=== PATIENT | male | born 1975 | race Caucasian/White ===

== ENCOUNTER 2017-06-23 22:02 | Emergency (ER) | payer BC ==
[2017-06-23] MEDS ORDERED: Ketorolac INJ* 30 MG/ML 1 ML VIAL IV PUSH ONE (22:43)
[2017-06-23] MEDS ORDERED: Ondansetron INJ* 2 MG/ML VIAL IV ONE (22:43)
[2017-06-23] MEDS ORDERED: NS 0.9% 1000 ML* 2,000 ML IV ONE (22:43)
[2017-06-23 22:59] LABS: ABS Basophils 0.1 10^3/ul (0-0.2); ABS Eosinophils 0.3 10^3/ul (0-0.6); ABS Lymphocytes 4.6 10^3/ul (1.0-4.8); ABS Neutrophils 2.9 10^3/ul (1.5-7.7); ABS Nucleated RBC 0 10^3/ul; Eosinophil % 2.9 % (0-6); Hematocrit 46 % (42-52); Hemoglobin 16.2 g/dl (14.0-18.0); Mean Corpuscular HGB Conc 35 g/dl (31-36); Mean Corpuscular Hemoglobin 33 pg (27-31); Mean Corpuscular Volume 94 fL (80-94); Nucleated Red Blood Cells % 0.1; Platelet Count 242 10^3/ul (150-450); Red Blood Count 4.92 10^6/ul (4.0-5.4); Red Cell Distribution Width 14 % (10.5-15); White Blood Count 8.8 10^3/ul (3.5-10.8)
[2017-06-23 23:15] LABS: EGFR Non-African American 81.4 (>60)
[2017-06-23] MEDS ORDERED: Iohexol 300* (CONTRAST) 10 ML SDV IV ONE (23:17)
[2017-06-24 02:45] VITALS: BP 0/0
--- NOTE | 2017-06-24 08:34 | RAD ---
Indication: Diffuse abdominal pain. Contrast: Administered 100.1 ml of OMNIPAQUE 300 mg/ml CT of the abdomen and pelvis was performed after IV contrast administration. No oral contrast was given. Coronal and sagittal reconstructed images were obtained. The lung bases demonstrate no pleural fluid, nodules or masses. Heart is of normal size without evidence of pericardial effusion. The liver is normal in size. No focal lesions or intrahepatic ductal dilatation is noted. The spleen is normal in size. No adrenal lesions are noted. No retroperitoneal lymphadenopathy is noted. The kidneys demonstrate small cortical cyst in the left kidney measuring up to 8 mm. Calcification is noted in the upper pole right kidney with no hydronephrosis. No retroperitoneal lymphadenopathy is noted. CT of the pelvis demonstrates no retroperitoneal or pelvic lymphadenopathy. Urinary bladder is unremarkable. No hernias are noted. No hernias are noted. The colon is filled with stool. The prostate is otherwise unremarkable. Small lymph nodes are noted in the region IMPRESSION: No abnormal masses or fluid collections are noted.
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
== END 2017-06-24 02:44 | disposition left against medical advice (07) ==
LOC: ED 22:02
DX: R10.84 Generalized abdominal pain (principal); R11.2 Nausea with vomiting, unspecified; R19.7 Diarrhea, unspecified; M79.1 Myalgia; R05 Cough; I10 Essential (primary) hypertension; K21.9 Gastro-esophageal reflux disease without esophagitis; Z87.442 Personal history of urinary calculi; F32.9 Major depressive disorder, single episode, unspecified; Z91.5 Personal history of self-harm; Z88.1 Allergy status to other antibiotic agents; Z88.8 Allergy status to other drugs, medicaments and biological substances; F17.210 Nicotine dependence, cigarettes, uncomplicated
CPT/HCPCS: 36415; 74177; 80053; 83605; 83690; 84484; 85025; 86140; 87040; 93005; 96374; 96375; 99283; J1885; J2405; Q9967

== ENCOUNTER 2018-03-22 21:39 | Emergency (ER) | payer BC ==
[2018-03-22 21:51] VITALS: BP 153/101
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
[2018-03-22 23:09] LABS: ABS Basophils 0.1 10^3/ul (0-0.2); ABS Eosinophils 0.2 10^3/ul (0-0.6); ABS Lymphocytes 2.6 10^3/ul (1.0-4.8); ABS Monocytes 0.6 10^3/ul (0-0.8); ABS Neutrophils 5.9 10^3/ul (1.5-7.7); ABS Nucleated RBC 0 10^3/ul; Eosinophil % 2.4 %; Hematocrit 48 % (42-52); Hemoglobin 16.6 g/dl (14.0-18.0); Lymphocyte % 27.3 %; Mean Corpuscular HGB Conc 34 g/dl (31-36); Mean Corpuscular Hemoglobin 33 pg (27-31); Mean Corpuscular Volume 97 fL (80-94); Mean Platelet Volume 9.1 fL (7.4-10.4); Nucleated Red Blood Cells % 0.1; Platelet Count 300 10^3/ul (150-450); Red Blood Count 4.99 10^6/ul (4.00-5.40); Red Cell Distribution Width 14 % (10.5-15); White Blood Count 9.4 10^3/ul (3.5-10.8)
[2018-03-22 23:25] LABS: ALT 70 U/L (7-52); AST 55 U/L (13-39); Albumin 5.2 g/dL (3.2-5.2); Albumin/Globulin Ratio 1.4 (1-3); Alkaline Phosphatase 83 U/L (34-104); Anion Gap 13 mmol/L (2-11); BUN/Creatinine Ratio 12.1 (8-20); Blood Urea Nitrogen 11 mg/dL (6-24); CO2 Carbon Dioxide 22 mmol/L (22-32); Calcium 10.2 mg/dL (8.6-10.3); Chloride 105 mmol/L (101-111); EGFR Non-African American 91.8 (>60); Globulin 3.6 g/dL (2-4); Glucose 94 mg/dL (70-100); Potassium 3.8 mmol/L (3.5-5.0); Sodium 140 mmol/L (135-145); Total Protein 8.8 g/dL (6.4-8.9)
[2018-03-22 23:47] LABS: Acetaminophen < 15 mcg/mL; Alcohol 158 mg/dL (<10); Lithium 0.24 mmol/L (0.6-1.2); Salicylate < 2.50 mg/dL (<30)
[2018-03-23 00:03] LABS: TSH (Thyroid Stimulating Horm) 1.55 mcIU/mL (0.34-5.60)
== END 2018-03-22 23:47 | disposition left against medical advice (07) ==
LOC: ED 21:39
DX: F31.9 Bipolar disorder, unspecified (principal); F17.210 Nicotine dependence, cigarettes, uncomplicated; R41.82 Altered mental status, unspecified
CPT/HCPCS: 36415; 80053; 80178; 80320; 80329; 84443; 85025; 99282; G0480

== ENCOUNTER 2018-05-31 10:46 | Inpatient (IN) | payer BC ==
[2018-05-31] MEDS ORDERED: Morphine 10 MG/ML VIAL (1 ml) IV ONE (11:28)
[2018-05-31] MEDS ORDERED: Ondansetron INJ* 2 MG/ML VIAL IV ONE (11:28)
[2018-05-31] MEDS ORDERED: NS 0.9% 1000 ML** 1,000 ML IV ONE (11:28)
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
[2018-05-31 11:50] LABS: ABS Basophils 0 10^3/ul (0-0.2); ABS Eosinophils 0.1 10^3/ul (0-0.6); ABS Lymphocytes 1.6 10^3/ul (1.0-4.8); ABS Monocytes 0.5 10^3/ul (0-0.8); ABS Neutrophils 3.9 10^3/ul (1.5-7.7); ABS Nucleated RBC 0 10^3/ul; Eosinophil % 1.8 %; Hematocrit 51 % (36-46); Hemoglobin 17.2 g/dL (14.0-18.0); Lymphocyte % 26.4 %; Mean Corpuscular HGB Conc 34 g/dL (31-36); Mean Corpuscular Hemoglobin 33 pg (27-31); Mean Corpuscular Volume 98 fL (80-94); Mean Platelet Volume 9.8 fL (7.4-10.4); Nucleated Red Blood Cells % 0.1; Platelet Count 244 10^3/uL (150-450); Red Blood Count 5.23 10^6 /uL (4.18-5.48); Red Cell Distribution Width 15 % (10.5-15); White Blood Count 6.1 10^3/uL (3.5-10.8)
[2018-05-31 11:59] LABS: Activated Partial Thrombo Time 40.3 seconds (26.0-36.3); INR 1.25 (0.77-1.02)
[2018-05-31 12:19] LABS: Albumin 3.9 g/dL (3.2-5.2); Albumin/Globulin Ratio 1.3 (1-3); Alkaline Phosphatase 185 U/L (34-104); BUN/Creatinine Ratio 14.9 (8-20); Blood Urea Nitrogen 13 mg/dL (6-24); C Reactive Protein < 1.00 mg/L (<8.01); CO2 Carbon Dioxide 21 mmol/L (22-32); Calcium 8.6 mg/dL (8.6-10.3); Chloride 100 mmol/L (101-111); EGFR African American 116.4 (>60); EGFR Non-African American 96.2 (>60); Globulin 3.1 g/dL (2-4); Glucose 231 mg/dL (70-100); Sodium 134 mmol/L (135-145)
[2018-05-31 12:20] LABS: Troponin I 0.01 ng/mL (<0.04)
[2018-05-31 12:29] LABS: Anion Gap 13 mmol/L (2-11); Potassium 3.7 mmol/L (3.5-5.0)
[2018-05-31 12:44] LABS: ALT 1287 U/L (7-52)
[2018-05-31 13:01] LABS: AST 2630 U/L (13-39)
[2018-05-31] MEDS ORDERED: Iohexol 300* (CONTRAST) 10 ML SDV IV ONE (14:16)
[2018-05-31] MEDS ORDERED: Morphine 4 MG/ML VIAL (1 ml) 4 MG/ML VIAL IV STA (14:48)
[2018-05-31] MEDS ORDERED: Morphine 4 MG/ML VIAL (1 ml) 4 MG/ML VIAL ONE (14:49)
[2018-05-31 14:52] LABS: Urine Appearance Cloudy; Urine Bacteria Absent (Absent); Urine Bilirubin 1+ (Negative); Urine Blood Negative (Negative); Urine Color Amber; Urine Glucose 1+(50 mg/dL) (Negative); Urine Ketones Trace (Negative); Urine Nitrite Negative (Negative); Urine Protein 1+(30 mg/dL) (Negative); Urine Red Blood Cell 1+(3-5/hpf) (Absent); Urine Specific Gravity 1.029 (1.010-1.030); Urine Squamous Epithelial Cell Present (Absent); Urine Urobilinogen Positive (Negative); Urine White Blood Cell Trace(0-5/hpf) (Absent)
[2018-05-31] MEDS ORDERED: D5W IVPB ONE ×3 (15:50→22:00)
[2018-05-31] MEDS ORDERED: ACETYLCYSTEINE IVPB ONE ×3 (15:50→22:00)
[2018-05-31 16:12] LABS: Acetaminophen < 15 mcg/mL; Salicylate < 2.50 mg/dL (<30)
[2018-05-31 16:21] LABS: Alcohol 241 mg/dL (<10)
[2018-05-31] MEDS ORDERED: Magnesium Hydroxide LIQ* 30 ML UDC PO PRN (17:06)
[2018-05-31] MEDS ORDERED: Al Hydrox/Mg Hydrox/Simet LIQ* 30 ML UDC PO PRN (17:06)
[2018-05-31 17:16] LABS: Total Bilirubin 1.2 mg/dL (0.2-1.0)
[2018-05-31] MEDS ORDERED: Thiamine IV* 100 MG/ML 2 ML VIAL IM ONE (18:10)
[2018-05-31] MEDS ORDERED: Acetaminophen TAB* 325 MG PO PRN (18:10)
[2018-05-31 18:14] LABS: % Iron Saturation 85 % (15-55); Iron 233 ug/dL (50-212); Total Iron Binding Capacity 273 mcg/dL (250-450); Transferrin 195 mg/dL (203-362)
[2018-05-31] MEDS ORDERED: Albuterol HFA INHALER* 8 gm MDI INH PRN (18:20)
[2018-05-31] MEDS ORDERED: LORazepam INJ* 2 MG/ML 1 ML VIAL ONE (18:21)
[2018-05-31] MEDS: LORazepam INJ* 2 MG/ML 1 ML VIAL IV PUSH SCH ×2 (18:24→23:55)
[2018-05-31 18:34] LABS: Ferritin > 1500.0 ng/mL (24-336)
[2018-05-31] MEDS: Metoprolol Succinate XL TAB* 100 MG PO SCH (19:50)
[2018-05-31] MEDS: Folic Acid TAB* 1 MG PO SCH (19:50)
[2018-05-31] MEDS: Thiamine TAB* 100 MG TAB PO SCH (19:50)
[2018-05-31] MEDS: Morphine 4 MG/ML VIAL (1 ml) 4 MG/ML VIAL IV PRN ×2 (19:50→23:47)
[2018-05-31] MEDS: Multivitamins/Minerals TAB PO SCH (19:50)
--- NOTE | 2018-05-31 20:44 | HP ---
HISTORY AND PHYSICAL: DATE OF ADMISSION: 05/31/18 PRIMARY CARE PHYSICIAN: None. ATTENDING PHYSICIAN: Dr. Solares * (dictated by SUKHI Ramos). CHIEF COMPLAINT: Abdominal pain/nausea/vomiting x5 days. HISTORY OF PRESENT ILLNESS: Sudheer Gale is a 43-year-old white male with a past medical history of asthma, hypertension, GERD, and bipolar disorder who presents to the emergency department complaining of abdominal pain, nausea, vomiting x5 days. The patient began having abdominal pain 5 days ago and has felt nauseous. It started when he was at home. He has been vomiting at least 3 times a day for the last 5 days. There have been times where he has not been able to keep down his food. He has had bowel movements during this period of time including a dark, loose stool yesterday. When the patient has been vomiting, he has not noticed bright red blood, though he does endorse some coffee-ground emesis yesterday. When he moves, the abdominal pain is worse. He denies taking Tylenol, but does believe that he took 1 single cold and flu medicine pill that contained acetaminophen 3 to 4 days ago. He otherwise denies taking any pills off the street. The patient also feels he has felt "warm" for the last 3 days. He denies chills, headache, chest pain, shortness of breath, and hematochezia. The patient has not been taking any of his medicines for the past 5 days due to feeling unwell. Additionally, he is prescribed gabapentin for lower extremity pain and lithium for bipolar disorder and he has not taken either of those medicines in the last 3 weeks. This was not per suggestion of a medical professional. ED COURSE: Vital signs when the patient arrived to the emergency room were 97.4 degrees Fahrenheit; pulse 120, which later was 97; respiratory rate 20, which was later 16; oxygen 98% on room air; blood pressure 137/107, which was later recorded as 134/98. The patient was in the emergency department. He was given IV morphine, Zofran, and a liter of normal saline. CT abdomen and pelvis demonstrated normal appendix and hepatomegaly with fatty infiltration of the liver. Significant labs include INR 1.25, APTT 40.3. AST 2630, ALT 1287, bilirubin 1.2, alk phos 195. Therefore, the hospitalists were asked to evaluate the patient for admission. PAST MEDICAL HISTORY: 1. Asthma. 2. Bipolar disorder. 3. Hypertension. 4. GERD. PAST SURGICAL HISTORY: Carpal tunnel release. HOME MEDICATIONS: 1. Metoprolol 100 mg p.o. daily. 2. Nexium 20 mg p.o. b.i.d. 3. Ventolin inhaler 1 to 2 puffs p.r.n. wheezing and shortness of breath. 4. Artesia 600 mg p.o. daily, (the patient has recently discontinued this medicine against medical advice). ALLERGIES: CEPHALEXIN and LISINOPRIL. FAMILY HISTORY: The patient does not know the medical history of his father. His mother is alive and living with alcoholic liver cirrhosis. SOCIAL HISTORY: The patient is and has 2 children. 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 He lives with his , Keila, who would be his surrogate medical decision maker. Her phone number is [phone]. The patient was drinking 1 L of vodka per day for several years. He recently stopped drinking this much alcohol about 3 to 4 weeks ago and has since been drinking about 1 beer per day. The patient reports that he has never had withdrawal seizures, though he has had withdrawal in the past. He has been smoking about 1 pack of cigarettes per day for 25 years. He recently quit and has been vaping. The patient smokes marijuana 1 time per week. The patient denies current use of any drugs. He does have a past history of opiate abuse x10 years for which he has been clean x 3 years. He does admit to history of IV drug use. REVIEW OF SYSTEMS: An 11-point review of systems has been completed and all pertinent positives and negatives are in the HPI. All other systems are negative. PHYSICAL EXAMINATION GENERAL: The patient is a white male, lying in hospital stretcher comfortably, appearing in no acute distress. HEENT: Head: Normocephalic and atraumatic. Eyes: PERRLA. Sclerae anicteric. ENT: Mucous membranes are moist. NECK: No JVD. Neck is supple. LUNGS: Minimal end expiratory wheezing on lateral lung bases. CARDIO: Regular rate and rhythm without murmurs, rubs, or gallops. ABDOMEN: Obese. Abdomen is soft and nondistended. There is tenderness to palpation in the left lower quadrant. Percussion is tympanitic throughout. Normoactive bowel sounds x4 quadrants. EXTREMITIES: There is no clubbing or edema. NEURO: The patient is alert and oriented x3. Cranial nerves II through XII are grossly intact. No focal deficits. Strength is 5/5. DIAGNOSTIC STUDIES AND LAB DATA: Abdomen/pelvis CT, impression: "1. Normal appendix. 2. Hepatomegaly with fatty infiltration of the liver. 3. Atherosclerosis." Abdomen ultrasound today, impression: "hepatomegaly with fatty infiltration of the liver." White blood cell 6.1, hemoglobin 17.2, hematocrit 51, platelets 244,000. Sodium 134, potassium 3.7, chloride 100, CO2 of 21, BUN 13, creatinine 0.87, glucose 231. Total bili 1.2, AST 2630, ALT 1287, alk phos 185. APTT 40.3. INR 1.25. Lipase 58. Salicylates less than 2.5, acetaminophen less than 15, serum alcohol 241. ASSESSMENT AND PLAN: Sudheer Gale is a 43-year-old while male with a past medical history of asthma, bipolar disorder, hypertension, and gastroesophageal reflux disease who presents to the emergency department with nausea, vomiting, abdominal pain x5 days. The patient will be admitted inpatient for: 1. Hepatitis. The patient has significant transaminitis with AST 2630, ALT 1287, and total bili 1.2. Given the AST to ALT ratio, alcoholic hepatitis is high on the differential. Given the patient's history of IV drug use, viral etiology is also on the differential. Idiopathic hepatitis is also a possibility. Dr. Morgan suggests [facility] protocol for Mucomyst, which was initiated in the ED. The patient is admitted to the ICU for the administration of Mucomyst. The patient has a Maddrey's Discriminant Function score of 16.38 and therefore, would not benefit from steroids at this time. Dr. Morgan will continue to follow, and appreciate his recommendations. Hepatitis B screen, hep C antibody, and hep A IgM have been ordered. Doppler of IVC/portal/hepatic veins has been ordered to rule out Budd Chiari and portal vein thrombosis. The patient has been placed n.p.o. after midnight for this test. [facility] has been initiated. The patient reports that he has not had alcohol in the last 5 days, though in the emergency department, his serum alcohol is over 200. The patient denies history of alcohol withdrawal seizures. We will continue to monitor APTT and INR and liver function to assure that the patient does not develop fulminant liver failure. 2. Abd pain/nausea/vomiting. Likely related to alcohol withdrawal and concurrent hepatitis. Will continue symptomatic control with morphine and zofran. Patient describes coffee ground-like emesis once yesterday. His hemoglobin is stable at time of admission. This may possibly be due to nelda- felicity tear from frequent vomiting. Will continue to monitor H&H. CT abdomen/ pelvis has ruled out bowel obstruction and appendicitis. Chronic Conditions: 3. Hypertension. The patient takes metoprolol for hypertension, will continue. The patient has been hypertensive in the emergency department, though this is possibly due to abdominal pain. Continue to monitor. 4. Gastroesophageal reflux disease. Continue Nexium. 5. Asthma. The patient does have some minimal wheezing on exam. His home p.r.n. Ventolin will be continued. 6. Bipolar disorder. Patient has recently discontinued his mood stabilizer, lithium, against medical advice. Consider psychiatric follow up on discharge. 7. FEN. The patient is to have a normal unrestricted diet. Electrolytes are within normal limits despite frequent vomiting. 8. Code status. The patient is full code. 9. DVT prophylaxis. The patient has a DVT risk score of 1. He is to ambulate 3 times a day and therefore chemical prophylaxis is not indicated. TIME SPENT: Approximately 50 minutes were spent on this admission, approximately half of the time was spent at bedside. This case has been reviewed by my attending, Dr. Truong Solares, who agrees with this plan of care. SUKHI RAMOS [id number]/[facility] #: [id number] [facility] HOSPITALAlexey
[2018-05-31] MEDS: Ondansetron INJ* 2 MG/ML VIAL IV PRN (21:08)
[2018-05-31] MEDS: Pantoprazole TAB * 40 MG TAB PO SCH (21:08)
[2018-05-31] MEDS: NS 0.9% 1000 ML** 1,000 ML IV SCH (21:13)
[2018-06-01] MEDS: hydrALAZINE IV* 20 MG/ML VIAL IV SLOW PU PRN ×2 (03:08→11:30)
[2018-06-01] MEDS: Morphine 4 MG/ML VIAL (1 ml) 4 MG/ML VIAL IV PRN ×5 (04:54→20:07)
[2018-06-01 05:21] LABS: ABS Basophils 0 10^3/ul (0-0.2); ABS Eosinophils 0.2 10^3/ul (0-0.6); ABS Lymphocytes 1.9 10^3/ul (1.0-4.8); ABS Monocytes 0.4 10^3/ul (0-0.8); ABS Neutrophils 2.4 10^3/ul (1.5-7.7); ABS Nucleated RBC 0 10^3/ul; Eosinophil % 4.2 %; Hematocrit 43 % (36-46); Hemoglobin 14.7 g/dL (14.0-18.0); Lymphocyte % 38.4 %; Mean Corpuscular HGB Conc 34 g/dL (31-36); Mean Corpuscular Hemoglobin 34 pg (27-31); Mean Corpuscular Volume 99 fL (80-94); Mean Platelet Volume 9.5 fL (7.4-10.4); Nucleated Red Blood Cells % 0.2; Platelet Count 186 10^3/uL (150-450); Red Blood Count 4.33 10^6 /uL (4.18-5.48); Red Cell Distribution Width 15 % (10.5-15)
[2018-06-01 05:33] LABS: Activated Partial Thrombo Time 46.7 seconds (26.0-36.3); INR 1.19 (0.77-1.02)
[2018-06-01 05:38] LABS: Albumin 3.2 g/dL (3.2-5.2); Albumin/Globulin Ratio 1.3 (1-3); BUN/Creatinine Ratio 13.8 (8-20); Calcium 8.2 mg/dL (8.6-10.3); EGFR African American 116.4 (>60); EGFR Non-African American 96.2 (>60); Globulin 2.5 g/dL (2-4); Potassium 3.5 mmol/L (3.5-5.0); Total Bilirubin 1.8 mg/dL (0.2-1.0); Total Protein 5.7 g/dL (6.4-8.9)
[2018-06-01] MEDS: NS 0.9% 1000 ML** 1,000 ML IV SCH ×2 (07:01→16:57)
[2018-06-01] MEDS: Ondansetron INJ* 2 MG/ML VIAL IV PRN ×2 (07:43→12:09)
[2018-06-01] MEDS: Pantoprazole TAB * 40 MG TAB PO SCH ×2 (10:06→22:18)
[2018-06-01] MEDS: Multivitamins/Minerals TAB PO SCH (10:30)
[2018-06-01] MEDS: Metoprolol Succinate XL TAB* 100 MG PO SCH (10:48)
[2018-06-01] MEDS: Folic Acid TAB* 1 MG PO SCH (10:49)
[2018-06-01] MEDS: Thiamine TAB* 100 MG TAB PO SCH (10:49)
[2018-06-01] MEDS ORDERED: Labetalol IV* 5 MG/ML 20 ML VIAL IV PUSH PRN (12:20)
[2018-06-01] MEDS: LORazepam INJ* 2 MG/ML 1 ML VIAL IV PUSH SCH ×3 (13:27→22:40)
--- NOTE | 2018-06-01 14:26 | PN ---
Subjective Date of Service: 06/01/18 Interval History: Sudheer has been refusing ativan per the [facility] protocol. He has been scoring 10 points but still refusing ativan. His is in agreement with his refusal. He has been nauseous and vomiting. He complains of some lower abdominal discomfort. Wants to try some clear liquids. Objective Active Medications: Acetaminophen (Tylenol Tab*) 650 mg PO Q4H PRN PRN Reason: PAIN Al Hydrox/Mg Hydrox/Simethicone (Maalox Plus*) 30 ml PO Q6H PRN PRN Reason: INDIGESTION Albuterol (Ventolin Hfa Inhaler*) 1 puff INH Q4H PRN PRN Reason: WHEEZING Folic Acid (Folvite Tab*) 1 mg PO DAILY [facility] Last Admin: 06/01/18 10:49 Dose: 1 mg Hydralazine HCl (Apresoline Iv*) 5 mg IV SLOW PU Q6H PRN PRN Reason: SBP>180 Last Admin: 06/01/18 11:30 Dose: 5 mg Sodium Chloride (Ns 0.9% 1000 Ml) 1,000 mls @ 100 mls/hr IV PER RATE [facility] Last Admin: 06/01/18 07:01 Dose: 100 mls/hr Labetalol HCl (Trandate Iv*) 10 mg IV PUSH Q6H PRN PRN Reason: BLOOD PRESSURE Lorazepam (Ativan Inj*) 0 - 3 mg IV PUSH .PER [facility] PROTOCOL [facility]; Protocol Last Admin: 06/01/18 13:27 Dose: 2 mg Magnesium Hydroxide (Milk Of Magnesia Liq*) 30 ml PO Q4H PRN PRN Reason: CONSTIPATION Metoprolol Succinate (Toprol Xl Tab*) 100 mg PO DAILY [facility] Last Admin: 06/01/18 10:48 Dose: 100 mg Morphine Sulfate (Morphine 4 Mg/Ml Vial (1 Ml)) 2 mg IV Q4H PRN PRN Reason: PAIN - MILD Last Admin: 06/01/18 12:09 Dose: 2 mg Multivitamins/Minerals (Theragran/Minerals Tab*) 1 tab PO DAILY [facility] Last Admin: 06/01/18 10:30 Dose: Not Given Ondansetron HCl (Zofran Inj*) 4 mg IV Q4H PRN PRN Reason: NAUSEA/VOMITING Last Admin: 06/01/18 12:09 Dose: 4 mg Pantoprazole Sodium (Protonix Tab*) 40 mg PO BID [facility]; Protocol Last Admin: 06/01/18 10:06 Dose: 40 mg Thiamine HCl (Vitamin B-1 Tab*) 100 mg PO DAILY [facility] Last Admin: 06/01/18 10:49 Dose: 100 mg Vital Signs - 8 hr 06/01/18 06/01/18 06/01/18 07:01 07:31 07:43 Temperature Pulse Rate 81 Respiratory 18 17 19 Rate Blood Pressure 175/123 (mmHg) O2 Sat by Pulse 99 Oximetry 06/01/18 06/01/18 06/01/18 08:01 08:05 08:16 Temperature Pulse Rate 69 72 Respiratory 21 20 17 Rate Blood Pressure (mmHg) O2 Sat by Pulse 95 96 Oximetry 06/01/18 06/01/18 06/01/18 08:31 09:00 09:01 Temperature Pulse Rate 76 75 77 Respiratory 16 17 Rate Blood Pressure 193/100 184/112 (mmHg) O2 Sat by Pulse 98 96 92 Oximetry 06/01/18 06/01/18 06/01/18 10:05 10:37 10:55 Temperature Pulse Rate 77 76 Respiratory 16 27 16 Rate Blood Pressure 186/112 187/108 (mmHg) O2 Sat by Pulse 99 97 Oximetry 06/01/18 06/01/18 06/01/18 11:01 11:05 11:17 Temperature Pulse Rate 76 78 Respiratory 17 16 Rate Blood Pressure 170/125 170/120 (mmHg) O2 Sat by Pulse 97 Oximetry 06/01/18 06/01/18 06/01/18 11:22 11:31 11:44 Temperature 97 F Pulse Rate 75 75 78 Respiratory 20 17 16 Rate Blood Pressure 197/122 204/117 204/117 (mmHg) O2 Sat by Pulse 97 96 96 Oximetry 06/01/18 06/01/18 06/01/18 11:46 12:00 12:01 Temperature 98.3 F Pulse Rate 73 75 Respiratory 16 21 21 Rate Blood Pressure 198/109 (mmHg) O2 Sat by Pulse 95 97 Oximetry 06/01/18 06/01/18 06/01/18 12:02 12:09 12:51 Temperature Pulse Rate 75 74 Respiratory 19 16 17 Rate Blood Pressure 200/111 180/105 (mmHg) O2 Sat by Pulse 96 95 Oximetry 06/01/18 06/01/18 06/01/18 13:00 13:01 13:27 Temperature Pulse Rate 78 77 Respiratory 13 20 21 Rate Blood Pressure 187/104 (mmHg) O2 Sat by Pulse 91 96 Oximetry Oxygen Devices in Use Now: None Appearance: alert, uncomfortable Eyes: No Scleral Icterus Ears/Nose/Mouth/Throat: NL Teeth, Lips, Gums, - - + tongue tremors Neck: NL Appearance and Movements; NL JVP Respiratory: Symmetrical Chest Expansion and Respiratory Effort, Clear to Auscultation Cardiovascular: - - tachycardic, no murmurs Abdominal: NL Sounds; No Tenderness; No Distention, - - liver palpable 2cm below costal margin. diffusely tender to palpation, no guarding or rebound Skin: No Rash or Ulcers Neurological: Alert and Oriented x 3, - - tremulous Result Diagrams: 06/01/18 05:00 06/01/18 05:00 Microbiology and Other Data: Microbiology 05/31/18 14:26 Urine Culture - Final Urine 05/31/18 20:19 Nasal Screen MRSA (PCR) - Final Nasal Mrsa Not Detected Assess/Plan/Problems-Billing Assessment: 43 year old man with history of alcohol abuse, who claims he has not drank in 5 days, who presented to the ED on 05/31 with nausea, vomiting, abd pain x 5 days and was found to have transaminases >2000 - Patient Problems (1) Acute liver failure Current Visit: Yes Status: Acute Comment: AST/ALT are trending down with mucomyst acute hep panel pending, as are anti-sm antibodies, ceruloplasmin INR improving ?etoh hepatitis but differential remains broad CT ruled out thrombosis (2) Bipolar 1 disorder Current Visit: Yes Status: Acute Code(s): F31.9 - BIPOLAR DISORDER, UNSPECIFIED SNOMED Code(s): 504970340 Comment: he stopped taking his lithium 3 weeks ago (3) HTN (hypertension) Current Visit: No Status: Acute Code(s): I10 - ESSENTIAL (PRIMARY) HYPERTENSION SNOMED Code(s): 25152591 Comment: poorly controlled and I am concerned that there is a component of etoh withdrawal but he is refusing ativan add labetalol (vomited his metoprolol this am) (4) Alcohol use Current Visit: Yes Status: Acute Code(s): Z78.9 - OTHER SPECIFIED HEALTH STATUS SNOMED Code(s): 319584 Comment: denies, but ethanol level was >200 in the ED yesterday continue WAM
[2018-06-01 16:56] LABS: Hepatitis B Surface Antigen Nonreactive (Nonreactive)
[2018-06-01 17:22] LABS: Hepatitis C Antibody Nonreactive (Nonreactive)
--- NOTE | 2018-06-01 17:53 | CONS ---
CONSULTATION REPORT: DATE OF CONSULT: 06/01/18 REQUESTING PHYSICIAN: Dr. Mcnally. INDICATION: Increased LFTs. NARRATIVE: Mr. Gale is a 43-year-old gentleman who has a history of bipolar disease, GERD, hypertension and asthma, who came to the emergency room last night with complaints of abdominal pain. He states that he has had this type of pain before, but has never been this bad. The pain has been present for the past 5 to 7 days. He did have some nausea, some vomiting. He denies any blood in his stool. He denies any hematemesis. He denies any heartburn history. No dysphagia. He denies any black and tarry stools. The patient presented to the emergency room and was found to have increased liver function test. He has consumed an excessive amount of alcohol for a prolonged period of time. He tells me that he had been drinking 1 L of vodka every day for the past 2 to 3 years; however, he stopped this 7 days ago when he started feeling ill. He states that he does have a family history of liver disease, his mom also had liver disease due to alcoholism. He denies any other liver disease in the family. He denies being told that he has ever had liver disease. He denies any acetaminophen other than 1 Tylenol cold and flu tablet a few days ago. He denies any illegal substances or IV drug use; however, he does admit to smoking marijuana. He denies any confusion. He has not been taking any of his medicines for the past few days. No rashes. He denies any dark urine. PAST MEDICAL HISTORY: Please see the HPI. PAST SURGICAL HISTORY: Includes carpal tunnel release. MEDICATIONS: Medications upon admission include: 1. [place]. 2. AsthmaHaler. 3. Nexium. 4. Metoprolol. ALLERGIES: LISINOPRIL and CEPHALEXIN. FAMILY HISTORY: Other than alcoholic liver disease none. SOCIAL HISTORY: Please see the HPI for his alcohol use. He continues to smoke tobacco. Even though the patient originally told me that he does not use IV drugs, he did admit to his admitting doctor that he has used IV drugs in the past. REVIEW OF SYSTEMS: Twelve systems were reviewed, other than that, mentioned in the HPI. PHYSICAL EXAMINATION: Temperature is 98.3, blood pressure is 193/121, O2 sat is 97%, respiratory rate of 18, heart rate of 82. General: Chronically ill- appearing male, disheveled, lying flat in bed. Alert, oriented, pleasant, and fluent. Neuro: No asterixis. HEENT: Mucous membranes are dry. Dentition is poor. Neck is supple. Trachea is midline. No scleral icterus. Heart: Regular rate and rhythm, No MMR. Lungs: Clear to auscultation. Abdomen is obese. Positive bowel sounds. Softly distended, but diffusely tender. No rebound, no guarding. Skin is warm and dry with no jaundice, no spider angiomata. Lymph:no supraclav or cervical LAD. Psych: normal affect, good insight. DIAGNOSTIC STUDIES/LAB DATA: Radiology data: He has a CT abdomen and pelvis, which shows a normal appendix, hepatomegaly with fatty infiltration of the liver and atherosclerosis. He also has an abdominal ultrasound, which showed hepatomegaly and fatty infiltration of the liver with normal hepatopetal flow of the portal vein on Doppler imaging. Labs of note: White count is 5.0, hemoglobin is 14.7, MCV is 99, platelet count of 186. INR went from 1.25 to 1.19. Chemistries show a sodium of 132, BUN is 12, creatinine is 0.87. Iron level is 233, percent saturation is 85, transferrin is 195, ferritin is greater than 1500. His bilirubin went from 1.2 to 1.8. AST went from 2630 down to 1705. ALT went from 1287 down to 1029. Alk phos went from 185 down to 146. His troponins have been negative. C- reactive protein is less than 1, albumin is 3.2, lipase is 58. Salicylate level is normal. Acetaminophen level is normal. Serum alcohol of 241. He has a mono screen that is negative and a Maddrey's discriminant function of 16.38. ASSESSMENT AND PLAN: This is a 43-year-old gentleman admitted with abdominal pain, who was found to have elevated liver function tests. Both of his transaminases are fairly elevated greater than 10 times normal, AST is greater than ALT. Possibilities of all this would be acute alcoholic hepatitis; however , his Maddrey's discriminant function is less than 32, thus he would not benefit from steroids. This still could be acute on chronic liver disease. Definitely, viral hepatitis could do this; he does have A, B and C pending. Given his underlying psychiatric disease, we need to consider Tonio's. He is not anemic; however, I will check a ceruloplasmin. Additionally, we need to rule out autoimmune, hepatitis and primary biliary cirrhosis. I will check an GERRI and AMA. His ultrasound is negative for any evidence of Budd-Chiari. He clinically does not appear to have any encephalopathy. His INR is improving. His liver function tests are improving. At this point, I would recommend controlling his abdominal pain, hydration. I will continue to follow along, waiting for the rest of the labs to return and we will follow along closely. Time greater than 75 minutes. [id number]/[facility] #: [id number] TYSON
[2018-06-01] MEDS ORDERED: LORazepam INJ* 2 MG/ML 1 ML VIAL IV PUSH ONE ×2 (17:58→22:09)
[2018-06-01] MEDS ORDERED: Nicotine GUM* 2 MG PO PRN (18:27)
[2018-06-01] MEDS ORDERED: Nicotine Inhaler* 10 MG AMP INH PRN (18:27)
[2018-06-01] MEDS ORDERED: Nicotine Lozenge* 4 MG LOZENGE MT PRN (18:27)
[2018-06-01] MEDS ORDERED: Mouth Piece, Nicotine* 1 EACH CARTRIDGE INH ONE (19:00)
[2018-06-01] MEDS ORDERED: Dexmedetomidine* 400 MCG in NS 0.9% 100 ML* 96 ML IVPB SCH (23:30)
--- NOTE | 2018-06-02 00:34 | PN ---
Hospitalist Progress Note Date of Service: 06/02/18 HOSPITALIST ADDENDUM Patient actively withdrawing from alcohol, wants to leave AMA, but does not have capacity at this time. Received Ativan IV but agitation continued. Security called to bedside. Will start Precedex drip.
[2018-06-02] MEDS: Dexmedetomidine* 400 MCG in NS 0.9% 100 ML* 96 ML IVPB SCH ×2 (03:42→07:46)
[2018-06-02] MEDS: LORazepam INJ* 2 MG/ML 1 ML VIAL IV PUSH SCH ×2 (04:01→08:28)
[2018-06-02 05:53] LABS: ABS Basophils 0 10^3/ul (0-0.2); ABS Eosinophils 0 10^3/ul (0-0.6); ABS Lymphocytes 0.9 10^3/ul (1.0-4.8); ABS Monocytes 0.8 10^3/ul (0-0.8); ABS Neutrophils 12.5 10^3/ul (1.5-7.7); ABS Nucleated RBC 0 10^3/ul; Eosinophil % 0 %; Hematocrit 47 % (36-46); Hemoglobin 16.1 g/dL (14.0-18.0); Lymphocyte % 6.1 %; Mean Corpuscular HGB Conc 34 g/dL (31-36); Mean Corpuscular Hemoglobin 34 pg (27-31); Mean Corpuscular Volume 99 fL (80-94); Mean Platelet Volume 10.2 fL (7.4-10.4); Nucleated Red Blood Cells % 0.1; Platelet Count 139 10^3/uL (150-450); Red Blood Count 4.75 10^6 /uL (4.18-5.48); Red Cell Distribution Width 15 % (10.5-15); White Blood Count 14.2 10^3/uL (3.5-10.8)
[2018-06-02 05:59] LABS: INR 0.96 (0.77-1.02)
[2018-06-02 06:12] LABS: Albumin 3.2 g/dL (3.2-5.2); Albumin/Globulin Ratio 1.1 (1-3); BUN/Creatinine Ratio 9.3 (8-20); EGFR African American 67.2 (>60); EGFR Non-African American 55.6 (>60); Globulin 2.8 g/dL (2-4); Magnesium 1.3 mg/dL (1.9-2.7); Total Bilirubin 4.7 mg/dL (0.2-1.0)
[2018-06-02] MEDS ORDERED: Dexmedetomidine* 400 MCG in NS 0.9% 100 ML* 96 ML IVPB SCH (08:49)
[2018-06-02] MEDS ORDERED: NS 0.9% 1000 ML** 1,000 ML IV ONE (08:49)
[2018-06-02] MEDS ORDERED: LORazepam INJ* 2 MG/ML 1 ML VIAL ONE (09:36)
--- NOTE | 2018-06-02 10:57 | PN ---
Hospitalist Progress Note Date of Service: 06/02/18 Late Entry: Called by ICU nurse d/t altered mentation, hypotension. Noted that pt had received multiple doses of precedex, which could account for hypotension and AMS , and was in acute liver failure, which could lead to elevated ammonia and AMS. Ordered: -1L IVF bolus -Ammonia level -Consult to Dr. Pollock Arrived at pt bedside, and Dr. Pollock was assessing patient. Pt transferred to ICU services under care of Dr. Pollock.
[2018-06-02] MEDS: Metoprolol Succinate XL TAB* 100 MG PO SCH (11:41)
[2018-06-02] MEDS: Multivitamins/Minerals TAB PO SCH (11:42)
[2018-06-02] MEDS: Folic Acid TAB* 1 MG PO SCH (11:42)
[2018-06-02] MEDS: Thiamine TAB* 100 MG TAB PO SCH (11:42)
[2018-06-02] MEDS: Pantoprazole TAB * 40 MG TAB PO SCH ×2 (11:42→20:28)
[2018-06-02] MEDS: NS 0.9% 1000 ML** 1,000 ML IV SCH ×2 (11:45→22:36)
[2018-06-02] MEDS: LORazepam INJ* 2 MG/ML 1 ML VIAL IV PUSH PRN (13:18)
[2018-06-02] MEDS ORDERED: Ketorolac INJ* 60 MG/2 ML VIAL IV PUSH ONE (13:55)
--- NOTE | 2018-06-02 14:20 | PN ---
Date of Service: 06/02/18 Critical Care Services: Patient admitted with possible ETOH hepatitis, and has become confused over he past 24 hrs - Plasma ETOH level was 240 on admission (05/31) Vital Signs: Temp Pulse Resp BP SpO2 FiO2 97.7 F 91 35 91/54 95 Physical Exam: Gen:Intermittently confused but not agitated. HEENT:No jaundice Lungs:Clear Abdomen:Distended. No bowel sounds Extremities:No asterixis. No diaphoresis. Fluid Balance (Past 24 Hours): 06/01/18 06/02/18 06:59 06:59 Intake Total 1789 2020 Output Total 1450 645 Balance 339 1375 Weight 209 lb 14.081 oz 207 lb 3.752 oz Intake: IV Fluids 1339 1131 NS (0.9%) 817 1131 Medicated IV 623 acetylcystine 623 Oral 450 266 Output: Urine 1450 600 [place] 45 Other: Date of Last Bowel t Movement # Bowel Movements 2 Estimated Stool Amount Large # Voids 2 Labs: Laboratory Results - last 24 hr 05/31/18 06/02/18 06/02/18 17:25 05:45 05:45 WBC 14.2 H RBC 4.75 Hgb 16.1 Hct 47 H MCV 99 H MCH 34 H MCHC 34 RDW 15 Plt Count 139 L MPV 10.2 Neut % (Auto) 88.1 Lymph % (Auto) 6.1 [place] % (Auto) 5.6 Eos % (Auto) 0 Baso % (Auto) 0.2 Absolute Neuts (auto) 12.5 H Absolute Lymphs (auto) 0.9 L Absolute Monos (auto) 0.8 Absolute Eos (auto) 0 Absolute Basos (auto) 0 Absolute Nucleated RBC 0 Nucleated RBC % 0.1 INR (Anticoag Therapy) Sodium 131 L Potassium 4.0 Chloride 102 Carbon Dioxide 18 L Anion Gap 11 BUN 13 Creatinine 1.40 H Est GFR ( Amer) 67.2 Est GFR (Non-Af Amer) 55.6 BUN/Creatinine Ratio 9.3 Glucose 141 H Calcium 8.0 L Magnesium 1.3 L Total Bilirubin 4.70 H D AST 796 H ALT 657 H Alkaline Phosphatase 142 H Ammonia Total Protein 6.0 L Albumin 3.2 Globulin 2.8 Albumin/Globulin Ratio 1.1 Hepatitis A IgM Ab Nonreactive Hep Bs Antigen Nonreactive Hep B Core IgM Ab Nonreactive Hepatitis C Antibody Nonreactive Hepatitis C Ab Index < 0.0 NOTE: Ammonia in a hemolysed specimen was 75 Studies: None today Nutrition: Reg diet Impression: Source of confusion is ETOH withdrawal vs hepatic encephalopathy. Lack of signs of sympathetic hyperactivity (e.g., tachycardia) is against the Dx of ETOH withdrawal, but normal INR is against the Dx of liver failure. Plan: Will treat for ETOH withdrawal with lorazepam, and will also use lactulose to lower the serum ammonia level. Critical Care Time: 45 minutes
[2018-06-02 15:57] LABS: Cytomegalovirus IgG Antibody Negative (Negative)
[2018-06-02] MEDS ORDERED: Ketorolac INJ* 30 MG/ML 1 ML VIAL IV PUSH PRN (16:34)
[2018-06-02] MEDS: Ondansetron INJ* 2 MG/ML VIAL IV PRN (18:23)
[2018-06-02] MEDS: Morphine 4 MG/ML VIAL (1 ml) 4 MG/ML VIAL IV PRN ×2 (20:53→23:09)
[2018-06-03] MEDS: Morphine 4 MG/ML VIAL (1 ml) 4 MG/ML VIAL IV PRN ×7 (01:44→23:32)
[2018-06-03] MEDS: LORazepam INJ* 2 MG/ML 1 ML VIAL IV PUSH SCH ×4 (03:35→23:13)
[2018-06-03] MEDS: Ondansetron INJ* 2 MG/ML VIAL IV PRN ×3 (04:52→20:57)
[2018-06-03 05:18] LABS: Hematocrit 45 % (36-46); Hemoglobin 15.2 g/dL (14.0-18.0); Mean Corpuscular HGB Conc 34 g/dL (31-36); Mean Corpuscular Hemoglobin 34 pg (27-31); Mean Corpuscular Volume 101 fL (80-94); Mean Platelet Volume 10.6 fL (7.4-10.4); Platelet Count 100 10^3/uL (150-450); Red Blood Count 4.48 10^6 /uL (4.18-5.48); Red Cell Distribution Width 15 % (10.5-15); White Blood Count 12.2 10^3/uL (3.5-10.8)
[2018-06-03 05:24] LABS: INR 0.9 (0.77-1.02)
[2018-06-03 05:35] LABS: ALT 380 U/L (7-52); Albumin 3.1 g/dL (3.2-5.2); Alkaline Phosphatase 135 U/L (34-104); BUN/Creatinine Ratio 8.5 (8-20); Blood Urea Nitrogen 32 mg/dL (6-24); Calcium 7.5 mg/dL (8.6-10.3); Chloride 102 mmol/L (101-111); EGFR African American 21.5 (>60); EGFR Non-African American 17.8 (>60); Glucose 143 mg/dL (70-100); Sodium 129 mmol/L (135-145); Total Protein 6.1 g/dL (6.4-8.9)
[2018-06-03 05:39] LABS: CO2 Carbon Dioxide 14 mmol/L (22-32)
[2018-06-03 07:13] LABS: Anion Gap 13 mmol/L (2-11)
[2018-06-03 08:06] LABS: ABS Basophils 0.1 10^3/ul (0-0.2); ABS Eosinophils 0.1 10^3/ul (0-0.6); ABS Lymphocytes 1.6 10^3/ul (1.0-4.8); ABS Monocytes 0.8 10^3/ul (0-0.8); ABS Neutrophils 9.7 10^3/ul (1.5-7.7); ABS Nucleated RBC 0 10^3/ul; Eosinophil % 0.5 %; Lymphocyte % 12.8 %; Nucleated Red Blood Cells % 0.1
[2018-06-03 08:22] LABS: Creatine Kinase 221 U/L (10-223); Phosphorus 4.1 mg/dL (2.5-5.0)
[2018-06-03] MEDS: Metoprolol Succinate XL TAB* 100 MG PO SCH (08:27)
[2018-06-03] MEDS: Pantoprazole TAB * 40 MG TAB PO SCH ×2 (08:28→21:05)
[2018-06-03] MEDS: Thiamine TAB* 100 MG TAB PO SCH (08:28)
[2018-06-03] MEDS: Folic Acid TAB* 1 MG PO SCH (08:28)
[2018-06-03] MEDS: NS 0.9% 1000 ML** 1,000 ML IV SCH ×2 (08:43→19:49)
[2018-06-03] MEDS ORDERED: Magnesium Sulfate 2 GM IV* 2 GM/50 ML BAG IVPB ONE (09:57)
[2018-06-03 10:35] LABS: INR 0.88 (0.77-1.02)
[2018-06-03 10:48] LABS: Calcium 7.4 mg/dL (8.6-10.3); Chloride 102 mmol/L (101-111); Magnesium 1.3 mg/dL (1.9-2.7); Sodium 130 mmol/L (135-145)
[2018-06-03 10:54] LABS: BUN/Creatinine Ratio 9.4 (8-20); Blood Urea Nitrogen 33 mg/dL (6-24); EGFR African American 23.3 (>60); EGFR Non-African American 19.2 (>60); Glucose 175 mg/dL (70-100)
[2018-06-03 11:08] LABS: Anion Gap 15 mmol/L (2-11); CO2 Carbon Dioxide 13 mmol/L (22-32)
[2018-06-03] MEDS: LORazepam INJ* 2 MG/ML 1 ML VIAL IV PUSH PRN (12:27)
[2018-06-03 14:15] LABS: Urine Appearance Cloudy; Urine Bacteria Absent (Absent); Urine Bilirubin Negative (Negative); Urine Blood 3+ (Negative); Urine Color Amber; Urine Glucose Negative (Negative); Urine Granular Casts Present (Absent); Urine Ketones Negative (Negative); Urine Nitrite Negative (Negative); Urine Protein 2+(100 mg/dL) (Negative); Urine Red Blood Cell 3+(>10/hpf) (Absent); Urine Red Blood Cell Casts Present (Absent); Urine Specific Gravity 1.019 (1.010-1.030); Urine Urobilinogen Positive (Negative); Urine White Blood Cell 2+(11-20/hpf) (Absent)
[2018-06-03 14:25] LABS: UR Microalbumin (mg/L) 88.2 mg/L; Urine Chloride Concentration < 22 mmol/L; Urine Creatinine 234.63 mg/dL; Urine Creatinine Concentration 234.63 mg/dL; Urine Microalbumin/Creatinine 37.5 (<31); Urine Potassium Concentration 103.6 mmol/L; Urine Sodium Concentration 18 mmol/L
[2018-06-03 14:34] LABS: Barbiturates Urine Screen None Detected (None Detect); Benzodiazepine Urine Screen None Detected (None Detect); Urine Cannabinoids Screen Presumptive Positive (None Detect)
[2018-06-03 14:41] LABS: Urine TP Concentration 263 mg/dL
[2018-06-03 16:34] LABS: Hematocrit 41 % (36-46); Hemoglobin 14.1 g/dL (14.0-18.0); Mean Corpuscular HGB Conc 35 g/dL (31-36); Mean Corpuscular Hemoglobin 34 pg (27-31); Mean Corpuscular Volume 99 fL (80-94); Mean Platelet Volume 10.7 fL (7.4-10.4); Platelet Count 104 10^3/uL (150-450); Red Blood Count 4.11 10^6 /uL (4.18-5.48); Red Cell Distribution Width 16 % (10.5-15)
[2018-06-03 17:46] LABS: ABS Basophils 0 10^3/ul (0-0.2); ABS Eosinophils 0 10^3/ul (0-0.6); ABS Lymphocytes 1.1 10^3/ul (1.0-4.8); ABS Monocytes 0.6 10^3/ul (0-0.8); ABS Neutrophils 6.3 10^3/ul (1.5-7.7); ABS Nucleated RBC 0 10^3/ul; Eosinophil % 0.5 %; Lymphocyte % 13.8 %; Nucleated Red Blood Cells % 0.1
[2018-06-03 18:36] LABS: Corrected Retic Count 0.8 % (0.5-1.5); Hematocrit for Retic CNT 42 % (36-46); Immature Retic Fraction 0.44; RBC Retic Count 4.16 10^6/uL (4.18-5.48)
--- NOTE | 2018-06-03 20:15 | PN ---
Date of Service: 06/03/18 Critical Care Services: Continues to be confused and has developed renal insufficiency (creat up from 1.4 to 3.6). Multiple blood sample have hemolysed in the lab, suggesting in vivo hemolysis. Consistent with this, LDH is elevated, and there are schistocytes on the peripheral smear. Also has RBC casts in urine. 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 Vital Signs: Temp Pulse Resp BP SpO2 FiO2 101.8 F 136 22 129/87 95 Physical Exam: Gen:Awake but oriented only intermittently HEENT: Mild scleral icterus Lungs: Clear Abdomen: Markedly distended Extremities:no cyanosis or edema. Neuro:No asterixis Fluid Balance (Past 24 Hours): 06/01/18 06/02/18 06/03/18 06:59 06:59 06:59 Intake Total 1789 2020 3269 Output Total 1450 645 257 Balance 339 1375 3012 Weight 209 lb 207 lb 214 lb Intake: IV Fluids 1339 1131 1962 NS (0.9%) 817 1131 1962 IVPB 627 NS (0.9%) 627 Medicated IV 623 GEN - Magnesium acetylcystine 623 Oral 450 266 680 Output: Urine 1450 600 250 Villed[place] 45 7 Other: Estimated Void Medium Date of Last Bowel t Movement # Bowel Movements 2 1 Estimated Stool Amount Large Small # Voids 2 1 Labs: Laboratory Results - last 24 hr 06/03/18 06/03/18 06/03/18 05:08 05:08 05:08 WBC 12.2 H RBC 4.48 RBC (Retic) Hgb 15.2 Hct 45 HCT (Retic) MCV 101 H MCH 34 H MCHC 34 RDW 15 Plt Count 100 L MPV 10.6 H Neut % (Auto) 79.5 Lymph % (Auto) 12.8 Ross % (Auto) 6.8 Eos % (Auto) 0.5 Baso % (Auto) 0.4 Absolute Neuts (auto) 9.7 H Absolute Lymphs (auto) 1.6 Absolute Monos (auto) 0.8 Absolute Eos (auto) 0.1 Absolute Basos (auto) 0.1 Absolute Nucleated RBC 0 Nucleated RBC % 0.1 Retic Count, Calc Corrected Retic Count Retic Shift Factor Retic Production Index Immature Retic Fraction Mean Retic Volume INR (Anticoag Therapy) Fibrinogen Sodium 129 L Potassium TNP Chloride 102 Carbon Dioxide 14 L* Anion Gap 13 H BUN 32 H Creatinine 3.76 H Est GFR ( Amer) 21.5 Est GFR (Non-Af Amer) 17.8 BUN/Creatinine Ratio 8.5 Glucose 143 H Lactic Acid Calcium 7.5 L Phosphorus 4.1 Magnesium Total Bilirubin 5.00 H AST TNP ALT 380 H Alkaline Phosphatase 135 H Ammonia TNP Lactate Dehydrogenase Total Creatine Kinase 221 Total Protein 6.1 L Albumin 3.1 L Globulin 3.0 Albumin/Globulin Ratio 1.0 Urine Color Urine Appearance Urine pH Ur Specific [place] Urine Protein Urine Ketones Urine Blood Urine Nitrate Urine Bilirubin Urine Urobilinogen Ur Leukocyte Esterase Urine WBC (Auto) Urine RBC (Auto) Amorphous Crystals Urine Bacteria Granular Casts RBC Casts Ur Random Microalbumin Ur Creatinine mg/dL Ur Creatinine Concen Microalb/Creat Ratio Ur Total Protein Conc U Sodium Concentration Urine Potassium Ur Chloride Concentrat Urine Glucose Urine Opiates Screen Ur Barbiturates Screen Ur Phencyclidine Scrn Ur Amphetamines Screen U Benzodiazepines Scrn Urine Cocaine Screen U Cannabinoids Screen Rheumatoid Factor Direct Antiglob Test 06/03/18 06/03/18 06/03/18 05:08 06:08 06:08 WBC RBC RBC (Retic) Hgb Hct HCT (Retic) MCV MCH MCHC RDW Plt Count MPV Neut % (Auto) Lymph % (Auto) Ross % (Auto) Eos % (Auto) Baso % (Auto) Absolute Neuts (auto) Absolute Lymphs (auto) Absolute Monos (auto) Absolute Eos (auto) Absolute Basos (auto) Absolute Nucleated RBC Nucleated RBC % Retic Count, Calc Corrected Retic Count Retic Shift Factor Retic Production Index Immature Retic Fraction Mean Retic Volume INR (Anticoag Therapy) 0.90 Fibrinogen Sodium Potassium TNP Chloride Carbon Dioxide Anion Gap BUN Creatinine Est GFR ( Amer) Est GFR (Non-Af Amer) BUN/Creatinine Ratio Glucose Lactic Acid Calcium Phosphorus Magnesium Total Bilirubin AST TNP ALT Alkaline Phosphatase Ammonia TNP Lactate Dehydrogenase Total Creatine Kinase Total Protein Albumin Globulin Albumin/Globulin Ratio Urine Color Urine Appearance Urine pH Ur Specific [place] Urine Protein Urine Ketones Urine Blood Urine Nitrate Urine Bilirubin Urine Urobilinogen Ur Leukocyte Esterase Urine WBC (Auto) Urine RBC (Auto) Amorphous Crystals Urine Bacteria Granular Casts RBC Casts Ur Random Microalbumin Ur Creatinine mg/dL Ur Creatinine Concen Microalb/Creat Ratio Ur Total Protein Conc U Sodium Concentration Urine Potassium Ur Chloride Concentrat Urine Glucose Urine Opiates Screen Ur Barbiturates Screen Ur Phencyclidine Scrn Ur Amphetamines Screen U Benzodiazepines Scrn Urine Cocaine Screen U Cannabinoids Screen Rheumatoid Factor Direct Antiglob Test 06/03/18 06/03/18 06/03/18 10:10 10:10 10:10 WBC RBC RBC (Retic) Hgb Hct HCT (Retic) MCV MCH MCHC RDW Plt Count MPV Neut % (Auto) Lymph % (Auto) Ross % (Auto) Eos % (Auto) Baso % (Auto) Absolute Neuts (auto) Absolute Lymphs (auto) Absolute Monos (auto) Absolute Eos (auto) Absolute Basos (auto) Absolute Nucleated RBC Nucleated RBC % Retic Count, Calc Corrected Retic Count Retic Shift Factor Retic Production Index Immature Retic Fraction Mean Retic Volume INR (Anticoag Therapy) 0.88 Fibrinogen Sodium 130 L Potassium TNP Chloride 102 Carbon Dioxide 13 L* Anion Gap 15 H BUN 33 H Creatinine 3.51 H Est GFR ( Amer) 23.3 Est GFR (Non-Af Amer) 19.2 BUN/Creatinine Ratio 9.4 Glucose 175 H Lactic Acid Calcium 7.4 L Phosphorus Magnesium 1.3 L Total Bilirubin AST TNP ALT Alkaline Phosphatase Ammonia TNP Lactate Dehydrogenase Total Creatine Kinase Total Protein Albumin Globulin Albumin/Globulin Ratio Urine Color Urine Appearance Urine pH Ur Specific [place] Urine Protein Urine Ketones Urine Blood Urine Nitrate Urine Bilirubin Urine Urobilinogen Ur Leukocyte Esterase Urine WBC (Auto) Urine RBC (Auto) Amorphous Crystals Urine Bacteria Granular Casts RBC Casts Ur Random Microalbumin Ur Creatinine mg/dL Ur Creatinine Concen Microalb/Creat Ratio Ur Total Protein Conc U Sodium Concentration Urine Potassium Ur Chloride Concentrat Urine Glucose Urine Opiates Screen Ur Barbiturates Screen Ur Phencyclidine Scrn Ur Amphetamines Screen U Benzodiazepines Scrn Urine Cocaine Screen U Cannabinoids Screen Rheumatoid Factor Direct Antiglob Test 06/03/18 06/03/18 06/03/18 10:10 10:40 10:54 WBC RBC RBC (Retic) Hgb Hct HCT (Retic) MCV MCH MCHC RDW Plt Count MPV Neut % (Auto) Lymph % (Auto) Ross % (Auto) Eos % (Auto) Baso % (Auto) Absolute Neuts (auto) Absolute Lymphs (auto) Absolute Monos (auto) Absolute Eos (auto) Absolute Basos (auto) Absolute Nucleated RBC Nucleated RBC % Retic Count, Calc Corrected Retic Count Retic Shift Factor Retic Production Index Immature Retic Fraction Mean Retic Volume INR (Anticoag Therapy) Fibrinogen 622.6 H Sodium Potassium Chloride Carbon Dioxide Anion Gap BUN Creatinine Est GFR ( Amer) Est GFR (Non-Af Amer) BUN/Creatinine Ratio Glucose Lactic Acid 2.5 H* Calcium Phosphorus Magnesium Total Bilirubin AST ALT Alkaline Phosphatase Ammonia Lactate Dehydrogenase Total Creatine Kinase Total Protein Albumin Globulin Albumin/Globulin Ratio Urine Color Urine Appearance Urine pH Ur Specific [place] Urine Protein Urine Ketones Urine Blood Urine Nitrate Urine Bilirubin Urine Urobilinogen Ur Leukocyte Esterase Urine WBC (Auto) Urine RBC (Auto) Amorphous Crystals Urine Bacteria Granular Casts RBC Casts Ur Random Microalbumin Ur Creatinine mg/dL Ur Creatinine Concen Microalb/Creat Ratio Ur Total Protein Conc U Sodium Concentration Urine Potassium Ur Chloride Concentrat Urine Glucose Urine Opiates Screen Ur Barbiturates Screen Ur Phencyclidine Scrn Ur Amphetamines Screen U Benzodiazepines Scrn Urine Cocaine Screen U Cannabinoids Screen Rheumatoid Factor Direct Antiglob Test Negative 06/03/18 06/03/18 06/03/18 10:58 13:30 13:30 WBC RBC RBC (Retic) Hgb Hct HCT (Retic) MCV MCH MCHC RDW Plt Count MPV Neut % (Auto) Lymph % (Auto) Ross % (Auto) Eos % (Auto) Baso % (Auto) Absolute Neuts (auto) Absolute Lymphs (auto) Absolute Monos (auto) Absolute Eos (auto) Absolute Basos (auto) Absolute Nucleated RBC Nucleated RBC % Retic Count, Calc Corrected Retic Count Retic Shift Factor Retic Production Index Immature Retic Fraction Mean Retic Volume INR (Anticoag Therapy) Fibrinogen Sodium Potassium Chloride Carbon Dioxide Anion Gap BUN Creatinine Est GFR ( Amer) Est GFR (Non-Af Amer) BUN/Creatinine Ratio Glucose Lactic Acid Calcium Phosphorus Magnesium Total Bilirubin AST ALT Alkaline Phosphatase Ammonia Lactate Dehydrogenase TNP Total Creatine Kinase Total Protein Albumin Globulin Albumin/Globulin Ratio Urine Color Esme Urine Appearance Cloudy Urine pH 5.0 Ur Specific [place] 1.019 Urine Protein 2+(100 mg/dl) A Urine Ketones Negative Urine Blood 3+ A Urine Nitrate Negative Urine Bilirubin Negative Urine Urobilinogen Positive A Ur Leukocyte Esterase Negative Urine WBC (Auto) 2+(11-20/hpf) A Urine RBC (Auto) 3+(>10/hpf) A Amorphous Crystals Present A Urine Bacteria Absent Granular Casts Present A RBC Casts Present A Ur Random Microalbumin 88.2 Ur Creatinine mg/dL 234.63 Ur Creatinine Concen 234.63 Microalb/Creat Ratio 37.5 H Ur Total Protein Conc 263 U Sodium Concentration 18 Urine Potassium 103.6 Ur Chloride Concentrat < 22 Urine Glucose Negative Urine Opiates Screen Ur Barbiturates Screen Ur Phencyclidine Scrn Ur Amphetamines Screen U Benzodiazepines Scrn Urine Cocaine Screen U Cannabinoids Screen Rheumatoid Factor Direct Antiglob Test 06/03/18 06/03/18 06/03/18 13:30 13:30 15:30 WBC RBC RBC (Retic) Hgb Hct HCT (Retic) MCV MCH MCHC RDW Plt Count MPV Neut % (Auto) Lymph % (Auto) Ross % (Auto) Eos % (Auto) Baso % (Auto) Absolute Neuts (auto) Absolute Lymphs (auto) Absolute Monos (auto) Absolute Eos (auto) Absolute Basos (auto) Absolute Nucleated RBC Nucleated RBC % Retic Count, Calc Corrected Retic Count Retic Shift Factor Retic Production Index Immature Retic Fraction Mean Retic Volume INR (Anticoag Therapy) Fibrinogen Sodium Potassium 4.0 Chloride Carbon Dioxide Anion Gap BUN Creatinine Est GFR ( Amer) Est GFR (Non-Af Amer) BUN/Creatinine Ratio Glucose Lactic Acid Calcium Phosphorus Magnesium Total Bilirubin AST 300 H ALT Alkaline Phosphatase Ammonia Lactate Dehydrogenase Cancelled Total Creatine Kinase Total Protein Albumin Globulin Albumin/Globulin Ratio Urine Color Urine Appearance Urine pH 5.0 Ur Specific [place] Urine Protein Urine Ketones Urine Blood Urine Nitrate Urine Bilirubin Urine Urobilinogen Ur Leukocyte Esterase Urine WBC (Auto) Urine RBC (Auto) Amorphous Crystals Urine Bacteria Granular Casts RBC Casts Ur Random Microalbumin Ur Creatinine mg/dL Ur Creatinine Concen Microalb/Creat Ratio Ur Total Protein Conc U Sodium Concentration Urine Potassium Ur Chloride Concentrat Urine Glucose Urine Opiates Screen Presumptive positive A Ur Barbiturates Screen None detected Ur Phencyclidine Scrn None detected Ur Amphetamines Screen None detected U Benzodiazepines Scrn None detected Urine Cocaine Screen None detected U Cannabinoids Screen Presumptive positive A Rheumatoid Factor Direct Antiglob Test 06/03/18 06/03/18 06/03/18 15:30 15:30 16:10 WBC 8.0 RBC 4.11 L RBC (Retic) Hgb 14.1 Hct 41 HCT (Retic) MCV 99 H MCH 34 H MCHC 35 RDW 16 H Plt Count 104 L MPV 10.7 H Neut % (Auto) 78.3 Lymph % (Auto) 13.8 Ross % (Auto) 7.1 Eos % (Auto) 0.5 Baso % (Auto) 0.3 Absolute Neuts (auto) 6.3 Absolute Lymphs (auto) 1.1 Absolute Monos (auto) 0.6 Absolute Eos (auto) 0 Absolute Basos (auto) 0 Absolute Nucleated RBC 0 Nucleated RBC % 0.1 Retic Count, Calc Corrected Retic Count Retic Shift Factor Retic Production Index Immature Retic Fraction Mean Retic Volume INR (Anticoag Therapy) Fibrinogen Sodium Potassium Chloride Carbon Dioxide Anion Gap BUN Creatinine Est GFR ( Amer) Est GFR (Non-Af Amer) BUN/Creatinine Ratio Glucose Lactic Acid Calcium Phosphorus Magnesium Total Bilirubin AST ALT Alkaline Phosphatase Ammonia 96 H Lactate Dehydrogenase 773 H Total Creatine Kinase Total Protein Albumin Globulin Albumin/Globulin Ratio Urine Color Urine Appearance Urine pH Ur Specific [place] Urine Protein Urine Ketones Urine Blood Urine Nitrate Urine Bilirubin Urine Urobilinogen Ur Leukocyte Esterase Urine WBC (Auto) Urine RBC (Auto) Amorphous Crystals Urine Bacteria Granular Casts RBC Casts Ur Random Microalbumin Ur Creatinine mg/dL Ur Creatinine Concen Microalb/Creat Ratio Ur Total Protein Conc U Sodium Concentration Urine Potassium Ur Chloride Concentrat Urine Glucose Urine Opiates Screen Ur Barbiturates Screen Ur Phencyclidine Scrn Ur Amphetamines Screen U Benzodiazepines Scrn Urine Cocaine Screen U Cannabinoids Screen Rheumatoid Factor Direct Antiglob Test 06/03/18 06/03/18 18:25 18:25 WBC RBC RBC (Retic) 4.16 L Hgb Hct HCT (Retic) 42 MCV MCH MCHC RDW Plt Count MPV Neut % (Auto) Lymph % (Auto) Ross % (Auto) Eos % (Auto) Baso % (Auto) Absolute Neuts (auto) Absolute Lymphs (auto) Absolute Monos (auto) Absolute Eos (auto) Absolute Basos (auto) Absolute Nucleated RBC Nucleated RBC % Retic Count, Calc 0.9 Corrected Retic Count 0.8 Retic Shift Factor 1.0 Retic Production Index 0.80 Immature Retic Fraction 0.44 Mean Retic Volume 137.4 INR (Anticoag Therapy) Fibrinogen Sodium Potassium Chloride Carbon Dioxide Anion Gap BUN Creatinine Est GFR ( Amer) Est GFR (Non-Af Amer) BUN/Creatinine Ratio Glucose Lactic Acid Calcium Phosphorus Magnesium Total Bilirubin AST ALT Alkaline Phosphatase Ammonia Lactate Dehydrogenase Total Creatine Kinase Total Protein Albumin Globulin Albumin/Globulin Ratio Urine Color Urine Appearance Urine pH Ur Specific [place] Urine Protein Urine Ketones Urine Blood Urine Nitrate Urine Bilirubin Urine Urobilinogen Ur Leukocyte Esterase Urine WBC (Auto) Urine RBC (Auto) Amorphous Crystals Urine Bacteria Granular Casts RBC Casts Ur Random Microalbumin Ur Creatinine mg/dL Ur Creatinine Concen Microalb/Creat Ratio Ur Total Protein Conc U Sodium Concentration Urine Potassium Ur Chloride Concentrat Urine Glucose Urine Opiates Screen Ur Barbiturates Screen Ur Phencyclidine Scrn Ur Amphetamines Screen U Benzodiazepines Scrn Urine Cocaine Screen U Cannabinoids Screen Rheumatoid Factor < 10 Direct Antiglob Test Studies: None Nutrition: Oral diet Impression: Liver enzymes improving, but now has fever, renal; failure, and 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 Plan: We are trying to transfer patient to a facility that has plasmapharesis, but so far no one has accepted the patient. In the meantime, we will monitor renal function, platelet count, liver function tests, and Hb/Hct. Hematology service will advise about steroids. Prognosis is very guarded at this time. Critical Care Time: 120 minutes
--- NOTE | 2018-06-03 21:22 | CONS ---
RENAL CONSULTATION NOTE: DATE OF CONSULT: 06/03/18 REASON FOR CONSULTATION: Acute kidney injury. SERVICE: [facility] Nephrology. REQUESTING PHYSICIAN: Dr. Pollock. HISTORY OF PRESENT ILLNESS: This is a 43-year-old male with past medical history of asthma, hypertension, GERD, bipolar disorder, came into the emergency room with complaints of abdominal pain, nausea, vomiting for 5 days. Abdominal pain started 5 days ago and he was nauseous. 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 Family also reports that he had a sick contact about 2 weeks ago. Other than that, denies any recent travel. The patient also has been drinking heavily. The patient reports that he has been drinking since age 13 and drinks 750 mL of vodka on some days. The patient's is a nurse and reports that she had not been aware and when she comes home, the patient had been lucid and not drunk. The patient reports that he has not been drinking more than usual. Denies any family history of kidney problems. Reports that his mother had liver problems, but she was also alcoholic. When the patient came into the hospital, the patient was noted to have an INR of 1.25, PTT of 40.3, AST of 2630, ALT of 1287, bilirubin of 1.2, alk phos of 195. The patient' s abdomen and pelvis CT showed hepatomegaly with fatty infiltration of the liver. Also had abdominal ultrasound, which showed hepatomegaly with fatty infiltration of the liver. PAST MEDICAL HISTORY: 1. Asthma. 2. Bipolar disorder. 3. Hypertension. 4. GERD. PAST SURGICAL HISTORY: Carpal tunnel release. HOME MEDICATIONS: 1. Metoprolol 100 mg p.o. daily. 2. Nexium 20 mg p.o. b.i.d. 3. Ventolin inhaler 1 to 2 puffs p.r.n. wheezing and shortness of breath. 4. [place] 600 mg p.o. daily. FAMILY HISTORY: Mother with liver problems and alcohol use. No kidney disease in the family. SOCIAL HISTORY: The patient is . Has 2 small children. 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 The patient reports that he occasionally uses marijuana, but other than that, has not used any recreational drugs. Alcohol use history has been variable. The patient is also noted to be confused at the time of examination; however, reports that he has been drinking since he was age 13. REVIEW OF SYSTEMS: As mentioned in the HPI. Other 14-point review of systems noted to be negative. PHYSICAL EXAM: HEENT: The patient noted to have scleral icterus. Neck: No JVD. Lungs: Clear to auscultation bilaterally. Abdomen: Noted to be obese, distended. Tenderness to palpation of the left lower quadrant. Normoactive bowel sounds. No rebound. No guarding. Extremities: Noted to have no edema. Heart: S1, S2 present. Regular rate and rhythm. Neuro: The patient is able to answer questions; however, falls asleep between sentences. No focal deficits. LABORATORY DATA: WBC 6.1, hemoglobin 17.2, hematocrit 51, platelets 244,000 when he initially came in. Sodium 134, potassium 3.7, chloride 100, CO2 of 21, BUN 13, creatinine 0.87, glucose 231. Total bili 1.2, AST 2630, ALT 1287, alk phos 185. INR 1.25, aPTT is 40.3. When Renal was consulted today, sodium noted to be 130, potassium noted to be 4, chloride 102, CO2 of 13, BUN 33, creatinine noted to be 3.76, glucose noted to be 143. The patient's bilirubin noted to be 5, AST coming down but could not be calculated, ALT noted to be 135, ammonia level noted to be 98. UA has been reviewed, significant for rbc casts and 2+ wbc, 3+ blood, 3+ rbc's, 2+ protein. IMAGING: CT and imaging as discussed before. ASSESSMENT AND PLAN: A 43-year-old male with history of significant alcohol use who initially was thought to have alcoholic hepatitis and alcohol withdrawal with a high initial alcohol level, being evaluated for progressive renal failure, increased bilirubin, and encephalopathy. 1. The differentials are broad at this time including hemolytic-uremic syndrome /thrombotic thrombocytopenic purpura given that the patient did have nausea, vomiting. Initially, has liver function test abnormalities. The patient is also noted to have multiple rbc casts in the urine and noted to have thrombocytopenia that has developed in the interim and noted to have elevated LDH level. Discussed this with Dr. Pollock and we will also seek Hematology evaluation. 2. Other differentials also include acute tubular necrosis; however, the patient has not been particularly hypotensive in the interim. The patient did receive 1 dose of Toradol, but this was a one-time dose and the patient has a systemic condition affecting his kidney with some evidence of hemolysis. 3. The patient's fibrinogen level noted to be within normal limits, noted to be elevated. 4. Also recommend checking for completion, [id number], ANCA, glomerular basement membrane antibody to evaluate for ANCA vasculitis and Goodpasture's syndrome. Also checking LDH, haptoglobin, GERRI. The more reason for suspicion of hemolysis is that the patient's multiple samples have hemolyzed and unable to even get an LDH with multiple trials. Most of the patient's blood samples have hemolyzed and it has been extremely difficult to get lab work. We will also get Shiga toxin and E. coli evaluation. The patient was also seen by GI who do not think the patient has the discriminant factor limit to need steroids. Interestingly, the patient's ceruloplasmin level noted to be low and the patient is getting workup for Tonio's disease as well. We will also get GERRI. We will get a cryoglobulin level on the patient to evaluate for cryoglobulinemia. Recommend getting a hepatitis panel. Also checking complements and rheumatoid factor on the patient. Direct Wolfgang test would be helpful as well. 5. The patient's ammonia level noted to be elevated. His hyperammonemia could partly be from liver dysfunction and leading to hepatic encephalopathy, but the patient could also possibly have urea cycle disorder and enzyme deficiency, which has been exaggerated and presented during his stressful ICU hospital stay. The patient also is likely having tubular obstruction with rbc casts and other material with his kidney. Unable to help with ammonia excretion. 6. Metabolic acidosis. Recommend checking tox screen on the patient. The patient is noted to have gap and non-gap acidosis. This is likely secondary to renal failure. The patient is able to acidify his urine; however, as the patient's condition progresses, can evaluate this as well. 7. We will repeat a CBC on the patient and if the patient noted to be anemic and thrombocytopenic with suggestion of hemolytic-uremic syndrome which is very high on the differential currently with his clinical presentation. Atypical hemolytic-uremic syndrome is also possible. As TTP is also a consideration the patient may need plasmapheresis and would need transfer to another center for this. We will discuss further with the ICU team and Hematology and plan further management Thank you for referring this interesting patient to the renal service. [id number]/CPS #: [id number] [facility]
--- NOTE | 2018-06-03 22:35 | CONS ---
Amended report to enter date of consult. CONSULTATION REPORT: DATE OF CONSULT: 06/03/18. REASON FOR CONSULT: Thrombocytopenia, renal failure and liver failure. HISTORY OF PRESENT ILLNESS: Mr. Gale is a 43-year-old male with history of asthma, hypertension, GERD and bipolar disease. About a week ago, he felt like he drank too much and became acutely ill. He had diffuse vomiting, persistent diarrhea and severe abdominal pain. He initially thought it was secondary to alcohol consumption and when the pain persisted, he came to the emergency room. His abdominal pain was worse with movement. He does not remember having any fevers, though he had felt warm. No other significant preceding events. He had not had any changes in medication. On presentation, he had a pulse rate of 120, respiratory rate of 20 and was normotensive, but was writhing in severe abdominal pain. Blood work includes an AST of 2630, ALT of 1287, bilirubin of 1.2 and a PTT of 40. He had a CT scan of the abdomen and pelvis that showed normal size spleen, fatty infiltration of the liver and normal bowels. His hemoglobin on presentation was 17.2, white count 6.1, platelets of 244, MPV of 98 and MCV elevated at 98. He deteriorated since admission, platelets have gone from 244 to a 100 today, being 186 on the 06/01/18 and 129 on the . His AST and ALT have dropped to the 300s, but his bilirubin has persistently risen from 1.2 to 5 and his creatinine was 0.87 at presentation, 1.4 yesterday, 3.76 today. He is producing 20 to 40 cc an hour of urine and the UA shows red blood cell cast. Other blood work includes an LDH of 773, ammonia 96 and a B12 of 303 in April. Retic Count 0.8% Blood film shows hyposegmentation of his neutrophils and a bandemia, Pelger- Collins cells, he does have scattered schistocytes 2 to 3 per high power field as well as some teardrop cells and leukocytosis, multiple large platelets consistent with consumption. Hematology was consulted with question of hemolysis in the setting of acute renal and liver failure. He has also had some consistent mental status changes, which was attributed to alcohol withdrawal, but that is unsubstantiated. PAST MEDICAL HISTORY: 1. Asthma. 2. Bipolar disease. 3. Hypertension. 4. GERD. PAST SURGICAL HISTORY: Surgery is none that he recalls. HOME MEDICATIONS: 1. Metoprolol 100 a day. 2. Nexium 20 a day. 3. Ventolin inhaler. 4. [place] 600 daily, which has been a chronic medication for him. ALLERGIES: CEPHALEXIN and LISINOPRIL. FAMILY HISTORY: History of alcoholism in the family. No malignancies. SOCIAL HISTORY: . He has 2 children. 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 History of heavy alcohol intake with 1 L of vodka per day for several years. Recently decreased on how much he was drinking, has had withdrawn in the past. Smokes a pack a day. REVIEW OF SYSTEMS: He is only intermittently answering questions. He has a distended abdomen and continued abdominal pain. Denies shortness of breath, chest pain. He has a [place] in. He said he has diffuse muscle pains all over. PHYSICAL EXAMINATION: Temperature 100.8, BP 134/93, pulse 127, respiratory rate 24, O2 sat 93%. HEENT: Mucosa moist. No lesions. Sclera is icteric. Skin: He has multiple superficial bruises at prior sites of IVs, no petechiae. Lungs are clear to auscultation. Heart: Tachycardic, regular. Abdomen: Markedly distended. Extremities: +1 edema. Neurologic: Fluctuating, but has been on Ativan and morphine. LABORATORY DATA: As noted above. Last platelet count 104. Blood film as noted above. He also had a PTT of 46, INR of 0.88, fibrinogen of 622, B12 of 303 and markedly increased iron studies. His ammonia is elevated. [id number] is pending, as is ANCA, copper, Shigella toxin, GERRI, phospholipid antibodies, anticardiolipin antibodies and E. coli 0157: H7. GI sent a workup for immune hepatitis. Haptoglobin is pending, as is reticulocyte count. ASSESSMENT AND PLAN: A 43-year-old male who presents with 5 days of nausea, vomiting and diarrhea with acute abdominal pain, subsequently developed thrombocytopenia with concurrent acute renal and liver failure. Differential diagnosis is quite broad. I am concerned about hemolytic uremic syndrome and agree with sending Shigella and E. coli 0157:H7, acute fulminant liver failure with HRS can account for LDH and bilirubin and increase in Cr. While there are some schistocytes on his peripheral smear, the low reticulocyte count and stable Hgb argues against a brisk hemolysis making HUS and TTP lower on differential. I cannot rule out malignancy though time course is acute. 1. Case discussed with [facility], Dr. Sanchez, and while immediate plasmapheresis is not indicated, transfer for higher level of care is appropriate with hematology consultation, will leave open request for transfer. 2. Tear drops on smear and hyposegmentation of neutrophils. BmBx if stable on Monday. 3. Check UA, MMA. [id number]/CPS #: [id number] [facility]
[2018-06-04] MEDS: Morphine 4 MG/ML VIAL (1 ml) 4 MG/ML VIAL IV PRN ×4 (03:20→23:32)
[2018-06-04] MEDS: Ondansetron INJ* 2 MG/ML VIAL IV PRN ×4 (03:23→19:13)
[2018-06-04] MEDS: LORazepam INJ* 2 MG/ML 1 ML VIAL IV PUSH SCH ×3 (04:10→16:16)
[2018-06-04 06:17] LABS: Hematocrit 37 % (36-46); Hemoglobin 12.7 g/dL (14.0-18.0); Mean Corpuscular HGB Conc 34 g/dL (31-36); Mean Corpuscular Hemoglobin 34 pg (27-31); Mean Corpuscular Volume 101 fL (80-94); Mean Platelet Volume 10.5 fL (7.4-10.4); Platelet Count 107 10^3/uL (150-450); Red Cell Distribution Width 16 % (10.5-15)
[2018-06-04 06:35] LABS: ALT 260 U/L (7-52); Albumin 3.1 g/dL (3.2-5.2); Alkaline Phosphatase 99 U/L (34-104); BUN/Creatinine Ratio 11.1 (8-20); Blood Urea Nitrogen 42 mg/dL (6-24); CO2 Carbon Dioxide 15 mmol/L (22-32); Chloride 105 mmol/L (101-111); EGFR African American 21.2 (>60); EGFR Non-African American 17.6 (>60); Glucose 156 mg/dL (70-100); Sodium 132 mmol/L (135-145); Total Protein 6.1 g/dL (6.4-8.9)
[2018-06-04 06:43] LABS: Anion Gap 12 mmol/L (2-11)
[2018-06-04] MEDS: Metoprolol Succinate XL TAB* 100 MG PO SCH (09:07)
[2018-06-04] MEDS: Pantoprazole TAB * 40 MG TAB PO SCH (09:07)
[2018-06-04] MEDS: Folic Acid TAB* 1 MG PO SCH (09:07)
[2018-06-04] MEDS: Thiamine TAB* 100 MG TAB PO SCH (09:08)
[2018-06-04 09:34] LABS: Hepatitis B DNA Quantitative Undetected IU/mL (Undetected)
--- NOTE | 2018-06-04 11:17 | PN ---
Progress Note - Progress Note Date of Service: 06/04/18 SOAP: Subjective: []No complaints, continued MS changes. Folic Acid (Folvite Tab*) 1 mg PO DAILY [facility] Last Admin: 06/04/18 09:07 Dose: 1 mg Sodium Chloride (Ns 0.9% 1000 Ml) 1,000 mls @ 100 mls/hr IV PER RATE [facility] Last Admin: 06/03/18 19:49 Dose: 100 mls/hr Labetalol HCl (Trandate Iv*) 10 mg IV PUSH Q6H PRN PRN Reason: BLOOD PRESSURE Last Admin: 06/01/18 16:57 Dose: 10 mg Lactulose (Lactulose*) 30 ml PO QID [facility] Last Admin: 06/04/18 09:07 Dose: 30 ml Lorazepam (Ativan Inj*) 1 mg IV PUSH Q1H PRN PRN Reason: AGITATION Last Admin: 06/03/18 12:27 Dose: 1 mg Lorazepam (Ativan Inj*) 0 - 3 mg IV PUSH .PER [facility] PROTOCOL [facility]; Protocol Last Admin: 06/04/18 10:43 Dose: 1.5 mg Metoprolol Succinate (Toprol Xl Tab*) 100 mg PO DAILY [facility] Last Admin: 06/04/18 09:07 Dose: 100 mg Morphine Sulfate (Morphine 4 Mg/Ml Vial (1 Ml)) 4 mg IV Q2H PRN PRN Reason: PAIN - MILD Last Admin: 06/04/18 03:20 Dose: 4 mg Ondansetron HCl (Zofran Inj*) 4 mg IV Q4H PRN PRN Reason: NAUSEA/VOMITING Last Admin: 06/04/18 09:08 Dose: 4 mg Pantoprazole Sodium (Protonix Tab*) 40 mg PO BID [facility]; Protocol Last Admin: 06/04/18 09:07 Dose: 40 mg Thiamine HCl (Vitamin B-1 Tab*) 100 mg PO DAILY [facility] Last Admin: 06/04/18 09:08 Dose: 100 mg Objective: [] Vital Signs Temp Pulse Resp BP Pulse Ox 100.4 F 113 22 177/129 93 06/04/18 10:00 06/04/18 09:16 06/04/18 10:43 06/04/18 09:16 06/04/18 09:16 HEENT - jaundice CTA RRR S1S2 Abd less distended then yesterday, +BS Ext +1 edema Neuro - sedated, responsive. Plts stable Blood film today: +1 schystocytes, hyposegmentation of polys of unclear significance, no blasts Assessment: []Thromobcytpenia in setting of progressive renal failure and increased LDH and Tbili. Possible liver failure with HRS. I suspect LDH is secondary to liver disease. DDx thromobcytopenia includes primary marrow disease, marrow suppression from alcohol and consumption from acute liver disease, microvascular hemolytic anemia less likely but possible. Plan: []1. Will follow CBC, re-check LDH 2. Discussed possible transfer to [place], interested in GI input on degree of progressive liver failure.
[2018-06-04 12:10] LABS: Smooth Muscle Antibody Negative (Negative)
--- NOTE | 2018-06-04 12:23 | PN ---
Date of Service: 06/04/18 - HD 5 Critical Care Services: 43 yo M with PMH of Bipolar 1 disorder, Alcohol abuse, opiod abuse and HTN with admission for suicidial ideation in 2016. He presents to the ED on 05/31 with abdominal pain x 5 days, nausea, vomiting, diarrhea and chills. Unable to keep meals down. CT with hepatomegaly and fatty infiltration of liver, confirmed on US. Transaminases > 2000. Admitted to the medical service with acute liver failure. Started on mucomyst, hepatitis panel sent. 06/01: Triggering WAM protocol but refusing Ativan. Persistent nausea, vomiting and abdominal pain. LFTs improving. 06/02: Worsening alcohol withdrawal. Now confused. Started on Precedex gtt and transferred to ICU. Developed hypotension and Precedex gtt stopped. Bolused IVF. Started on Lactulose for elevated ammonia level (75) 06/03: Developing renal insufficiency. Multiple blood samples hemolyzed and LDH is elevated concerning for in vivo hemolysis. Hematology consulted, case discussed with [facility]; no need for plasmapheresis at this time. Nephrology consulted. [facility] expressed interest in accepting patient for evaluation by liver team. Vital Signs: Temp Pulse Resp BP SpO2 FiO2 100.4 F 113 22 177/129 93 06/04/18 10:00 06/04/18 09:16 06/04/18 10:43 06/04/18 09:16 06/04/18 09:16 Physical Exam: Gen: sitting at side of bed HEENT: scleral jaundice Lungs: CTAB. increased work of breathing Cardiac: RRR Abdomen: firm, distended, minimally TTP Extremities: warm, dry Neuro: confused Fluid Balance (Past 24 Hours): I= O= Net Intake & Output 06/02/18 06/03/18 06/04/18 06/05/18 06:59 06:59 06:59 06:59 Intake Total 20199 2863 Output Total 645 257 685 110 Balance 1375 3012 2178 -110 Weight 207 lb 3.752 oz 214 lb 1.102 oz 218 lb 11.177 oz Intake: IV Fluids 1130 1961 1533 NS (0.9%) 1130 1961 1533 IVPB 627 855 NS (0.9%) 627 855 Medicated IV 623 55 GEN - Magnesium 55 acetylcystine 623 Oral 266 680 420 Output: Urine 600 250 205 0 [place] 45 7 480 110 Other: Estimated Void Medium Date of Last Bowel t Movement # Bowel Movements 2 1 Estimated Stool Amount Large Small # Voids 2 1 Labs: Laboratory Results - last 24 hr 05/31/18 06/03/18 06/03/18 17:26 10:10 13:30 WBC RBC RBC (Retic) Hgb Hct HCT (Retic) MCV MCH MCHC RDW Plt Count MPV Neut % (Auto) Lymph % (Auto) [place] % (Auto) Eos % (Auto) Baso % (Auto) Absolute Neuts (auto) Absolute Lymphs (auto) Absolute Monos (auto) Absolute Eos (auto) Absolute Basos (auto) Absolute Nucleated RBC Nucleated RBC % Retic Count, Calc Corrected Retic Count Retic Shift Factor Retic Production Index Immature Retic Fraction Mean Retic Volume Fibrinogen 622.6 H Sodium Potassium Chloride Carbon Dioxide Anion Gap BUN Creatinine Est GFR ( Amer) Est GFR (Non-Af Amer) BUN/Creatinine Ratio Glucose Uric Acid Calcium Total Bilirubin Direct Bilirubin Indirect Bilirubin AST ALT Alkaline Phosphatase Ammonia Lactate Dehydrogenase Total Protein Albumin Globulin Albumin/Globulin Ratio Urine Color Esme Urine Appearance Cloudy Urine pH 5.0 Ur Specific [place] 1.019 Urine Protein 2+(100 mg/dl) A Urine Ketones Negative Urine Blood 3+ A Urine Nitrate Negative Urine Bilirubin Negative Urine Urobilinogen Positive A Ur Leukocyte Esterase Negative Urine WBC (Auto) 2+(11-20/hpf) A Urine RBC (Auto) 3+(>10/hpf) A Amorphous Crystals Present A Urine Bacteria Absent Granular Casts Present A RBC Casts Present A Ur Random Microalbumin Ur Creatinine mg/dL Ur Creatinine Concen Microalb/Creat Ratio Ur Total Protein Conc U Sodium Concentration Urine Potassium Ur Chloride Concentrat Urine Glucose Negative Urine Opiates Screen Ur Barbiturates Screen Ur Phencyclidine Scrn Ur Amphetamines Screen U Benzodiazepines Scrn Urine Cocaine Screen U Cannabinoids Screen Rheumatoid Factor Phospholipid IgM Ab Hep B DNA Quant (PCR) Undetected 06/03/18 06/03/18 06/03/18 13:30 13:30 13:30 WBC RBC RBC (Retic) Hgb Hct HCT (Retic) MCV MCH MCHC RDW Plt Count MPV Neut % (Auto) Lymph % (Auto) [place] % (Auto) Eos % (Auto) Baso % (Auto) Absolute Neuts (auto) Absolute Lymphs (auto) Absolute Monos (auto) Absolute Eos (auto) Absolute Basos (auto) Absolute Nucleated RBC Nucleated RBC % Retic Count, Calc Corrected Retic Count Retic Shift Factor Retic Production Index Immature Retic Fraction Mean Retic Volume Fibrinogen Sodium Potassium Chloride Carbon Dioxide Anion Gap BUN Creatinine Est GFR ( Amer) Est GFR (Non-Af Amer) BUN/Creatinine Ratio Glucose Uric Acid Calcium Total Bilirubin Direct Bilirubin Indirect Bilirubin AST ALT Alkaline Phosphatase Ammonia Lactate Dehydrogenase Total Protein Albumin Globulin Albumin/Globulin Ratio Urine Color Urine Appearance Urine pH 5.0 Ur Specific [place] Urine Protein Urine Ketones Urine Blood Urine Nitrate Urine Bilirubin Urine Urobilinogen Ur Leukocyte Esterase Urine WBC (Auto) Urine RBC (Auto) Amorphous Crystals Urine Bacteria Granular Casts RBC Casts Ur Random Microalbumin 88.2 Ur Creatinine mg/dL 234.63 Ur Creatinine Concen 234.63 Microalb/Creat Ratio 37.5 H Ur Total Protein Conc 263 U Sodium Concentration 18 Urine Potassium 103.6 Ur Chloride Concentrat < 22 Urine Glucose Urine Opiates Screen Presumptive positive A Ur Barbiturates Screen None detected Ur Phencyclidine Scrn None detected Ur Amphetamines Screen None detected U Benzodiazepines Scrn None detected Urine Cocaine Screen None detected U Cannabinoids Screen Presumptive positive A Rheumatoid Factor Phospholipid IgM Ab Hep B DNA Quant (PCR) 06/03/18 06/03/18 06/03/18 15:30 15:30 15:30 WBC RBC RBC (Retic) Hgb Hct HCT (Retic) MCV MCH MCHC RDW Plt Count MPV Neut % (Auto) Lymph % (Auto) [place] % (Auto) Eos % (Auto) Baso % (Auto) Absolute Neuts (auto) Absolute Lymphs (auto) Absolute Monos (auto) Absolute Eos (auto) Absolute Basos (auto) Absolute Nucleated RBC Nucleated RBC % Retic Count, Calc Corrected Retic Count Retic Shift Factor Retic Production Index Immature Retic Fraction Mean Retic Volume Fibrinogen Sodium Potassium 4.0 Chloride Carbon Dioxide Anion Gap BUN Creatinine Est GFR ( Amer) Est GFR (Non-Af Amer) BUN/Creatinine Ratio Glucose Uric Acid Calcium Total Bilirubin Direct Bilirubin Indirect Bilirubin AST 300 H ALT Alkaline Phosphatase Ammonia 96 H Lactate Dehydrogenase Cancelled Total Protein Albumin Globulin Albumin/Globulin Ratio Urine Color Urine Appearance Urine pH Ur Specific [place] Urine Protein Urine Ketones Urine Blood Urine Nitrate Urine Bilirubin Urine Urobilinogen Ur Leukocyte Esterase Urine WBC (Auto) Urine RBC (Auto) Amorphous Crystals Urine Bacteria Granular Casts RBC Casts Ur Random Microalbumin Ur Creatinine mg/dL Ur Creatinine Concen Microalb/Creat Ratio Ur Total Protein Conc U Sodium Concentration Urine Potassium Ur Chloride Concentrat Urine Glucose Urine Opiates Screen Ur Barbiturates Screen Ur Phencyclidine Scrn Ur Amphetamines Screen U Benzodiazepines Scrn Urine Cocaine Screen U Cannabinoids Screen Rheumatoid Factor Phospholipid IgM Ab TNP Hep B DNA Quant (PCR) 06/03/18 06/03/18 06/03/18 15:30 16:10 18:25 WBC 8.0 RBC 4.11 L RBC (Retic) 4.16 L Hgb 14.1 Hct 41 HCT (Retic) 42 MCV 99 H MCH 34 H MCHC 35 RDW 16 H Plt Count 104 L MPV 10.7 H Neut % (Auto) 78.3 Lymph % (Auto) 13.8 [place] % (Auto) 7.1 Eos % (Auto) 0.5 Baso % (Auto) 0.3 Absolute Neuts (auto) 6.3 Absolute Lymphs (auto) 1.1 Absolute Monos (auto) 0.6 Absolute Eos (auto) 0 Absolute Basos (auto) 0 Absolute Nucleated RBC 0 Nucleated RBC % 0.1 Retic Count, Calc 0.9 Corrected Retic Count 0.8 Retic Shift Factor 1.0 Retic Production Index 0.80 Immature Retic Fraction 0.44 Mean Retic Volume 137.4 Fibrinogen Sodium Potassium Chloride Carbon Dioxide Anion Gap BUN Creatinine Est GFR ( Amer) Est GFR (Non-Af Amer) BUN/Creatinine Ratio Glucose Uric Acid Calcium Total Bilirubin Direct Bilirubin Indirect Bilirubin AST ALT Alkaline Phosphatase Ammonia Lactate Dehydrogenase 773 H Total Protein Albumin Globulin Albumin/Globulin Ratio Urine Color Urine Appearance Urine pH Ur Specific [place] Urine Protein Urine Ketones Urine Blood Urine Nitrate Urine Bilirubin Urine Urobilinogen Ur Leukocyte Esterase Urine WBC (Auto) Urine RBC (Auto) Amorphous Crystals Urine Bacteria Granular Casts RBC Casts Ur Random Microalbumin Ur Creatinine mg/dL Ur Creatinine Concen Microalb/Creat Ratio Ur Total Protein Conc U Sodium Concentration Urine Potassium Ur Chloride Concentrat Urine Glucose Urine Opiates Screen Ur Barbiturates Screen Ur Phencyclidine Scrn Ur Amphetamines Screen U Benzodiazepines Scrn Urine Cocaine Screen U Cannabinoids Screen Rheumatoid Factor Phospholipid IgM Ab Hep B DNA Quant (PCR) 06/03/18 06/03/18 06/03/18 18:25 21:50 21:50 WBC RBC RBC (Retic) Hgb Hct HCT (Retic) MCV MCH MCHC RDW Plt Count MPV Neut % (Auto) Lymph % (Auto) [place] % (Auto) Eos % (Auto) Baso % (Auto) Absolute Neuts (auto) Absolute Lymphs (auto) Absolute Monos (auto) Absolute Eos (auto) Absolute Basos (auto) Absolute Nucleated RBC Nucleated RBC % Retic Count, Calc Corrected Retic Count Retic Shift Factor Retic Production Index Immature Retic Fraction Mean Retic Volume Fibrinogen Sodium Potassium Chloride Carbon Dioxide Anion Gap BUN Creatinine Est GFR ( Amer) Est GFR (Non-Af Amer) BUN/Creatinine Ratio Glucose Uric Acid 10.3 H Calcium Total Bilirubin Direct Bilirubin Indirect Bilirubin AST ALT Alkaline Phosphatase Ammonia TNP Lactate Dehydrogenase Total Protein Albumin Globulin Albumin/Globulin Ratio Urine Color Urine Appearance Urine pH Ur Specific [place] Urine Protein Urine Ketones Urine Blood Urine Nitrate Urine Bilirubin Urine Urobilinogen Ur Leukocyte Esterase Urine WBC (Auto) Urine RBC (Auto) Amorphous Crystals Urine Bacteria Granular Casts RBC Casts Ur Random Microalbumin Ur Creatinine mg/dL Ur Creatinine Concen Microalb/Creat Ratio Ur Total Protein Conc U Sodium Concentration Urine Potassium Ur Chloride Concentrat Urine Glucose Urine Opiates Screen Ur Barbiturates Screen Ur Phencyclidine Scrn Ur Amphetamines Screen U Benzodiazepines Scrn Urine Cocaine Screen U Cannabinoids Screen Rheumatoid Factor < 10 Phospholipid IgM Ab Hep B DNA Quant (PCR) 06/04/18 06/04/18 06/04/18 05:59 05:59 05:59 WBC 5.0 RBC 3.70 L RBC (Retic) Hgb 12.7 L Hct 37 HCT (Retic) MCV 101 H MCH 34 H MCHC 34 RDW 16 H Plt Count 107 L MPV 10.5 H Neut % (Auto) Lymph % (Auto) [place] % (Auto) Eos % (Auto) Baso % (Auto) Absolute Neuts (auto) Absolute Lymphs (auto) Absolute Monos (auto) Absolute Eos (auto) Absolute Basos (auto) Absolute Nucleated RBC Nucleated RBC % Retic Count, Calc Corrected Retic Count Retic Shift Factor Retic Production Index Immature Retic Fraction Mean Retic Volume Fibrinogen Sodium 132 L Potassium TNP Chloride 105 Carbon Dioxide 15 L Anion Gap 12 H BUN 42 H Creatinine 3.80 H Est GFR ( Amer) 21.2 Est GFR (Non-Af Amer) 17.6 BUN/Creatinine Ratio 11.1 Glucose 156 H Uric Acid Calcium 8.0 L Total Bilirubin 6.10 H Direct Bilirubin TNP Indirect Bilirubin TNP AST TNP ALT 260 H Alkaline Phosphatase 99 Ammonia TNP Lactate Dehydrogenase Total Protein 6.1 L Albumin 3.1 L Globulin 3.0 Albumin/Globulin Ratio 1.0 Urine Color Urine Appearance Urine pH Ur Specific [place] Urine Protein Urine Ketones Urine Blood Urine Nitrate Urine Bilirubin Urine Urobilinogen Ur Leukocyte Esterase Urine WBC (Auto) Urine RBC (Auto) Amorphous Crystals Urine Bacteria Granular Casts RBC Casts Ur Random Microalbumin Ur Creatinine mg/dL Ur Creatinine Concen Microalb/Creat Ratio Ur Total Protein Conc U Sodium Concentration Urine Potassium Ur Chloride Concentrat Urine Glucose Urine Opiates Screen Ur Barbiturates Screen Ur Phencyclidine Scrn Ur Amphetamines Screen U Benzodiazepines Scrn Urine Cocaine Screen U Cannabinoids Screen Rheumatoid Factor Phospholipid IgM Ab Hep B DNA Quant (PCR) 06/04/18 06/04/18 07:59 07:59 WBC RBC RBC (Retic) Hgb Hct HCT (Retic) MCV MCH MCHC RDW Plt Count MPV Neut % (Auto) Lymph % (Auto) [place] % (Auto) Eos % (Auto) Baso % (Auto) Absolute Neuts (auto) Absolute Lymphs (auto) Absolute Monos (auto) Absolute Eos (auto) Absolute Basos (auto) Absolute Nucleated RBC Nucleated RBC % Retic Count, Calc Corrected Retic Count Retic Shift Factor Retic Production Index Immature Retic Fraction Mean Retic Volume Fibrinogen Sodium Potassium TNP Chloride Carbon Dioxide Anion Gap BUN Creatinine Est GFR ( Amer) Est GFR (Non-Af Amer) BUN/Creatinine Ratio Glucose Uric Acid Calcium Total Bilirubin Direct Bilirubin TNP Indirect Bilirubin AST TNP ALT Alkaline Phosphatase Ammonia TNP Lactate Dehydrogenase Total Protein Albumin Globulin Albumin/Globulin Ratio Urine Color Urine Appearance Urine pH Ur Specific [place] Urine Protein Urine Ketones Urine Blood Urine Nitrate Urine Bilirubin Urine Urobilinogen Ur Leukocyte Esterase Urine WBC (Auto) Urine RBC (Auto) Amorphous Crystals Urine Bacteria Granular Casts RBC Casts Ur Random Microalbumin Ur Creatinine mg/dL Ur Creatinine Concen Microalb/Creat Ratio Ur Total Protein Conc U Sodium Concentration Urine Potassium Ur Chloride Concentrat Urine Glucose Urine Opiates Screen Ur Barbiturates Screen Ur Phencyclidine Scrn Ur Amphetamines Screen U Benzodiazepines Scrn Urine Cocaine Screen U Cannabinoids Screen Rheumatoid Factor Phospholipid IgM Ab Hep B DNA Quant (PCR) Studies: 06/04 CXR - ordered 06/04 US BLE - ordered 06/04 US renal - ordered 05/31 US liver with doppler - hepatomegaly with fatty infiltration of liver 05/31 CT abdomen, pelvis - Hepatomegaly with fatty infiltration of liver, atherosclerosis Nutrition: General diet Impression: 43 yo M admitted with nausea, vomiting, diarrhea and acute liver failure likely secondary to alcohol. Developed alcohol withdrawal delirium and transferred to ICU. Now with developing acute renal failure, thrombocytopenia, concern for intravascular hemolysis and ongoing liver failure. Plan: Cardiovascular: (1) Sinus tachycardia; (2) Chronic HTN -- HR 114-152 -- SBP 119-177 -- Telemetry -- Metoprolol -- PRN Labetalol and Hydralazine for goal SBP < 160 Home meds: Metoprolol Pulmonary: (1) Acute respiratory insufficiency -- RR 16-34 -- sats 86-98 on NC -- wean NC as able Home meds: Albuterol Gastrointestinal: (1) Acute liver failure, possible alcoholic hepatitis -- LFTs Tbili 6.10 from 5.00 (1.20 on admit) ALK 99 from 135 (185 on admit) AST hemolyzed. 300 on 06/03 (2630 on admit) ALT 260 from 380 (1287 on admit) Ammonia -- Hepatitis labs Rheumatoid within normal limits antiSM Ab negative -- Other liver workup in process Anticardiolipin Ab Phospholipid Ab copper [id number] ANCA Complement C3 Complement C5 Cpmplement CH50 CBM Haptoglobin Methylmalonic acid GERRI Ceruloplasmin CMV Ab Hepatitis B and C Mitochondria M2AB Tissue transglutamineAB -- diet: General -- bowel regimen: Lactulose -- ulcer prophylaxis: Protonix Home meds: Nexium Endocrine: No acute issues -- monitor BGs Home meds: None Renal: (1) acute renal failure; (2) Hyponatremia -- UOP: 29 ml/hr -- I/O:2863 ml in / 685 ml out -- Cr 3.80 from 3.51 (0.88 on 06/01) -- Lytes Na 132 from 130, follow trend K hemolyzed. 4.0 on 06/03 Ca 8.0, replace -- IVF: NS @ 100 ml/hr Home meds: None Infectious disease: (1) Febrile -- Tmax 101.8 -- WBC 5.0 from 8.0 -- Micro 4/ blood ordered 06/03 urine negative 05/31 MRSA screen negative urine negative -- ABX None Home meds: None Neurologic: (1) Acute alcohol withdrawal with delirium; (2) Bipolar 1 disorder ; (3) Opoid and alcohol abuse disorder; (4) hx of suicidal ideation -- Urine tox positive for opiates and cannabinoids on admit. -- WAM (alcohol withdrawal) protocol, PRN Ativan -- Folic acid, thiamine -- PRN Morphine for pain control Home meds: stopped [place] 3 mo ago Hematological: (1) Thrombocytopenia, concern for HUS; (2) Microangiopathic hemolytic anemia -- Hgb 12.7 from 14.1 -- Plt 107 from 104 (244 on 05/31) -- Coags INR 0.88 Fibrinog 622.6, high -- Uric acid 10.3 -- DVT prophylaxis: SCDs -- BLE US ordered -- Hematology following Home meds: None Metabolic: (1) Lactic acidosis -- Lactic acid 2.5 on 06/03. check repeat Home meds: None Deep vein thrombosis prophylaxis: SCDs Dietary: Protonix Condition: serious Prognosis: guarded Code status: full Disposition: Floor status. pending transfer [facility] for evaluation by liver transplant team Signficant other updated at bedside regarding interval events and plan of care Cumulative time spent in the care of this patient (excluding any procedure time) : at least 55 minutes. Patient care included clinical interview (with patient and/or family), bedside exam of the patient, review of labs, x-rays, and other ancillary data, coordination of (respiratory, nursing care, review of patient's records, discussion regarding patients management with involved consultants, primary physician, pharmacists, and other healthcare personnel (dietary, case management , physical/occupational therapy etc.)
[2018-06-04] MEDS ORDERED: hydrALAZINE IV* 20 MG/ML VIAL IV SLOW PU PRN (12:48)
[2018-06-04] MEDS ORDERED: Labetalol IV* 5 MG/ML 20 ML VIAL IV PUSH PRN (12:48)
[2018-06-04 14:48] LABS: INR 0.98 (0.77-1.02)
[2018-06-04] MEDS: NS 0.9% 1000 ML** 1,000 ML IV SCH (16:28)
[2018-06-04 16:39] LABS: Tissue Transglutaminase IgA Ab <1.2 U/mL
[2018-06-04] MEDS ORDERED: LORazepam INJ* 2 MG/ML 1 ML VIAL IV PUSH PRN ×2 (18:26→19:53)
[2018-06-04] MEDS ORDERED: LORazepam INJ* 2 MG/ML 1 ML VIAL IV PUSH SCH (18:26)
[2018-06-04 18:56] LABS: Immunoglobulin A 345 mg/dL (61 - 356)
[2018-06-04] MEDS ORDERED: NS 0.9% 1000 ML** 1,000 ML IV SCH (19:21)
--- NOTE | 2018-06-04 19:23 | PN ---
Progress Note - Progress Note Date of Service: 06/04/18 - update Note: Pt became acutely hypoxic into the 70s while up and ambulating. Noted to be gurgly in back of airway. Not coughing clear. Now more lethargic. NT suctioned. Unfortunately he vomiting during suctioning. CXR done - Left pleural effusion and pulmonary edema noted. No lobar infiltrates seen at this time Pt started on vapotherm and respiratory effort now more comfortable. will decrease IVF. If hypoxia becomes persistent issue will reconsider attempt at diuresis (currently on hold due to acute kidney issues)
[2018-06-04] MEDS ORDERED: Haloperidol INJ IV/IM* 5 MG/ML AMP IV SLOW PU PRN ×2 (19:52→20:46)
[2018-06-04] MEDS ORDERED: Haloperidol INJ IV/IM* 5 MG/ML AMP ONE (19:56)
[2018-06-04] MEDS ORDERED: Ziprasidone IM INJ* 20 MG/ML VIAL ONE (20:05)
[2018-06-04] MEDS ORDERED: Furosemide IV* 10 MG/ML VIAL (40 MG) ONE (20:11)
[2018-06-04] MEDS ORDERED: Furosemide IV* 10 MG/ML VIAL (40 MG) IV ONE (20:14)
[2018-06-04] MEDS ORDERED: Ziprasidone IM INJ* 20 MG/ML VIAL INJ ONE (20:14)
[2018-06-04] MEDS ORDERED: Haloperidol INJ IV/IM* 5 MG/ML AMP IV SLOW PU ONE (20:14)
[2018-06-04] MEDS ORDERED: Propofol* 100 ML ONE (20:37)
[2018-06-04] MEDS ORDERED: Succinylcholine* 20 MG/ML 10 ML VIAL ONE (20:39)
[2018-06-04] MEDS ORDERED: Midazolam* 1 MG/ML 2 ML VIAL (2 MG) ONE (20:44)
[2018-06-04] MEDS ORDERED: Etomidate* 2 MG/ML 20 ML VIAL (40 MG) ONE (20:45)
--- NOTE | 2018-06-04 20:58 | PN ---
Progress Note - Progress Note Date of Service: 06/04/18 - UPDATE Note: Called to bedside for agitation. Pt pulling at nasal cannula and trying to climb out of bed. Security and family present. Haldol 5 mg IV x 2, Geodon IM x 1 attempted with only temporary improvement Precedex started without improvement Discussed with patient's significant other. At this time he is impeding our ability to provide care. I recommended intubation and significant other agrees to proceed. intubated at bedside successfully. Cords easily visualized, noted to be bile stained. After ETT placed pt vomiting bilious fluid. ETT suctioned. Scant thin secrections present.
[2018-06-04] MEDS ORDERED: Dexmedetomidine* 400 MCG in NS 0.9% 100 ML* 96 ML IVPB SCH (21:00)
--- NOTE | 2018-06-04 21:01 | OP ---
Operative Report - Blank - Operative Report Date of Operation: 06/04/18 Note: Procedure: Intubation Consent obtained: Verbal, from significant other Time out performed: Yes Indications: Respiratory distress and agitation Intubation method: Video-assisted Patient status: Unconscious Preoxygenation: BVM Pretreatment meds: Versed SEdation: Etomidate Paralytic: None Laryngoscope size: 4Mac ETT size: 8.0 F Type: Cuffed # of attempts: 1 Cords visualized: Yes, bile stained Post procedure assessment: CO2 detector Breath sounds: clear bilaterally Cuff inflated: Yes ETT to lip: 24cm Tube secured with: ETT george CXR: pending PT tolerated the procedure well with no immediate complications
--- NOTE | 2018-06-04 21:13 | PN ---
Progress Note - Progress Note Date of Service: 06/04/18 - update Note: CXR reviewed ETT in good position NG in good position
[2018-06-04] MEDS: Propofol* 100 ML IV SCH ×2 (21:15→23:34)
[2018-06-04 21:23] LABS: Mitochondria M2 Antibody <0.1 U
--- NOTE | 2018-06-04 21:29 | PN ---
PROGRESS NOTE: DATE OF SERVICE: 06/04/18 HISTORY: Mr. Gale is a 43-year-old gentleman consulted on by my partner, Dr. Mcgraw, over the weekend. He at the present time is very lethargic and slow to respond to questioning. He denies shortness of breath, although he looks like he has a little difficulty with breathing. He does complain of nausea and vomiting. He has had some diarrhea. He was noted to have worsening renal function as well as worsening liver function and it is likely that he has hepatorenal physiology even if he does not meet the case definition of hepatorenal syndrome. In addition, because his transaminases were elevated, it is likely that there is an alcoholic hepatitis component to his illness. PHYSICAL EXAMINATION: At the time that I saw him, his blood pressure was 151/ 107 with a pulse of 108, respirations were 26. Interestingly enough, when I saw him, he did not like he had scleral icterus even though I already knew that his BUN was 6.1. Pupils are reactive. The extraocular muscles are intact. Mucous membranes are moist. Chest is clear. The heart revealed a regular rhythm without murmurs. The abdomen is distended. He had a positive fluid wave. There was 1+ edema. LABORATORY DATA: His sodium was 132, potassium could not be performed, chloride of 105, total CO2 15, BUN 42, creatinine 3.8. Uric acid 10.3, calcium of 4 with an albumin of 3.1. His ammonia level could not be obtained. I discussed with the orthodontic lab technician the fact that I have been informed that he was not having his lab tests performed because of hemolysis. She told me that in fact that was not the case, but because of his icteric serum, the analyses were not accurate and the tests were not being reported. IMPRESSION AND PLAN: Acute renal insufficiency probably on the basis of hepatorenal physiology; however, he did receive ketorolac while he was in the hospital and he did receive x-ray contrast agent, both of which in the face of hepatorenal physiology, therefore being prerenal, would magnify their toxicities. He also has a metabolic acidosis with an anion gap of 12. I think his acidosis should be buffered. At some point, it may be necessary to dialyze him, but I do not think that it is necessary now. I did discuss the case with Dr. Young. [id number]/[facility] #: [id number] [facility] HEALTH SYSTEMAlexey
[2018-06-04] MEDS ORDERED: Pantoprazole IV* 40 MG IV SCH (22:00)
[2018-06-05] MEDS: Chlorhexidine MOUTHWASH 0.12%* 15 ML UDC TOPICAL SCH ×5 (00:01→14:15)
[2018-06-05] MEDS: Pantoprazole TAB * 40 MG TAB PO SCH (00:05)
[2018-06-05] MEDS: Propofol* 100 ML IV SCH ×4 (04:00→16:35)
[2018-06-05] MEDS ORDERED: ZOSYN 3.375 GM x ONE DOSE over 30 miuntes IVPB ×2 (06:00)
[2018-06-05] MEDS ORDERED: Sodium Bicarbonate 8.4% IV* 75 MEQ in NS 0.45% 1000 ML BAG* 1,000 ML IV SCH (08:00)
--- NOTE | 2018-06-05 08:16 | PN ---
Date of Service: 06/05/18 - HD 6 Critical Care Services: 43 yo M with PMH of Bipolar 1 disorder, Alcohol abuse, opiod abuse and HTN with admission for suicidial ideation in 2016. He presents to the ED on 05/31 with abdominal pain x 5 days, nausea, vomiting, diarrhea and chills. Unable to keep meals down. CT with hepatomegaly and fatty infiltration of liver, confirmed on US. Transaminases > 2000. Admitted to the medical service with acute liver failure. Started on mucomyst, hepatitis panel sent. 06/01: Triggering WAM protocol but refusing Ativan. Persistent nausea, vomiting and abdominal pain. LFTs improving. 06/02: Worsening alcohol withdrawal. Now confused. Started on Precedex gtt and transferred to ICU. Developed hypotension and Precedex gtt stopped. Bolused IVF. Started on Lactulose for elevated ammonia level (75) 06/03: Developing renal insufficiency. Multiple blood samples hemolyzed and LDH is elevated concerning for in vivo hemolysis. Hematology consulted, case discussed with Hus[facility]; no need for plasmapheresis at this time. Nephrology consulted. [facility] expressed interest in accepting patient for evaluation by liver team. 06/04: Creatinine continuing to rise, still making urine. Developed acute onset hypoxia, CXR with increased pulmonary edema and left effusion, started on high flow. Became more agitated as evening went on requiring PRN doses of Haldol, Geodon and Ativan without lasting improvement. Intubated for behavior control and to address hypoxia. Vital Signs: Temp Pulse Resp BP SpO2 FiO2 102.0 F 123 20 132/78 97 70 06/05/18 07:30 06/05/18 07:30 06/05/18 07:00 06/05/18 07:30 06/05/18 07:30 06/05 04:00 Physical Exam: Gen: resting in bed HEENT: ETT in place Lungs: coarse bilaterally Cardiac: tachycardic Abdomen: firm, distended Extremities: warm, dry, mild edema Neuro: sedated Fluid Balance (Past 24 Hours): I= O= Net Intake & Output 06/03/18 06/04/18 06/05/18 06/06/18 06:59 06:59 06:59 06:59 Intake Total 3266 1993 2053 Output Total 032 108 0073 150 Balance 3012 2178 -1018 -150 Weight 214 lb 1.102 oz 218 lb 11.177 oz Intake: IV Fluids 1961 1533 1674 NS (0.9%) 1961 1533 1674 IVPB 627 855 NS (0.9%) 627 855 Medicated IV 55 329 GEN - Magnesium 55 Propofol 329 Oral 680 420 NG Tube Irrigate Amount 50 Output: NG Tube Drainage Amount 1300 Urine 250 205 0 [place]illed[place] 7 480 1771 150 Other: Estimated Void Medium # Bowel Movements 1 Estimated Stool Amount Small # Voids 1 Labs: Laboratory Results - last 24 hr 05/31/18 05/31/18 05/31/18 15:30 15:30 17:26 INR (Anticoag Therapy) Patient Temperature ABG pH ABG pH (Temp Correct) ABG pCO2 ABG pCO2 (Temp Corrct ABG pO2 ABG pO2 (Temp Correct ABG HCO3 ABG O2 Saturation ABG Base Excess Respiration Rate O2 Delivery Device Ventilator Type Vent Mode FiO2 Inspiratory Time PEEP Pressure Support Pressure Control EPAP IPAP BiPAP Potassium Lactic Acid Direct Bilirubin Indirect Bilirubin AST Ammonia Ur Creatinine Concen IgA 345 Anti-Nuclear Antibody 0.2 Mitochondria M2 Ab <0.1 Anti-Smooth Muscle Ab Negative Tiss Transglutamin IgA <1.2 Phospholipid IgM Ab Hep B DNA Quant (PCR) Undetected Hepatitis C RNA Quant Undetected 06/03/18 06/04/18 06/04/18 15:30 05:59 07:59 INR (Anticoag Therapy) Patient Temperature ABG pH ABG pH (Temp Correct) ABG pCO2 ABG pCO2 (Temp Corrct ABG pO2 ABG pO2 (Temp Correct ABG HCO3 ABG O2 Saturation ABG Base Excess Respiration Rate O2 Delivery Device Ventilator Type Vent Mode FiO2 Inspiratory Time PEEP Pressure Support Pressure Control EPAP IPAP BiPAP Potassium Lactic Acid Direct Bilirubin Indirect Bilirubin TNP AST Ammonia TNP Ur Creatinine Concen IgA Anti-Nuclear Antibody Mitochondria M2 Ab Anti-Smooth Muscle Ab Tiss Transglutamin IgA Phospholipid IgM Ab TNP Hep B DNA Quant (PCR) Hepatitis C RNA Quant 06/04/18 06/04/18 06/04/18 07:59 13:11 14:19 INR (Anticoag Therapy) Patient Temperature ABG pH ABG pH (Temp Correct) ABG pCO2 ABG pCO2 (Temp Corrct ABG pO2 ABG pO2 (Temp Correct ABG HCO3 ABG O2 Saturation ABG Base Excess Respiration Rate O2 Delivery Device Ventilator Type Vent Mode FiO2 Inspiratory Time PEEP Pressure Support Pressure Control EPAP IPAP BiPAP Potassium TNP TNP Lactic Acid Direct Bilirubin TNP TNP Indirect Bilirubin AST TNP TNP Ammonia Ur Creatinine Concen 220.36 IgA Anti-Nuclear Antibody Mitochondria M2 Ab Anti-Smooth Muscle Ab Tiss Transglutamin IgA Phospholipid IgM Ab Hep B DNA Quant (PCR) Hepatitis C RNA Quant 06/04/18 06/04/18 06/04/18 14:19 14:19 14:19 INR (Anticoag Therapy) 0.98 Patient Temperature ABG pH ABG pH (Temp Correct) ABG pCO2 ABG pCO2 (Temp Corrct ABG pO2 ABG pO2 (Temp Correct ABG HCO3 ABG O2 Saturation ABG Base Excess Respiration Rate O2 Delivery Device Ventilator Type Vent Mode FiO2 Inspiratory Time PEEP Pressure Support Pressure Control EPAP IPAP BiPAP Potassium Lactic Acid 1.5 Direct Bilirubin Indirect Bilirubin AST Ammonia TNP Ur Creatinine Concen IgA Anti-Nuclear Antibody Mitochondria M2 Ab Anti-Smooth Muscle Ab Tiss Transglutamin IgA Phospholipid IgM Ab Hep B DNA Quant (PCR) Hepatitis C RNA Quant 06/04/18 22:30 INR (Anticoag Therapy) Patient Temperature Not Reportable ABG pH 7.25 L ABG pH (Temp Correct) Not Reportable ABG pCO2 42 ABG pCO2 (Temp Corrct Not Reportable ABG pO2 199 H ABG pO2 (Temp Correct Not Reportable ABG HCO3 18.3 L ABG O2 Saturation 100.0 H ABG Base Excess -8.5 L Respiration Rate 12 O2 Delivery Device vent Ventilator Type 500 Vent Mode Cmv FiO2 80 Inspiratory Time Not Reportable PEEP 5 Pressure Support Not Reportable Pressure Control Not Reportable EPAP Not Reportable IPAP Not Reportable BiPAP Not Reportable Potassium Lactic Acid Direct Bilirubin Indirect Bilirubin AST Ammonia Ur Creatinine Concen IgA Anti-Nuclear Antibody Mitochondria M2 Ab Anti-Smooth Muscle Ab Tiss Transglutamin IgA Phospholipid IgM Ab Hep B DNA Quant (PCR) Hepatitis C RNA Quant Studies: 06/04 CXR - pulmonary edema. ETT in position. 06/04 US BLE - negative for DVT 06/04 US renal - no pathology noted 05/31 US liver with doppler - hepatomegaly with fatty infiltration of liver 05/31 CT abdomen, pelvis - Hepatomegaly with fatty infiltration of liver, atherosclerosis Nutrition: start TF once NGT output decreases Impression: 43 yo M admitted with nausea, vomiting, diarrhea and acute liver failure likely secondary to alcohol. Developed alcohol withdrawal delirium and transferred to ICU. Now with developing acute renal failure, thrombocytopenia, concern for intravascular hemolysis and ongoing liver failure. Plan: Cardiovascular: (1) Sinus tachycardia; (2) Chronic HTN -- HR 108-144 -- SBP 114-206 -- Telemetry -- Metoprolol -- PRN Labetalol and Hydralazine for goal SBP < 160 Home meds: Metoprolol Pulmonary: (1) Acute respiratory failure with hypoxia -- RR 9-37 -- sats 86-100 -- Vent TV 500 PEEP 5 FiO2 60 RR 12 -- CXR: pulmonary edema -- daily SBT Home meds: Albuterol Gastrointestinal: (1) Acute liver failure, possible alcoholic hepatitis -- LFTs pending -- Hepatitis labs Rheumatoid within normal limits antiSM Ab negative -- Other liver workup in process Anticardiolipin Ab Phospholipid Ab copper [id number] ANCA Complement C3 Complement C5 Cpmplement CH50 CBM Haptoglobin Methylmalonic acid GERRI Ceruloplasmin CMV Ab Hepatitis B and C Mitochondria M2AB Tissue transglutamineAB -- diet: NPO -- bowel regimen: Lactulose -- ulcer prophylaxis: Protonix -- PRN Zofran Home meds: Nexium Endocrine: No acute issues -- monitor BGs Home meds: None Renal: (1) acute renal failure; (2) Hyponatremia -- UOP: 74 ml/hr, received Lasix x 1 last night -- I/O:2053 ml in / 3071 ml out -- Cr pending -- Lytes pending -- IVF: NS @ 40 ml/hr; change to sodium bicarbonate for metabolic acidosis Home meds: None Infectious disease: (1) Sepsis -- Tmax 102.9 -- WBC pending -- Micro 06/04 blood ordered 06/03 urine negative 05/31 MRSA screen negative urine negative -- ABX Zosyn Home meds: None Neurologic: (1) Acute alcohol withdrawal with delirium; (2) Bipolar 1 disorder ; (3) Opoid and alcohol abuse disorder; (4) hx of suicidal ideation -- Urine tox positive for opiates and cannabinoids on admit. -- Folic acid, thiamine -- Propofol for sedation -- PRN Ativan and Haldol for agitation -- PRN Morphine for pain control Home meds: stopped [facility] 3 mo ago Hematological: (1) Thrombocytopenia, concern for HUS; (2) Microangiopathic hemolytic anemia -- Hgb pending -- Plt pending -- DVT prophylaxis: SCDs -- BLE US negative for DVT -- Hematology following Home meds: None Metabolic: (1) Lactic acidosis -- Lactic acid pending Home meds: None Deep vein thrombosis prophylaxis: SCDs Dietary: Protonix Condition: critical Prognosis: poor Code status: full Disposition: Pending transfer to [facility] facility for evaluation by liver transplant team Signficant other updated at bedside regarding interval events and plan of care Cumulative time spent in the care of this patient (excluding any procedure time) : at least 45 minutes. Patient care included clinical interview (with patient and/or family), bedside exam of the patient, review of labs, x-rays, and other ancillary data, coordination of (respiratory, nursing care, review of patient's records, discussion regarding patients management with involved consultants, primary physician, pharmacists, and other healthcare personnel (dietary, case management , physical/occupational therapy etc.) Critical Care Time: 45 min
[2018-06-05] MEDS: ZOSYN 3.375 GM Q8H per EXTENDED INFUSION IVPB SCH ×4 (09:17→16:58)
[2018-06-05 09:38] LABS: ALT 162 U/L (7-52); Alkaline Phosphatase 103 U/L (34-104); BUN/Creatinine Ratio 18.7 (8-20); Blood Urea Nitrogen 47 mg/dL (6-24); CO2 Carbon Dioxide 16 mmol/L (22-32); Chloride 106 mmol/L (101-111); EGFR African American 34.3 (>60); EGFR Non-African American 28.3 (>60); Globulin 3.1 g/dL (2-4); Glucose 115 mg/dL (70-100); INR 1.02 (0.77-1.02); Phosphorus 3.6 mg/dL (2.5-5.0); Sodium 136 mmol/L (135-145); Total Protein 6.1 g/dL (6.4-8.9)
[2018-06-05 09:46] LABS: Anion Gap 14 mmol/L (2-11)
[2018-06-05] MEDS: Folic Acid TAB* 1 MG PO SCH (09:55)
[2018-06-05] MEDS: Thiamine TAB* 100 MG TAB PO SCH (09:55)
[2018-06-05 10:43] LABS: Hepatitis B Surface Antigen Nonreactive (Nonreactive)
[2018-06-05 11:04] LABS: Hepatitis C Antibody Nonreactive (Nonreactive)
[2018-06-05] MEDS ORDERED: fentaNYL INFUSION 50 MCG/ML* 2,500 MCG/50 ML BAG IV SCH (13:00)
[2018-06-05] MEDS ORDERED: Calcium Gluconate INJ* 1 GM in NS 0.9% 50 ML* 50 ML IVPB ONE (13:37)
[2018-06-05 13:58] LABS: Complement C3 153 mg/dL (75 - 175)
[2018-06-05 15:23] LABS: Hematocrit 29 % (36-46); Hemoglobin 10.5 g/dL (14.0-18.0); Mean Corpuscular HGB Conc 36 g/dL (31-36); Mean Corpuscular Hemoglobin 36 pg (27-31); Mean Corpuscular Volume 100 fL (80-94); Mean Platelet Volume 10.6 fL (7.4-10.4); Platelet Count 114 10^3/uL (150-450); Red Blood Count 2.94 10^6 /uL (4.18-5.48); Red Cell Distribution Width 16 % (10.5-15); White Blood Count 11.7 10^3/uL (3.5-10.8)
[2018-06-05 17:39] LABS: Phospholipid Ab IgG < 9.4 GPL; Phospholipid Ab IgM, S < 9.4 MPL
[2018-06-05 18:06] VITALS: BP 127/80
--- NOTE | 2018-06-05 19:29 | DS ---
Date of Admission: 05/31/2018 Date of Discharge: 06/05/2018 Disposition: Acute care transfer to [facility] in [place], [place] for eval by liver transplant team Admitting physician: Sue Cheung MD Discharge Physician: Saadia Young MD Code status: FULL Final diagnoses: Acute respiratory failure with hypoxia Acute encephalopathy Acute alcoholic hepatitis Acute renal failure Hyponatremia Sepsis Thrombocytopenia Microangiopathic hemolytic anemia Lactic acidosis Sinus tachycardia Bipolar 1 Opiod and alcohol abuse disordes Brief history of presentation and hospital course: 43 yo M with PMH of Bipolar 1 disorder, Alcohol abuse, opiod abuse and HTN with admission for suicidial ideation in 2016. He presents to the ED on 05/31 with abdominal pain x 5 days, nausea, vomiting, diarrhea and chills. Unable to keep meals down. CT with hepatomegaly and fatty infiltration of liver, confirmed on US. Transaminases > 2000. Admitted to the medical service with acute liver failure. Started on mucomyst, hepatitis panel sent. 06/01: Triggering WAM protocol but refusing Ativan. Persistent nausea, vomiting and abdominal pain. LFTs improving. 06/02: Worsening alcohol withdrawal. Now confused. Started on Precedex gtt and transferred to ICU. Developed hypotension and Precedex gtt stopped. Bolused IVF. Started on Lactulose for elevated ammonia level (75) 06/03: Developing renal insufficiency. Multiple blood samples hemolyzed and LDH is elevated concerning for in vivo hemolysis. Hematology consulted, case discussed with Husam; no need for plasmapheresis at this time. Nephrology consulted. [facility] expressed interest in accepting patient for evaluation by liver team. 06/04: Creatinine continuing to rise, still making urine. Developed acute onset hypoxia, CXR with increased pulmonary edema and left effusion, started on high flow. Became more agitated as evening went on requiring PRN doses of Haldol, Geodon and Ativan without lasting improvement. Intubated for behavior control and to address hypoxia. 06/05: Bilirubin continuing to rise. Accepted in transfer to [facility] for eval by liver transplant team Data review: Labs and Xrays reviewed Consults: Hematology, nephrology Procedures: intubation. PICC Significant diagnostic studies: 06/05 US abdomen - no ascites 06/04 CXR - pulmonary edema. ETT in position. 06/04 US BLE - negative for DVT 06/04 US renal - no pathology noted 05/31 US liver with doppler - hepatomegaly with fatty infiltration of liver 05/31 CT abdomen, pelvis - Hepatomegaly with fatty infiltration of liver, atherosclerosis Treatments: Ventilator support Antibiotics (Zosyn) Lactulose IVF Lasix Summary took approximately 20 min
[2018-06-05] MEDS ORDERED: Metoprolol Tartrate TAB* 50 mg PO SCH (21:00)
[2018-06-07 11:25] LABS: Urine Collection Duration 24 h
== END 2018-06-05 18:10 | disposition short-term general hospital (02) | DRG 280 ==
LOC: ED 10:46 → OBSVTOIN 17:06 → ICU 17:06
PROVIDERS: ADMIT Student in an Organized Health Care Education/Training Program; ATTEND Internal Medicine Critical Care Medicine
PROC: 0BH17EZ Insertion of Endotracheal Airway into Trachea, Via Natural or Artificial Opening (ICD-10-PCS; 2018-06-04)
PROC: 5A1945Z Respiratory Ventilation, 24-96 Consecutive Hours (ICD-10-PCS; 2018-06-04)
PROC: 02HV33Z Insertion of Infusion Device into Superior Vena Cava, Percutaneous Approach (ICD-10-PCS; principal; 2018-06-05)
DX: K70.10 Alcoholic hepatitis without ascites (principal); J96.01 Acute respiratory failure with hypoxia; A41.9 Sepsis, unspecified organism; E87.2 Acidosis; D59.4 Other nonautoimmune hemolytic anemias; F10.231 Alcohol dependence with withdrawal delirium; E87.1 Hypo-osmolality and hyponatremia; N17.9 Acute kidney failure, unspecified; K70.40 Alcoholic hepatic failure without coma; K21.9 Gastro-esophageal reflux disease without esophagitis; F31.9 Bipolar disorder, unspecified; I10 Essential (primary) hypertension; F17.210 Nicotine dependence, cigarettes, uncomplicated; J45.909 Unspecified asthma, uncomplicated; K76.0 Fatty (change of) liver, not elsewhere classified; Z88.1 Allergy status to other antibiotic agents; Z88.8 Allergy status to other drugs, medicaments and biological substances; Z87.442 Personal history of urinary calculi; Z91.5 Personal history of self-harm; Z82.49 Family history of ischemic heart disease and other diseases of the circulatory system; Z83.3 Family history of diabetes mellitus; Z83.79 Family history of other diseases of the digestive system; Z81.1 Family history of alcohol abuse and dependence; D69.6 Thrombocytopenia, unspecified; Y90.9 Presence of alcohol in blood, level not specified; F11.10 Opioid abuse, uncomplicated
CPT/HCPCS: 36415; 36600; 71045; 74177; 76705; 76775; 80048; 80053; 80074; 80076; 80307; 80320; 80329; 81003; 81015; 82043; 82140; 82247; 82330; 82390; 82436; 82525; 82550; 82570; 82728; 82784; 82803; 83010; 83516; 83520; 83540; 83550; 83605; 83615; 83690; 83735; 83921; 83986; 84100; 84133; 84156; 84300; 84484; 84550; 85025; 85027; 85045; 85384; 85397; 85610; 85730; 86038; 86140; 86147; 86160; 86162; 86255; 86308; 86431; 86644; 86645; 86880; 87040; 87086; 87517; 87522; 87641; 93005; 93970; 94002; 94003; 99223; 99232; 99285; A9270-GY; C1751; G0480; J0132; J0330; J0360; J0610; J1630; J1885; J1940; J2060; J2250; J2270; J2405; J2543; J2704; J3010; J3411; J3475; J3486; J7060; Q9967

== ENCOUNTER 2018-11-18 08:34 | Inpatient (IN) | payer BC ==
[2018-11-18] MEDS ORDERED: Morphine 4 MG/ML VIAL (1 ml) 4 MG/ML VIAL IV ONE ×2 (08:44→11:04)
[2018-11-18] MEDS ORDERED: Ondansetron INJ* 2 MG/ML VIAL IV ONE ×2 (08:44→11:04)
[2018-11-18] MEDS ORDERED: NS 0.9% 1000 ML** 1,000 ML IV ONE ×2 (08:54→10:32)
[2018-11-18 09:10] LABS: ABS Lymphocytes 1.2 10^3/ul (1.0-4.8); ABS Monocytes 1.5 10^3/ul (0-0.8); ABS Neutrophils 15.3 10^3/ul (1.5-7.7); Hematocrit 48 % (42-52); Hemoglobin 16.6 g/dL (14.0-18.0); Lymphocyte % 6.7 %; Mean Corpuscular HGB Conc 34 g/dL (31-36); Mean Corpuscular Hemoglobin 32 pg (27-31); Mean Corpuscular Volume 92 fL (80-94); Mean Platelet Volume 8.8 fL (7.4-10.4); Nucleated Red Blood Cells % 0.1; Platelet Count 263 10^3/uL (150-450); Red Blood Count 5.26 10^6 /uL (4.18-5.48); Red Cell Distribution Width 19 % (10-15); White Blood Count 18.1 10^3/uL (3.5-10.8)
[2018-11-18 09:27] LABS: ALT 62 U/L (7-52); AST 32 U/L (13-39); Albumin 4.7 g/dL (3.2-5.2); Albumin/Globulin Ratio 1.3 (1-3); Alkaline Phosphatase 156 U/L (34-104); Amylase 357 U/L (29-103); Anion Gap 13 mmol/L (2-11); BUN/Creatinine Ratio 21.3 (8-20); Blood Urea Nitrogen 19 mg/dL (6-24); C Reactive Protein 97.47 mg/L (<8.01); CO2 Carbon Dioxide 24 mmol/L (22-32); Calcium 9.9 mg/dL (8.6-10.3); Chloride 95 mmol/L (101-111); EGFR African American 113.4 (>60); EGFR Non-African American 93.7 (>60); Globulin 3.6 g/dL (2-4); Glucose 231 mg/dL (70-100); Magnesium 1.6 mg/dL (1.9-2.7); Potassium 3.4 mmol/L (3.5-5.0); Sodium 132 mmol/L (135-145); Total Protein 8.3 g/dL (6.4-8.9)
[2018-11-18] MEDS ORDERED: Iohexol 300* (CONTRAST) 10 ML SDV IV ONE (10:07)
[2018-11-18] MEDS ORDERED: Piperacillin/Tazobac ADVAN(*) 3.375 GM in NS 0.9% 100 ML* 100 ML IVPB ONE ×2 (10:36→18:46)
[2018-11-18 10:49] LABS: Alcohol < 10 mg/dL (<10)
[2018-11-18] MEDS ORDERED: Magnesium Sulfate 2 GM IV* 2 GM/50 ML BAG IVPB ONE (13:02)
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
[2018-11-18] MEDS ORDERED: Metoprolol Succinate XL TAB* 100 MG PO SCH (14:00)
[2018-11-18] MEDS: NS 0.9% 1000 ML** 1,000 ML IV SCH ×2 (14:13→20:10)
[2018-11-18] MEDS: Pantoprazole IV* 40 MG IV SCH ×2 (14:13→21:11)
[2018-11-18] MEDS: Morphine 4 MG/ML VIAL (1 ml) 4 MG/ML VIAL IV PRN ×3 (14:14→21:21)
[2018-11-18] MEDS: Enoxaparin(*) 40 MG/0.4 ML SYR SUBCUT SCH (14:15)
[2018-11-18 16:36] LABS: CO2 Carbon Dioxide 24 mmol/L (22-32); Calcium 8.7 mg/dL (8.6-10.3)
[2018-11-18 16:42] LABS: Blood Urea Nitrogen 14 mg/dL (6-24); EGFR African American 149.6 (>60); EGFR Non-African American 123.7 (>60); Glucose 165 mg/dL (70-100)
[2018-11-18 17:19] LABS: Chloride 102 mmol/L (101-111); Sodium 135 mmol/L (135-145)
[2018-11-18 17:23] LABS: Anion Gap 9 mmol/L (2-11)
--- NOTE | 2018-11-18 18:48 | HP ---
CC: Dr. Amauri Haro HISTORY AND PHYSICAL: DATE OF ADMISSION: 11/18/18 PRIMARY CARE PHYSICIAN: Dr. Amauri Haro. CHIEF COMPLAINT: Abdominal pain, nausea, and vomiting. SUBJECTIVE: This is a 43-year-old male with past medical history of alcohol- induced pancreatitis, b ipolar with overdose, fulminant hepatitis with a history of transfer to [facility] in [place], [place] for liver transplant evaluation, history of acute respiratory failure with hypoxia an d encephalopathy, history of thrombocytopenia, comes into the emergency room with a history of nausea , vomiting for 3 days, unable to keep food down, increased fullness. The patient in the emergency ro om was noted to have significant elevation of his amylase and lipase with lipase of 2083, amylase [address] CT scan revealed evidence of pancreatitis without stigmata of abscesses. He received morphine, IV fluids, and medicine service was called for evaluation. The patient was seen and evaluated by me. He denies ingesting any drug. He denies alcohol to me when I interviewed him, but based on his chart , I went back and reexamined the patient and re-questioned him, he admits to having 1 glass of alcoho l for the past 3 days, denies binge drinking. His alcohol level in the emergency room was tested and it was less than 10. PAST MEDICAL HISTORY: 1. History of acute pancreatitis and abscess. 2. History of bipolar. 3. History of alcohol abuse. 4. History of hypertension. MEDICATIONS: He is on: 1. Nexium 20 b.i.d. 2. Toprol-XL 100 daily. 3. Albuterol p.r.n. ALLERGIES: Allergic to CEPHALEXIN and LISINOPRIL. LISINOPRIL caused hypertension and CEPHALEXIN, he is not aware. FAMILY HISTORY: Is not aware of his family genetically, but they are alive and well. SOCIAL HISTORY: Currently, the patient denies active alcohol drinking, although only socially. Prio r history of alcohol abuse and polysubstance abuse. 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 Actively smokes, occasional marijuana. PHYSICAL EXAMINATION GENERAL: He is awake, alert, in mild distress from his pain. VITAL SIGNS: Temperature 98.3, pulse 94, respiratory rate 22, satting 96%, blood pressure 156/82. HEENT: Head and Neck: Normocephalic, atraumatic. Anicteric sclerae. LUNGS: Clear to auscultation bilaterally. CARDIOVASCULAR: S1, S2. Tachycardic. Pulse of 137 and 121. ABDOMEN: Positive bowel sounds. Tender on palpation in the mid abdominal and periumbilical area. EXTREMITIES: No pedal edema. DIAGNOSTIC STUDIES/LAB DATA: CBC: White count 18,000, hemoglobin 16, hematocrit 48, platelets 263. Chemistry: Sodium 132, potassium 3.4, chloride 95, BUN 19, creatinine 0.9, glucose 231, lactic acid 2.1, magnesium 1.6. Total bili 1.3, AST 32, ALT 62. CRP 97. Amylase 357, lipase 2083. Alcohol less than 10. Diagnostic studies: He had a CT scan of the abdomen which reveals hepatosteatosis, element of gastri tis and duodenitis and suggestive of pancreatitis without evidence of loculated or perienteric absces s collection. IMPRESSION AND PLAN: A 43-year-old male comes in with: 1. Abdominal pain and acute pancreatitis. Admit to the medical floor, n.p.o. except ice chips. IV fluids after his bolus at 200 cc an hour for 3 bags, n.p.o., pain control with morphine. Protonix 40 mg IV b.i.d., Zofran p.r.n. 2. Hypertension. Continue his metoprolol with holding parameters. 3. DVT prophylaxis: Lovenox 40 subcu daily. 4. Code status: Full code. 5. History of alcohol abuse. Not forthcoming with alcohol drinking. [facility] [id number][facility] #: [id number]
[2018-11-18] MEDS ORDERED: Zosyn per Pharmacy* NOTE FOLLOW UP SCH (19:00)
[2018-11-18] MEDS: Metoprolol Succinate XL TAB* 100 MG PO SCH (21:13)
[2018-11-18] MEDS: Ondansetron INJ* 2 MG/ML VIAL IV PRN (21:21)
[2018-11-18] MEDS: Lactobacillus Acidophilus* 1 TAB PO SCH (21:28)
[2018-11-19] MEDS: Morphine 4 MG/ML VIAL (1 ml) 4 MG/ML VIAL IV PRN ×4 (01:09→21:26)
[2018-11-19] MEDS: ZOSYN 3.375 GM Q8H per EXTENDED INFUSION IVPB SCH ×4 (01:11→08:14)
[2018-11-19 04:53] LABS: ABS Eosinophils 0.1 10^3/ul (0-0.6); ABS Lymphocytes 1.1 10^3/ul (1.0-4.8); ABS Monocytes 0.7 10^3/ul (0-0.8); ABS Neutrophils 5.8 10^3/ul (1.5-7.7); Eosinophil % 1.2 %; Hematocrit 35 % (42-52); Hemoglobin 11.8 g/dL (14.0-18.0); Mean Corpuscular HGB Conc 34 g/dL (31-36); Mean Corpuscular Hemoglobin 32 pg (27-31); Mean Corpuscular Volume 93 fL (80-94); Mean Platelet Volume 8.7 fL (7.4-10.4); Platelet Count 147 10^3/uL (150-450); Red Blood Count 3.74 10^6 /uL (4.18-5.48); Red Cell Distribution Width 18 % (10-15); White Blood Count 7.7 10^3/uL (3.5-10.8)
[2018-11-19] MEDS: NS 0.9% 1000 ML** 1,000 ML IV SCH (05:02)
[2018-11-19 05:10] LABS: Albumin 3.6 g/dL (3.2-5.2); Albumin/Globulin Ratio 1.3 (1-3); BUN/Creatinine Ratio 17.4 (8-20); Calcium 8.6 mg/dL (8.6-10.3); EGFR African American 152.1 (>60); EGFR Non-African American 125.7 (>60); Globulin 2.8 g/dL (2-4); Indirect Bilirubin 0.6 mg/dL (0.3-1.0); Phosphorus 2.1 mg/dL (2.5-5.0); Potassium 3.5 mmol/L (3.5-5.0); Total Bilirubin 0.8 mg/dL (0.2-1.0); Total Protein 6.4 g/dL (6.4-8.9)
[2018-11-19 05:39] LABS: Urine Appearance Clear; Urine Bacteria Absent (Absent); Urine Bilirubin Negative (Negative); Urine Blood 1+ (Negative); Urine Color Yellow; Urine Glucose Negative (Negative); Urine Ketones Negative (Negative); Urine Nitrite Negative (Negative); Urine Protein 1+(30 mg/dL) (Negative); Urine Red Blood Cell 3+(>10/hpf) (Absent); Urine Specific Gravity 1.029 (1.010-1.030); Urine Urobilinogen Negative (Negative); Urine White Blood Cell Trace(0-5/hpf) (Absent)
[2018-11-19] MEDS: Pantoprazole IV* 40 MG IV SCH ×2 (08:14→21:13)
[2018-11-19] MEDS: Lactobacillus Acidophilus* 1 TAB PO SCH ×2 (08:14→21:15)
[2018-11-19] MEDS ORDERED: Influenza VAC *QUAD* 2019-20* 0.5 ML SYRINGE IM ONE (09:00)
[2018-11-19] MEDS ORDERED: Ketorolac INJ* 30 MG/ML 1 ML VIAL IV PUSH ONE (11:30)
[2018-11-19] MEDS ORDERED: NS 0.9% 1000 ML** 1,000 ML IV SCH (12:00)
--- NOTE | 2018-11-19 12:00 | PN ---
Subjective Date of Service: 11/19/18 Interval History: Pt feels much better, pain is slowly getting better. Had a BM this AM Objective Active Medications: Enoxaparin Sodium (Lovenox(*)) 40 mg SUBCUT Q24H [facility] Last Admin: 11/18/18 14:15 Dose: 40 mg Sodium Chloride (Ns 0.9% 1000 Ml) 1,000 mls @ 100 mls/hr IV PER RATE [facility] Lactobacillus Rhamnosus (Lactobacillus Acidophilus*) 1 tab PO BID [facility] Last Admin: 11/19/18 08:14 Dose: 1 tab Metoprolol Succinate (Toprol Xl Tab*) 100 mg PO 2100 [facility] Last Admin: 11/18/18 21:13 Dose: 100 mg Morphine Sulfate (Morphine 4 Mg/Ml Vial (1 Ml)) 4 mg IV Q3H PRN PRN Reason: PAIN - SEVERE Last Admin: 11/19/18 08:17 Dose: 4 mg Ondansetron HCl (Zofran Inj*) 4 mg IV Q6H PRN PRN Reason: NAUSEA Last Admin: 11/18/18 21:21 Dose: 4 mg Oxycodone HCl (Roxycodone Tab*) 10 mg PO Q4H PRN PRN Reason: PAIN - SEVERE Pantoprazole Sodium (Protonix Iv*) 40 mg IV BID [facility] Last Admin: 11/19/18 08:14 Dose: 40 mg Vital Signs - 8 hr 11/19/18 11/19/18 11/19/18 04:56 05:22 06:10 Temperature 97.9 F Pulse Rate 83 Respiratory 20 20 18 Rate Blood Pressure 138/82 (mmHg) O2 Sat by Pulse 94 Oximetry 11/19/18 11/19/18 11/19/18 07:15 08:00 08:17 Temperature 98.3 F Pulse Rate 77 Respiratory 14 18 18 Rate Blood Pressure 129/87 (mmHg) O2 Sat by Pulse 94 Oximetry 11/19/18 11/19/18 09:37 11:15 Temperature 98.3 F Pulse Rate 84 Respiratory 18 16 Rate Blood Pressure 143/86 (mmHg) O2 Sat by Pulse 96 Oximetry Oxygen Devices in Use Now: None Appearance: 43 yo m in nAD, aAOx3 Eyes: No Scleral Icterus, PERRLA Ears/Nose/Mouth/Throat: NL Teeth, Lips, Gums, Mucous Membranes Moist Neck: NL Appearance and Movements; NL JVP, Trachea Midline Respiratory: Symmetrical Chest Expansion and Respiratory Effort, Clear to Auscultation Cardiovascular: NL Sounds; No Murmurs; No JVD, RRR Abdominal: No Hepatosplenomegaly, - - epigastric tenderness-mild, no rebound, no guarding, BS+ Lymphatic: No Cervical Adenopathy Extremities: No Edema, No Clubbing, Cyanosis Skin: No Rash or Ulcers, No Nodules or Sclerosis Neurological: Alert and Oriented x 3, NL Muscle Strength and Tone Result Diagrams: 11/19/18 04:44 11/19/18 04:44 Additional Lab and Data: Lab Results 11/18/18 11/18/18 11/18/18 Range/Units 09:03 09:03 09:03 WBC 18.1 H (3.5-10.8) 10^3/uL RBC 5.26 (4.18-5.48) 10^6 /uL Hgb 16.6 (14.0-18.0) g/dL Hct 48 (42-52) % MCV 92 (80-94) fL MCH 32 H (27-31) pg MCHC 34 (31-36) g/dL RDW 19 H (10-15) % Plt Count 263 (150-450) 10^3/uL MPV 8.8 (7.4-10.4) fL Neut % (Auto) 84.8 % Lymph % (Auto) 6.7 % Reeves % (Auto) 8.2 % Eos % (Auto) 0.0 % Baso % (Auto) 0.3 % Absolute Neuts (auto) 15.3 H (1.5-7.7) 10^3/ul Absolute Lymphs (auto) 1.2 (1.0-4.8) 10^3/ul Absolute Monos (auto) 1.5 H (0-0.8) 10^3/ul Absolute Eos (auto) 0.0 (0-0.6) 10^3/ul Absolute Basos (auto) 0.0 (0-0.2) 10^3/ul Absolute Nucleated RBC 0.0 10^3/ul Nucleated RBC % 0.1 Sodium 132 L (135-145) mmol/L Potassium 3.4 L (3.5-5.0) mmol/L Chloride 95 L (101-111) mmol/L Carbon Dioxide 24 (22-32) mmol/L Anion Gap 13 H (2-11) mmol/L BUN 19 (6-24) mg/dL Creatinine 0.89 (0.67-1.17) mg/dL Est GFR ( Amer) 113.4 (>60) Est GFR (Non-Af Amer) 93.7 (>60) BUN/Creatinine Ratio 21.3 H (8-20) Glucose 231 H (70-100) mg/dL Lactic Acid 2.1 H* (0.5-2.0) mmol/L Calcium 9.9 (8.6-10.3) mg/dL Magnesium 1.6 L (1.9-2.7) mg/dL Total Bilirubin 1.30 H (0.2-1.0) mg/dL AST 32 (13-39) U/L ALT 62 H (7-52) U/L Alkaline Phosphatase 156 H (34-104) U/L Troponin I 0.00 (<0.04) ng/mL C-Reactive Protein 97.47 H (<8.01) mg/L Total Protein 8.3 (6.4-8.9) g/dL Albumin 4.7 (3.2-5.2) g/dL Globulin 3.6 (2-4) g/dL Albumin/Globulin Ratio 1.3 (1-3) Amylase 357 H (29-103) U/L Lipase 2083 H (11.0-82.0) U/L Serum Alcohol < 10 (<10) mg/dL Assess/Plan/Problems-Billing Assessment: 43 M with h/o ETOH pancreatitis with cyst and abscess, s/p partial pancreatectomy in 06/2018 presents with V/V/Abd pain after he had chicken in ETOH sauce - Patient Problems (1) Acute pancreatitis Comment: improving. will start clear diet and Oxycodone for pain management (2) Hyperglycemia Comment: check HbA1C (3) HTN (hypertension) Comment: controlled , cont home metoprolol (4) DVT prophylaxis Comment: lovenox Status and Disposition: inpatient
[2018-11-19] MEDS: Enoxaparin(*) 40 MG/0.4 ML SYR SUBCUT SCH (14:26)
[2018-11-19] MEDS: oxyCODONE TAB* 5 MG TAB PO PRN ×3 (14:26→23:57)
[2018-11-19] MEDS: Ondansetron INJ* 2 MG/ML VIAL IV PRN (18:28)
[2018-11-19] MEDS: Nicotine PATCH 21 MG/24 HR* PATCH TRANSDERM SCH (21:14)
[2018-11-19] MEDS: Metoprolol Succinate XL TAB* 100 MG PO SCH (21:14)
[2018-11-20] MEDS: Morphine 4 MG/ML VIAL (1 ml) 4 MG/ML VIAL IV PRN (02:45)
[2018-11-20 05:40] LABS: ABS Eosinophils 0.4 10^3/ul (0-0.6); ABS Lymphocytes 1.5 10^3/ul (1.0-4.8); ABS Monocytes 0.6 10^3/ul (0-0.8); ABS Neutrophils 2.9 10^3/ul (1.5-7.7); Eosinophil % 6.7 %; Hematocrit 34 % (42-52); Hemoglobin 11.6 g/dL (14.0-18.0); Lymphocyte % 27.4 %; Mean Corpuscular HGB Conc 34 g/dL (31-36); Mean Corpuscular Hemoglobin 32 pg (27-31); Mean Corpuscular Volume 94 fL (80-94); Mean Platelet Volume 8.7 fL (7.4-10.4); Platelet Count 167 10^3/uL (150-450); Red Blood Count 3.59 10^6 /uL (4.18-5.48); Red Cell Distribution Width 18 % (10-15); White Blood Count 5.4 10^3/uL (3.5-10.8)
[2018-11-20 05:57] LABS: Albumin 3.6 g/dL (3.2-5.2); Albumin/Globulin Ratio 1.3 (1-3); BUN/Creatinine Ratio 12.1 (8-20); Calcium 8.7 mg/dL (8.6-10.3); EGFR African American 160.2 (>60); EGFR Non-African American 132.4 (>60); Globulin 2.8 g/dL (2-4); HDL Cholesterol 36.2 mg/dL; Potassium 3.3 mmol/L (3.5-5.0); Total Bilirubin 0.5 mg/dL (0.2-1.0); Total Protein 6.4 g/dL (6.4-8.9)
[2018-11-20] MEDS: oxyCODONE TAB* 5 MG TAB PO PRN (06:04)
[2018-11-20] MEDS: Pantoprazole IV* 40 MG IV SCH (08:27)
[2018-11-20] MEDS: Nicotine PATCH 21 MG/24 HR* PATCH TRANSDERM SCH (08:27)
[2018-11-20] MEDS: Lactobacillus Acidophilus* 1 TAB PO SCH (08:27)
[2018-11-20] MEDS ORDERED: Potassium Chlor TAB* 20 MEQ TAB.ER PO ONE (09:49)
[2018-11-20] MEDS ORDERED: KCL 20 MEQ/100 ML IVPREMIX* 20 MEQ/100 ML BAG IV SCH (10:00)
[2018-11-20 11:31] VITALS: BP 139/94
--- NOTE | 2018-11-20 15:53 | DS ---
CC: Dr. Haro * DISCHARGE SUMMARY: DATE OF ADMISSION: 11/18/18 DATE OF DISCHARGE: 11/20/18 PRIMARY CARE PROVIDER: Dr. Haro. DISPOSITION AT DISCHARGE: Home. CONDITION ON DISCHARGE: Stable. DISCHARGE DIAGNOSIS: Acute pancreatitis. SECONDARY DIAGNOSES: 1. History of partial pancreatectomy in patient with history of recurrent alcoholic pancreatitis and abscess. 2. History of bipolar disease. 3. History of alcohol abuse remotely. 4. Hypertension. MEDICATIONS AT DISCHARGE: Include: 1. Zofran ODT 4 mg every 6 hours p.r.n. 2. Toprol XL 100 mg daily. 3. Nexium 20 mg b.i.d. 4. Albuterol inhaler on a p.r.n. basis. 5. TriCor 40 mg p.o. daily. LABORATORY DATA AND STUDIES PERFORMED DURING THE HOSPITAL STAY: Included on , white blood cell count of 5.4, hemoglobin of 11.6, hematocrit of 34, and platelets of 167. Sodium of 137, potassium of 3.2, chloride 105, carbon dioxide 26, BUN 8, creatinine 0.66. Liver function test unremarkable, slight elevation of alkaline phosphatase of 105. Triglycerides 446, cholesterol 222. Lipase was 209. Hemoglobin A1c was 6.0. Glucose level in the morning was 128. CT of the abdomen on admission, impression: "Hepatic steatosis. The findings are suspicious for gastritis and duodenitis with surrounding inflammatory change without visualized extraenteric gas or loculated perienteric abscess collection. The differential would include acute pancreatitis with peripancreatic inflammatory change, secondary inflammation of the gastric antrum and duodenum, correlate with clinical assessment." HOSPITALIZATION COURSE: Mr. Gale is a 49-year-old male with a history of recurrent alcoholic pancreatitis who had surgery on his pancreas in June of this year, presented to hospital with acute onset of abdominal pain, nausea, and vomiting and CT suggestive of pancreatitis after he had chicken with alcoholic sauce a couple of days earlier. He did very well with conservative medical management. On clear liquid diet, his lipase had been slowly decreasing from over 2000 on the day of admission to 209 at discharge. His abdominal pain, which he stated that he lives with, is back to his baseline. His acute abdominal pain resolved. It was noted that patient has hemoglobin A1c at 6.0 and he was diagnosed with impaired glucose tolerance and educated about that. It was also noted that he has triglyceride level of 446. TriCor is going to be started at discharge. The patient recommended to follow up with his primary care provider in 4 to 7 days. PHYSICAL EXAM AT THE TIME OF DISCHARGE: Blood pressure of 139/94, heart rate of 73 and regular, respiratory rate 18, oxygen saturation 95% on room air, temperature 98.2. General: The patient is a very pleasant 43-year-old male who is not in acute distress. Alert, awake, and oriented x3. HEENT: Head: Atraumatic, normocephalic. Eyes: Pupils are equal and reactive to light and accommodation. Pharynx clear. Mucosa moist. Neck: Supple. No JVD. No bruit bilaterally. Cardiovascular: Regular rate and rhythm. No murmur. Respiratory : Clear to auscultation bilaterally. Abdomen: Soft, minimally tender in the epigastric region with no rebound, no guarding. Bowel sounds present in all 4 quadrants. Extremities: There is no edema. Pulses are 2+ bilaterally. No clubbing or cyanosis. Please note that this is a short summary of the patient's hospital stay. Please refer to further medical records for details. TIME SPENT: Approximately 35 minutes were spent on the patient's discharge. [id number]/[facility] #: [id number] [place]
[2018-11-20] MEDS ORDERED: Nicotine Patch Removal NOTE PATCH OFF SCH (21:00)
== END 2018-11-20 13:15 | disposition home or self-care (01) | DRG 282 ==
LOC: ED 08:34 → MED 13:00
PROVIDERS: ADMIT Internal Medicine; ATTEND Internal Medicine
DX: K85.20 Alcohol induced acute pancreatitis without necrosis or infection (principal); F31.9 Bipolar disorder, unspecified; I10 Essential (primary) hypertension; F10.10 Alcohol abuse, uncomplicated; Y90.0 Blood alcohol level of less than 20 mg/100 ml; F17.210 Nicotine dependence, cigarettes, uncomplicated; F43.10 Post-traumatic stress disorder, unspecified; F41.9 Anxiety disorder, unspecified; F11.21 Opioid dependence, in remission; R73.9 Hyperglycemia, unspecified; Z79.899 Other long term (current) drug therapy; Z88.8 Allergy status to other drugs, medicaments and biological substances; Z82.49 Family history of ischemic heart disease and other diseases of the circulatory system; Z83.3 Family history of diabetes mellitus
CPT/HCPCS: 36415; 74177; 80048; 80053; 80061; 80076; 80320; 81003; 81015; 82150; 83036; 83605; 83690; 83721; 83735; 84100; 84484; 85025; 86140; 87040; 87086; 90686; 99284; A9270-GY; G0480; J1650; J1885; J2270; J2405; J2543; J3475; Q9967

== ENCOUNTER 2018-12-16 11:51 | Inpatient (IN) | payer BC ==
[2018-12-16 13:28] LABS: ABS Basophils 0.1 10^3/ul (0-0.2); ABS Lymphocytes 1.2 10^3/ul (1.0-4.8); ABS Neutrophils 16.6 10^3/ul (1.5-7.7); Eosinophil % 0.1 %; Hematocrit 52 % (42-52); Hemoglobin 17.6 g/dL (14.0-18.0); Lymphocyte % 6.3 %; Mean Corpuscular HGB Conc 34 g/dL (31-36); Mean Corpuscular Hemoglobin 33 pg (27-31); Mean Corpuscular Volume 97 fL (80-94); Nucleated Red Blood Cells % 0.2; Platelet Count 209 10^3/uL (150-450); Red Cell Distribution Width 16 % (10-15); White Blood Count 18.8 10^3/uL (3.5-10.8)
[2018-12-16 13:42] LABS: Albumin 4.6 g/dL (3.2-5.2); Calcium 9.2 mg/dL (8.6-10.3); Magnesium 1.6 mg/dL (1.9-2.7); Total Bilirubin 2.2 mg/dL (0.2-1.0)
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
[2018-12-16 13:48] LABS: Albumin/Globulin Ratio 1.4 (1-3); BUN/Creatinine Ratio 15.1 (8-20); C Reactive Protein 6.25 mg/L (<8.01); EGFR African American 142.6 (>60); EGFR Non-African American 117.8 (>60); Globulin 3.4 g/dL (2-4)
[2018-12-16] MEDS ORDERED: Ketorolac INJ* 30 MG/ML 1 ML VIAL IV ONE (14:11)
[2018-12-16] MEDS ORDERED: Ondansetron INJ* 2 MG/ML VIAL IV ONE ×2 (14:13→20:45)
[2018-12-16] MEDS: NS 0.9% 1000 ML** 2,000 ML IV SCH ×2 (14:16→16:17)
[2018-12-16] MEDS ORDERED: Magnesium Sulfate 2 GM IV* 2 GM/50 ML BAG IVPB ONE (14:21)
[2018-12-16 14:25] LABS: Potassium 3.5 mmol/L (3.5-5.0)
[2018-12-16] MEDS ORDERED: Iohexol 300* (CONTRAST) 10 ML SDV IV ONE (14:36)
[2018-12-16] MEDS ORDERED: Morphine 4 MG/ML VIAL (1 ml) 4 MG/ML VIAL IV ONE ×2 (14:44→15:48)
[2018-12-16] MEDS ORDERED: Metoclopramide IV* 5 MG/ML 2 ML VIAL IV ONE (14:45)
[2018-12-16] MEDS ORDERED: PROCHLORPERAZINE INJ 5 MG/ML 2 ML VIAL IV ONE (16:18)
[2018-12-16] MEDS: HYDROmorphone INJ* 0.5 MG/0.5 ML SYRINGE IV PRN ×2 (16:56→19:57)
[2018-12-16 17:09] LABS: Urine Appearance Clear; Urine Blood 2+ (Negative); Urine Color Amber; Urine Ketones 1+ (Negative); Urine Protein 1+(30 mg/dL) (Negative); Urine Specific Gravity 1.035 (1.010-1.030); Urine Urobilinogen Negative (Negative)
[2018-12-16 17:10] LABS: Urine Bilirubin 1+ (Negative); Urine Glucose Negative (Negative); Urine Nitrite Negative (Negative)
[2018-12-16 17:16] LABS: Urine Bacteria Absent (Absent); Urine Red Blood Cell Trace(0-2/hpf) (Absent); Urine Squamous Epithelial Cell Present (Absent); Urine White Blood Cell Trace(0-5/hpf) (Absent)
[2018-12-16] MEDS ORDERED: D5W 1/2 NS 1000 ML BAG* 1,000 ML IV SCH (18:00)
[2018-12-16] MEDS ORDERED: Insulin Infusion 100unit/100mL 100 UNITS/100 ML UNIT IV SCH ×2 (18:00→19:00)
[2018-12-16] MEDS ORDERED: Lactated Ringers 1000 ML Bag* 1,000 ML IV SCH (18:00)
[2018-12-16 18:09] LABS: HDL Cholesterol 38.4 mg/dL
[2018-12-16] MEDS: Ondansetron INJ* 2 MG/ML VIAL IV PRN (18:33)
[2018-12-16] MEDS ORDERED: hydrALAZINE IV* 20 MG/ML VIAL IV SLOW PU PRN (18:39)
[2018-12-16] MEDS: D5W 1/2 NS KCl 20 Meq 1000 ML* 1,000 ML IV SCH (18:45)
[2018-12-16] MEDS: oxyCODONE TAB* 5 MG TAB PO PRN ×2 (18:46→22:56)
[2018-12-16] MEDS ORDERED: Magnesium Sulfate IV* 3 GM in NS 0.9% 100 ML* 100 ML IVPB ONE (19:15)
[2018-12-16] MEDS: Pantoprazole IV* 40 MG IV SCH (19:59)
[2018-12-16] MEDS ORDERED: Ondansetron INJ* 2 MG/ML VIAL ONE (20:49)
--- NOTE | 2018-12-16 20:50 | HP ---
CC: Dr. Haro * [facility] MEDICINE HISTORY AND PHYSICAL: DATE OF ADMISSION: 12/16/18 PRIMARY CARE PHYSICIAN: Dr. Haro. ATTENDING PHYSICIAN: Ryan Balderas MD * (dictation provided by Lindy Elena NP) CHIEF COMPLAINT: Abdominal pain, nausea, vomiting. HISTORY OF PRESENT ILLNESS: Mr. 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 Mr. Gale states that he has not been admitted to any hospital since his last admission here early in November. At that time, he had again another episode of acute pancreatitis and was in the hospital for 2 days. He recovered well. He states that he has been drinking alcohol occasionally. He is not aware that he was to be on any agent to reduce his triglycerides, though that is written in his discharge summary. He is not following with any md senior research scientist or any team from [facility] at all at this point. He states that several days ago he began having abdominal pain along the right side. He has had nausea and vomiting at home. He had a fever to a 100 yesterday. Today, he decided to come to the emergency room because the pain was "tremendous" and to the point where he was unable to walk or tolerate any oral intake. In the emergency room, Mr. Gale had labs, which showed an elevated white blood cell count of 18.8, his BUN and creatinine are normal. Total bilirubin is 2.2, his AST is 180, ALT 136, alk phos 198. His amylase is 189 and lipase 1451. His triglycerides are 1364, they were 446 on 11/20/18. His urine shows no evidence of infection. His vitals show that he is tachycardic, but his blood pressure is stable running in the 170s systolically. He is not febrile. He is not hypoxic. He has had an abdomen and pelvis CT, which shows that there is "progressive inflammation surrounding the remaining pancreas consistent with progressive pancreatitis, increased edema extended to the transverse and mesocolon, no abscess is noted." PAST MEDICAL HISTORY: 1. 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 2. History of recurrent alcoholic pancreatitis with abscess. 3. History of bipolar disease. 4. History of alcohol abuse. 5. Hypertension. MEDICATIONS: The patient states his medications are: 1. Metoprolol succinate 100 mg p.o. daily. 2. Esomeprazole 20 mg p.o. b.i.d. 3. Amlodipine 5 mg p.o. daily. 4. Ondansetron 4 mg p.o. q.6 hours p.r.n. ALLERGIES: To CEPHALEXIN and LISINOPRIL. FAMILY HISTORY: The patient does not know the family history of his father. His mother is alive and she has alcoholic liver cirrhosis. SOCIAL HISTORY: The patient is . He has 2 children. He lives with his , Keila. He states that she would be the surrogate decision maker. He was a previous heavy drinker and reports he only drinks occasionally. He is no longer smoking cigarettes, but is vaping. He reports smoking marijuana about once per week or so. He denies any IV drug use, but he has a history of that. REVIEW OF SYSTEMS: A 14-point review of systems was completed with Mr. Gale and all those not mentioned above were negative. PHYSICAL EXAMINATION GENERAL: Mr. Gale is lying in the bed. He is in no acute distress. VITAL SIGNS: Temperature 97.3, pulse rate 117, respiratory rate 20, O2 saturation 95% on room air, blood pressure 177/36. LUNGS: Have crackles in the bases. HEART: S1, S2. No murmur, rub, or gallop and regular. ABDOMEN: Soft. It is distended. There is tenderness throughout the right quadrant and the left lower quadrant. There is no rebound or guarding. Bowel sounds are positive. EXTREMITIES: No cyanosis or edema. SKIN: Intact. NEURO: He is alert, he is oriented x3. He moves all extremities equally. There is no facial asymmetry or focal weakness. His extraocular movements are intact. DIAGNOSTIC STUDIES/LAB DATA: WBC 18.8, hemoglobin 17.6, hematocrit 52, platelet count 16. Sodium 132, potassium 3.5, chloride 100, serum bicarbonate 15, BUN 11, creatinine 0.73, glucose 180. Magnesium 1.6. Total bilirubin 2.2, AST 180, ALT 136, alk phos 198. Triglycerides 1364. Amylase 189, lipase 1451. Again, the abdomen and pelvis CT is as follows, "the patient is status post pancreatic body and tail pancreatectomy, there is progressive inflammation surrounding the remaining pancreas consistent with progressive pancreatitis, increased edema extended to the transverse and mesocolon, no abscess is noted." ASSESSMENT AND PLAN: Mr. Gale is a 43-year-old male with a past medical history of pancreatitis leading to partial pancreatectomy in June 2018 with a subsequent admission to the hospital here in November 2018 for pancreatitis. He returns again with abdominal pain, nausea, and vomiting with pancreatitis. It is suspected that this is in part related to continued alcohol use, but he also has a dramatically elevated triglycerides as well today. Our plans are for inpatient admission to the intensive care unit as expected length of stay to be greater than 2 days and he has a need for critical care for the followin. Acute pancreatitis. The patient shows no evidence of abscess. He has an elevated white blood cell count, but I have no suspicion at this point that there is an infection. I have reviewed the case with Dr. Schaffer and GI will be providing consultation tomorrow. She has recommended that the common bile duct be assessed with a gallbladder ultrasound as this is not commented upon in the abdomen and pelvis CT. He will have intravenous fluids, pain medicines, and will be n.p.o. Because of his dramatically elevated triglycerides , which is a new finding, we will treat in the intensive care unit with insulin drip with D5 half normal saline with intentions to continue this until his triglycerides are less than 500 as long as we can maintain adequate glucose control. Plan to check all labs in the a.m. including amylase, lipase, triglycerides, CBC, and CMP. 2. Hypertension. I suspect his blood pressure is elevated due to pain. We will continue his amlodipine and metoprolol with hold parameters. 3. History of gastroesophageal reflux disease. Plan to switch over to pantoprazole IV. 4. DVT prophylaxis with SCDs. 5. Code status is full code. TIME SPENT: Approximately 60 minutes were spent on the admission of this patient, more than half time spent with the patient at the bedside reviewing the events leading up to this hospitalization, performing the physical examination, and reviewing my plan of care. LINDY ELENA, QUANG [id number]/[facility] #: [id number] [facility]
[2018-12-16] MEDS ORDERED: HYDROmorphone INJ* 0.5 MG/0.5 ML SYRINGE IV PRN (21:21)
[2018-12-16] MEDS ORDERED: HYDROmorphone INJ1* 1 MG/ML SYRINGE ONE (21:25)
[2018-12-16] MEDS: HYDROmorphone INJ1* 1 MG/ML SYRINGE IV PRN (21:27)
[2018-12-16 23:17] LABS: BUN/Creatinine Ratio 14.3 (8-20); Calcium 8.6 mg/dL (8.6-10.3); EGFR African American 93.7 (>60); EGFR Non-African American 77.5 (>60); Potassium 3.8 mmol/L (3.5-5.0)
[2018-12-16] MEDS ORDERED: Lorazepam PYXIS KEY PRN (23:36)
[2018-12-16] MEDS: LORazepam INJ* 2 MG/ML 1 ML VIAL IV PUSH PRN (23:44)
[2018-12-17] MEDS: Ondansetron INJ* 2 MG/ML VIAL IV PRN ×4 (00:43→20:13)
[2018-12-17] MEDS: HYDROmorphone INJ1* 1 MG/ML SYRINGE IV PRN ×5 (01:07→20:13)
[2018-12-17] MEDS: D5W 1/2 NS KCl 20 Meq 1000 ML* 1,000 ML IV SCH ×4 (01:16→20:27)
[2018-12-17] MEDS: oxyCODONE TAB* 5 MG TAB PO PRN ×2 (03:27→07:22)
[2018-12-17] MEDS: LORazepam INJ* 2 MG/ML 1 ML VIAL IV PUSH PRN (03:28)
[2018-12-17] MEDS: Metoprolol Succinate XL TAB* 100 MG PO SCH ×2 (04:18→04:31)
[2018-12-17 04:39] LABS: Hematocrit 50 % (42-52); Hemoglobin 17.3 g/dL (14.0-18.0); Mean Corpuscular HGB Conc 35 g/dL (31-36); Mean Corpuscular Hemoglobin 33 pg (27-31); Mean Corpuscular Volume 96 fL (80-94); Mean Platelet Volume 9.2 fL (7.4-10.4); Platelet Count 195 10^3/uL (150-450); Red Blood Count 5.23 10^6 /uL (4.18-5.48); Red Cell Distribution Width 17 % (10-15); White Blood Count 16.2 10^3/uL (3.5-10.8)
[2018-12-17] MEDS ORDERED: LORazepam INJ* 2 MG/ML 1 ML VIAL IV PUSH PRN (04:40)
[2018-12-17] MEDS ORDERED: LORazepam INJ* 2 MG/ML 1 ML VIAL ONE (04:43)
[2018-12-17 04:59] LABS: Albumin 3.9 g/dL (3.2-5.2); Albumin/Globulin Ratio 1.3 (1-3); BUN/Creatinine Ratio 16.2 (8-20); Calcium 8.6 mg/dL (8.6-10.3); EGFR African American 82.7 (>60); EGFR Non-African American 68.4 (>60); Globulin 3.1 g/dL (2-4); Total Bilirubin 1.9 mg/dL (0.2-1.0)
[2018-12-17 05:13] LABS: ABS Basophils 0.1 10^3/ul (0-0.2); ABS Lymphocytes 1.5 10^3/ul (1.0-4.8); ABS Neutrophils 13.7 10^3/ul (1.5-7.7); Lymphocyte % 9.4 %; Nucleated Red Blood Cells % 0.1
[2018-12-17] MEDS: Metoprolol Tartrate IV* 1 MG/ML 5 ML VIAL IV PRN ×2 (05:17→17:45)
[2018-12-17] MEDS: Pantoprazole IV* 40 MG IV SCH ×2 (07:21→20:13)
[2018-12-17] MEDS: amLODIPine TAB* 5 MG PO SCH (07:22)
--- NOTE | 2018-12-17 10:36 | PN ---
Subjective Date of Service: 12/17/18 Interval History: Pt states that abdomen feels better, rating pain at 6/10. Pain located in b/l lower quadrants, epigastric area. Denies flank, back pain. Pt continues to have nausea, vomiting at 0800. Last BM 2 days ago. Patient had pancreatectomy body and tail June 2018. Objective Active Medications: Amlodipine Besylate (Norvasc Tab*) 5 mg PO DAILY [facility] Hydralazine HCl (Apresoline Iv*) 5 mg IV SLOW PU Q6H PRN Hydromorphone HCl (Dilaudid Inj1s*) 1 mg IV Q4H PRN Potassium Chloride/Dextrose (D5w 1/2 Ns Kcl 20 Meq 1000 Ml*) 1,000 mls @ 150 mls/hr IV PER RATE [facility] Insulin Human Regular (Insulin Regular Iv Infusion 1 Unit/Ml) 100 units in 100 mls @ 2.722 mls/hr IV .PER RATE [facility]; Protocol Metoprolol Succinate (Toprol Xl Tab*) 100 mg PO DAILY [facility] Metoprolol Tartrate (Lopressor Iv*) 5 mg IV Q4H PRN Morphine Sulfate (Morphine Inj (Syringe))*) 2 mg IV Q4H PRN Ondansetron HCl (Zofran Inj*) 4 mg IV Q6H PRN Pantoprazole Sodium (Protonix Iv*) 40 mg IV BID [facility] Vital Signs: Temp Pulse Resp BP Pulse Ox 97.0 F 127 16 148/129 94 12/17/18 08:00 12/17/18 10:00 12/17/18 10:00 12/17/18 10:00 12/17/18 10:00 Oxygen Devices in Use Now: None Appearance: Pt is sitting in bed, HOB elevated. He appears drowsy, drifts to sleep regularly, but wakes easily. No acute distress. Eyes: No Scleral Icterus, PERRLA Ears/Nose/Mouth/Throat: NL Teeth, Lips, Gums, Clear Oropharnyx, Mucous Membranes Moist Neck: NL Appearance and Movements; NL JVP, Trachea Midline Respiratory: Symmetrical Chest Expansion and Respiratory Effort, Clear to Auscultation Cardiovascular: NL Sounds; No Murmurs; No JVD, RRR, No Edema Abdominal: - - ABD with midline incisional scar. BS decreased throughout. Diffusely tender to palpation. Extremities: No Edema, No Clubbing, Cyanosis Neurological: Alert and Oriented x 3 Result Diagrams: 12/18/18 05:42 12/18/18 05:42 Additional Lab and Data: Lab Results 12/16/18 Range/Units 13:19 WBC 18.8 H (3.5-10.8) 10^3/uL RBC 5.40 (4.18-5.48) 10^6 /uL Hgb 17.6 (14.0-18.0) g/dL Hct 52 (42-52) % MCV 97 H (80-94) fL MCH 33 H (27-31) pg MCHC 34 (31-36) g/dL RDW 16 H (10-15) % Plt Count 209 (150-450) 10^3/uL MPV 9.0 (7.4-10.4) fL Neut % (Auto) 88.2 % Lymph % (Auto) 6.3 % [place] % (Auto) 5.1 % Eos % (Auto) 0.1 % Baso % (Auto) 0.3 % Absolute Neuts (auto) 16.6 H (1.5-7.7) 10^3/ul Absolute Lymphs (auto) 1.2 (1.0-4.8) 10^3/ul Absolute Monos (auto) 1.0 H (0-0.8) 10^3/ul Absolute Eos (auto) 0.0 (0-0.6) 10^3/ul Absolute Basos (auto) 0.1 (0-0.2) 10^3/ul Absolute Nucleated RBC 0.0 10^3/ul Nucleated RBC % 0.2 Microbiology and Other Data: Microbiology 12/16/18 18:05 Nasal Screen MRSA (PCR) - Final Nasal Mrsa Not Detected Assess/Plan/Problems-Billing Assessment: 43yom h/o pancreatitis with abscess, body and tail pancreatectomy June 2018, HTN, hypertriglyceridemia, ETOH abuse presents with abd pain, n/v and found to have pancreatitis without abscess on CT abdomen/pelvis. - Patient Problems (1) Acute pancreatitis Comment: -Continued abd pain, n/v -US GB: no acute findings; CT abd/pel: pancreatitis without abscess -Likely due to ETOH, triglycerides -Leukocytosis, lipase, trig trending down -GI consulted, notified -Continue insulin drip titrated to 150-200 BG, D5 for hypertriglyceridemia -Check trig q12; d/c insulin drip when <500 -Continue pain control (2) HTN (hypertension) Comment: -SBP 130-140's -Continue home amlodipine, metoprolol -Continue IV hydralazine, IV metoprolol (3) GERD (gastroesophageal reflux disease) Comment: -Protonix (4) DVT prophylaxis Comment: -SCDs (5) Full code status Status and Disposition: Inpatient. Discharge when stable.
[2018-12-17] MEDS: Morphine INJ* 2 MG/ML 1 ML SYRINGE (TWO MG - NEW SYRINGE VERSION) IV PRN ×3 (12:06→22:21)
[2018-12-17] MEDS ORDERED: Nicotine PATCH 21 MG/24 HR* PATCH ONE (13:04)
[2018-12-17] MEDS ORDERED: Nicotine PATCH 21 MG/24 HR* PATCH TRANSDERM ONE (14:00)
[2018-12-17] MEDS ORDERED: PROCHLORPERAZINE INJ 5 MG/ML 2 ML VIAL ONE (16:23)
[2018-12-17] MEDS: PROCHLORPERAZINE INJ 5 MG/ML 2 ML VIAL IV PRN ×2 (16:24→22:21)
[2018-12-17] MEDS ORDERED: Nicotine Patch Removal NOTE PATCH OFF ONE (21:00)
--- NOTE | 2018-12-17 23:21 | CONS ---
CONSULTATION REPORT: DATE OF CONSULT: 12/17/18 INDICATION FOR CONSULTATION: Pancreatitis. NARRATIVE: Mr. Gale is a 43-year-old gentleman who has a history of alcohol - induced pancreatitis and he ended up having a partial pancreatectomy in the past. The patient presented to the emergency room on 12/16/18 with severe abdominal pain. He has also been having nausea and vomiting. He states he has been drinking some alcohol recently. He did have a fever, he states in the low 100s. He came to the emergency room, CT showed pancreatitis, and he was admitted to the hospital. PAST MEDICAL HISTORY: Significant for: 1. Hypertension. 2. Alcohol abuse. 3. Bipolar. 4. History of pancreatitis. PAST SURGICAL HISTORY: Includes a partial pancreatectomy. MEDICATIONS: Upon admission include: 1. Metoprolol. 2. Nexium. 3. Amlodipine. 4. Ondansetron. ALLERGIES: 1. CEPHALEXIN. 2. LISINOPRIL. FAMILY HISTORY: Mother had cirrhosis secondary to alcohol abuse. SOCIAL HISTORY: He drinks occasional alcohol. No tobacco. Some marijuana. REVIEW OF SYSTEMS: Twelve systems were reviewed and, other than that mentioned in the HPI, were unremarkable. PHYSICAL EXAM: Vital signs: Show temperature of 99.9, blood pressure is 150/99 , pulse is 110. General: Chronically ill appearing male, sitting upright in chair, visiting with his mother. Alert, oriented, pleasant, and fluent. HEENT : Mucous membranes are moist without lesions, ulcers, or exudate. Neck is supple. Trachea is midline. Head is normocephalic, atraumatic. Heart: Regular rate and rhythm. No murmurs, rubs, or gallops. Positive tachycardia. Lungs: Clear to auscultation. Abdomen: Obese. Positive bowel sounds. Soft. Midline scar, mild tenderness to that. No rebound, no guarding. Skin is warm and dry. Numerous tattoos. DIAGNOSTIC STUDIES/LAB DATA: Labs of note: His white count is down to 16.2, hemoglobin is 7.3, platelets of 195. Sodium is 133, glucose is 162. Total bilirubin is 1.9, AST is 68, ALT is 89, alk phos is 139, amylase is 175, lipase is 549. Triglycerides are down to 930 from 1346. Gallbladder ultrasound from 5 o'clock yesterday revealed no acute findings. Small amount of ascites. Pancreas was obscured by bowel gas. CT abdomen and pelvis shows pancreatic surgery, progressive inflammation surrounding the remaining pancreas consistent with progressive pancreatitis. ASSESSMENT AND PLAN: This is a 43-year-old gentleman with pancreatitis secondary to both alcohol and triglycerides. The triglyceride level is coming down with the insulin infusion. I agree with this. Once he gets down into more of a normal range, he will need to try both dietary and medication modification to compete to maintain his triglycerides below 200. He needs fluids, bowel rest, and pain control. At this point, he is in the ICU. We will continue to follow along very closely. [id number]/[facility] #: [id number] [place]
[2018-12-18] MEDS ORDERED: Temazepam CAP* 15 MG PO PRN (00:06)
[2018-12-18] MEDS: D5W 1/2 NS KCl 20 Meq 1000 ML* 1,000 ML IV SCH ×2 (00:23→14:44)
[2018-12-18] MEDS: HYDROmorphone INJ1* 1 MG/ML SYRINGE IV PRN ×3 (02:33→19:33)
[2018-12-18] MEDS: Morphine INJ* 2 MG/ML 1 ML SYRINGE (TWO MG - NEW SYRINGE VERSION) IV PRN ×4 (04:22→21:45)
[2018-12-18] MEDS ORDERED: HYDROmorphone INJ1* 1 MG/ML SYRINGE IV SLOW PU ONE (06:07)
[2018-12-18 06:10] LABS: ABS Eosinophils 0.2 10^3/ul (0-0.6); ABS Monocytes 0.9 10^3/ul (0-0.8); Eosinophil % 1.3 %; Hematocrit 36 % (42-52); Hemoglobin 12.8 g/dL (14.0-18.0); Lymphocyte % 15.5 %; Mean Corpuscular HGB Conc 35 g/dL (31-36); Mean Corpuscular Hemoglobin 34 pg (27-31); Mean Corpuscular Volume 98 fL (80-94); Mean Platelet Volume 9.6 fL (7.4-10.4); Nucleated Red Blood Cells % 0.1; Platelet Count 141 10^3/uL (150-450); Red Blood Count 3.73 10^6 /uL (4.18-5.48); Red Cell Distribution Width 16 % (10-15); White Blood Count 13.1 10^3/uL (3.5-10.8)
[2018-12-18 06:34] LABS: Calcium 8.7 mg/dL (8.6-10.3); EGFR African American 126.4 (>60); EGFR Non-African American 104.5 (>60); Potassium 3.9 mmol/L (3.5-5.0)
[2018-12-18] MEDS: Pantoprazole IV* 40 MG IV SCH ×2 (08:01→20:58)
[2018-12-18] MEDS: Metoprolol Succinate XL TAB* 100 MG PO SCH (08:01)
[2018-12-18] MEDS: amLODIPine TAB* 5 MG PO SCH (08:01)
[2018-12-18] MEDS: Nicotine PATCH 21 MG/24 HR* PATCH TRANSDERM SCH (09:58)
--- NOTE | 2018-12-18 10:08 | PN ---
Subjective Date of Service: 12/18/18 Interval History: Pt states he is feeling much better today. He rates LLQ, RLQ, epigastric pain at 5/10 currently. He states he is hungry and is eager to begin eating/ drinking again. He had nausea, vomiting yesterday, but none today. Pt admits to history of ETOH abuse with recent admission 11/2018- he states he was drinking a liter of vodka daily prior to previous admission. He states that he has drank twice since last admission, and last drink was two days ago. Pt denies CP, SOB. He c/o cough, which is chronic "smokers cough" that has not changed. He had some chills/sweats yesterday and was noted to have a low grade fever. He has no other complaints today. Objective Active Medications: Amlodipine Besylate (Norvasc Tab*) [address] [facility] Hydralazine HCl (Apresoline Iv*) 5 mg IV SLOW PU Q6H PRN Hydromorphone HCl (Dilaudid Inj1s*) 1 mg IV Q6H PRN Potassium Chloride/Dextrose (D5w 1/2 Ns Kcl 20 Meq 1000 Ml*) 1,000 mls @ 75 mls /hr IV PER RATE [facility] Metoprolol Succinate (Toprol Xl Tab*) [address] [facility] Metoprolol Tartrate (Lopressor Iv*) 5 mg IV Q4H PRN Morphine Sulfate (Morphine Inj (Syringe))*) 2 mg IV Q4H PRN Nicotine (Nicotine Patch 21 Mg/24 Hr*) 1 patch TRANSDERM DAILY@0800 [facility] Ondansetron HCl (Zofran Inj*) 4 mg IV Q6H PRN Pantoprazole Sodium (Protonix Iv*) [address] [facility] Pharmacy Profile Note (Nicotine Patch Removal Note*) 1 note PATCH OFF 1999 [facility] Prochlorperazine Edisylate (Compazine Inj*) 5 mg IV Q6H PRN Temazepam (Restoril Cap*) 30 mg PO BEDTIME PRN Vital Signs: Temp Pulse Resp BP Pulse Ox 97.2 F 110 21 130/78 96 12/18/18 08:00 12/18/18 07:00 12/18/18 09:47 12/18/18 06:35 12/18/18 07:00 Oxygen Devices in Use Now: None Appearance: Pt is obese white males sitting in chair with LE at ground. He is awake, alert, oriented, appearst to be in no acute distress. Breathing comfortably. Eyes: No Scleral Icterus, PERRLA Ears/Nose/Mouth/Throat: NL Teeth, Lips, Gums, Clear Oropharnyx, Mucous Membranes Moist Neck: NL Appearance and Movements; NL JVP, Trachea Midline Respiratory: Symmetrical Chest Expansion and Respiratory Effort, - - End expiratory wheeze throughout b/l lung membreno. Cardiovascular: NL Sounds; No Murmurs; No JVD, No Edema, - - Sinus tach Abdominal: - - Midline incision. Bowel sounds hypoactive. Mildly tender to palpation diffusely. Skin: No Rash or Ulcers, No Nodules or Sclerosis Neurological: Alert and Oriented x 3 Result Diagrams: 12/18/18 05:42 12/18/18 05:42 Additional Lab and Data: Lab Results 12/16/18 Range/Units 13:19 WBC 18.8 H (3.5-10.8) 10^3/uL RBC 5.40 (4.18-5.48) 10^6 /uL Hgb 17.6 (14.0-18.0) g/dL Hct 52 (42-52) % MCV 97 H (80-94) fL MCH 33 H (27-31) pg MCHC 34 (31-36) g/dL RDW 16 H (10-15) % Plt Count 209 (150-450) 10^3/uL MPV 9.0 (7.4-10.4) fL Neut % (Auto) 88.2 % Lymph % (Auto) 6.3 % [place] % (Auto) 5.1 % Eos % (Auto) 0.1 % Baso % (Auto) 0.3 % Absolute Neuts (auto) 16.6 H (1.5-7.7) 10^3/ul Absolute Lymphs (auto) 1.2 (1.0-4.8) 10^3/ul Absolute Monos (auto) 1.0 H (0-0.8) 10^3/ul Absolute Eos (auto) 0.0 (0-0.6) 10^3/ul Absolute Basos (auto) 0.1 (0-0.2) 10^3/ul Absolute Nucleated RBC 0.0 10^3/ul Nucleated RBC % 0.2 Microbiology and Other Data: Microbiology 12/16/18 18:05 Nasal Screen MRSA (PCR) - Final Nasal Mrsa Not Detected Assess/Plan/Problems-Billing Assessment: 43yom h/o pancreatitis with abscess, body and tail pancreatectomy June 2018, HTN, hypertriglyceridemia, ETOH abuse presents with abd pain, n/v and found to have pancreatitis without abscess on CT abdomen/pelvis. - Patient Problems (1) Acute pancreatitis Comment: -Continued abd pain, n/v -US GB: no acute findings; CT abd/pel: pancreatitis without abscess -Likely due to ETOH, triglycerides -Leukocytosis, lipase, trig trending down -GI consulted; thank you for recommendations -Insulin drip discontinued; will start PO fenofibrate when patient tolerates and advances diet -Continue pain control; will reduce dilaudid dosage, continue morphine dosage (2) HTN (hypertension) Comment: -Elevated SBP 130-160's -Continue home amlodipine, metoprolol -Continue IV hydralazine, IV metoprolol -Likely partially due to pain, possibly ETOH withdrawal -Monitor need for additional antihypertensives (3) GERD (gastroesophageal reflux disease) Comment: -Protonix (4) DVT prophylaxis Comment: -SCDs (5) Full code status Status and Disposition: Inpatient. Transfer from ICU to floor.
[2018-12-18] MEDS ORDERED: HYDROmorphone INJ* 0.5 MG/0.5 ML SYRINGE IV PRN (10:22)
[2018-12-18] MEDS ORDERED: Levalbuterol 0.63MG/3ML NEB* UNIT OF USE INH SCH ×3 (11:00→15:00)
[2018-12-18] MEDS: Ondansetron INJ* 2 MG/ML VIAL IV PRN (11:11)
[2018-12-19] MEDS: Ondansetron INJ* 2 MG/ML VIAL IV PRN (00:13)
[2018-12-19] MEDS: HYDROmorphone INJ1* 1 MG/ML SYRINGE IV PRN (01:35)
[2018-12-19] MEDS: Morphine INJ* 2 MG/ML 1 ML SYRINGE (TWO MG - NEW SYRINGE VERSION) IV PRN (02:48)
[2018-12-19] MEDS: D5W 1/2 NS KCl 20 Meq 1000 ML* 1,000 ML IV SCH (04:10)
[2018-12-19 05:13] LABS: ABS Eosinophils 0.2 10^3/ul (0-0.6); ABS Lymphocytes 1.9 10^3/ul (1.0-4.8); ABS Monocytes 0.5 10^3/ul (0-0.8); ABS Neutrophils 5.1 10^3/ul (1.5-7.7); Eosinophil % 3.1 %; Hematocrit 32 % (42-52); Hemoglobin 11.2 g/dL (14.0-18.0); Mean Corpuscular HGB Conc 35 g/dL (31-36); Mean Corpuscular Hemoglobin 34 pg (27-31); Mean Corpuscular Volume 97 fL (80-94); Mean Platelet Volume 8.9 fL (7.4-10.4); Nucleated Red Blood Cells % 0.1; Platelet Count 134 10^3/uL (150-450); Red Blood Count 3.31 10^6 /uL (4.18-5.48); Red Cell Distribution Width 16 % (10-15); White Blood Count 7.8 10^3/uL (3.5-10.8)
[2018-12-19 05:30] LABS: Albumin 3.5 g/dL (3.2-5.2); Albumin/Globulin Ratio 1.1 (1-3); BUN/Creatinine Ratio 10.3 (8-20); Calcium 8.8 mg/dL (8.6-10.3); EGFR African American 154.7 (>60); EGFR Non-African American 127.9 (>60); Globulin 3.3 g/dL (2-4); Potassium 3.4 mmol/L (3.5-5.0); Total Bilirubin 0.7 mg/dL (0.2-1.0); Total Protein 6.8 g/dL (6.4-8.9)
[2018-12-19] MEDS: amLODIPine TAB* 5 MG PO SCH (08:44)
[2018-12-19] MEDS: Metoprolol Succinate XL TAB* 100 MG PO SCH (08:44)
[2018-12-19] MEDS: Pantoprazole IV* 40 MG IV SCH (08:50)
[2018-12-19] MEDS: Nicotine PATCH 21 MG/24 HR* PATCH TRANSDERM SCH (08:52)
[2018-12-19] MEDS ORDERED: oxyCODONE/Acetamin 5/325 MG* TAB PO PRN ×2 (09:17)
[2018-12-19 15:44] VITALS: BP 152/99
[2018-12-19] MEDS ORDERED: Nicotine Patch Removal NOTE PATCH OFF SCH (20:00)
--- NOTE | 2018-12-19 23:16 | DS ---
DISCHARGE SUMMARY: DATE OF ADMISSION: 12/16/18 DATE OF DISCHARGE: 12/19/18 PRIMARY CARE PROVIDER: Amauri Haro MD ATTENDING PHYSICIAN: Jenifer Moreno DO * (dictated by SUKHI Bailey). PRIMARY DIAGNOSES: 1. Acute pancreatitis due to hypertriglyceridemia, alcohol abuse. 2. Hypertriglyceridemia. SECONDARY DIAGNOSES: 1. History of recurrent alcoholic pancreatitis with abscess. 2. History of alcohol abuse. 3. 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 4. History of bipolar disorder. STUDIES WHILE IN THE HOSPITAL: 1. Abdomen and pelvis CT, impression: The patient is status post pancreatic body and tail pancreatectomy. There is progressive inflammation surrounding the remaining pancreas consistent with progressive pancreatitis, increased edema extends into the transverse mesocolon. No abscess is noted. 2. Ultrasound of gallbladder, impression: No acute findings. No shadowing gallstones. Small amount of perihepatic ascites. Pancreas obscured by bowel gas. 3. Abdominal x-ray, impression: No free air or obstruction noted. DISCHARGE MEDICATIONS: Home medications: 1. Amlodipine besylate 5 mg p.o. daily. 2. Esomeprazole 20 mg p.o. b.i.d. 3. Metoprolol succinate XL 100 mg p.o. daily. 4. Ondansetron 4 mg p.o. q.6 hours p.r.n. nausea. New home medications: 1. Fenofibrate 160 mg p.o. daily. 2. Recommend 21 mg nicotine patch for tobacco cessation. HISTORY OF PRESENT ILLNESS/HOSPITAL COURSE: Mr. Gale is a 43-year-old male with a past medical history of pancreatitis with partial pancreatectomy in June 2018, alcohol abuse, hypertriglyceridemia, who presented to the hospital on 12/16/18 with complaints of abdominal pain, nausea, vomiting for several days. For full and complete details, please see the history and physical dictated by Lindy Elena NP, but in short, the patient presented with these symptoms and he was admitted to the hospital. CT of the abdomen and pelvis revealed acute pancreatitis with no evidence of abscess. His lipase was 145, triglycerides were 1364. The patient was started on D5 half normal saline and insulin drip. Triglycerides were trended q.6 hours. Once they reached less than 500, insulin drip was discontinued. The patient slowly began to feel better. He continued to have abdominal pain, but was eager to begin eating. He resumed a clear liquid diet with instructions to advance as tolerated. On the day of discharge, the patient is tolerating low-residue diet without nausea or vomiting. He does admit to occasional nausea, but this was resolved with Zofran. He has not had any vomiting over the last 2 days. He does note some abdominal distention prior to discharge. Abdominal x-ray was obtained and revealed no free air or obstruction. He is having bowel movements and passing flatus. The patient was noted to have hypertriglyceridemia upon admission, which likely contributed to his acute pancreatitis along with alcohol use. Due to n.p.o. for some time, fenofibrate was held. His triglycerides were lowered with use of IV insulin drip. He was then transitioned to fenofibrate and then instructed to continue this medication outpatient. We also had a discussion about the need to abstain from alcohol as this has led to recurrent acute pancreatitis episodes. On the day of discharge, the patient's triglycerides are 399, his lipase is 123. At admission, his hemoglobin A1c was 5.6. At discharge, the patient is eager to be discharged. It was recommended that he spend 1 more night to monitor for resolution of abdominal pain. He was also noted to have some anemia at discharge, which is likely dilutional due to large amounts of IV fluids during his stay. Again, it was recommended that he spend another night to monitor his H and H and abdominal pain, but the patient is eager to be discharged. He states that his pain has improved throughout the day. He denies nausea and vomiting. He has tolerated a full bland diet. It is recommended that he follow up with his primary care provider in 4 to 7 days for repeat CBC and follow up on recent hospitalization. REVIEW OF SYSTEMS: A 14-point review of systems has been performed and all the pertinent positives and negatives are in the HPI, all other systems are negative. PHYSICAL EXAMINATION: General: Mr. Gale is a well-developed, well-nourished , obese middle-aged white male, who is standing in his room. He appears to be in no acute distress. He appears comfortable. HEENT: PERRL, EOMI. Nonicteric sclerae. Hearing grossly intact. Oral mucous membranes are moist. There are no lesions. Pharynx is clear. Cardiovascular: Regular rate and rhythm with S1 and S2 present without murmurs, rubs, clicks or gallops. There is no JVD. There is no peripheral edema. Pulmonary: Symmetrical chest expansion without use of accessory muscles. Lungs are clear to auscultation bilaterally without rhonchi, wheezes, or rubs. Abdomen: Obese, bowel sounds in all quadrants, soft. Nontender to palpation. Neuro: The patient is awake, alert, and oriented x3. The cranial nerves are grossly intact. Steady gait. No impairment. Muscle strength 5/5 bilaterally in upper and lower extremities. Vital Signs: Temperature 98.6 temporal, heart rate 96, respiratory rate 17, oxygen saturation 97% on room air, and blood pressure 152/99. DISCHARGE PLAN: Mr. Gale will be discharged to home. DIET: 1. Heart-healthy diet for hypertriglyceridemia. 2. Abstain from alcohol. CONDITION: Fair. ACTIVITY: As tolerated. MEDICATIONS: 1. Fenofibrate 160 mg p.o. daily. 2. Ondansetron 4 mg p.o. q.6 hours, prescribed 10, p.r.n. nausea. 3. Recommend nicotine patch. EDUCATION: 1. Follow up with primary care provider in 4 to 7 days. Discussed recent hospitalization, anemia, and consider repeat CBC. 2. Return to the ER or the nearest hospital if he experienced any worsening of symptoms, chest pain or discomfort, dizziness, lightheadedness, loss of consciousness, high fevers, chills, night sweats, or any other worrisome signs or symptoms. This is a summarized report of complex medical history and hospital stay. For further details, please see the entire medical record. TIME SPENT: Approximately 35 minutes was spent on this discharge; greater than half the time was spent [id number] with the patient discussing discharge plans and instructions. SUKHI DURAN [id number]/[facility] #: [id number] [place]
== END 2018-12-19 17:25 | disposition home or self-care (01) | DRG 282 ==
LOC: ED 11:51 → MEDTELE 17:18 → ICU 17:39 → MEDTELE 12-18 10:25
PROVIDERS: ADMIT Internal Medicine; ATTEND Hospitalist
DX: K85.20 Alcohol induced acute pancreatitis without necrosis or infection (principal); I10 Essential (primary) hypertension; F31.9 Bipolar disorder, unspecified; E78.1 Pure hyperglyceridemia; K21.9 Gastro-esophageal reflux disease without esophagitis; E66.9 Obesity, unspecified; K76.0 Fatty (change of) liver, not elsewhere classified; F41.0 Panic disorder [episodic paroxysmal anxiety]; F43.10 Post-traumatic stress disorder, unspecified; F17.200 Nicotine dependence, unspecified, uncomplicated; F10.10 Alcohol abuse, uncomplicated; D64.9 Anemia, unspecified; Z88.1 Allergy status to other antibiotic agents; Z88.8 Allergy status to other drugs, medicaments and biological substances; Z83.79 Family history of other diseases of the digestive system; Z90.411 Acquired partial absence of pancreas; Z68.32 Body mass index [BMI] 32.0-32.9, adult; Z87.442 Personal history of urinary calculi; Z91.5 Personal history of self-harm; Z83.3 Family history of diabetes mellitus
CPT/HCPCS: 36415; 71045; 74019; 74177; 76705; 80048; 80053; 80061; 81003; 81015; 82150; 83036; 83605; 83690; 83735; 84478; 85025; 86140; 87086; 87641; 96365; 96375; 96376; 99285; A9270-GY; C1751; J0360; J0780; J1170; J1815; J1885; J2060; J2270; J2405; J2765; J3475; J3490; Q9967

== ENCOUNTER 2019-04-08 20:03 | Inpatient (IN) | payer BC ==
[2019-04-08] MEDS ORDERED: NS 0.9% 1000 ML** 1,000 ML IV ONE ×2 (21:59→22:45)
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
[2019-04-08] MEDS ORDERED: Ondansetron INJ* 2 MG/ML VIAL IV ONE (22:05)
[2019-04-08 22:18] LABS: ABS Basophils 0.1 10^3/ul (0-0.2); ABS Lymphocytes 1.5 10^3/ul (1.0-4.8); ABS Monocytes 0.9 10^3/ul (0-0.8); ABS Neutrophils 10.9 10^3/ul (1.5-7.7); Eosinophil % 0.4 %; Hematocrit 48 % (42-52); Hemoglobin 16.3 g/dL (14.0-18.0); Lymphocyte % 11.3 %; Mean Corpuscular HGB Conc 34 g/dL (31-36); Mean Corpuscular Hemoglobin 33 pg (27-31); Mean Corpuscular Volume 97 fL (80-94); Mean Platelet Volume 9.9 fL (7.4-10.4); Platelet Count 187 10^3/uL (150-450); Red Blood Count 4.88 10^6 /uL (4.18-5.48); Red Cell Distribution Width 14 % (10-15); White Blood Count 13.5 10^3/uL (3.5-10.8)
[2019-04-08] MEDS ORDERED: Lorazepam PYXIS KEY PRN (22:19)
[2019-04-08] MEDS ORDERED: Morphine 4 MG/ML VIAL (1 ml) 4 MG/ML VIAL IV ONE (22:19)
[2019-04-08] MEDS ORDERED: LORazepam INJ* 2 MG/ML 1 ML VIAL IV ONE (22:19)
[2019-04-08 22:32] LABS: ALT 159 U/L (7-52); AST 146 U/L (13-39); Albumin 4.7 g/dL (3.2-5.2); Albumin/Globulin Ratio 1.3 (1-3); Alkaline Phosphatase 174 U/L (34-104); Anion Gap 16 mmol/L (2-11); BUN/Creatinine Ratio 11.8 (8-20); Blood Urea Nitrogen 9 mg/dL (6-24); CO2 Carbon Dioxide 20 mmol/L (22-32); Calcium 9.8 mg/dL (8.6-10.3); Chloride 96 mmol/L (101-111); EGFR African American 136.1 (>60); EGFR Non-African American 112.5 (>60); Globulin 3.6 g/dL (2-4); Glucose 262 mg/dL (70-100); Potassium 3.7 mmol/L (3.5-5.0); Sodium 132 mmol/L (135-145); Total Protein 8.3 g/dL (6.4-8.9)
[2019-04-08 22:56] LABS: Alcohol < 10 mg/dL (<10)
[2019-04-08] MEDS ORDERED: Thiamine IV 100 MG, Folic Acid IV* 1 MG, Multiple Vitamin IV ADULT* 10 ML in D5NS 0.9% ... IV ONE (23:32)
--- NOTE | 2019-04-09 00:04 | HP ---
HISTORY AND PHYSICAL: ADDENDUM: ASSESSMENT AND PLAN: EtOH abuse. I did place him on the [place] protocol and I will be giving him a banana bag. He is allergic to VERSED but has had Ativan in the past and has tolerated it well. We will continue to monitor. No history of seizures with alcohol withdrawal. PEARL CH, SUBSTATION MANAGER [id number]/[facility] #: [id number] [place]
[2019-04-09] MEDS: Metoprolol Tartrate IV* 1 MG/ML 5 ML VIAL IV SCH ×3 (01:02→10:12)
--- NOTE | 2019-04-09 02:17 | HP ---
[id number] INCLUDED ON THIS REPORT CC: Dr. Haro * HISTORY AND PHYSICAL: DATE OF ADMISSION: 04/08/19 PRIMARY CARE PROVIDER: Dr. Haro. ATTENDING PHYSICIAN WHILE IN THE HOSPITAL: Dr. Jenifer Moreno * (report being dictated by Benitez Peterson NP). CHIEF COMPLAINT: 1. Nausea. 2. Vomiting. 3. Abdominal pain. HISTORY OF PRESENT ILLNESS: Mr. Gale is a 43-year-old male patient with a well- documented history of pancreatitis secondary to EtOH abuse. He was actually in here about a month ago with similar complaints. He has been doing well. He had abstained from drinking for about 3 weeks; however, about 3 to 4 days ago, he started drinking 3 to 4 drinks a day that were double mixed drinks. He noted that over this morning, he started having epigastric pain, describes it as a burning, sharp, stabbing pain that was worse with any type of intake. He noted that he started becoming nauseous and vomiting. He took his blood pressure meds this morning and vomited them up at around 7 o'clock. He noticed that he was unable to keep anything down, and given the fact that the pain was getting worse and had felt similar to his previous pancreatitis attacks , he was concerned and came into the hospital. He denies feeling short of breath, denies any chest pain, denies having any recent fever. Because of this , he came into the ER, was evaluated, was found to have elevated lipase. He was found to have elevated lactic. His LFTs were slightly elevated as well. Because of these findings, we were asked to evaluate for admission. PAST MEDICAL HISTORY: Significant for: 1. Alcohol-related pancreatitis. 2. Hypertension. 3. GERD. 4. Bipolar. 5. Borderline diabetes. 6. Alcoholism. PAST SURGICAL HISTORY: 1. He has had a partial pancreatectomy. 2. Right carpal tunnel surgery. MEDICATIONS: Home medications according to the list provided include: 1. Zofran 4 mg every 6 hours as needed. 2. Toprol-XL 200 mg daily. 3. Advil 200 mg every 6 hours as needed. 4. Nexium 40 mg p.o. daily. 5. Norvasc 5 mg daily. 7. Tylenol 650 mg every 6 hours as needed. ALLERGIES: Allergies to medications include KEFLEX, LISINOPRIL, and VERSED. FAMILY HISTORY: His mother was an alcoholic. His father's history is unknown. SOCIAL HISTORY: He does vape daily. He states that he does abuse alcohol. He says his last period of sobriety lasted about 3 weeks. He generally drinks 4 to 5 mixed alcoholic drinks a day. He does smoke marijuana. Surrogate decision maker is his , Keila. 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 REVIEW OF SYSTEMS: There is no documented fever. No significant weight change. No double vision. No ear discharge. No rhinorrhea. No sore throat. No thyroid enlargement. Denied having any chest pain. There was abdominal pain , nausea, and vomiting from my HPI. No dysuria, no frequency, no seizure, no loss of consciousness. No pruritus and no skin ulcerations. Review of 14 systems completed, all others are negative. PHYSICAL EXAMINATION GENERAL: At this time, Mr. Gale is a 43-year-old male patient. He is sitting in the ED stretcher. He does not appear to be in any acute distress. VITAL SIGNS: Blood pressure 193/126, pulse 95, respirations 20, O2 saturation 97%, temperature 97.2. HEENT: Head: Atraumatic, normocephalic. Eyes: EOMs are intact. Sclerae anicteric and not pale. Throat: Oral mucosa appears to be moist. No oropharyngeal erythema. NECK: Supple. HEART: Heart sounds S1, S2. No murmurs, rubs, or gallops. ABDOMEN: Soft. There was pain in the epigastric area. Bowel sounds are hypoactive. EXTREMITIES: Pulses were 2+ throughout, moving all 4 extremities, 5/5 strength. NEUROLOGIC: The patient is awake, alert, oriented x3. Card Clothier are equal. Tongue midline. No gross focal deficits. SKIN: Intact. DIAGNOSTIC STUDIES/LAB DATA: Labs today revealed a WBC of 13.5, RBC of 4.88, hemoglobin of 16.3, hematocrit of 48, and platelet count of 187. Sodium was 132 , potassium 3.7, chloride of 96, bicarb 20, BUN 9, creatinine 0.76, glucose 262 , lactic acid 4, calcium 9.8, bili 1, AST 146, ALT 159. CRP 4.1, lipase of 356. Toxicology was negative. Old medical records were reviewed. ASSESSMENT AND PLAN: Mr. Gale is a 43-year-old male patient, with a well- documented history of alcohol abuse-related pancreatitis, came in today after a 3- to 4-day drinking history, developed epigastric pain, nausea and vomiting consistent with previous pancreatitis. He was found to be in pancreatitis, and because of this, we were asked to evaluate for admission. He will be admitted under inpatient status for: 1. Alcohol abuse pancreatitis. At this point, I will go ahead and place him on IV fluids at 150 cc an hour. He did receive 2 boluses here in the ED. I will continue the fluids. I will leave him n.p.o. I will give him pain control in the form of Dilaudid along with Zofran and Compazine for nausea. I will repeat his LFTs and lipase in the morning. 2. Hepatitis. I suspect he has alcoholic-induced hepatitis. At this point, I will check an ultrasound of the liver. We will repeat his LFTs. If they continue to trend up, we can consider getting a GI consult. 3. Systemic inflammatory response syndrome. Again, I do not suspect he has sepsis, but I do note that his white cell count is 13.5. I do note that his lactic acid was 4. However, he is not hypotensive. I suspect he has the SIRS response related to the pancreatitis, which we were treating. I am going to culture him to be safe in the form of blood cultures and urinalysis. I am not doing a chest x-ray as he did not have any respiratory complaints. I will certainly monitor him. I am not giving him the 30 cc/kg bolus as he received 2 L already here in the ER, and given the elevated blood pressure, I do not want to make this worse. I will repeat his lactic and we will continue to follow him and culture him. I am holding on antibiotics at this point, as I believe this is being driven by the underlying pancreatitis. 4. Hypertension. Again, his blood pressure now is not well controlled here, but he is not taking his medications. At this point, I have ordered q.6 hours of Lopressor standing. I am hopeful with this and pain control, his blood pressure will improve. If it does not, I will give him p.r.n. hydralazine. We will continue to follow. 5. Gastroesophageal reflux disease. I have ordered PPI therapy. 6. History of alcoholism. I have placed a social work consult. 7. Borderline diabetes. Follow this with his primary. 8. Bipolar disorder. Continue with supportive care. 9. DVT prophylaxis: He will be placed on heparin subcu. 10. Code status: He is a full code. 11. Fluids, electrolytes, and nutrition: We will again hydrate him and he is to be n.p.o. TIME SPENT: Time spent on admission 60 minutes, greater than half the time was spent [id number] with the patient obtaining my history and physical; other half time spent going over the plan of care with the patient and implementing plan of care. I did discuss the plan of care with my attending Dr. Moreno, she is in agreement. BENITEZ PETERSON NP ADDENDUM: ASSESSMENT AND PLAN: EtOH abuse. I did place him on the [facility] protocol and I will be giving him a banana bag. He is allergic to VERSED but has had Ativan in the past and has tolerated it well. We will continue to monitor. No history of seizures with alcohol withdrawal. BENITEZ PETERSON NP [id number]/[facility] #: [id number]/[facility]PS #: [id number] [place]
[2019-04-09] MEDS: HYDROmorphone INJ1* 1 MG/ML SYRINGE IV SLOW PU PRN ×5 (02:43→18:01)
[2019-04-09] MEDS ORDERED: hydrALAZINE IV* 20 MG/ML VIAL IV SLOW PU ONE (03:09)
[2019-04-09] MEDS ORDERED: hydrALAZINE IV* 20 MG/ML VIAL IV SLOW PU PRN ×3 (03:19→12:45)
[2019-04-09] MEDS ORDERED: Nicotine PATCH 21 MG/24 HR* PATCH TRANSDERM SCH (04:00)
[2019-04-09] MEDS: PROCHLORPERAZINE INJ 5 MG/ML 2 ML VIAL IV PRN ×2 (04:12→17:40)
[2019-04-09] MEDS: LORazepam INJ* 2 MG/ML 1 ML VIAL IV PUSH SCH ×6 (04:33→22:30)
[2019-04-09] MEDS: NS 0.9% 1000 ML** 1,000 ML IV SCH ×2 (04:38→12:30)
[2019-04-09] MEDS: Heparin VIAL(*) 5000 UNITS/ML VIAL (FIVE THOUSAND) SUBCUT SCH ×3 (05:53→22:38)
[2019-04-09 06:25] LABS: ABS Basophils 0.1 10^3/ul (0-0.2); ABS Eosinophils 0.1 10^3/ul (0-0.6); ABS Lymphocytes 2.1 10^3/ul (1.0-4.8); ABS Monocytes 0.9 10^3/ul (0-0.8); ABS Neutrophils 5.9 10^3/ul (1.5-7.7); Eosinophil % 1.1 %; Hematocrit 42 % (42-52); Hemoglobin 14.4 g/dL (14.0-18.0); Lymphocyte % 23.4 %; Mean Corpuscular HGB Conc 34 g/dL (31-36); Mean Corpuscular Hemoglobin 33 pg (27-31); Mean Corpuscular Volume 98 fL (80-94); Mean Platelet Volume 9.6 fL (7.4-10.4); Nucleated Red Blood Cells % 0.1; Platelet Count 140 10^3/uL (150-450); Red Blood Count 4.31 10^6 /uL (4.18-5.48); Red Cell Distribution Width 14 % (10-15); White Blood Count 9.1 10^3/uL (3.5-10.8)
[2019-04-09 06:33] LABS: INR 0.98 (0.82-1.09)
[2019-04-09 06:42] LABS: Albumin 3.9 g/dL (3.2-5.2); Albumin/Globulin Ratio 1.3 (1-3); BUN/Creatinine Ratio 11.1 (8-20); Calcium 8.5 mg/dL (8.6-10.3); EGFR Non-African American 139.7 (>60); Potassium 3.6 mmol/L (3.5-5.0); Total Bilirubin 1.3 mg/dL (0.2-1.0); Total Protein 6.9 g/dL (6.4-8.9)
[2019-04-09 06:47] LABS: Urine Appearance Clear; Urine Bilirubin Negative (Negative); Urine Blood Negative (Negative); Urine Color Yellow; Urine Glucose 3+(>=500 mg/dL) (Negative); Urine Ketones Trace (Negative); Urine Nitrite Negative (Negative); Urine Protein Negative (Negative); Urine Specific Gravity 1.028 (1.010-1.030); Urine Urobilinogen Negative (Negative)
[2019-04-09] MEDS: Ondansetron INJ* 2 MG/ML VIAL IV PRN ×2 (08:38→20:06)
[2019-04-09] MEDS ORDERED: Pantoprazole IV* 40 MG IV SCH (09:00)
[2019-04-09] MEDS ORDERED: Dextrose 50% Syringe 50 ML* 25 GM/50 ML SYRINGE IV PUSH PRN (13:34)
[2019-04-09] MEDS: amLODIPine TAB* 5 MG PO SCH (13:42)
[2019-04-09] MEDS: Pantoprazole TAB * 40 MG TAB PO SCH (13:42)
--- NOTE | 2019-04-09 13:49 | PN ---
Subjective Date of Service: 04/09/19 Interval History: Patient continues to have abdominal pain, mostly LUQ. Dilaudid has helped but still has pain. Mentions chest pain and points to bilateral pecs. Denies difficulty breathing, dizziness/lightheadedness, fever/chill. His nausea has improved and he has not vomited. Objective Active Medications: Amlodipine Besylate (Norvasc Tab*) 5 mg PO DAILY [facility] Dextrose (D50w Syringe 50 Ml*) 12.5 gm IV PUSH .FOR FS < 60 - SS PRN PRN Reason: FS < 60 Heparin Sodium (Porcine) (Heparin Vial(*)) 5,000 units SUBCUT Q8HR [facility] Last Admin: 04/09/19 05:53 Dose: 5,000 units Hydralazine HCl (Apresoline Iv*) 5 mg IV SLOW PU Q4H PRN PRN Reason: BLOOD PRESSURE Hydromorphone HCl (Dilaudid Inj1s*) 1 mg IV SLOW PU Q4H PRN PRN Reason: PAIN - SEVERE Last Admin: 04/09/19 10:12 Dose: 1 mg Sodium Chloride (Ns 0.9% 1000 Ml) 1,000 mls @ 150 mls/hr IV PER RATE [facility] Last Admin: 04/09/19 12:30 Dose: 150 mls/hr Insulin Human Lispro (Humalog*) 0 units SUBCUT AC [facility]; Protocol Lorazepam (Ativan Inj*) 0 - 3 mg IV PUSH .PER [facility] PROTOCOL [facility]; Protocol Last Admin: 04/09/19 12:26 Dose: 1.5 mg Metoprolol Succinate (Toprol Xl Tab*) 200 mg PO DAILY [facility] Miscellaneous (Ativan Pyxis Zaman) 1 ea N/A .ATIVAN IV ZAMAN PRN PRN Reason: PYXIS ZAMAN Nicotine (Nicotine Patch 21 Mg/24 Hr*) 1 patch TRANSDERM DAILY [facility] Last Admin: 04/09/19 04:10 Dose: 1 patch Ondansetron HCl (Zofran Inj*) 4 mg IV Q6H PRN PRN Reason: NAUSEA Last Admin: 04/09/19 08:38 Dose: 4 mg Pantoprazole Sodium (Protonix Tab*) 40 mg PO DAILY [facility]; Protocol Pharmacy Profile Note (Nicotine Patch Removal Note*) 1 note FOLLOW UP 2100 [facility] Prochlorperazine Edisylate (Compazine Inj*) 5 mg IV Q6H PRN PRN Reason: NAUSEA/VOMITING Last Admin: 04/09/19 04:12 Dose: 5 mg Vital Signs - 8 hr 04/09/19 04/09/19 04/09/19 06:22 06:28 08:00 Temperature 98.1 F 97.7 F Pulse Rate 88 94 Respiratory 18 19 20 Rate Blood Pressure 165/97 193/115 (mmHg) O2 Sat by Pulse 93 97 Oximetry 04/09/19 04/09/19 04/09/19 08:12 08:35 09:59 Temperature 97.5 F Pulse Rate 114 Respiratory 16 16 18 Rate Blood Pressure 217/114 (mmHg) O2 Sat by Pulse 97 Oximetry 04/09/19 04/09/19 04/09/19 10:00 10:12 10:13 Temperature Pulse Rate Respiratory 18 18 18 Rate Blood Pressure (mmHg) O2 Sat by Pulse Oximetry 04/09/19 04/09/19 04/09/19 11:44 11:45 12:00 Temperature 98.3 F Pulse Rate 109 Respiratory 16 16 16 Rate Blood Pressure 197/109 (mmHg) O2 Sat by Pulse 98 Oximetry 04/09/19 12:26 Temperature Pulse Rate Respiratory 16 Rate Blood Pressure (mmHg) O2 Sat by Pulse Oximetry Oxygen Devices in Use Now: None Appearance: WD WN white male, laying in bed, appearing comfortable and in NAD Eyes: No Scleral Icterus, - - PERRL Ears/Nose/Mouth/Throat: Mucous Membranes Moist Neck: Trachea Midline Respiratory: Symmetrical Chest Expansion and Respiratory Effort, Clear to Auscultation Cardiovascular: NL Sounds; No Murmurs; No JVD, RRR, - - anterior chest pain is not reproducible with palpation Abdominal: - - normoactive BS, abdomen is nondistended, abdomen diffusely tender throughout Extremities: No Edema, No Clubbing, Cyanosis Skin: No Rash or Ulcers Neurological: Alert and Oriented x 3, NL Muscle Strength and Tone Result Diagrams: 04/09/19 06:10 04/09/19 06:10 Assess/Plan/Problems-Billing Assessment: 43 yo white male with PMHx alcohol use, HTN, and DMT2 and frequent admissions for acute pancreatitis presents with abd pain and found to have acute pancreatitis. - Patient Problems (1) Chest pain Current Visit: Yes Status: Acute Code(s): R07.9 - CHEST PAIN, UNSPECIFIED SNOMED Code(s): 84471825 Comment: -c/o chest pain that started this morning -EKG without ischemic changes -troponin negative -may be related to HTN urgency, mgmt as below (2) Acute pancreatitis Current Visit: No Status: Acute Code(s): K85.90 - ACUTE PANCREATITIS WITHOUT NECROSIS OR INFECTION, UNSP SNOMED Code(s): 406886012 Comment: - 2/2 ongoing alcohol use, patient is interested in rehab he tells me, SW involved - continue dilaudid, starting long acting po as well - with hyperglycemia but does have underlying DMT2; FS and lispro SS - clear liquid diet - continue IVF at 150cc/hr - continue antiemetics, no vomiting thus far today (3) Alcohol withdrawal Current Visit: No Status: Acute Code(s): F10.239 - ALCOHOL DEPENDENCE WITH WITHDRAWAL, UNSPECIFIED SNOMED Code(s): 386620678 Comment: - continue WAM - considering rehab as previously mentioned, SW involved and aware (4) HTN (hypertension) Current Visit: No Status: Acute Code(s): I10 - ESSENTIAL (PRIMARY) HYPERTENSION SNOMED Code(s): 63619476 Comment: - significant HTN with SBP in 190s - likely related to not receiving home oral meds, restarting with advanced diet - likely also related to alcohol withdrawal - starting home amlodipine, metoprolol; continue prn hydralazine and more frequent to q4h (5) Diabetes mellitus type 2 in obese Current Visit: Yes Status: Acute Code(s): E11.69 - TYPE 2 DIABETES MELLITUS WITH OTHER SPECIFIED COMPLICATION; E66.9 - OBESITY, UNSPECIFIED SNOMED Code(s) : 93325150 Comment: -A1c 7.1% in March this year -starting lispro SS and FS -should get metformin at discharge given his age and A1c (6) Transaminitis Current Visit: No Status: Acute Code(s): R74.0 - NONSPEC ELEV OF LEVELS OF TRANSAMNS & LACTIC ACID DEHYDRGNSE SNOMED Code(s): 579811931 Comment: - Improving, minimally though bilirubin has increased today - Likely alcoholic hepatitis (7) Lactic acidosis Current Visit: Yes Status: Acute Code(s): E87.2 - ACIDOSIS SNOMED Code(s) : 50358223 Comment: -resolved -likely 2/2 dehydration related to acute pancreatitis (8) Full code status Current Visit: No Status: Acute Code(s): Z78.9 - OTHER SPECIFIED HEALTH STATUS SNOMED Code(s): 618320039 Comment: (9) DVT prophylaxis Current Visit: No Status: Acute Code(s): Z29.9 - ENCOUNTER FOR PROPHYLACTIC MEASURES, UNSPECIFIED SNOMED Code(s): 600103082 Comment: - SubQ heparin
[2019-04-09] MEDS ORDERED: Ibuprofen TAB* 600 MG PO PRN (13:55)
[2019-04-09] MEDS: Metoprolol Succinate XL TAB* 200 MG TAB.XL PO SCH (14:25)
[2019-04-09] MEDS: oxyCODONE/Acetamin 5/325 MG* TAB PO PRN ×3 (16:24→22:37)
[2019-04-09] MEDS ORDERED: NS 0.9% 1000 ML** 1,000 ML IV ONE (16:44)
[2019-04-09] MEDS: Insulin LISPRO* 1 UNITS UNIT SUBCUT SCH (16:54)
[2019-04-09] MEDS: Nicotine Patch Removal NOTE FOLLOW UP SCH (20:19)
[2019-04-09] MEDS ORDERED: PROCHLORPERAZINE INJ 5 MG/ML 2 ML VIAL IV ONE (21:30)
[2019-04-09] MEDS ORDERED: Metoprolol Tartrate IV* 1 MG/ML 5 ML VIAL IV PRN (22:05)
[2019-04-10] MEDS: LORazepam INJ* 2 MG/ML 1 ML VIAL IV PUSH SCH (00:10)
[2019-04-10] MEDS: NS 0.9% 1000 ML** 1,000 ML IV SCH ×4 (00:18→23:05)
[2019-04-10] MEDS: oxyCODONE/Acetamin 5/325 MG* TAB PO PRN ×4 (05:58→19:56)
[2019-04-10] MEDS: Nicotine PATCH 21 MG/24 HR* PATCH TRANSDERM SCH (06:00)
[2019-04-10] MEDS: Heparin VIAL(*) 5000 UNITS/ML VIAL (FIVE THOUSAND) SUBCUT SCH (06:01)
[2019-04-10] MEDS: HYDROmorphone INJ1* 1 MG/ML SYRINGE IV SLOW PU PRN ×3 (06:46→22:40)
[2019-04-10 07:17] LABS: Hematocrit 41 % (42-52); Hemoglobin 14.2 g/dL (14.0-18.0); Mean Corpuscular HGB Conc 35 g/dL (31-36); Mean Corpuscular Hemoglobin 34 pg (27-31); Mean Corpuscular Volume 99 fL (80-94); Mean Platelet Volume 10.5 fL (7.4-10.4); Platelet Count 106 10^3/uL (150-450); Red Blood Count 4.12 10^6 /uL (4.18-5.48); Red Cell Distribution Width 14 % (10-15); White Blood Count 9.2 10^3/uL (3.5-10.8)
[2019-04-10 07:19] LABS: ALT 94 U/L (7-52); Albumin 3.9 g/dL (3.2-5.2); Albumin/Globulin Ratio 1.3 (1-3); Alkaline Phosphatase 132 U/L (34-104); BUN/Creatinine Ratio 9.8 (8-20); Blood Urea Nitrogen 5 mg/dL (6-24); CO2 Carbon Dioxide 20 mmol/L (22-32); Calcium 8.7 mg/dL (8.6-10.3); Chloride 100 mmol/L (101-111); EGFR African American 215.7 (>60); EGFR Non-African American 178.2 (>60); Globulin 2.9 g/dL (2-4); Glucose 187 mg/dL (70-100); Sodium 131 mmol/L (135-145); Total Protein 6.8 g/dL (6.4-8.9)
[2019-04-10 07:21] LABS: Anion Gap 11 mmol/L (2-11)
[2019-04-10] MEDS: Insulin LISPRO* 1 UNITS UNIT SUBCUT SCH ×3 (07:35→17:08)
[2019-04-10] MEDS: amLODIPine TAB* 5 MG PO SCH (07:36)
[2019-04-10] MEDS: Losartan TAB* 25 MG PO SCH (07:36)
[2019-04-10] MEDS: Metoprolol Succinate XL TAB* 200 MG TAB.XL PO SCH (07:36)
[2019-04-10] MEDS: Pantoprazole TAB * 40 MG TAB PO SCH (07:36)
[2019-04-10] MEDS: PROCHLORPERAZINE INJ 5 MG/ML 2 ML VIAL IV PRN (13:17)
--- NOTE | 2019-04-10 16:34 | PN ---
Subjective Date of Service: 04/10/19 Interval History: Patient still had LUQ pain, stated he needs more frequent Dilaudid. He still had nausea this morning but no vomiting. His last drink was Monday night, he is a bit shaky but improving. Objective Active Medications: Amlodipine Besylate (Norvasc Tab*) 5 mg PO DAILY [facility] Last Admin: 04/10/19 07:36 Dose: 5 mg Dextrose (D50w Syringe 50 Ml*) 12.5 gm IV PUSH .FOR FS < 60 - SS PRN PRN Reason: FS < 60 Enoxaparin Sodium (Lovenox(*)) 40 mg SUBCUT BEDTIME [facility] Hydralazine HCl (Apresoline Iv*) 5 mg IV SLOW PU Q4H PRN PRN Reason: BLOOD PRESSURE Last Admin: 04/09/19 22:23 Dose: 5 mg Hydromorphone HCl (Dilaudid Inj1s*) 1 mg IV SLOW PU Q4H PRN PRN Reason: breakthrough pain only Last Admin: 04/10/19 13:18 Dose: 1 mg Sodium Chloride (Ns 0.9% 1000 Ml) 1,000 mls @ 150 mls/hr IV PER RATE [facility] Last Admin: 04/10/19 16:18 Dose: 150 mls/hr Ibuprofen (Motrin Tab*) 600 mg PO Q6H PRN PRN Reason: PAIN - MILD Insulin Human Lispro (Humalog*) 0 units SUBCUT AC [facility]; Protocol Last Admin: 04/10/19 11:35 Dose: 2 units Lorazepam (Ativan Inj*) 0 - [address] [facility] PROTOCOL [facility]; Protocol Last Admin: 04/10/19 00:10 Dose: 1.5 mg Losartan Potassium (Cozaar Tab*) 25 mg PO DAILY [facility] Last Admin: 04/10/19 07:36 Dose: 25 mg Metoprolol Succinate (Toprol Xl Tab*) 200 mg PO DAILY [facility] Last Admin: 04/10/19 07:36 Dose: 200 mg Metoprolol Tartrate (Lopressor Iv*) 5 mg IV Q6H PRN PRN Reason: SBP >160 breakthrough Miscellaneous (Ativan Pyxis Katz) 1 ea N/A .ATIVAN IV KATZ PRN PRN Reason: PYXIS KATZ Nicotine (Nicotine Patch 21 Mg/24 Hr*) 1 patch TRANSDERM DAILY@0600 [facility] Last Admin: 04/10/19 06:00 Dose: 1 patch Ondansetron HCl (Zofran Inj*) 4 mg IV Q6H PRN PRN Reason: NAUSEA Last Admin: 04/09/19 20:06 Dose: 4 mg Oxycodone/Acetaminophen (Percocet 5/325 Tab*) 1 tab PO Q4H PRN PRN Reason: PAIN - MODERATE Last Admin: 04/10/19 05:58 Dose: 1 tab Oxycodone/Acetaminophen (Percocet 5/325 Tab*) 2 tab PO Q4H PRN PRN Reason: PAIN - SEVERE Last Admin: 04/10/19 11:01 Dose: 2 tab Pantoprazole Sodium (Protonix Tab*) 40 mg PO DAILY [facility]; Protocol Last Admin: 04/10/19 07:36 Dose: 40 mg Pharmacy Profile Note (Nicotine Patch Removal Note*) 1 note FOLLOW UP 2100 [facility] Last Admin: 04/09/19 20:19 Dose: 1 note Prochlorperazine Edisylate (Compazine Inj*) 5 mg IV Q6H PRN PRN Reason: NAUSEA/VOMITING Last Admin: 04/10/19 13:17 Dose: 5 mg Vital Signs - 8 hr 04/10/19 04/10/19 04/10/19 09:06 09:07 10:00 Temperature 98.2 F Pulse Rate 95 Respiratory 16 16 16 Rate Blood Pressure 136/83 (mmHg) O2 Sat by Pulse 97 Oximetry 04/10/19 04/10/19 04/10/19 11:01 13:15 13:18 Temperature Pulse Rate Respiratory 16 16 16 Rate Blood Pressure (mmHg) O2 Sat by Pulse Oximetry Oxygen Devices in Use Now: None Exam: Appearance: white male, sitting on a chair, appearing comfortable and in NAD Eyes: No Scleral Icterus, - - PERRL Ears/Nose/Mouth/Throat: Mucous Membranes Moist Respiratory: Symmetrical Chest Expansion and Respiratory Effort, Clear to Auscultation Cardiovascular: NL Sounds; No Murmurs; No JVD, RRR, Abdominal normoactive BS, abdomen is distended, tenderness over LUQ most prominent, no rigidity Extremities: No Edema, No Clubbing, Cyanosis Skin: No Rash or Ulcers Neurological: Alert and Oriented x 3, NL Muscle Strength and Tone Result Diagrams: 04/10/19 06:14 04/10/19 06:14 Assess/Plan/Problems-Billing Assessment: 43 yo white male with PMHx alcohol use, HTN, DM2, hypertriglyceride, and frequent admissions for acute pancreatitis presents with abd pain and found to have acute pancreatitis. - Patient Problems (1) Pancreatitis Current Visit: Yes Status: Acute Code(s): K85.90 - ACUTE PANCREATITIS WITHOUT NECROSIS OR INFECTION, UNSP SNOMED Code(s): 03705337 Comment: - likely alcohol related, hypertriglyceride is definitely a big risk factor as well - iv fluid 150ml/h - low fat diet unless patient is unable to tolerate - prn zofran, iv ppi (2) Transaminitis Current Visit: No Status: Acute Code(s): R74.0 - NONSPEC ELEV OF LEVELS OF TRANSAMNS & LACTIC ACID DEHYDRGNSE SNOMED Code(s): 440562874 Comment: - Likely alcoholic hepatitis - elevated brittaney today likely due to blood sample hemolysing - will repeat liver function tormorrow (3) Hypertriglyceridemia Current Visit: No Status: Acute Code(s): E78.1 - PURE HYPERGLYCERIDEMIA SNOMED Code(s): 884369900 Comment: - History of elevated triglycerides up to 1300; previous was on fenfibrate but stopped taking for long time due to financial reasons (4) HTN (hypertension) Current Visit: No Status: Acute Code(s): I10 - ESSENTIAL (PRIMARY) HYPERTENSION SNOMED Code(s): 44028320 Comment: - high BP up to 200s on admission, likely due to pain related to pancreatitis - controlled now - continue home med amlodipine, losartan (5) Diabetes mellitus Current Visit: No Status: Acute Code(s): E11.9 - TYPE 2 DIABETES MELLITUS WITHOUT COMPLICATIONS SNOMED Code(s): 88602998 Comment: - last HbA1c 7.1% 03/13, diet modifaction and exercise, weight loss. - will need to follow up with PCP for further management. (6) DVT prophylaxis Current Visit: No Status: Acute Code(s): Z29.9 - ENCOUNTER FOR PROPHYLACTIC MEASURES, UNSPECIFIED SNOMED Code(s): 464932212 Comment: - SubQ Lovenox Status and Disposition: Inpatient Medicine. Attestation Documenting Resident: Daysi De La O Supervising Physician: Delilah Pham Attending/Supervising Physician Comment: Admitted for pancreatitis, also now being treated for alcohol withdrawal. Only tolerated some soft solid foods today. Requests medication to decrease alcohol cravings and increase chances of success with minimizing alcohol intake. Reports he has not tolerated naltrexone in the past when he had OUD. Decision made to trial gabapentin. Attestation: This service has been performed in part by a resident under the direction of a teaching physician.I, Delilah Pham, performed the service, or was physically present during the critical, or katz portions of the service, furnished by the resident. I participated in the management of the patient.
[2019-04-10] MEDS: Ondansetron INJ* 2 MG/ML VIAL IV PRN (19:56)
[2019-04-10] MEDS ORDERED: Enoxaparin(*) 40 MG/0.4 ML SYR SUBCUT SCH (21:00)
[2019-04-10] MEDS: Gabapentin CAP(*) 300 MG PO SCH (22:40)
[2019-04-10] MEDS: Nicotine Patch Removal NOTE FOLLOW UP SCH (22:46)
[2019-04-11] MEDS: oxyCODONE/Acetamin 5/325 MG* TAB PO PRN ×2 (01:22→05:20)
[2019-04-11] MEDS: Nicotine PATCH 21 MG/24 HR* PATCH TRANSDERM SCH (05:22)
[2019-04-11] MEDS: NS 0.9% 1000 ML** 1,000 ML IV SCH (06:09)
[2019-04-11] MEDS ORDERED: Ketorolac INJ* 30 MG/ML 1 ML VIAL IV PUSH PRN (08:02)
[2019-04-11 08:16] LABS: Albumin 3.6 g/dL (3.2-5.2); Albumin/Globulin Ratio 1.2 (1-3); BUN/Creatinine Ratio 9.3 (8-20); Calcium 8.7 mg/dL (8.6-10.3); EGFR African American 201.9 (>60); EGFR Non-African American 166.9 (>60); Globulin 3.1 g/dL (2-4); Magnesium 1.6 mg/dL (1.9-2.7); Potassium 3.1 mmol/L (3.5-5.0); Total Bilirubin 1.7 mg/dL (0.2-1.0); Total Protein 6.7 g/dL (6.4-8.9)
[2019-04-11] MEDS: Insulin LISPRO* 1 UNITS UNIT SUBCUT SCH ×2 (08:22→11:54)
[2019-04-11] MEDS: amLODIPine TAB* 5 MG PO SCH (08:23)
[2019-04-11] MEDS: Gabapentin CAP(*) 300 MG PO SCH (08:23)
[2019-04-11] MEDS: Losartan TAB* 25 MG PO SCH (08:23)
[2019-04-11] MEDS: Metoprolol Succinate XL TAB* 200 MG TAB.XL PO SCH (08:23)
[2019-04-11] MEDS: Pantoprazole TAB * 40 MG TAB PO SCH (08:23)
[2019-04-11 08:42] LABS: ABS Eosinophils 0.4 10^3/ul (0-0.6); ABS Lymphocytes 1.5 10^3/ul (1.0-4.8); ABS Monocytes 0.4 10^3/ul (0-0.8); ABS Neutrophils 2.8 10^3/ul (1.5-7.7); Eosinophil % 8.7 %; Hematocrit 36 % (42-52); Hemoglobin 12.2 g/dL (14.0-18.0); Lymphocyte % 28.6 %; Mean Corpuscular HGB Conc 35 g/dL (31-36); Mean Corpuscular Hemoglobin 34 pg (27-31); Mean Corpuscular Volume 100 fL (80-94); Mean Platelet Volume 10.4 fL (7.4-10.4); Platelet Count 91 10^3/uL (150-450); Red Blood Count 3.57 10^6 /uL (4.18-5.48); Red Cell Distribution Width 14 % (10-15); White Blood Count 5.2 10^3/uL (3.5-10.8)
[2019-04-11] MEDS ORDERED: Potassium Chlor TAB* 20 MEQ TAB.ER PO ONE (08:50)
[2019-04-11] MEDS ORDERED: Magnesium Sulfate IV* 3 GM in NS 0.9% 100 ML* 100 ML IVPB ONE (08:51)
[2019-04-11] MEDS ORDERED: Metoprolol Succinate XL TAB* 100 MG PO SCH (09:00)
[2019-04-11] MEDS: oxyCODONE/Acetamin 5/325 MG* TAB PO SCH ×2 (09:02→13:38)
[2019-04-11 12:47] LABS: BUN/Creatinine Ratio 7.7 (8-20); Calcium 8.9 mg/dL (8.6-10.3); EGFR African American 210.9 (>60); EGFR Non-African American 174.3 (>60); Potassium 3.6 mmol/L (3.5-5.0)
[2019-04-11 15:12] VITALS: BP 168/99
--- NOTE | 2019-04-11 23:37 | DS ---
CC: Dr. Amauri Haro.* DISCHARGE SUMMARY: DATE OF ADMISSION: 04/08/19 DATE OF DISCHARGE: 04/11/19 PRIMARY CARE PHYSICIAN: Dr. Amauri Haro. PRIMARY DIAGNOSES: 1. Acute pancreatitis. 2. Alcohol use disorder complicated by alcohol withdrawal. SECONDARY DIAGNOSES: 1. Hypertension. 2. Alcoholic gastritis. 3. Bipolar disorder. DISCHARGE MEDICATIONS: 1. Gabapentin 300 mg twice a day. May increase to 300 in the morning, 600 at night. 2. Losartan 25 mg daily. 3. Amlodipine 5 mg daily. 4. Metoprolol succinate 200 mg daily. 5. Nicotine 21 mg over 24 hours transdermal patch daily. 6. Esomeprazole 40 mg daily. 7. Ondansetron dissolving tablet 4 mg every 6 hours as needed for nausea. HISTORY OF PRESENT ILLNESS: Mr. Gale is a 43-year-old man with multiple episodes of pancreatitis secondary to alcohol abuse. He had a similar presentation to this hospital approximately 1 month ago and since that time had been doing well. He abstained from drinking alcohol for approximately 3 weeks, however, approximately 3 to 4 days prior to this presentation, he began drinking 3 to 4 drinks a day which were double mixed drinks. On morning of presentation, he began to experience epigastric pain, described as a burning, sharp, stabbing pain that was worse with any oral intake. This progressed to be associated with nausea and vomiting. He took his blood pressure medications on morning of presentation, but vomited them up. He was unable to tolerate any p.o. and the patient pain was getting worse. As it felt similar to his previous pancreatitis attacks, he presented to the hospital. Denied short of breath, chest pain, fevers. In the emergency room, the patient was noted to have mildly elevated WBCs of 13.5, hyponatremia to 132, lactic acid 4 and lipase to 365. His AST/ALT were 146/159. He was started on IV fluids and asked to be admitted to the hospitalist service for management of acute pancreatitis. His lactate cleared with multiple boluses of IV fluids. He was given narcotics for pain control and p.r.n. medications for nausea. During this hospitalization, he also began to withdraw from alcohol, so he was treated with lorazepam per the [facility] protocol. By next day of admission, the patient was still having difficulty tolerating p.o. and was experiencing significant amounts of pain. He also experienced chest pain, but his troponins are negative. His EKG was without ischemic changes. It was felt this may be related to his hypertensive urgency and he was given IV blood pressure medicines until later being able to tolerate oral medications again. The patient met with social work team who offered to plug patient into outpatient services at a sliding scale which the patient reports finances are large barrier to him obtaining rehabilitation for alcohol use. He states that he has to work 40 hours a week during the day and that is when most day programs are, so he could not attend even if the program is financially affordable. The patient was amenable to trying on medication to assist an alcohol cessation and so decision was made to try gabapentin which the patient has been on in the past for chronic pain after getting off of opioids which he previously abused. The patient reports history of severe adverse reactions to opioid antagonist and did not want to try disulfiram. Eventually, the patient was able to tolerate solid foods. He was titrated off of his narcotic pain medications. He had no more nausea and vomiting. His blood pressure were largely with good control. He reports feeling ready to return home and a 10-point review of systems was performed and notable only for mild epigastric pain. PHYSICAL EXAMINATION: Afebrile, heart rate 78, blood pressure 140/98, respiratory rate 20, oxygen saturation 98% on room air. General: He is a well- appearing man in no acute distress, who appears comfortable sitting in his street clothes on his hospital bed. HEENT: Sclerae anicteric. Moist mucous membranes. Neck: Supple. No JVD. Heart: Regular rate and rhythm, no murmurs , gallop or rubs. Lungs: Clear to auscultation bilaterally. Abdomen: Soft, nontender, moderately distended. No guarding, no rebound, no rigidity. No organomegaly appreciated given adiposity. Extremities: Warm and well perfused without evidence of edema. Neuro: A and O x3, no focal deficits. PERTINENT DIAGNOSTIC STUDIES: CBC notable for discharge hemoglobin 12.2 after significant IV hydration. Unclear baseline but he has been lower than this in the recent past. BMP with resolved hyponatremia and normal renal function. INR 0.98. Lipase peaked to 554. AST/ALT 165/112 with alk phos 150 and total bilirubin 1.7. Liver ultrasound with hepatic steatosis and associated hepatomegaly. Pancreatic head and body are visualized showing no ductal dilatation or focal lesions, tail was shattered by overlying bowel gas. DISCHARGE PLAN: The patient will be discharged to follow up with Dr. Amauri Haro his primary care physician for ongoing treatment for his alcohol use disorder, hepatic steatosis, and hypertension. He should also be referred to a mental health provider as the patient has a significant history of bipolar disorder versus major depressive disorder. His medications are to be continued as above, notably with the addition of gabapentin to treat alcohol use disorder , losartan to add to his home antihypertensive regimen and nicotine patches to aid in smoking cessation. The patient was given return precautions which include, but are not limited to recurrence of abdominal pain, nausea or vomiting or new symptoms or fever. He should eat a healthy diet low in processed foods, particularly low in carbohydrates, simple sugars and fructose given his history of high triglycerides and fatty liver disease. ACTIVITY: As tolerated. DISPOSITION: Home. CONDITION: Good. TIME SPENT: Approximately 60 minutes was spent on the discharge of this patient , more than half of which was spent with care coordination at bedside for interview and exam. [id number]/[facility] #: [id number] [place]
== END 2019-04-11 16:00 | disposition home or self-care (01) | DRG 282 ==
LOC: ED 20:03 → SSU 23:12 → UNDOADMIN 23:12 → MEDTELE 23:13
PROVIDERS: ADMIT Nurse Practitioner Family; ATTEND Internal Medicine
DX: K85.20 Alcohol induced acute pancreatitis without necrosis or infection (principal); E87.1 Hypo-osmolality and hyponatremia; F10.239 Alcohol dependence with withdrawal, unspecified; F10.288 Alcohol dependence with other alcohol-induced disorder; E87.2 Acidosis; K29.20 Alcoholic gastritis without bleeding; F31.9 Bipolar disorder, unspecified; K76.0 Fatty (change of) liver, not elsewhere classified; I10 Essential (primary) hypertension; K21.9 Gastro-esophageal reflux disease without esophagitis; F41.9 Anxiety disorder, unspecified; F43.10 Post-traumatic stress disorder, unspecified; F17.210 Nicotine dependence, cigarettes, uncomplicated; F17.290 Nicotine dependence, other tobacco product, uncomplicated; K75.9 Inflammatory liver disease, unspecified; E11.9 Type 2 diabetes mellitus without complications; E66.9 Obesity, unspecified; R74.0 Nonspecific elevation of levels of transaminase and lactic acid dehydrogenase [LDH]; E78.1 Pure hyperglyceridemia; E86.0 Dehydration; I16.0 Hypertensive urgency; Z88.8 Allergy status to other drugs, medicaments and biological substances; Z88.1 Allergy status to other antibiotic agents; Y90.9 Presence of alcohol in blood, level not specified; Z91.5 Personal history of self-harm; Z90.411 Acquired partial absence of pancreas; Z68.30 Body mass index [BMI] 30.0-30.9, adult
CPT/HCPCS: 36415; 76705; 80048; 80053; 80320; 81003; 82247; 83605; 83690; 83735; 84484; 85025; 85027; 85060; 85610; 86140; 87040; 93005; 96374; 96375; 99284; A9270-GY; G0480; J0360; J0780; J1170; J1644; J1650; J2060; J2270; J2405; J3411; J3475; J3490

== ENCOUNTER 2019-05-14 21:53 | Inpatient (IN) | payer BC ==
--- OUTSIDE RECORDS SUMMARY | 2019-05-14 22:18 | XMS REPORT | Continuity of Care Document ---
:1975 External Reference #:[id number] Author Name Chantel Finley MD, [facility], [facility] (transmitted by agent of provider Kalli Jaimes) Address [address] [place] [id number] Care Team Providers Name Role Phone Amauri Haro III, MD - Internal Care Team Information [employer] Medicine Problems Description No Information Available Social History Type Date Description Comments Sex Unknown Tobacco Use Start: Unknown End: Patient is a former Quit Jan 2018. 1 Unknown smoker ppd max, began age 15 Pt vaping now Smoking Status Reviewed: 03/26/19 Patient is a former Quit Jan 2018. 1 smoker ppd max, began age 15 Pt vaping now Exercise Exercises rarely walks on occ Type/Frequency Allergies, Adverse Reactions, Alerts Active Allergies Reaction Severity Comments Date Keflex Severe 08/22/2018 Lisinopril Severe 08/22/2018 Midazolam aggitation 08/22/2018 Medications Active Medications SIG Qnty Indications Ordering Provider Date Metoprolol Succinate 2 tabs daily 180tabs Amauri Haro, 03/26/2019 ER M.D. 100mg Tablets ER 24HR Amlodipine Besylate 1 by mouth 90tabs Amauri Haro, 5mg daily M.D. Tablets Nexium 1 by mouth 90caps Amauri Haro, 40mg Capsules DR every day M.D. Acetaminophen 2 tabs every 6 120tabs Noemi Chen MD 500mg hours as needed Tablets for pain. Max 8 tabs a day Advil as needed Unknown 200mg Capsules Fenofibrate Unknown 40mg Tablets Zofran take 1 tab 45tabs Noemi Chen MD 4mg Tablets every 6 hours as needed for nausea History Medications Metoprolol Succinate 2 by mouth every 90tabs Amauri Haro, 2018 - ER day MMonty 03/26/2019 100mg Tablets ER 24HR Immunizations CPT Code Status Date Vaccine Lot # [id number] Given 03/06/2014 Tdap - Tetanus/Diptheria/Acellular Pertussis Vital Signs Date Vital Result Comment 03/26/2019 3:28pm Height 67 inches 5'7" Weight 187.00 lb Heart Rate 104 /min BP Systolic Sitting 180 mmHg BP Diastolic Sitting 107 mmHg BMI (Body Mass Index) 29.3 kg/m2 12/25/2018 4:25pm Height 67 inches 5'7" Weight 201.00 lb with shoes Heart Rate 119 /min BP Systolic 154 mmHg BP Diastolic 93 mmHg Body Temperature 97.1 F O2 % BldC Oximetry 98 % BMI (Body Mass Index) 31.5 kg/m2 Results Test Acquired Facility Test Result H/L Range Note Date Laboratory test 04/09/2019 [facility] Lactic 3.1 mmol/L Critical 0.5-2.0 [address] [place] [address] [phone] CBC Auto Diff 04/08/2019 [facility] White 13.5 High 3.5-10.[address] Blood 10^3/[place] [address] Count [phone] Red Blood Count 4.88 10^6/uL Normal 4.18-5.48 Hemoglobin 16.3 g/dL Normal 14.0-18.0 Hematocrit 48 % Normal 42-52 Mean Corpuscular Volume 97 fL High 80-94 Mean Corpuscular Hemoglobin 33 pg High 27-31 Mean Corpuscular HGB Conc 34 g/dL Normal 31-36 Red Cell Distribution Width 14 % Normal 10-15 Platelet Count 187 10^3/uL Normal 150-450 Mean Platelet Volume 9.9 fL Normal 7.4-10.4 Abs Neutrophils 10.9 10^3/uL High 1.5-7.7 Abs Lymphocytes 1.5 10^3/uL Normal 1.0-4.8 Abs Monocytes 0.9 10^3/uL High 0-0.8 Abs Eosinophils 0.0 10^3/uL Normal 0-0.6 Abs Basophils 0.1 10^3/uL Normal 0-0.2 Abs Nucleated RBC 0.0 10^3/uL Granulocyte % 81.1 % Lymphocyte % 11.3 % Monocyte % 6.8 % Eosinophil % 0.4 % Basophil % 0.4 % Nucleated Red Blood Cells % 0.0 Laboratory 04/08/2019 [facility] Lactic 4.0 mmol/L Critical 0.5-2.0 2 test finding [address] [place] [address] [phone] Comp Metabolic 04/08/2019 [facility] Sodium 132 mmol/L Low 135 -145 Panel [address] [place] [address] [phone] Potassium 3.7 mmol/L Normal 3.5-5.0 Chloride 96 mmol/L Low 101-111 Co2 Carbon Dioxide 20 mmol/L Low 22-32 Anion Gap 16 mmol/L High 2-11 Glucose 262 mg/dL High 70-100 Blood Urea Nitrogen 9 mg/dL Normal 6-24 Creatinine 0.76 mg/dL Normal 0.67-1.17 BUN/Creatinine Ratio 11.8 Normal 8-20 Calcium 9.8 mg/dL Normal 8.6-10.3 Total Protein 8.3 g/dL Normal 6.4-8.9 Albumin 4.7 g/dL Normal 3.2-5.2 Globulin 3.6 g/dL Normal 2-4 Albumin/Globulin Ratio 1.3 Normal 1-3 Total Bilirubin 1.00 mg/dL Normal 0.2-1.0 Alkaline Phosphatase 174 U/L High 34-104 Alt 159 U/L High 7-52 Ast 146 U/L High 13-39 Egfr Non- 112.5 >60 Egfr 136.1 >60 3 Laboratory test 04/08/2019 [facility] Lipase 356 U/L High 11.0 -82.0 finding [address] [place] [address] [phone] C Reactive Protein 4.10 mg/L Normal <8.01 Alcohol < 10 mg/dL Normal <10 Urinalysis Profile 03/13/2019 [facility] Urine Color Straw [address] [place] [address] [phone] Urine Appearance Clear Urine Specific [place] 1.046 High 1.010-1.030 Urine pH 6.0 Normal 5-9 Urine Urobilinogen Negative Negative Urine Ketones 1+ Abnormal Negative Urine Protein Negative Negative Urine Leukocytes Negative Negative Urine Blood Negative Negative Urine Nitrite Negative Negative Urine Bilirubin Negative Negative Urine Glucose 1+(50 mg/dL) Abnormal Negative CBC Auto 03/13/2019 [facility] White Blood 8.9 10^3/uL Normal 3.5-10.[address] [place] [address] [phone] Red Blood Count 4.54 10^6/uL Normal 4.18-5.48 Hemoglobin 15.7 g/dL Normal 14.0-18.0 Hematocrit 44 % Normal 42-52 Mean Corpuscular Volume 98 fL High 80-94 Mean Corpuscular Hemoglobin 35 pg High 27-31 Mean Corpuscular HGB Conc 35 g/dL Normal 31-36 Red Cell Distribution Width 15 % Normal 10-15 Platelet Count 171 10^3/uL Normal 150-450 Mean Platelet Volume 10.1 fL Normal 7.4-10.4 Abs Neutrophils 7.2 10^3/uL Normal 1.5-7.7 Abs Lymphocytes 1.0 10^3/uL Normal 1.0-4.8 Abs Monocytes 0.5 10^3/uL Normal 0-0.8 Abs Eosinophils 0.1 10^3/uL Normal 0-0.6 Abs Basophils 0.1 10^3/uL Normal 0-0.2 Abs Nucleated RBC 0.0 10^3/uL Granulocyte % 81.3 % Lymphocyte % 11.5 % Monocyte % 5.2 % Eosinophil % 1.4 % Basophil % 0.6 % Nucleated Red Blood Cells % 0.1 Comp Metabolic 03/13/2019 [facility] Sodium 137 mmol/L Normal 135-[address] [place] [address] [phone] Potassium 3.2 mmol/L Low 3.5-5.0 Chloride 101 mmol/L Normal 101-111 Co2 Carbon Dioxide 18 mmol/L Low 22-32 Anion Gap 18 mmol/L High 2-11 Glucose 144 mg/dL High 70-100 Blood Urea Nitrogen 7 mg/dL Normal 6-24 Creatinine 0.69 mg/dL Normal 0.67-1.17 BUN/Creatinine Ratio 10.1 Normal 8-20 Calcium 9.2 mg/dL Normal 8.6-10.3 Total Protein 7.9 g/dL Normal 6.4-8.9 Albumin 4.5 g/dL Normal 3.2-5.2 Globulin 3.4 g/dL Normal 2-4 Albumin/Globulin Ratio 1.3 Normal 1-3 Total Bilirubin 0.70 mg/dL Normal 0.2-1.0 Alkaline Phosphatase 157 U/L High 34-104 Alt 106 U/L High 7-52 Ast 90 U/L High 13-39 Egfr Non- 125.7 >60 Egfr 152.1 >60 4 Laboratory test 03/13/2019 [facility] Lipase 584 U/L High 11.0 -82.0 finding [address] [place] [address] [phone] C Reactive Protein 19.13 mg/L High <8.01 Magnesium 1.7 mg/dL Low 1.9-2.7 Alcohol 49 mg/dL High <10 Hemoglobin A1c (Glyco HGB) 7.1 % High 4.0-5.6 5 Urine Culture And 12/16/2018 [facility] Urine Culture SEE RESULT [address] [place] [address] [phone] Lipid Profile 12/16/2018 [facility] Cholesterol 241 mg/dL 7 (Trig/Chol/HDL) [address] [place] [address] [phone] HDL Cholesterol 38.4 mg/dL 8 LDL Cholesterol (SEE NOTE) mg/dL 9 Urinalysis Profile 12/16/2018 [facility] Urine Color Esme [address] [place] [address] [phone] Urine Appearance Clear Urine Specific [place] 1.035 High 1.010-1.030 Urine pH 5.0 Normal 5-9 Urine Urobilinogen Negative Negative Urine Ketones 1+ Abnormal Negative Urine Protein 1+(30 mg/dL) Abnormal Negative Urine Leukocytes Negative Negative Urine Blood 2+ Abnormal Negative * * Abnormal Negative 10 Urine Nitrite Negative Negative Urine Bilirubin 1+ Abnormal Negative Urine Glucose Negative Negative Urine White Blood Cell Trace(0-5/hpf) Absent Urine Red Blood Cell Trace(0-2/hpf) Absent Urine Bacteria Absent Absent Urine Squamous Epithelial Cell Present Abnormal Absent Laboratory test 12/16/2018 [facility] Magnesium 1.6 mg/dL Low 1.9-2.7 finding [address] [place] [address] [phone] Amylase 189 U/L High 29-103 C Reactive Protein 6.25 mg/L Normal <8.01 Triglycerides 1364 mg/dL 11 Lipase 1451 U/L High 11.0-82.0 Comp Metabolic Panel 12/16/2018 [facility] Sodium 132 mmol/L Low 135-[address] [place] [address] [phone] Chloride 100 mmol/L Low 101-111 Co2 Carbon Dioxide 15 mmol/L Low 22-32 Calcium 9.2 mg/dL Normal 8.6-10.3 Albumin 4.6 g/dL Normal 3.2-5.2 Total Bilirubin 2.20 mg/dL High 0.2-1.0 Glucose 180 mg/dL High 70-100 Blood Urea Nitrogen 11 mg/dL Normal 6-24 Creatinine 0.73 mg/dL Normal 0.67-1.17 BUN/Creatinine Ratio 15.1 Normal 8-20 Total Protein 8.0 g/dL Normal 6.4-8.9 Globulin 3.4 g/dL Normal 2-4 Albumin/Globulin Ratio 1.4 Normal 1-3 Alkaline Phosphatase 198 U/L High 34-104 Alt 136 U/L High 7-52 Egfr Non- 117.8 >60 Egfr 142.6 >60 12 Potassium 3.5 mmol/L Normal 3.5-5.0 Anion Gap 17 mmol/L High 2-11 Ast 180 U/L High 13-39 Laboratory test 12/16/2018 [facility] Lactic Acid 1.1 mmol/L Normal 0.5-2.0 [address] [place] [address] [phone] CBC Auto Diff 12/16/2018 [facility] White Blood 18.8 High 3.5- 10.[address] Count 10^3/[place] [address] [phone] Red Blood Count 5.40 10^6/uL Normal 4.18-5.48 Hemoglobin 17.6 g/dL Normal 14.0-18.0 Hematocrit 52 % Normal 42-52 Mean Corpuscular Volume 97 fL High 80-94 Mean Corpuscular Hemoglobin 33 pg High 27-31 Mean Corpuscular HGB Conc 34 g/dL Normal 31-36 Red Cell Distribution Width 16 % High 10-15 Platelet Count 209 10^3/uL Normal 150-450 Mean Platelet Volume 9.0 fL Normal 7.4-10.4 Abs Neutrophils 16.6 10^3/uL High 1.5-7.7 Abs Lymphocytes 1.2 10^3/uL Normal 1.0-4.8 Abs Monocytes 1.0 10^3/uL High 0-0.8 Abs Eosinophils 0.0 10^3/uL Normal 0-0.6 Abs Basophils 0.1 10^3/uL Normal 0-0.2 Abs Nucleated RBC 0.0 10^3/uL Granulocyte % 88.2 % Lymphocyte % 6.3 % Monocyte % 5.1 % Eosinophil % 0.1 % Basophil % 0.3 % Nucleated Red Blood Cells % 0.2 CBC Auto 11/18/2018 [facility] White Blood 18.1 10^3/uL High 3.5-10.[address] [place] [address] [phone] Red Blood Count 5.26 10^6/uL Normal 4.18-5.48 Hemoglobin 16.6 g/dL Normal 14.0-18.0 Hematocrit 48 % Normal 42-52 Mean Corpuscular Volume 92 fL Normal 80-94 Mean Corpuscular Hemoglobin 32 pg High 27-31 Mean Corpuscular HGB Conc 34 g/dL Normal 31-36 Red Cell Distribution Width 19 % High 10-15 Platelet Count 263 10^3/uL Normal 150-450 Mean Platelet Volume 8.8 fL Normal 7.4-10.4 Abs Neutrophils 15.3 10^3/uL High 1.5-7.7 Abs Lymphocytes 1.2 10^3/uL Normal 1.0-4.8 Abs Monocytes 1.5 10^3/uL High 0-0.8 Abs Eosinophils 0.0 10^3/uL Normal 0-0.6 Abs Basophils 0.0 10^3/uL Normal 0-0.2 Abs Nucleated RBC 0.0 10^3/uL Granulocyte % 84.8 % Lymphocyte % 6.7 % Monocyte % 8.2 % Eosinophil % 0.0 % Basophil % 0.3 % Nucleated Red Blood Cells % 0.1 Laboratory 11/18/2018 [facility] Lactic 2.1 mmol/L Critical 0.5-2.0 14 test finding [address] [place] [address] [phone] Comp Metabolic 11/18/2018 [facility] Sodium 132 mmol/L Low 135 -145 Panel [address] [place] [address] [phone] Potassium 3.4 mmol/L Low 3.5-5.0 Chloride 95 mmol/L Low 101-111 Co2 Carbon Dioxide 24 mmol/L Normal 22-32 Anion Gap 13 mmol/L High 2-11 Glucose 231 mg/dL High 70-100 Blood Urea Nitrogen 19 mg/dL Normal 6-24 Creatinine 0.89 mg/dL Normal 0.67-1.17 BUN/Creatinine Ratio 21.3 High 8-20 Calcium 9.9 mg/dL Normal 8.6-10.3 Total Protein 8.3 g/dL Normal 6.4-8.9 Albumin 4.7 g/dL Normal 3.2-5.2 Globulin 3.6 g/dL Normal 2-4 Albumin/Globulin Ratio 1.3 Normal 1-3 Total Bilirubin 1.30 mg/dL High 0.2-1.0 Alkaline Phosphatase 156 U/L High 34-104 Alt 62 U/L High 7-52 Ast 32 U/L Normal 13-39 Egfr Non- 93.7 >60 Egfr 113.4 >60 15 Laboratory test 11/18/2018 [facility] Magnesium 1.6 mg/dL Low 1.9-2.7 finding [address] [place] [address] [phone] Amylase 357 U/L High 29-103 C Reactive Protein 97.47 mg/L High <8.01 Troponin-I (TnI) 0.00 ng/mL <0.04 16 Lipase 2083 U/L High 11.0-82.0 Alcohol < 10 mg/dL Normal <10 Urinalysis Profile 11/18/2018 [facility] Urine Color Yellow [address] [place] [address] [phone] Urine Appearance Clear Urine Specific [place] 1.029 Normal 1.010-1.030 Urine pH 5.0 Normal 5-9 Urine Urobilinogen Negative Negative Urine Ketones Negative Negative Urine Protein 1+(30 mg/dL) Abnormal Negative Urine Leukocytes Negative Negative Urine Blood 1+ Abnormal Negative Urine Nitrite Negative Negative Urine Bilirubin Negative Negative Urine Glucose Negative Negative Urine White Blood Cell Trace(0-5/hpf) Absent Urine Red Blood Cell 3+(>10/hpf) Abnormal Absent Urine Bacteria Absent Absent Urine Culture And 11/18/2018 [facility] Urine Culture SEE RESULT [address] [place], [place] [id number] [phone] 1 Critical Result LACT:3.1 Called to [id number] at: 03:27:25 by:[id number] Read back by:[id number] [facility] Severe Sepsis and Septic Shock Management Bundle Measure requires all lactic acids initially measuring >2.0 mmol/L be repeated. 2 Critical Result LACT:4.0 Called to [id number] at: 22:33:39 by:[id number] Read back by:[id number] [facility] Severe Sepsis and Septic Shock Management Bundle Measure requires all lactic acids initially measuring >2.0 mmol/L be repeated. 3 Because ethnic data is not always readily available, this report includes an eGFR for both -Americans and non- Americans. The National Kidney Disease Education Program (NKDEP) does not endorse the use of the MDRD equation for patients that are not between the ages of 18 and 70, are , have extremes of body size, muscle mass, or nutritional status, or are non- or non-. According to the National Kidney Foundation, irrespective of diagnosis, the stage of the disease is based on the level of kidney function: Stage Description GFR(mL/min/1.73 m(2)) 1 Kidney damage with normal or decreased GFR 90 2 Kidney damage with mild decrease in GFR 60-89 3 Moderate decrease in GFR 30-59 4 Severe decrease in GFR 15-29 5 Kidney failure <15 (or dialysis) 4 Because ethnic data is not always readily available, this report includes an eGFR for both -Americans and non- Americans. The National Kidney Disease Education Program (NKDEP) does not endorse the use of the MDRD equation for patients that are not between the ages of 18 and 70, are , have extremes of body size, muscle mass, or nutritional status, or are non- or non-. According to the National Kidney Foundation, irrespective of diagnosis, the stage of the disease is based on the level of kidney function: Stage Description GFR(mL/min/1.73 m(2)) 1 Kidney damage with normal or decreased GFR 90 2 Kidney damage with mild decrease in GFR 60-89 3 Moderate decrease in GFR 30-59 4 Severe decrease in GFR 15-29 5 Kidney failure <15 (or dialysis) 5 Therapeutic target for the treatment of diabetes mellitus patients is <7% HBA1C, and in selective patients <6.0%. Please refer to [place] [employer] diabetic care guidelines for further information. 6 SEE RESULT BELOW Name: SUDHEER GALE : [address]: Marissa Elder MD Acct: [id number] Unit: [id number] AGE: 43 Location: ICU [id number] Re12/16/18 SEX: M Status: ADM IN SPEC: [id number] ROSE: 12/16/[address]: Amauri Lopez MD REQ: [id number] RECD: 12/16/18 STATUS: YOSI BENEDICT DR: Amauri Haro III, MD _ SOURCE: URINE SPDESC: ORDERED: Urine Culture Procedure Result Reported Site Urine Culture Final 10/15/19- 0812 ML No Growth (<1,000 CFU/mL) * ML - Main Lab . 7 Desirable: <200 Borderline High: 200-239 High: >239 8 Low: <40 Desirable: 40-60 High: >60 9 Unable to calculate LDL as triglyceride is > 400 10 *Ascorbic acid is present which may interfere with detection of blood. *Ascorbic acid is present which may interfere with detection of blood. 11 Desirable: <150 Borderline High: 150-199 High: 200-499 Very High: >500 12 Because ethnic data is not always readily available, this report includes an eGFR for both -Americans and non- Americans. The National Kidney Disease Education Program (NKDEP) does not endorse the use of the MDRD equation for patients that are not between the ages of 18 and 70, are , have extremes of body size, muscle mass, or nutritional status, or are non- or non-. According to the National Kidney Foundation, irrespective of diagnosis, the stage of the disease is based on the level of kidney function: Stage Description GFR(mL/min/1.73 m(2)) 1 Kidney damage with normal or decreased GFR 90 2 Kidney damage with mild decrease in GFR 60-89 3 Moderate decrease in GFR 30-59 4 Severe decrease in GFR 15-29 5 Kidney failure <15 (or dialysis) 13 [facility] Severe Sepsis and Septic Shock Management Bundle Measure requires all lactic acids initially measuring >2.0 mmol/L be repeated. 14 Critical Result LACT:2.1 Called to AKASH at: 09:31:56 by:[id number] Read back by:[email or web address] [facility] Severe Sepsis and Septic Shock Management Bundle Measure requires all lactic acids initially measuring >2.0 mmol/L be repeated. 15 Because ethnic data is not always readily available, this report includes an eGFR for both -Americans and non- Americans. The National Kidney Disease Education Program (NKDEP) does not endorse the use of the MDRD equation for patients that are not between the ages of 18 and 70, are , have extremes of body size, muscle mass, or nutritional status, or are non- or non-. According to the National Kidney Foundation, irrespective of diagnosis, the stage of the disease is based on the level of kidney function: Stage Description GFR(mL/min/1.73 m(2)) 1 Kidney damage with normal or decreased GFR 90 2 Kidney damage with mild decrease in GFR 60-89 3 Moderate decrease in GFR 30-59 4 Severe decrease in GFR 15-29 5 Kidney failure <15 (or dialysis) 16 Troponin-I testing on Plasma Separator Tubes (PST) has a known false positive rate of 0.20-0.40%. All positive troponins reflex immediately to secondary confirmatory testing. Using the [employer] DxI 800 Access Immunoassay systems, the 99th percentile upper reference limit was demonstrated to be < 0.03 ng/mL. 17 SEE RESULT BELOW Name: SUDHEER GALE : [address]: Yane Smith MD Acct: [id number] Unit: [id number] AGE: 43 Location: [place] [address] Re11/18/18 SEX: M Status: ADM IN SPEC: [id number] ROSE: 11/19/[address]: Susan ISBELL REQ: [id number] RECD: 11/19/18 STATUS: YOSI BENEDICT DR: Ajay Haro III, MD _ SOURCE: URINE SPDESC: ORDERED: Urine Culture Procedure Result Reported Site Urine Culture Final 11/20/18- 929 ML No Growth (<1,000 CFU/mL) * ML - Main Lab . END OF REPORT DEPARTMENT OF PATHOLOGY, [address] [place] [address] Hubert Last M.D. Director [facility] # [id number] Procedures Description No Information Available Medical Devices Description No Information Available Encounters Type Date Location Provider Dx Diagnosis Office Visit 03/16/2019 [facility] Edwige Mcduffie, K85.20 Alcohol induced 9:12a Assoc,pc BILINGUAL TRAINER acute pancreatitis Hospitalists without necrosis or infct F10.288 Alcohol dependence with other alcohol-induced disorder I10 Essential (primary) hypertension Office Visit 03/15/2019 [facility] Edwige Mcduffie, K85.20 Alcohol induced 9:11a Assoc,pc BILINGUAL TRAINER acute pancreatitis Hospitalists without necrosis or infct F10.288 Alcohol dependence with other alcohol-induced disorder I10 Essential (primary) hypertension Office Visit 03/14/2019 [facility] Edwige Mcduffie, K85.20 Alcohol induced 9:11a Assoc,pc BILINGUAL TRAINER acute pancreatitis Hospitalists without necrosis or infct I16.0 Hypertensive urgency F10.288 Alcohol dependence with other alcohol-induced disorder E11.9 Type 2 diabetes mellitus without complications Office Visit 03/13/2019 [facility] Edwigeolu Mcduffie, K85.20 Alcohol induced 9:10a Assoc,pc BILINGUAL TRAINER acute pancreatitis Hospitalists without necrosis or infct F10.188 Alcohol abuse with other alcohol-induced disorder I10 Essential (primary) hypertension K21.9 Gastro-esophageal reflux disease without esophagitis Office Visit 12/25/2018 4:20p [facility] Noemi Chen K85.90 Acute pancreatitis Medicine - MD without necrosis or Ccmob infection, unsp I10 Essential (primary) hypertension F10.10 Alcohol abuse, uncomplicated K86.1 Other chronic pancreatitis D72.829 Elevated white blood cell count, unspecified Office Visit 12/19/2018 [facility] K85.90 Acute 9:24a Assoc,SUKHI Hernadez pancreatitis Hospitalists without necrosis or infection, unsp E78.1 Pure hyperglyceridemia F10.188 Alcohol abuse with other alcohol-induced disorder Office Visit 12/18/2018 [facility] K85.90 Acute 9:23a Assoc,SUKHI Hernadez pancreatitis Hospitalists without necrosis or infection, unsp I10 Essential (primary) hypertension K21.9 Gastro-esophageal reflux disease without esophagitis Office Visit 12/17/2018 [facility] K85.90 Acute 9:23a Asslady larsen PA pancreatitis Hospitalists without necrosis or infection, unsp I10 Essential (primary) hypertension K21.9 Gastro-esophageal reflux disease without esophagitis Office Visit 12/16/2018 9:22a [facility] Lindy Elena K85.90 Acute pancreatitis Assoc,lady N.P. without necrosis Hospitalists or infection, unsp I10 Essential (primary) hypertension [facility] K[facility].90 Acute 9:27a lady Ramírez M.D. pancreatitis Hospitalists without necrosis or infection, unsp I10 Essential (primary) hypertension [facility] K85.90 Acute 9:26a lady Ramírez M.D. pancreatitis Hospitalists without necrosis or infection, unsp R73.9 Hyperglycemia, unspecified I10 Essential (primary) hypertension Office Visit 11/18/2018 [facility] K85.90 Acute 9:26a Assoc,lady Villanueva M.D. pancreatitis Hospitalists without necrosis or infection, unsp I10 Essential (primary) hypertension Y90.0 Blood alcohol level of less than 20 mg/100 ml Office Visit 10/10/2018 3:20p [facility] Internal Amauri Lepe I10 Essential ( primary) Medicine - Isi Haro M.D. hypertension K85.82 Other acute pancreatitis with infected necrosis K21.9 Gastro-esophageal reflux disease without esophagitis Assessments Date Code Description Provider 03/26/2019 K85.20 Alcohol induced acute pancreatitis Amauri Haro M.D. without necrosis or infection 03/26/2019 I10 Essential (primary) hypertension Amauri Haro M.D. 03/26/2019 E11.9 Type 2 diabetes mellitus without Amauri Haro M.D. complications 03/26/2019 K21.9 Gastro-esophageal reflux disease without Amauri Haro M.D. esophagitis 03/26/2019 E78.2 Mixed hyperlipidemia Amauri Haro M.D. 03/17/2019 K85.20 Alcohol induced acute pancreatitis Concepción Vanessa, BILINGUAL TRAINER without necrosis or infection 03/17/2019 F10.288 Alcohol dependence with other Concepción Vanessa, BILINGUAL TRAINER alcohol-induced disorder 03/17/2019 I10 Essential (primary) hypertension Concepción Vanessa, BILINGUAL TRAINER 03/17/2019 E11.9 Type 2 diabetes mellitus without Concepción Vanessa, BILINGUAL TRAINER complications 03/16/2019 K85.20 Alcohol induced acute pancreatitis Edwige Reta, BILINGUAL TRAINER without necrosis or infection 03/16/2019 F10.288 Alcohol dependence with other Edwige Reta, BILINGUAL TRAINER alcohol-induced disorder 03/16/2019 I10 Essential (primary) hypertension Edwige Reta, BILINGUAL TRAINER 03/15/2019 K85.20 Alcohol induced acute pancreatitis Edwige Reta, BILINGUAL TRAINER without necrosis or infection 03/15/2019 F10.288 Alcohol dependence with other Edwige Reta, BILINGUAL TRAINER alcohol-induced disorder 03/15/2019 I10 Essential (primary) hypertension Edwige Reta, BILINGUAL TRAINER 03/14/2019 K85.20 Alcohol induced acute pancreatitis Edwige Reta, BILINGUAL TRAINER without necrosis or infection 03/14/2019 I16.0 Hypertensive urgency Edwige Reta, BILINGUAL TRAINER 03/14/2019 F10.288 Alcohol dependence with other Edwige Reta, BILINGUAL TRAINER alcohol-induced disorder 03/14/2019 E11.9 Type 2 diabetes mellitus without Edwige Reta, BILINGUAL TRAINER complications 03/13/2019 K85.20 Alcohol induced acute pancreatitis Edwige Reta, BILINGUAL TRAINER without necrosis or infection 03/13/2019 F10.188 Alcohol abuse with other alcohol-induced Edwige Reta, BILINGUAL TRAINER disorder 03/13/2019 I10 Essential (primary) hypertension Edwige Reta, BILINGUAL TRAINER 03/13/2019 K21.9 Gastro-esophageal reflux disease without Edwige Reta, BILINGUAL TRAINER esophagitis 12/25/2018 K85.90 Acute pancreatitis without necrosis or Noemi Chen MD infection, unspecified 12/25/2018 I10 Essential (primary) hypertension Noemi Chen MD 12/25/2018 F10.10 Alcohol abuse, uncomplicated Noemi Chen MD 12/25/2018 K86.1 Other chronic pancreatitis Noemi Chen MD 12/25/2018 D72.829 Elevated white blood cell count, Noemi Chen MD unspecified 12/19/2018 K85.90 Acute pancreatitis without necrosis or SUKHI Bailey infection, unspecified 12/19/2018 E78.1 Pure hyperglyceridemia SUKHI Bailey 12/19/2018 F10.188 Alcohol abuse with other alcohol-induced Liz Bruner PA disorder 12/18/2018 K85.90 Acute pancreatitis without necrosis or SUKHI Bailey infection, unspecified 12/18/2018 I10 Essential (primary) hypertension Liz Bruner PA 12/18/2018 K21.9 Gastro-esophageal reflux disease without SUKHI Bailey esophagitis 12/17/2018 K85.90 Acute pancreatitis without necrosis or Liz Bruner PA infection, unspecified 12/17/2018 I10 Essential (primary) hypertension Liz Bruner PA 12/17/2018 K21.9 Gastro-esophageal reflux disease without SUKHI Bailey esophagitis 12/16/2018 K85.90 Acute pancreatitis without necrosis or Lindy Elena N.P. infection, unspecified 12/16/2018 I10 Essential (primary) hypertension Lindy Elena N.P. 11/20/2018 K85.90 Acute pancreatitis without necrosis or Yane Smith M.D. infection, unspecified 11/20/2018 I10 Essential (primary) hypertension Yane Smith M.D. 11/19/2018 K85.90 Acute pancreatitis without necrosis or Yane Smith M.D. infection, unspecified 11/19/2018 R73.9 Hyperglycemia, unspecified Yane Smith M.D. 11/19/2018 I10 Essential (primary) hypertension Yane Smith M.D. 11/18/2018 K85.90 Acute pancreatitis without necrosis or Miller Villanueva M.D. infection, unspecified 11/18/2018 I10 Essential (primary) hypertension Miller Villanueva M.D. 11/18/2018 Y90.0 Blood alcohol level of less than 20 Miller Villanueva M.D. mg/100 ml 10/10/2018 I10 Essential (primary) hypertension Amauri Haro M.D. 10/10/2018 K85.82 Other acute pancreatitis with infected Amauri Haro M.D. necrosis 10/10/2018 K21.9 Gastro-esophageal reflux disease without Amauri Haro M.D. esophagitis Plan of Treatment Future Appointment(s):04/12/2019 10:20 am - [facility] - Amauri Haro M.D.K85.20 Alcohol induced acute pancreatitis without necrosis or infectionNew Labs:Lipase, Ordered : 03/26/19Amylase, Ordered: 03/26/19C Reactive Protein, Ordered: Erythrocyte Sed Rate, Ordered: 03/26/19Follow up:7-10 daysI10 Essential ( primary) hypertensionNew Labs:Comp Metabolic Panel, Ordered: 03/26/19E11.9 Type 2 diabetes mellitus without complicationsNew Labs:Urine Microalbumin Random, Ordered: 03/26/19Hemoglobin A1c (Glyco HGB), Ordered: 03/26/19K21.9 Gastro- esophageal reflux disease without esophagitisNew Labs:CBC Auto Diff, Ordered: Magnesium, Ordered: 03/26/19Vitamin B12 And Folate Serum, Ordered: E78.2 Mixed hyperlipidemiaNew Labs:Lipid Profile (Trig/Chol/HDL), Ordered: Functional Status Description No Information Available Mental Status Description No Information Available Referrals Refer to Dr Reason for Referral Status Appt Date [facility] pt with pancreatic insufficiency Received Partial Living from recurrent pancreatitis and partial pancreatectomy in June 2018, needs dietary counseling Per Angie: working on referral 01/16. [address] [facility] [address] [place], [place] [id number] [phone] Molina Morgan M.D. pt with chronic pancreatitis and alcoholic Closed 01/16 [address] [place], [place] [id number] [phone]
[2019-05-15 00:55] LABS: ABS Lymphocytes 1.3 10^3/ul (1.0-4.8); ABS Monocytes 1.3 10^3/ul (0-0.8); Hematocrit 49 % (42-52); Hemoglobin 16.4 g/dL (14.0-18.0); Lymphocyte % 7.4 %; Mean Corpuscular HGB Conc 34 g/dL (31-36); Mean Corpuscular Hemoglobin 33 pg (27-31); Mean Corpuscular Volume 100 fL (80-94); Mean Platelet Volume 9.6 fL (7.4-10.4); Platelet Count 224 10^3/uL (150-450); Red Blood Count 4.93 10^6 /uL (4.18-5.48); Red Cell Distribution Width 15 % (10-15); White Blood Count 17.7 10^3/uL (3.5-10.8)
[2019-05-15 01:00] LABS: INR 0.96 (0.82-1.09)
[2019-05-15 01:12] LABS: ALT 83 U/L (7-52); AST 41 U/L (13-39); Albumin 4.6 g/dL (3.2-5.2); Albumin/Globulin Ratio 1.3 (1-3); Alkaline Phosphatase 148 U/L (34-104); Amylase 166 U/L (29-103); Anion Gap 19 mmol/L (2-11); BUN/Creatinine Ratio 12.1 (8-20); Blood Urea Nitrogen 14 mg/dL (6-24); C Reactive Protein 77.87 mg/L (<8.01); CO2 Carbon Dioxide 17 mmol/L (22-32); Chloride 92 mmol/L (101-111); EGFR African American 83.1 (>60); EGFR Non-African American 68.7 (>60); Globulin 3.6 g/dL (2-4); Glucose 451 mg/dL (70-100); Potassium 4.8 mmol/L (3.5-5.0); Sodium 128 mmol/L (135-145); Total Protein 8.2 g/dL (6.4-8.9)
[2019-05-15] MEDS ORDERED: Ondansetron INJ* 2 MG/ML VIAL IV ONE (02:39)
[2019-05-15] MEDS ORDERED: Ketorolac INJ* 30 MG/ML 1 ML VIAL IV PUSH ONE (02:39)
[2019-05-15] MEDS ORDERED: NS 0.9% 1000 ML** 1,000 ML IV ONE ×2 (02:39→04:48)
[2019-05-15] MEDS ORDERED: Iohexol 300* (CONTRAST) 10 ML SDV IV ONE (02:53)
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
[2019-05-15] MEDS ORDERED: Morphine 4 MG/ML VIAL (1 ml) 4 MG/ML VIAL IV ONE (03:54)
[2019-05-15 05:26] LABS: Alcohol < 10 mg/dL (<10)
[2019-05-15] MEDS ORDERED: Thiamine IV 100 MG, Folic Acid IV* 1 MG, Multiple Vitamin IV ADULT* 10 ML in NS 0.9% 10... IV ONE (05:31)
[2019-05-15] MEDS ORDERED: Acetaminophen TAB* 325 MG PO PRN (05:31)
[2019-05-15] MEDS ORDERED: Lorazepam PYXIS KEY PRN (05:50)
[2019-05-15] MEDS ORDERED: Dextrose 50% Syringe 50 ML* 25 GM/50 ML SYRINGE IV PUSH PRN (05:54)
[2019-05-15] MEDS: Ondansetron INJ* 2 MG/ML VIAL IV PRN ×3 (05:57→22:42)
[2019-05-15] MEDS: HYDROmorphone INJ1* 1 MG/ML SYRINGE IV SLOW PU PRN ×5 (05:58→22:43)
[2019-05-15] MEDS ORDERED: LORazepam INJ* 2 MG/ML 1 ML VIAL IV PUSH SCH (06:00)
[2019-05-15] MEDS ORDERED: Insulin LISPRO* 1 UNITS UNIT SUBCUT SCH (06:00)
[2019-05-15 06:43] LABS: Urine Appearance Clear; Urine Bilirubin Negative (Negative); Urine Blood Negative (Negative); Urine Color Yellow; Urine Glucose 3+(>=500 mg/dL) (Negative); Urine Ketones 1+ (Negative); Urine Nitrite Negative (Negative); Urine Protein Negative (Negative); Urine Urobilinogen Negative (Negative)
[2019-05-15 06:50] LABS: Urine Specific Gravity > 1.059 (1.010-1.030)
[2019-05-15 08:02] LABS: ABS Basophils 0.1 10^3/ul (0-0.2); ABS Lymphocytes 1.8 10^3/ul (1.0-4.8); ABS Monocytes 0.8 10^3/ul (0-0.8); ABS Neutrophils 7.2 10^3/ul (1.5-7.7); Eosinophil % 0.3 %; Hematocrit 41 % (42-52); Hemoglobin 13.9 g/dL (14.0-18.0); Lymphocyte % 18.1 %; Mean Corpuscular HGB Conc 34 g/dL (31-36); Mean Corpuscular Hemoglobin 34 pg (27-31); Mean Corpuscular Volume 99 fL (80-94); Mean Platelet Volume 9.3 fL (7.4-10.4); Nucleated Red Blood Cells % 0.1; Platelet Count 161 10^3/uL (150-450); Red Blood Count 4.12 10^6 /uL (4.18-5.48); Red Cell Distribution Width 15 % (10-15)
[2019-05-15 08:10] LABS: Activated Partial Thrombo Time 31.2 seconds (26.0-38.0); INR 1.03 (0.82-1.09)
[2019-05-15] MEDS: Folic Acid TAB* 1 MG PO SCH (08:18)
[2019-05-15] MEDS: Nicotine PATCH 21 MG/24 HR* PATCH TRANSDERM SCH (08:18)
[2019-05-15] MEDS: Multivitamins/Minerals TAB PO SCH (08:18)
[2019-05-15] MEDS: Heparin VIAL(*) 5000 UNITS/ML VIAL (FIVE THOUSAND) SUBCUT SCH ×3 (08:19→22:02)
[2019-05-15] MEDS: Thiamine TAB* 100 MG TAB PO SCH (08:19)
[2019-05-15] MEDS: Pantoprazole TAB * 40 MG TAB PO SCH (08:19)
[2019-05-15] MEDS: amLODIPine TAB* 5 MG PO SCH (08:19)
[2019-05-15 08:20] LABS: Albumin 3.8 g/dL (3.2-5.2); Albumin/Globulin Ratio 1.3 (1-3); Calcium 8.5 mg/dL (8.6-10.3); EGFR African American 129.5 (>60); Globulin 2.9 g/dL (2-4); Indirect Bilirubin 1.1 mg/dL (0.3-1.0); Total Bilirubin 1.4 mg/dL (0.2-1.0); Total Protein 6.7 g/dL (6.4-8.9)
[2019-05-15] MEDS: Gabapentin CAP(*) 300 MG PO SCH ×2 (08:20→22:00)
[2019-05-15] MEDS ORDERED: Metoprolol Succinate XL TAB* 200 MG TAB.XL PO SCH (09:00)
[2019-05-15] MEDS: LORazepam TAB(*) 1 MG PO SCH ×2 (09:09→13:56)
--- NOTE | 2019-05-15 13:31 | HP ---
CC: Dr. Haro * HISTORY AND PHYSICAL: DATE OF ADMISSION: 05/15/19 PRIMARY CARE PHYSICIAN: Dr. Haro. ATTENDING PHYSICIAN WHILE IN THE HOSPITAL: Dr. Monk * (report dictated by Benitez Peterson NP). CHIEF COMPLAINT: 1. Abdominal pain. 2. Nausea. 3. Vomiting. HISTORY OF PRESENT ILLNESS: Mr. Gale is a 44-year-old male patient, who has been the third time here this year for a similar complaint. He was here about a month ago admitted by myself, was diagnosed with alcoholic pancreatitis, which he has a longstanding history of and he says he was sober for about a week and then he came back tonight because he has been drinking basically for the last 3 weeks on a daily basis. He says 2 to 3 mixed drinks. His last drink was last night prior to coming in. He says that he was concerned because over the last couple of days, he has been having worsening pain diffusely over his abdomen, described it as a sharp stabbing pain with associated nausea. He says he has not been able to eat because any time he eats it makes things worse. He says he has not had any fevers or chills. He denies having any chest pain. He says that if he goes to try to sit up, the pain is worse in his abdomen. He was concerned because he felt like the pain was getting worse. It was typical of his pancreatitis and he came in to be evaluated. He denied any fever. He denied any chills. He denied having any chest pain or shortness of breath and no recent change in his medications from the previous discharge. He was evaluated in the ED and was found to have elevated lipase and amylase. CT imaging was concerning for acute pancreatitis and we were asked to evaluate for admission. PAST MEDICAL HISTORY: Significant for: 1. EtOH abuse. 2. Pancreatitis. 3. Hypertension. 4. GERD. 5. Bipolar. 6. Borderline diabetes. PAST SURGICAL HISTORY: He has had a partial pancreatectomy and right carpal tunnel surgery. MEDICATIONS: Home medications include: 1. Zofran 4 mg every 6 hours as needed. 2. Metoprolol-XL 200 mg daily. 3. Advil 200 mg daily. 4. Neurontin 300 mg p.o. b.i.d. 5. Nexium 40 mg daily. 6. Norvasc 5 mg daily. 7. Tylenol 650 mg every 6 hours as needed. ALLERGIES TO MEDICATIONS: Include: 1. KEFLEX. 2. LISINOPRIL. 3. VERSED. FAMILY HISTORY: His mother is an alcoholic. Father, his history is unknown. SOCIAL HISTORY: He does vape. He states that he has been drinking daily for the last 3 weeks. He typically drinks 4 to 5 mixed drinks. He does smoke marijuana. The surrogate decision maker is his , Keila. REVIEW OF SYSTEMS: There is no documented fever. He denied having any significant weight change. There is no double vision. He denied any ear discharge. There is no rhinorrhea. No sore throat. No thyroid enlargement. Denied any chest pain. No orthopnea. No nocturnal dyspnea. There is abdominal pain. Per my HPI, there was nausea. No vomiting. No dysuria. No frequency. No seizure. No loss of consciousness. No pruritus and no skin ulcerations. Review of 14 systems completed, all others are negative. PHYSICAL EXAMINATION GENERAL: At this time, Mr. Gale is a 44-year-old male patient. He is sitting in the ED stretcher. He does not appear to be in any acute distress. He is awake. He is alert. He is oriented x3. Tongue is midline. Tag And Label Cutter are equal. VITAL SIGNS: Blood pressure 124/89, pulse 105, respirations 18, O2 saturation 95%, temperature 98.7. HEENT: Head: Atraumatic and normocephalic. Eyes: EOMs are intact. Sclerae anicteric and not pale. Throat: Oral mucosa appears to be moist. No oropharyngeal erythema. NECK: Supple. LUNGS: He did have no rhonchi. No rales. He did have some expiratory wheeze in the upper lobes, had equal diaphragmatic expansion. HEART: Heart sounds S1, S2. Regular rate and rhythm. No murmurs, rubs, or gallops. ABDOMEN: It was mildly distended. He had diffuse tenderness. Bowel sounds were present. EXTREMITIES: Pulses were 2+ throughout. No peripheral edema. He is moving all 4 extremities with 5/5 strength. NEUROLOGICAL: Again, he is awake. He is alert. He is oriented x3. Speech clear. Tongue midline. Tag And Label Cutter were equal. He had no gross focal deficits. SKIN: Grossly intact. DIAGNOSTIC STUDIES/LAB DATA: WBC of 17.7, RBC of 4.93, hemoglobin 16.4, hematocrit 49, platelet count 224. His INR was 0.96. Sodium was 128, potassium 4.8, chloride is 92, bicarb was 17, glucose 451, lactic 0.8. Calcium 10. Total bilirubin 1.4, AST 41, ALT 83, alk phos 148, CRP 77, amylase 166, lipase 859. She had abdomen and pelvis CT, which showed, impression: Recurrent pancreatitis , persistent, enlarged pancreatic head with presence of inflammatory changes. Some of the inflammatory changes encompass the second portion of the duodenum. This does not appear to cause a gastric outlet obstruction. Inflammatory changes are predominantly in the anterior aspect of the right perianal space, involves the inferior edge of the liver. Fluid is seen abutting the lateral aspect of the right lobe of the liver. Fluid courses into the right pericolic gutter and into the pelvis. No evidence of bowel obstruction. The cecum, ascending colon and transverse colon are collapsed. Mild thickening of the wall. No walled-off fluid collection is seen. No any thrombus. No pseudoaneurysms noted. No abdominal abscesses seen. Old medical records were reviewed. ASSESSMENT AND PLAN: Mr. Gale is a 44-year-old male patient with a well- documented history of alcoholic pancreatitis and alcohol level is pending for tonight. He comes in. He says the last 3 weeks he has been drinking heavy again. He also notes that he has been having worsening abdominal pain over the last several days. He states that he has been unable to tolerate p.o. intake. He came in today because the pain was getting too great. He will be admitted on inpatient status for: 1. Pancreatitis secondary to alcoholism. At this point, the patient will be made n.p.o. Fluids will be ordered. I note that he does have a high white count. He is exhibiting again signs of SIRS, but I suspect this is being driven by the pancreatitis. We will hydrate him aggressively. I will give him a banana bag. I have ordered nausea medications and pain control and we will continue to follow him closely. 2. EtOH abuse and alcoholism. I have ordered a social work consult and placed him on the [facility] protocol. 3. Hypertension. I will continue his medications as prescribed. 4. Gastroesophageal reflux disease. Continue PPI therapy. 5. History of bipolar. Supportive care will be offered. 6. Borderline diabetes. His A1c was 7. His sugar today is 451. I am going to place him on a Lispro sliding scale for the time being. 7. Fluids, electrolytes, and nutrition. We will go ahead and continue with IV fluids. I do note that his sodium was slightly low, but this could be from the alcoholism, possibly dehydration. We will monitor this. We will be giving him fluids. He did receive 2 L in the ED and I am going to repeat his BMP now to follow this closely. We will trend his LFTs and we will trend his lipase and amylase. 8. DVT prophylaxis: He is high risk. He will be placed on heparin subcu. 9. Code status: He is a full code. TIME SPENT: Time spent on the admission was 60 minutes, greater than half the time was spent [id number] with the patient obtaining my history and physical; the other half time spent going over the plan of care with the patient and implementing the plan of care. I did discuss the plan of care with my attending, Dr. Monk, who is in agreement. BENITEZ PETERSON NP [id number]/CPS #: [id number] [place]
[2019-05-15] MEDS: Insulin LISPRO* 1 UNITS UNIT SUBCUT SCH ×2 (14:13→22:01)
--- NOTE | 2019-05-15 14:37 | PN ---
Subjective Date of Service: 05/15/19 Interval History: Pt c/o abd pain at 7/10, had no problems with liquid diet. Last BM 2 days ago. C/o hallucinations on Ativan and requests Librium Objective Active Medications: Acetaminophen (Tylenol Tab*) 650 mg PO Q4H PRN PRN Reason: PAIN - MILD Amlodipine Besylate (Norvasc Tab*) 5 mg PO DAILY [facility] Last Admin: 05/15/19 08:19 Dose: 5 mg Dextrose (D50w Syringe 50 Ml*) 12.5 gm IV PUSH .FOR FS < 60 - SS PRN PRN Reason: FS < 60 Folic Acid (Folvite Tab*) 1 mg PO DAILY [facility] Last Admin: 05/15/19 08:18 Dose: 1 mg Gabapentin (Neurontin Cap(*)) 300 mg PO BID [facility] Last Admin: 05/15/19 08:20 Dose: 300 mg Heparin Sodium (Porcine) (Heparin Vial(*)) 5,000 units SUBCUT Q8HR [facility] Last Admin: 05/15/19 08:19 Dose: 5,000 units Hydromorphone HCl (Dilaudid Inj1s*) 1 mg IV SLOW PU Q4H PRN PRN Reason: PAIN - MODERATE Last Admin: 05/15/19 14:13 Dose: 1 mg Sodium Chloride (Ns 0.9% 1000 Ml) 1,000 mls @ 150 mls/hr IV PER RATE [facility] Insulin Glargine (Lantus(*)) 10 units SUBCUT Q24H [facility] Insulin Human Lispro (Humalog*) 0 units SUBCUT Q6H [facility]; Protocol Last Admin: 05/15/19 14:13 Dose: 6 units Lorazepam (Ativan Inj*) 0 - 3 mg IV PUSH .PER [facility] PROTOCOL [facility]; Protocol Lorazepam (Ativan Tab(*)) 1 mg PO Q6H [facility] Last Admin: 05/15/19 13:56 Dose: Not Given Metoprolol Succinate (Toprol Xl Tab*) 200 mg PO DAILY [facility] Last Admin: 05/15/19 08:21 Dose: 200 mg Miscellaneous (Ativan Pyxis Zaman) 1 ea N/A .PYXIS ZAMAN PRN PRN Reason: PER PROTOCOL Multivitamins/Minerals (Theragran/Minerals Tab*) 1 tab PO DAILY [facility] Last Admin: 05/15/19 08:18 Dose: 1 tab Nicotine (Nicotine Patch 21 Mg/24 Hr*) 1 patch TRANSDERM DAILY@0800 [facility] Last Admin: 05/15/19 08:18 Dose: 1 patch Ondansetron HCl (Zofran Inj*) 4 mg IV Q6H PRN PRN Reason: NAUSEA Last Admin: 05/15/19 12:51 Dose: 4 mg Pantoprazole Sodium (Protonix Tab*) 40 mg PO DAILY [facility]; Protocol Last Admin: 05/15/19 08:19 Dose: 40 mg Pharmacy Profile Note (Nicotine Patch Removal Note*) 1 note FOLLOW UP 2100 [facility] Thiamine HCl (Vitamin B-1 Tab*) 100 mg PO DAILY [facility] Last Admin: 05/15/19 08:19 Dose: 100 mg Vital Signs - 8 hr 05/15/19 05/15/19 05/15/19 07:28 07:31 08:00 Temperature 98.1 F Pulse Rate 96 Respiratory 16 16 18 Rate Blood Pressure 148/92 (mmHg) O2 Sat by Pulse 95 Oximetry 05/15/19 05/15/19 05/15/19 08:20 09:00 09:09 Temperature Pulse Rate Respiratory 18 18 18 Rate Blood Pressure (mmHg) O2 Sat by Pulse Oximetry 05/15/19 05/15/19 05/15/19 10:19 10:50 11:00 Temperature Pulse Rate Respiratory 18 18 18 Rate Blood Pressure (mmHg) O2 Sat by Pulse Oximetry 05/15/19 05/15/19 05/15/19 11:01 11:52 12:55 Temperature 97.8 F 97.6 F Pulse Rate 93 98 Respiratory 18 18 16 Rate Blood Pressure 131/80 140/93 (mmHg) O2 Sat by Pulse 95 96 Oximetry 05/15/19 05/15/19 13:00 14:13 Temperature Pulse Rate Respiratory 16 18 Rate Blood Pressure (mmHg) O2 Sat by Pulse Oximetry Oxygen Devices in Use Now: None Appearance: 44 yo m in nAD, aAOx3 Eyes: No Scleral Icterus, PERRLA Ears/Nose/Mouth/Throat: NL Teeth, Lips, Gums, Mucous Membranes Moist Neck: NL Appearance and Movements; NL JVP, Trachea Midline Respiratory: Symmetrical Chest Expansion and Respiratory Effort, - - scant b/l mid lung wheezes Cardiovascular: NL Sounds; No Murmurs; No JVD, RRR Abdominal: - - distended, soft, BS+, diffuse tenderness noted, no rebound, no guarding Lymphatic: No Cervical Adenopathy Extremities: No Edema Skin: No Rash or Ulcers, No Nodules or Sclerosis Neurological: Alert and Oriented x 3, NL Muscle Strength and Tone Result Diagrams: 05/15/19 07:54 05/15/19 07:54 Additional Lab and Data: Lab Results 05/15/19 05/15/19 05/15/19 Range/Units 00:26 00:26 00:26 WBC 17.7 H (3.5-10.8) 10^3/uL RBC 4.93 (4.18-5.48) 10^6 /uL Hgb 16.4 (14.0-18.0) g/dL Hct 49 (42-52) % MCV 100 H (80-94) fL MCH 33 H (27-31) pg MCHC 34 (31-36) g/dL RDW 15 (10-15) % Plt Count 224 (150-450) 10^3/uL MPV 9.6 (7.4-10.4) fL Neut % (Auto) 84.8 % Lymph % (Auto) 7.4 % [place] % (Auto) 7.6 % Eos % (Auto) 0.0 % Baso % (Auto) 0.2 % Absolute Neuts (auto) 15.0 H (1.5-7.7) 10^3/ul Absolute Lymphs (auto) 1.3 (1.0-4.8) 10^3/ul Absolute Monos (auto) 1.3 H (0-0.8) 10^3/ul Absolute Eos (auto) 0.0 (0-0.6) 10^3/ul Absolute Basos (auto) 0.0 (0-0.2) 10^3/ul Absolute Nucleated RBC 0.0 10^3/ul Nucleated RBC % 0.0 INR (Anticoag Therapy) 0.96 (0.82-1.09) Sodium 128 L (135-145) mmol/L Potassium 4.8 (3.5-5.0) mmol/L Chloride 92 L (101-111) mmol/L Carbon Dioxide 17 L (22-32) mmol/L Anion Gap 19 H (2-11) mmol/L BUN 14 (6-24) mg/dL Creatinine 1.16 (0.67-1.17) mg/dL Est GFR ( Amer) 83.1 (>60) Est GFR (Non-Af Amer) 68.7 (>60) BUN/Creatinine Ratio 12.1 (8-20) Glucose 451 H (70-100) mg/dL Lactic Acid (0.5-2.0) mmol/L Calcium 10.0 (8.6-10.3) mg/dL Total Bilirubin 1.40 H (0.2-1.0) mg/dL AST 41 H (13-39) U/L ALT 83 H (7-52) U/L Alkaline Phosphatase 148 H (34-104) U/L C-Reactive Protein 77.87 H (<8.01) mg/L Total Protein 8.2 (6.4-8.9) g/dL Albumin 4.6 (3.2-5.2) g/dL Globulin 3.6 (2-4) g/dL Albumin/Globulin Ratio 1.3 (1-3) Amylase 166 H (29-103) U/L Lipase 859 H (11.0-82.0) U/L 05/15/19 Range/Units 00:26 WBC (3.5-10.8) 10^3/uL RBC (4.18-5.48) 10^6 /uL Hgb (14.0-18.0) g/dL Hct (42-52) % MCV (80-94) fL MCH (27-31) pg MCHC (31-36) g/dL RDW (10-15) % Plt Count (150-450) 10^3/uL MPV (7.4-10.4) fL Neut % (Auto) % Lymph % (Auto) % [place] % (Auto) % Eos % (Auto) % Baso % (Auto) % Absolute Neuts (auto) (1.5-7.7) 10^3/ul Absolute Lymphs (auto) (1.0-4.8) 10^3/ul Absolute Monos (auto) (0-0.8) 10^3/ul Absolute Eos (auto) (0-0.6) 10^3/ul Absolute Basos (auto) (0-0.2) 10^3/ul Absolute Nucleated RBC 10^3/ul Nucleated RBC % INR (Anticoag Therapy) (0.82-1.09) Sodium (135-145) mmol/L Potassium (3.5-5.0) mmol/L Chloride (101-111) mmol/L Carbon Dioxide (22-32) mmol/L Anion Gap (2-11) mmol/L BUN (6-24) mg/dL Creatinine (0.67-1.17) mg/dL Est GFR ( Amer) (>60) Est GFR (Non-Af Amer) (>60) BUN/Creatinine Ratio (8-20) Glucose (70-100) mg/dL Lactic Acid 0.8 (0.5-2.0) mmol/L Calcium (8.6-10.3) mg/dL Total Bilirubin (0.2-1.0) mg/dL AST (13-39) U/L ALT (7-52) U/L Alkaline Phosphatase (34-104) U/L C-Reactive Protein (<8.01) mg/L Total Protein (6.4-8.9) g/dL Albumin (3.2-5.2) g/dL Globulin (2-4) g/dL Albumin/Globulin Ratio (1-3) Amylase (29-103) U/L Lipase (11.0-82.0) U/L Assess/Plan/Problems-Billing Assessment: 44 yo m with h/o alcoholism, ETOH pancreatitis, and partial pancreatectomy , "borderline DM and hypertrigyceridemia presents with another bout of pancreatitis - Patient Problems (1) Acute pancreatitis Comment: - 2/2 ongoing alcohol use - have underlying DMT2; FS and lispro SS - clear liquid diet - continue IVF at 150cc/hr (2) Alcohol withdrawal Comment: - continue WAM -started scheduled Librium (3) Diabetes mellitus type 2 in obese Comment: -A1c 7.1% in March this year, rechecking -cont lispro SS and FS, starting Lantus 10 U daily -should get metformin at discharge (4) HTN (hypertension) Comment: - controlled now - continue home med amlodipine, lopressor (5) Hypertriglyceridemia Comment: - History of elevated triglycerides up to 1300; previously was on fenfibrate but stopped taking for long time due to financial reasons -will recheck the levels (6) DVT prophylaxis Comment: HSQ Status and Disposition: inpatient
[2019-05-15] MEDS: Insulin GLARGINE(*) 1 UNITS UNIT SUBCUT SCH (14:38)
[2019-05-15] MEDS ORDERED: Albuterol HFA INHALER* 8 gm MDI INH PRN (14:54)
[2019-05-15] MEDS ORDERED: Polyethylene Glycol 3350* 17 GM PACKET PO PRN (14:54)
[2019-05-15] MEDS ORDERED: Senna TAB 8.6 mg* TAB PO PRN (14:54)
[2019-05-15] MEDS: chlordiazePOXIDE CAP* 25 MG PO SCH ×2 (15:15→22:01)
[2019-05-15] MEDS: Magnesium Hydroxide LIQ* 30 ML UDC PO PRN (15:17)
[2019-05-15] MEDS: NS 0.9% 1000 ML** 1,000 ML IV SCH (17:39)
[2019-05-15] MEDS: Docusate CAP* 100 MG PO SCH (22:01)
[2019-05-15] MEDS: Magnesium Hydroxide LIQ* 30 ML UDC PO SCH (22:02)
[2019-05-15] MEDS: Nicotine Patch Removal NOTE FOLLOW UP SCH (22:02)
[2019-05-16] MEDS: NS 0.9% 1000 ML** 1,000 ML IV SCH ×2 (00:22→07:27)
[2019-05-16] MEDS: Insulin LISPRO* 1 UNITS UNIT SUBCUT SCH ×4 (02:33→20:50)
[2019-05-16] MEDS: HYDROmorphone INJ1* 1 MG/ML SYRINGE IV SLOW PU PRN ×2 (03:12→07:16)
[2019-05-16] MEDS: Heparin VIAL(*) 5000 UNITS/ML VIAL (FIVE THOUSAND) SUBCUT SCH ×3 (06:13→20:52)
[2019-05-16 06:41] LABS: Albumin 3.4 g/dL (3.2-5.2); Albumin/Globulin Ratio 1.3 (1-3); BUN/Creatinine Ratio 16.1 (8-20); Calcium 8.3 mg/dL (8.6-10.3); EGFR African American 192.7 (>60); EGFR Non-African American 159.2 (>60); Globulin 2.7 g/dL (2-4); Potassium 3.5 mmol/L (3.5-5.0); Total Bilirubin 0.8 mg/dL (0.2-1.0); Total Protein 6.1 g/dL (6.4-8.9)
[2019-05-16] MEDS: Nicotine PATCH 21 MG/24 HR* PATCH TRANSDERM SCH (07:15)
[2019-05-16] MEDS: Multivitamins/Minerals TAB PO SCH (07:16)
[2019-05-16] MEDS: Magnesium Hydroxide LIQ* 30 ML UDC PO PRN (07:16)
[2019-05-16] MEDS: Folic Acid TAB* 1 MG PO SCH (07:17)
[2019-05-16] MEDS: Gabapentin CAP(*) 300 MG PO SCH ×2 (07:17→20:53)
[2019-05-16] MEDS: chlordiazePOXIDE CAP* 25 MG PO SCH ×3 (07:18→20:54)
[2019-05-16] MEDS: Docusate CAP* 100 MG PO SCH ×2 (07:18→20:53)
[2019-05-16] MEDS: Thiamine TAB* 100 MG TAB PO SCH (07:18)
[2019-05-16] MEDS: amLODIPine TAB* 5 MG PO SCH (07:18)
[2019-05-16] MEDS: Metoprolol Succinate XL TAB* 100 MG PO SCH (07:19)
[2019-05-16] MEDS: Pantoprazole TAB * 40 MG TAB PO SCH (07:19)
[2019-05-16] MEDS: Ondansetron INJ* 2 MG/ML VIAL IV PRN (07:27)
[2019-05-16] MEDS: Magnesium Hydroxide LIQ* 30 ML UDC PO SCH ×2 (09:51→20:55)
--- NOTE | 2019-05-16 10:57 | PN ---
Subjective Date of Service: 05/16/19 Interval History: Pt feels better. No significant Ativan prn needs on current Librium dose [facility]. Pain in abd improving. Pt requests to be started on full liquid diet and agrees that with advancing diet we will stop IV pain meds and transition to oxycodone. We also discussed that once he is ready to be off narcotics, we can introduce solid diet Objective Active Medications: Acetaminophen (Tylenol Tab*) 650 mg PO Q4H PRN PRN Reason: PAIN - MILD Albuterol (Ventolin Hfa Inhaler*) 1 puff INH Q4H PRN PRN Reason: SOB/WHEEZING Amlodipine Besylate (Norvasc Tab*) 5 mg PO DAILY [facility] Last Admin: 05/16/19 07:18 Dose: 5 mg Chlordiazepoxide (Librium Cap*) 25 mg PO TID [facility] Last Admin: 05/16/19 07:18 Dose: 25 mg Dextrose (D50w Syringe 50 Ml*) 12.5 gm IV PUSH .FOR FS < 60 - SS PRN PRN Reason: FS < 60 Docusate Sodium (Colace Cap*) 100 mg PO BID [facility] Last Admin: 05/16/19 07:18 Dose: 100 mg Folic Acid (Folvite Tab*) 1 mg PO DAILY [facility] Last Admin: 05/16/19 07:17 Dose: 1 mg Gabapentin (Neurontin Cap(*)) 300 mg PO BID [facility] Last Admin: 05/16/19 07:17 Dose: 300 mg Heparin Sodium (Porcine) (Heparin Vial(*)) 5,000 units SUBCUT Q8HR [facility] Last Admin: 05/16/19 06:13 Dose: 5,000 units Sodium Chloride (Ns 0.9% 1000 Ml) 1,000 mls @ 75 mls/hr IV PER RATE [facility] Insulin Glargine (Lantus(*)) 10 units SUBCUT Q24H [facility] Last Admin: 05/15/19 14:38 Dose: 10 units Insulin Human Lispro (Humalog*) 0 units SUBCUT Q6HR [facility]; Protocol Last Admin: 05/16/19 06:05 Dose: Not Given Lorazepam (Ativan Inj*) 0 - 3 mg IV PUSH .PER [place] PROTOCOL [facility]; Protocol Magnesium Hydroxide (Milk Of Magnesia Liq*) 30 ml PO BID [facility] Last Admin: 05/16/19 09:51 Dose: 30 ml Magnesium Hydroxide (Milk Of Magnesia Liq*) 30 ml PO BID PRN PRN Reason: CONSTIPATION Last Admin: 05/16/19 07:16 Dose: 30 ml Metoprolol Succinate (Toprol Xl Tab*) 200 mg PO DAILY [facility] Last Admin: 05/16/19 07:19 Dose: 200 mg Miscellaneous (Ativan Pyxis Zaman) 1 ea N/A .PYXIS ZAMAN PRN PRN Reason: PER PROTOCOL Multivitamins/Minerals (Theragran/Minerals Tab*) 1 tab PO DAILY [facility] Last Admin: 05/16/19 07:16 Dose: 1 tab Nicotine (Nicotine Patch 21 Mg/24 Hr*) 1 patch TRANSDERM DAILY@0800 [facility] Last Admin: 05/16/19 07:15 Dose: 1 patch Ondansetron HCl (Zofran Inj*) 4 mg IV Q6H PRN PRN Reason: NAUSEA Last Admin: 05/16/19 07:27 Dose: 4 mg Oxycodone HCl (Roxycodone Tab*) 10 mg PO Q4H PRN PRN Reason: PAIN - SEVERE Pantoprazole Sodium (Protonix Tab*) 40 mg PO DAILY [facility]; Protocol Last Admin: 05/16/19 07:19 Dose: 40 mg Pharmacy Profile Note (Nicotine Patch Removal Note*) 1 note FOLLOW UP 2100 [facility] Last Admin: 05/15/19 22:02 Dose: 1 note Polyethylene Glycol/Electrolytes (Miralax (17 Gm Dose [place])) 17 gm PO DAILY PRN PRN Reason: CONSTIPATION Senna (Senokot 8.6 Mg Tab*) 1 tab PO BEDTIME PRN PRN Reason: CONSTIPATION Thiamine HCl (Vitamin B-1 Tab*) 100 mg PO DAILY [facility] Last Admin: 05/16/19 07:18 Dose: 100 mg Vital Signs - 8 hr 05/16/19 05/16/19 05/16/19 02:59 03:12 04:10 Temperature 98.2 F Pulse Rate 82 Respiratory 18 19 16 Rate Blood Pressure 134/76 (mmHg) O2 Sat by Pulse 90 Oximetry 05/16/19 05/16/19 05/16/19 05:07 07:00 07:13 Temperature 97.7 F 98.1 F Pulse Rate 84 86 Respiratory 19 16 16 Rate Blood Pressure 127/80 130/85 (mmHg) O2 Sat by Pulse 90 95 Oximetry 05/16/19 05/16/19 05/16/19 07:16 07:17 07:18 Temperature Pulse Rate Respiratory 18 18 18 Rate Blood Pressure (mmHg) O2 Sat by Pulse Oximetry 05/16/19 05/16/19 05/16/19 08:00 09:00 09:52 Temperature 97.7 F Pulse Rate 82 Respiratory 18 20 20 Rate Blood Pressure 122/77 (mmHg) O2 Sat by Pulse 94 Oximetry 05/16/19 09:53 Temperature Pulse Rate Respiratory 20 Rate Blood Pressure (mmHg) O2 Sat by Pulse Oximetry Oxygen Devices in Use Now: None Appearance: 44 yo M in nAD, AAOx3 Eyes: No Scleral Icterus, PERRLA Ears/Nose/Mouth/Throat: NL Teeth, Lips, Gums Respiratory: Symmetrical Chest Expansion and Respiratory Effort, Clear to Auscultation Cardiovascular: NL Sounds; No Murmurs; No JVD, RRR Abdominal: - - distneded, diffuse tenderness noted, no rebound, no guarding, BS+ Lymphatic: No Cervical Adenopathy Extremities: No Edema, No Clubbing, Cyanosis Skin: No Rash or Ulcers, No Nodules or Sclerosis Neurological: Alert and Oriented x 3, NL Muscle Strength and Tone Result Diagrams: 05/15/19 07:54 05/16/19 05:59 Additional Lab and Data: Lab Results 05/15/19 05/15/19 05/15/19 Range/Units 00:26 00:26 00:26 WBC 17.7 H (3.5-10.8) 10^3/uL RBC 4.93 (4.18-5.48) 10^6 /uL Hgb 16.4 (14.0-18.0) g/dL Hct 49 (42-52) % MCV 100 H (80-94) fL MCH 33 H (27-31) pg MCHC 34 (31-36) g/dL RDW 15 (10-15) % Plt Count 224 (150-450) 10^3/uL MPV 9.6 (7.4-10.4) fL Neut % (Auto) 84.8 % Lymph % (Auto) 7.4 % [place] % (Auto) 7.6 % Eos % (Auto) 0.0 % Baso % (Auto) 0.2 % Absolute Neuts (auto) 15.0 H (1.5-7.7) 10^3/ul Absolute Lymphs (auto) 1.3 (1.0-4.8) 10^3/ul Absolute Monos (auto) 1.3 H (0-0.8) 10^3/ul Absolute Eos (auto) 0.0 (0-0.6) 10^3/ul Absolute Basos (auto) 0.0 (0-0.2) 10^3/ul Absolute Nucleated RBC 0.0 10^3/ul Nucleated RBC % 0.0 INR (Anticoag Therapy) 0.96 (0.82-1.09) Sodium 128 L (135-145) mmol/L Potassium 4.8 (3.5-5.0) mmol/L Chloride 92 L (101-111) mmol/L Carbon Dioxide 17 L (22-32) mmol/L Anion Gap 19 H (2-11) mmol/L BUN 14 (6-24) mg/dL Creatinine 1.16 (0.67-1.17) mg/dL Est GFR ( Amer) 83.1 (>60) Est GFR (Non-Af Amer) 68.7 (>60) BUN/Creatinine Ratio 12.1 (8-20) Glucose 451 H (70-100) mg/dL Lactic Acid (0.5-2.0) mmol/L Calcium 10.0 (8.6-10.3) mg/dL Total Bilirubin 1.40 H (0.2-1.0) mg/dL AST 41 H (13-39) U/L ALT 83 H (7-52) U/L Alkaline Phosphatase 148 H (34-104) U/L C-Reactive Protein 77.87 H (<8.01) mg/L Total Protein 8.2 (6.4-8.9) g/dL Albumin 4.6 (3.2-5.2) g/dL Globulin 3.6 (2-4) g/dL Albumin/Globulin Ratio 1.3 (1-3) Amylase 166 H (29-103) U/L Lipase 859 H (11.0-82.0) U/L 05/15/19 Range/Units 00:26 WBC (3.5-10.8) 10^3/uL RBC (4.18-5.48) 10^6 /uL Hgb (14.0-18.0) g/dL Hct (42-52) % MCV (80-94) fL MCH (27-31) pg MCHC (31-36) g/dL RDW (10-15) % Plt Count (150-450) 10^3/uL MPV (7.4-10.4) fL Neut % (Auto) % Lymph % (Auto) % [place] % (Auto) % Eos % (Auto) % Baso % (Auto) % Absolute Neuts (auto) (1.5-7.7) 10^3/ul Absolute Lymphs (auto) (1.0-4.8) 10^3/ul Absolute Monos (auto) (0-0.8) 10^3/ul Absolute Eos (auto) (0-0.6) 10^3/ul Absolute Basos (auto) (0-0.2) 10^3/ul Absolute Nucleated RBC 10^3/ul Nucleated RBC % INR (Anticoag Therapy) (0.82-1.09) Sodium (135-145) mmol/L Potassium (3.5-5.0) mmol/L Chloride (101-111) mmol/L Carbon Dioxide (22-32) mmol/L Anion Gap (2-11) mmol/L BUN (6-24) mg/dL Creatinine (0.67-1.17) mg/dL Est GFR ( Amer) (>60) Est GFR (Non-Af Amer) (>60) BUN/Creatinine Ratio (8-20) Glucose (70-100) mg/dL Lactic Acid 0.8 (0.5-2.0) mmol/L Calcium (8.6-10.3) mg/dL Total Bilirubin (0.2-1.0) mg/dL AST (13-39) U/L ALT (7-52) U/L Alkaline Phosphatase (34-104) U/L C-Reactive Protein (<8.01) mg/L Total Protein (6.4-8.9) g/dL Albumin (3.2-5.2) g/dL Globulin (2-4) g/dL Albumin/Globulin Ratio (1-3) Amylase (29-103) U/L Lipase (11.0-82.0) U/L Assess/Plan/Problems-Billing Assessment: 44 yo m with h/o alcoholism, ETOH pancreatitis, and partial pancreatectomy , "borderline DM and hypertrigyceridemia presents with another bout of pancreatitis - Patient Problems (1) Acute pancreatitis Comment: - 2/2 ongoing alcohol use - have underlying DMT2; FS and lispro SS - diet-advancing to full liquid - continue IVF (2) Alcohol withdrawal Comment: - continue WAM -started scheduled Librium (3) Diabetes mellitus type 2 in obese Comment: -A1c 7.1% in March this year, now it's 9.1 -cont lispro SS and FS, started Lantus 10 U daily (4) HTN (hypertension) Comment: - controlled now - continue home med amlodipine, lopressor (5) Hypertriglyceridemia Comment: - History of elevated triglycerides up to 1300; previously was on fenfibrate but stopped taking for long time due to financial reasons - current levels 347 (6) DVT prophylaxis Comment: HSQ Status and Disposition: inpatient
[2019-05-16] MEDS ORDERED: NS 0.9% 1000 ML** 1,000 ML IV SCH (11:00)
[2019-05-16] MEDS: oxyCODONE TAB* 5 MG TAB PO PRN ×3 (11:05→20:54)
[2019-05-16] MEDS: Insulin GLARGINE(*) 1 UNITS UNIT SUBCUT SCH (14:25)
[2019-05-16] MEDS: Nicotine Patch Removal NOTE FOLLOW UP SCH (21:22)
[2019-05-17] MEDS: Insulin LISPRO* 1 UNITS UNIT SUBCUT SCH ×4 (01:29→17:55)
[2019-05-17] MEDS: oxyCODONE TAB* 5 MG TAB PO PRN ×2 (01:36→05:27)
[2019-05-17] MEDS: Ondansetron INJ* 2 MG/ML VIAL IV PRN (05:27)
[2019-05-17] MEDS: Heparin VIAL(*) 5000 UNITS/ML VIAL (FIVE THOUSAND) SUBCUT SCH ×3 (05:42→23:33)
[2019-05-17 05:47] LABS: BUN/Creatinine Ratio 7.7 (8-20); Calcium 8.3 mg/dL (8.6-10.3); EGFR African American 162.2 (>60); EGFR Non-African American 134.1 (>60); Potassium 3.4 mmol/L (3.5-5.0)
[2019-05-17] MEDS: Multivitamins/Minerals TAB PO SCH (08:31)
[2019-05-17] MEDS: Gabapentin CAP(*) 300 MG PO SCH ×2 (08:31→20:28)
[2019-05-17] MEDS: Pantoprazole TAB * 40 MG TAB PO SCH (08:31)
[2019-05-17] MEDS: Thiamine TAB* 100 MG TAB PO SCH (08:31)
[2019-05-17] MEDS: Folic Acid TAB* 1 MG PO SCH (08:31)
[2019-05-17] MEDS: amLODIPine TAB* 5 MG PO SCH (08:32)
[2019-05-17] MEDS: Metoprolol Succinate XL TAB* 100 MG PO SCH (08:32)
[2019-05-17] MEDS: Docusate CAP* 100 MG PO SCH ×2 (08:32→20:28)
[2019-05-17] MEDS: chlordiazePOXIDE CAP* 25 MG PO SCH (08:32)
[2019-05-17] MEDS: Magnesium Hydroxide LIQ* 30 ML UDC PO SCH ×2 (08:35→20:48)
[2019-05-17] MEDS: Nicotine PATCH 21 MG/24 HR* PATCH TRANSDERM SCH (08:35)
[2019-05-17] MEDS: Lactated Ringers 1000 ML Bag* 1,000 ML IV SCH ×3 (09:54→23:33)
[2019-05-17] MEDS: Morphine INJ* 2 MG/ML 1 ML SYRINGE (TWO MG - NEW SYRINGE VERSION) IV PRN ×5 (10:01→23:34)
--- NOTE | 2019-05-17 15:16 | PN ---
Subjective Date of Service: 05/17/19 Interval History: Tolerating diet but causing pain and some nausea Feels bloated Pain is constant and between 5-10 Objective Active Medications: Acetaminophen (Tylenol Tab*) 650 mg PO Q4H PRN PRN Reason: PAIN - MILD Last Admin: 05/17/19 08:31 Dose: 650 mg Albuterol (Ventolin Hfa Inhaler*) 1 puff INH Q4H PRN PRN Reason: SOB/WHEEZING Amlodipine Besylate (Norvasc Tab*) 5 mg PO DAILY [facility], [facility] Last Admin: 05/17/19 08:32 Dose: 5 mg Dextrose (D50w Syringe 50 Ml*) 12.5 gm IV PUSH .FOR FS < 60 - SS PRN PRN Reason: FS < 60 Docusate Sodium (Colace Cap*) 100 mg PO BID [facility], [facility] Last Admin: 05/17/19 08:32 Dose: 100 mg Folic Acid (Folvite Tab*) 1 mg PO DAILY [facility] Last Admin: 05/17/19 08:31 Dose: 1 mg Gabapentin (Neurontin Cap(*)) 300 mg PO BID [facility] Last Admin: 05/17/19 08:31 Dose: 300 mg Heparin Sodium (Porcine) (Heparin Vial(*)) 5,000 units SUBCUT Q8HR [facility], [facility] Last Admin: 05/17/19 13:01 Dose: 5,000 units Lactated Ringer's (Lactated Ringers 1000 Ml Bag*) 1,000 mls @ 200 mls/hr IV PER RATE [facility] Last Admin: 05/17/19 09:54 Dose: 200 mls/hr Insulin Glargine (Lantus(*)) 10 units SUBCUT Q24H [facility] Last Admin: 05/16/19 14:25 Dose: 10 units Insulin Human Lispro (Humalog*) 0 units SUBCUT Q6HR [facility], [facility]; Protocol Last Admin: 05/17/19 12:25 Dose: Not Given Lorazepam (Ativan Inj*) 0 - 3 mg IV PUSH .PER WA PROTOCOL [facility], [facility]; Protocol Magnesium Hydroxide (Milk Of Magnesia Liq*) 30 ml PO BID [facility] Last Admin: 05/17/19 08:35 Dose: Not Given Magnesium Hydroxide (Milk Of Magnesia Liq*) 30 ml PO BID PRN PRN Reason: CONSTIPATION Last Admin: 05/16/19 07:16 Dose: 30 ml Metoprolol Succinate (Toprol Xl Tab*) 200 mg PO DAILY [facility] Last Admin: 05/17/19 08:32 Dose: 200 mg Miscellaneous (Ativan Pyxis Zaman) 1 ea N/A .PYXIS ZAMAN PRN PRN Reason: PER PROTOCOL Morphine Sulfate (Morphine Inj (Syringe))*) 2 mg IV Q3HR PRN PRN Reason: PAIN - SEVERE Last Admin: 05/17/19 13:01 Dose: 2 mg Multivitamins/Minerals (Theragran/Minerals Tab*) 1 tab PO DAILY [facility] Last Admin: 05/17/19 08:31 Dose: 1 tab Nicotine (Nicotine Patch 21 Mg/24 Hr*) 1 patch TRANSDERM DAILY@0800 [facility] Last Admin: 05/17/19 08:35 Dose: 1 patch Ondansetron HCl (Zofran Inj*) 4 mg IV Q6H PRN PRN Reason: NAUSEA Last Admin: 05/17/19 05:27 Dose: 4 mg Pantoprazole Sodium (Protonix Tab*) 40 mg PO DAILY [facility]; Protocol Last Admin: 05/17/19 08:31 Dose: 40 mg Pharmacy Profile Note (Nicotine Patch Removal Note*) 1 note FOLLOW UP 2100 [facility] Last Admin: 05/16/19 21:22 Dose: 1 note Polyethylene Glycol/Electrolytes (Miralax (17 Gm Dose Polo)) 17 gm PO DAILY PRN PRN Reason: CONSTIPATION Last Admin: 05/16/19 16:16 Dose: 17 gm Senna (Senokot 8.6 Mg Tab*) 1 tab PO BEDTIME PRN PRN Reason: CONSTIPATION Last Admin: 05/17/19 00:31 Dose: 1 tab Thiamine HCl (Vitamin B-1 Tab*) 100 mg PO DAILY [facility] Last Admin: 05/17/19 08:31 Dose: 100 mg Vital Signs - 8 hr 05/17/19 05/17/19 05/17/19 07:15 08:00 08:31 Temperature 98.3 F Pulse Rate 79 Respiratory 16 18 18 Rate Blood Pressure 133/86 (mmHg) O2 Sat by Pulse 97 Oximetry 05/17/19 05/17/19 05/17/19 08:32 10:01 10:56 Temperature Pulse Rate Respiratory 18 18 18 Rate Blood Pressure (mmHg) O2 Sat by Pulse Oximetry 05/17/19 05/17/19 05/17/19 11:15 12:26 13:01 Temperature 97.7 F Pulse Rate 71 Respiratory 16 18 18 Rate Blood Pressure 137/91 (mmHg) O2 Sat by Pulse 95 Oximetry Oxygen Devices in Use Now: None Appearance: NAD, standing Eyes: No Scleral Icterus, PERRLA Ears/Nose/Mouth/Throat: NL Teeth, Lips, Gums, Clear Oropharnyx Neck: NL Appearance and Movements; NL JVP, Trachea Midline Respiratory: Symmetrical Chest Expansion and Respiratory Effort, Clear to Auscultation Cardiovascular: RRR Abdominal: - - soft, distended, diffusesly TTP, no rebound/guarding Extremities: - - 1+ LE edema b/l Skin: No Rash or Ulcers Neurological: Alert and Oriented x 3 Result Diagrams: 05/15/19 07:54 05/17/19 04:58 Additional Lab and Data: Lab Results 05/15/19 05/15/19 05/15/19 Range/Units 00:26 00:26 00:26 WBC 17.7 H (3.5-10.8) 10^3/uL RBC 4.93 (4.18-5.48) 10^6 /uL Hgb 16.4 (14.0-18.0) g/dL Hct 49 (42-52) % MCV 100 H (80-94) fL MCH 33 H (27-31) pg MCHC 34 (31-36) g/dL RDW 15 (10-15) % Plt Count 224 (150-450) 10^3/uL MPV 9.6 (7.4-10.4) fL Neut % (Auto) 84.8 % Lymph % (Auto) 7.4 % [place] % (Auto) 7.6 % Eos % (Auto) 0.0 % Baso % (Auto) 0.2 % Absolute Neuts (auto) 15.0 H (1.5-7.7) 10^3/ul Absolute Lymphs (auto) 1.3 (1.0-4.8) 10^3/ul Absolute Monos (auto) 1.3 H (0-0.8) 10^3/ul Absolute Eos (auto) 0.0 (0-0.6) 10^3/ul Absolute Basos (auto) 0.0 (0-0.2) 10^3/ul Absolute Nucleated RBC 0.0 10^3/ul Nucleated RBC % 0.0 INR (Anticoag Therapy) 0.96 (0.82-1.09) Sodium 128 L (135-145) mmol/L Potassium 4.8 (3.5-5.0) mmol/L Chloride 92 L (101-111) mmol/L Carbon Dioxide 17 L (22-32) mmol/L Anion Gap 19 H (2-11) mmol/L BUN 14 (6-24) mg/dL Creatinine 1.16 (0.67-1.17) mg/dL Est GFR ( Amer) 83.1 (>60) Est GFR (Non-Af Amer) 68.7 (>60) BUN/Creatinine Ratio 12.1 (8-20) Glucose 451 H (70-100) mg/dL Lactic Acid (0.5-2.0) mmol/L Calcium 10.0 (8.6-10.3) mg/dL Total Bilirubin 1.40 H (0.2-1.0) mg/dL AST 41 H (13-39) U/L ALT 83 H (7-52) U/L Alkaline Phosphatase 148 H (34-104) U/L C-Reactive Protein 77.87 H (<8.01) mg/L Total Protein 8.2 (6.4-8.9) g/dL Albumin 4.6 (3.2-5.2) g/dL Globulin 3.6 (2-4) g/dL Albumin/Globulin Ratio 1.3 (1-3) Amylase 166 H (29-103) U/L Lipase 859 H (11.0-82.0) U/L 05/15/19 Range/Units 00:26 WBC (3.5-10.8) 10^3/uL RBC (4.18-5.48) 10^6 /uL Hgb (14.0-18.0) g/dL Hct (42-52) % MCV (80-94) fL MCH (27-31) pg MCHC (31-36) g/dL RDW (10-15) % Plt Count (150-450) 10^3/uL MPV (7.4-10.4) fL Neut % (Auto) % Lymph % (Auto) % [place] % (Auto) % Eos % (Auto) % Baso % (Auto) % Absolute Neuts (auto) (1.5-7.7) 10^3/ul Absolute Lymphs (auto) (1.0-4.8) 10^3/ul Absolute Monos (auto) (0-0.8) 10^3/ul Absolute Eos (auto) (0-0.6) 10^3/ul Absolute Basos (auto) (0-0.2) 10^3/ul Absolute Nucleated RBC 10^3/ul Nucleated RBC % INR (Anticoag Therapy) (0.82-1.09) Sodium (135-145) mmol/L Potassium (3.5-5.0) mmol/L Chloride (101-111) mmol/L Carbon Dioxide (22-32) mmol/L Anion Gap (2-11) mmol/L BUN (6-24) mg/dL Creatinine (0.67-1.17) mg/dL Est GFR ( Amer) (>60) Est GFR (Non-Af Amer) (>60) BUN/Creatinine Ratio (8-20) Glucose (70-100) mg/dL Lactic Acid 0.8 (0.5-2.0) mmol/L Calcium (8.6-10.3) mg/dL Total Bilirubin (0.2-1.0) mg/dL AST (13-39) U/L ALT (7-52) U/L Alkaline Phosphatase (34-104) U/L C-Reactive Protein (<8.01) mg/L Total Protein (6.4-8.9) g/dL Albumin (3.2-5.2) g/dL Globulin (2-4) g/dL Albumin/Globulin Ratio (1-3) Amylase (29-103) U/L Lipase (11.0-82.0) U/L Assess/Plan/Problems-Billing Assessment: 44 yo M with h/o alcoholism c/b ETOH pancreatitis and partial pancreatectomy , DM2 p/w abdominal pain found with pancreatitis - Patient Problems (1) Acute pancreatitis Comment: - 2/2 ongoing alcohol use - continued pain. NPO again 05/16 - increase LR to 200 cc/hr -change pain meds to IV morphine 2mg IV q3hr (2) Alcohol withdrawal Comment: - continue WAM -stop scheduled librium 05/16 (3) Diabetes mellitus type 2 in obese Comment: -hba1c 9.1 -cont lispro SS and FS, started Lantus 10 U 05/14 -metformin when taking PO again (4) HTN (hypertension) SNOMED Code(s): 99300834 Comment: - controlled now - continue home med amlodipine, lopressor - will need IV conversion for lopressor if remains NPO tomorrow (5) DVT prophylaxis Comment: HSQ Status and Disposition: inpatient
[2019-05-17] MEDS: Insulin GLARGINE(*) 1 UNITS UNIT SUBCUT SCH (17:08)
[2019-05-17] MEDS: Nicotine Patch Removal NOTE FOLLOW UP SCH (20:29)
[2019-05-18] MEDS: Insulin LISPRO* 1 UNITS UNIT SUBCUT SCH ×5 (00:09→23:41)
[2019-05-18] MEDS: Morphine INJ* 2 MG/ML 1 ML SYRINGE (TWO MG - NEW SYRINGE VERSION) IV PRN ×6 (03:57→22:25)
[2019-05-18] MEDS: Lactated Ringers 1000 ML Bag* 1,000 ML IV SCH ×3 (05:46→15:59)
[2019-05-18] MEDS: Heparin VIAL(*) 5000 UNITS/ML VIAL (FIVE THOUSAND) SUBCUT SCH ×3 (05:46→21:41)
[2019-05-18] MEDS: Docusate CAP* 100 MG PO SCH ×2 (08:32→19:21)
[2019-05-18] MEDS: amLODIPine TAB* 5 MG PO SCH (08:32)
[2019-05-18] MEDS: Gabapentin CAP(*) 300 MG PO SCH ×2 (08:32→19:21)
[2019-05-18] MEDS: Folic Acid TAB* 1 MG PO SCH (08:32)
[2019-05-18] MEDS: Pantoprazole TAB * 40 MG TAB PO SCH (08:32)
[2019-05-18] MEDS: Metoprolol Succinate XL TAB* 100 MG PO SCH (08:32)
[2019-05-18] MEDS: Nicotine PATCH 21 MG/24 HR* PATCH TRANSDERM SCH (08:33)
[2019-05-18] MEDS: Magnesium Hydroxide LIQ* 30 ML UDC PO SCH ×2 (08:36→19:22)
[2019-05-18] MEDS: Thiamine TAB* 100 MG TAB PO SCH (08:36)
[2019-05-18] MEDS: Multivitamins/Minerals TAB PO SCH (08:36)
[2019-05-18 08:43] LABS: ABS Eosinophils 0.4 10^3/ul (0-0.6); ABS Lymphocytes 1.6 10^3/ul (1.0-4.8); ABS Monocytes 0.6 10^3/ul (0-0.8); ABS Neutrophils 3.5 10^3/ul (1.5-7.7); Hematocrit 37 % (42-52); Hemoglobin 12.8 g/dL (14.0-18.0); Lymphocyte % 26.7 %; Mean Corpuscular HGB Conc 34 g/dL (31-36); Mean Corpuscular Hemoglobin 34 pg (27-31); Mean Corpuscular Volume 99 fL (80-94); Mean Platelet Volume 9.2 fL (7.4-10.4); Platelet Count 247 10^3/uL (150-450); Red Blood Count 3.74 10^6 /uL (4.18-5.48); Red Cell Distribution Width 15 % (10-15); White Blood Count 6.1 10^3/uL (3.5-10.8)
[2019-05-18] MEDS ORDERED: Metoprolol Tartrate IV* 1 MG/ML 5 ML VIAL IV PRN (08:47)
[2019-05-18] MEDS ORDERED: hydrALAZINE IV* 20 MG/ML VIAL IV SLOW PU PRN (08:48)
[2019-05-18] MEDS: Insulin GLARGINE(*) 1 UNITS UNIT SUBCUT SCH (13:57)
[2019-05-18] MEDS ORDERED: Morphine INJ* 4 MG/ML 1 ML SYRINGE (NEW SYRINGE VERSION) IV ONE (17:00)
--- NOTE | 2019-05-18 17:30 | PN ---
Subjective Date of Service: 05/18/19 Interval History: Belly still painful Feels less distended Hungry Objective Active Medications: Acetaminophen (Tylenol Tab*) 650 mg PO Q4H PRN PRN Reason: PAIN - MILD Last Admin: 05/17/19 08:31 Dose: 650 mg Albuterol (Ventolin Hfa Inhaler*) 1 puff INH Q4H PRN PRN Reason: SOB/WHEEZING Amlodipine Besylate (Norvasc Tab*) 5 mg PO DAILY COUNT [facility]CLUDES [facility] Last Admin: 05/18/19 08:32 Dose: 5 mg Dextrose (D50w Syringe 50 Ml*) 12.5 gm IV PUSH .FOR FS < 60 - SS PRN PRN Reason: FS < 60 Docusate Sodium (Colace Cap*) 100 mg PO BID COUNT INCLUDES [facility] Last Admin: 05/18/19 08:32 Dose: 100 mg Folic Acid (Folvite Tab*) 1 mg PO DAILY COUNT [facility]CLUD[facility] Last Admin: 05/18/19 08:32 Dose: 1 mg Gabapentin (Neurontin Cap(*)) 300 mg PO BID COUNT [facility]CLUD[facility] Last Admin: 05/18/19 08:32 Dose: 300 mg Heparin Sodium (Porcine) (Heparin Vial(*)) 5,000 units SUBCUT Q8HR COUNT [facility]CLUD[facility] Last Admin: 05/18/19 13:57 Dose: 5,000 units Hydralazine HCl (Apresoline Iv*) 5 mg IV SLOW PU Q6H PRN PRN Reason: BLOOD PRESSURE Lactated Ringer's (Lactated Ringers 1000 Ml Bag*) 1,000 mls @ 200 mls/hr IV PER RATE COUNT [facility]CLUDES [facility] Last Admin: 05/18/19 15:59 Dose: 200 mls/hr Insulin Glargine (Lantus(*)) 10 units SUBCUT Q24H COUNT [facility] Last Admin: 05/18/19 13:57 Dose: 10 units Insulin Human Lispro (Humalog*) 0 units SUBCUT Q6HR COUNT [facility]CLUD[facility]; Protocol Last Admin: 05/18/19 17:23 Dose: 2 units Lorazepam (Ativan Inj*) 0 - 3 mg IV PUSH .PER WA PROTOCOL COUNT [facility]CLUD[facility]; Protocol Magnesium Hydroxide (Milk Of Magnesia Liq*) 30 ml PO BID COUNT [facility]CLUD[facility] Last Admin: 05/18/19 08:36 Dose: Not Given Magnesium Hydroxide (Milk Of Magnesia Liq*) 30 ml PO BID PRN PRN Reason: CONSTIPATION Last Admin: 05/16/19 07:16 Dose: 30 ml Metoprolol Succinate (Toprol Xl Tab*) 200 mg PO DAILY COUNT [facility] Last Admin: 05/18/19 08:32 Dose: 200 mg Metoprolol Tartrate (Lopressor Iv*) 5 mg IV Q6H PRN PRN Reason: HEART RATE/PULSE GREATER THAN: Miscellaneous (Ativan Pyxis Zaman) 1 ea N/A .PYXIS ZAMAN PRN PRN Reason: PER PROTOCOL Morphine Sulfate (Morphine Inj (Syringe))*) 4 mg IV Q3HR PRN PRN Reason: PAIN - SEVERE Last Admin: 05/18/19 14:34 Dose: 4 mg Multivitamins/Minerals (Theragran/Minerals Tab*) 1 tab PO DAILY COUNT [facility]CLUD[facility] Last Admin: 05/18/19 08:36 Dose: 1 tab Nicotine (Nicotine Patch 21 Mg/24 Hr*) 1 patch TRANSDERM DAILY@0800 COUNT [facility]CLUD[facility] Last Admin: 05/18/19 08:33 Dose: 1 patch Ondansetron HCl (Zofran Inj*) 4 mg IV Q6H PRN PRN Reason: NAUSEA Last Admin: 05/17/19 05:27 Dose: 4 mg Pantoprazole Sodium (Protonix Tab*) 40 mg PO DAILY COUNT [facility]; Protocol Last Admin: 05/18/19 08:32 Dose: 40 mg Pharmacy Profile Note (Nicotine Patch Removal Note*) 1 note FOLLOW UP 2100 COUNT [facility]CLUD[facility] Last Admin: 05/17/19 20:29 Dose: 1 note Polyethylene Glycol/Electrolytes (Miralax (17 Gm Dose Polo)) 17 gm PO DAILY PRN PRN Reason: CONSTIPATION Last Admin: 05/16/19 16:16 Dose: 17 gm Senna (Senokot 8.6 Mg Tab*) 1 tab PO BEDTIME PRN PRN Reason: CONSTIPATION Last Admin: 05/17/19 00:31 Dose: 1 tab Thiamine HCl (Vitamin B-1 Tab*) 100 mg PO DAILY COUNT [facility]CLUD[facility] Last Admin: 05/18/19 08:36 Dose: 100 mg Vital Signs - 8 hr 05/18/19 05/18/19 05/18/19 09:26 11:04 11:29 Temperature 98.0 F Pulse Rate 72 Respiratory 18 16 16 Rate Blood Pressure 150/89 (mmHg) O2 Sat by Pulse 97 Oximetry 05/18/19 05/18/19 05/18/19 12:15 14:34 15:00 Temperature 98.2 F Pulse Rate 71 Respiratory 16 18 16 Rate Blood Pressure 152/86 (mmHg) O2 Sat by Pulse 99 Oximetry 05/18/19 05/18/19 05/18/19 15:30 16:18 16:46 Temperature Pulse Rate Respiratory 16 20 18 Rate Blood Pressure (mmHg) O2 Sat by Pulse Oximetry Oxygen Devices in Use Now: None Appearance: NAD Eyes: No Scleral Icterus, PERRLA Ears/Nose/Mouth/Throat: NL Teeth, Lips, Gums, Clear Oropharnyx, Mucous Membranes Moist Neck: NL Appearance and Movements; NL JVP Respiratory: Symmetrical Chest Expansion and Respiratory Effort, Clear to Auscultation Cardiovascular: RRR Abdominal: - - soft, distended, ttp throughout, no rebound/guarding Neurological: Alert and Oriented x 3 Result Diagrams: 05/18/19 08:37 05/17/19 04:58 Additional Lab and Data: Lab Results 05/15/19 05/15/19 05/15/19 Range/Units 00:26 00:26 00:26 WBC 17.7 H (3.5-10.8) 10^3/uL RBC 4.93 (4.18-5.48) 10^6 /uL Hgb 16.4 (14.0-18.0) g/dL Hct 49 (42-52) % MCV 100 H (80-94) fL MCH 33 H (27-31) pg MCHC 34 (31-36) g/dL RDW 15 (10-15) % Plt Count 224 (150-450) 10^3/uL MPV 9.6 (7.4-10.4) fL Neut % (Auto) 84.8 % Lymph % (Auto) 7.4 % [place] % (Auto) 7.6 % Eos % (Auto) 0.0 % Baso % (Auto) 0.2 % Absolute Neuts (auto) 15.0 H (1.5-7.7) 10^3/ul Absolute Lymphs (auto) 1.3 (1.0-4.8) 10^3/ul Absolute Monos (auto) 1.3 H (0-0.8) 10^3/ul Absolute Eos (auto) 0.0 (0-0.6) 10^3/ul Absolute Basos (auto) 0.0 (0-0.2) 10^3/ul Absolute Nucleated RBC 0.0 10^3/ul Nucleated RBC % 0.0 INR (Anticoag Therapy) 0.96 (0.82-1.09) Sodium 128 L (135-145) mmol/L Potassium 4.8 (3.5-5.0) mmol/L Chloride 92 L (101-111) mmol/L Carbon Dioxide 17 L (22-32) mmol/L Anion Gap 19 H (2-11) mmol/L BUN 14 (6-24) mg/dL Creatinine 1.16 (0.67-1.17) mg/dL Est GFR ( Amer) 83.1 (>60) Est GFR (Non-Af Amer) 68.7 (>60) BUN/Creatinine Ratio 12.1 (8-20) Glucose 451 H (70-100) mg/dL Lactic Acid (0.5-2.0) mmol/L Calcium 10.0 (8.6-10.3) mg/dL Total Bilirubin 1.40 H (0.2-1.0) mg/dL AST 41 H (13-39) U/L ALT 83 H (7-52) U/L Alkaline Phosphatase 148 H (34-104) U/L C-Reactive Protein 77.87 H (<8.01) mg/L Total Protein 8.2 (6.4-8.9) g/dL Albumin 4.6 (3.2-5.2) g/dL Globulin 3.6 (2-4) g/dL Albumin/Globulin Ratio 1.3 (1-3) Amylase 166 H (29-103) U/L Lipase 859 H (11.0-82.0) U/L 05/15/19 Range/Units 00:26 WBC (3.5-10.8) 10^3/uL RBC (4.18-5.48) 10^6 /uL Hgb (14.0-18.0) g/dL Hct (42-52) % MCV (80-94) fL MCH (27-31) pg MCHC (31-36) g/dL RDW (10-15) % Plt Count (150-450) 10^3/uL MPV (7.4-10.4) fL Neut % (Auto) % Lymph % (Auto) % [place] % (Auto) % Eos % (Auto) % Baso % (Auto) % Absolute Neuts (auto) (1.5-7.7) 10^3/ul Absolute Lymphs (auto) (1.0-4.8) 10^3/ul Absolute Monos (auto) (0-0.8) 10^3/ul Absolute Eos (auto) (0-0.6) 10^3/ul Absolute Basos (auto) (0-0.2) 10^3/ul Absolute Nucleated RBC 10^3/ul Nucleated RBC % INR (Anticoag Therapy) (0.82-1.09) Sodium (135-145) mmol/L Potassium (3.5-5.0) mmol/L Chloride (101-111) mmol/L Carbon Dioxide (22-32) mmol/L Anion Gap (2-11) mmol/L BUN (6-24) mg/dL Creatinine (0.67-1.17) mg/dL Est GFR ( Amer) (>60) Est GFR (Non-Af Amer) (>60) BUN/Creatinine Ratio (8-20) Glucose (70-100) mg/dL Lactic Acid 0.8 (0.5-2.0) mmol/L Calcium (8.6-10.3) mg/dL Total Bilirubin (0.2-1.0) mg/dL AST (13-39) U/L ALT (7-52) U/L Alkaline Phosphatase (34-104) U/L C-Reactive Protein (<8.01) mg/L Total Protein (6.4-8.9) g/dL Albumin (3.2-5.2) g/dL Globulin (2-4) g/dL Albumin/Globulin Ratio (1-3) Amylase (29-103) U/L Lipase (11.0-82.0) U/L Assess/Plan/Problems-Billing Assessment: 44 yo M with h/o alcoholism c/b ETOH pancreatitis and partial pancreatectomy , DM2 p/w abdominal pain found with pancreatitis - Patient Problems (1) Acute pancreatitis Comment: - 2/2 ongoing alcohol use - continued pain. NPO again 05/16 - c/w LR to 200 cc/hr -change pain meds to IV morphine 2mg IV q3hr (2) Alcohol withdrawal Comment: - continue WAM but has not required ativan -stopped scheduled librium 05/16 (3) Diabetes mellitus type 2 in obese Comment: -hba1c 9.1 -cont lispro SS and FS, started Lantus 10 U 05/14 (will need increase when not NPO) -metformin when taking PO again (4) HTN (hypertension) SNOMED Code(s): 38578922 Comment: - controlled now - continue home med amlodipine, lopressor - will need IV conversion for lopressor if remains NPO tomorrow (5) DVT prophylaxis Comment: HSQ Status and Disposition: inpatient
[2019-05-18] MEDS: Nicotine Patch Removal NOTE FOLLOW UP SCH (19:22)
[2019-05-19] MEDS: Morphine INJ* 2 MG/ML 1 ML SYRINGE (TWO MG - NEW SYRINGE VERSION) IV PRN ×7 (02:26→23:41)
[2019-05-19] MEDS: Heparin VIAL(*) 5000 UNITS/ML VIAL (FIVE THOUSAND) SUBCUT SCH ×3 (05:36→22:11)
[2019-05-19 06:51] LABS: CO2 Carbon Dioxide 22 mmol/L (22-32); Chloride 101 mmol/L (101-111); Sodium 135 mmol/L (135-145)
[2019-05-19 06:56] LABS: BUN/Creatinine Ratio 3.2 (8-20); Blood Urea Nitrogen 2 mg/dL (6-24); EGFR African American 171.3 (>60); EGFR Non-African American 141.6 (>60); Glucose 125 mg/dL (70-100)
[2019-05-19 07:13] LABS: Anion Gap 12 mmol/L (2-11)
[2019-05-19] MEDS: Insulin LISPRO* 1 UNITS UNIT SUBCUT SCH ×4 (07:13→23:41)
[2019-05-19] MEDS: Lactated Ringers 1000 ML Bag* 1,000 ML IV SCH ×3 (09:42→23:43)
[2019-05-19] MEDS: Multivitamins/Minerals TAB PO SCH (09:46)
[2019-05-19] MEDS: Pantoprazole TAB * 40 MG TAB PO SCH (09:46)
[2019-05-19] MEDS: Gabapentin CAP(*) 300 MG PO SCH ×2 (09:46→20:48)
[2019-05-19] MEDS: amLODIPine TAB* 5 MG PO SCH (09:47)
[2019-05-19] MEDS: Folic Acid TAB* 1 MG PO SCH (09:47)
[2019-05-19] MEDS: Nicotine PATCH 21 MG/24 HR* PATCH TRANSDERM SCH (09:47)
[2019-05-19] MEDS: Docusate CAP* 100 MG PO SCH ×2 (09:47→20:48)
[2019-05-19] MEDS: Thiamine TAB* 100 MG TAB PO SCH (09:47)
[2019-05-19] MEDS: Metoprolol Succinate XL TAB* 100 MG PO SCH (09:47)
[2019-05-19] MEDS: Magnesium Hydroxide LIQ* 30 ML UDC PO SCH ×2 (11:06→20:48)
--- NOTE | 2019-05-19 13:44 | PN ---
Subjective Date of Service: 05/19/19 Interval History: Pain continues but improving n oN/V +BMs OOB Objective Active Medications: Acetaminophen (Tylenol Tab*) 650 mg PO Q4H PRN PRN Reason: PAIN - MILD Last Admin: 05/17/19 08:31 Dose: 650 mg Albuterol (Ventolin Hfa Inhaler*) 1 puff INH Q4H PRN PRN Reason: SOB/WHEEZING Amlodipine Besylate (Norvasc Tab*) 5 mg PO DAILY [facility] Last Admin: 05/19/19 09:47 Dose: 5 mg Dextrose (D50w Syringe 50 Ml*) 12.5 gm IV PUSH .FOR FS < 60 - SS PRN PRN Reason: FS < 60 Docusate Sodium (Colace Cap*) 100 mg PO BID [facility] Last Admin: 05/19/19 09:47 Dose: Not Given Folic Acid (Folvite Tab*) 1 mg PO DAILY [facility] Last Admin: 05/19/19 09:47 Dose: 1 mg Gabapentin (Neurontin Cap(*)) 300 mg PO BID [facility] Last Admin: 05/19/19 09:46 Dose: 300 mg Heparin Sodium (Porcine) (Heparin Vial(*)) 5,000 units SUBCUT Q8HR [facility] Last Admin: 05/19/19 13:19 Dose: 5,000 units Hydralazine HCl (Apresoline Iv*) 5 mg IV SLOW PU Q6H PRN PRN Reason: BLOOD PRESSURE Lactated Ringer's (Lactated Ringers 1000 Ml Bag*) 1,000 mls @ 150 mls/hr IV PER RATE [facility] Last Admin: 05/19/19 09:42 Dose: 150 mls/hr Insulin Glargine (Lantus(*)) 10 units SUBCUT Q24H [facility] Last Admin: 05/18/19 13:57 Dose: 10 units Insulin Human Lispro (Humalog*) 0 units SUBCUT Q6HR [facility]; Protocol Last Admin: 05/19/19 13:18 Dose: 2 units Lorazepam (Ativan Inj*) 0 - 3 mg IV PUSH .PER WA PROTOCOL [facility]; Protocol Magnesium Hydroxide (Milk Of Magnesia Liq*) 30 ml PO BID [facility] Last Admin: 05/19/19 11:06 Dose: Not Given Magnesium Hydroxide (Milk Of Magnesia Liq*) 30 ml PO BID PRN PRN Reason: CONSTIPATION Last Admin: 05/16/19 07:16 Dose: 30 ml Metoprolol Succinate (Toprol Xl Tab*) 200 mg PO DAILY [facility] Last Admin: 05/19/19 09:47 Dose: 200 mg Metoprolol Tartrate (Lopressor Iv*) 5 mg IV Q6H PRN PRN Reason: HEART RATE/PULSE GREATER THAN: Miscellaneous (Ativan Pyxis Zaman) 1 ea N/A .PYXIS ZAMAN PRN PRN Reason: PER PROTOCOL Morphine Sulfate (Morphine Inj (Syringe))*) 2 mg IV Q3HR PRN PRN Reason: PAIN - SEVERE Last Admin: 05/19/19 13:17 Dose: 2 mg Multivitamins/Minerals (Theragran/Minerals Tab*) 1 tab PO DAILY [facility] Last Admin: 05/19/19 09:46 Dose: 1 tab Nicotine (Nicotine Patch 21 Mg/24 Hr*) 1 patch TRANSDERM DAILY@0800 [facility] Last Admin: 05/19/19 09:47 Dose: 1 patch Ondansetron HCl (Zofran Inj*) 4 mg IV Q6H PRN PRN Reason: NAUSEA Last Admin: 05/17/19 05:27 Dose: 4 mg Pantoprazole Sodium (Protonix Tab*) 40 mg PO DAILY [facility]; Protocol Last Admin: 05/19/19 09:46 Dose: 40 mg Pharmacy Profile Note (Nicotine Patch Removal Note*) 1 note FOLLOW UP 2100 [facility] Last Admin: 05/18/19 19:22 Dose: 1 note Polyethylene Glycol/Electrolytes (Miralax (17 Gm Dose Polo)) 17 gm PO DAILY PRN PRN Reason: CONSTIPATION Last Admin: 05/16/19 16:16 Dose: 17 gm Senna (Senokot 8.6 Mg Tab*) 1 tab PO BEDTIME PRN PRN Reason: CONSTIPATION Last Admin: 05/17/19 00:31 Dose: 1 tab Thiamine HCl (Vitamin B-1 Tab*) 100 mg PO DAILY [facility] Last Admin: 05/19/19 09:47 Dose: 100 mg Vital Signs - 8 hr 05/19/19 05/19/19 05/19/19 06:36 07:15 08:00 Temperature 98.2 F Pulse Rate 71 Respiratory 14 18 16 Rate Blood Pressure 156/102 (mmHg) O2 Sat by Pulse 97 Oximetry 05/19/19 05/19/19 05/19/19 09:42 09:46 11:07 Temperature Pulse Rate Respiratory 18 16 18 Rate Blood Pressure (mmHg) O2 Sat by Pulse Oximetry 05/19/19 05/19/19 11:15 13:17 Temperature 98.4 F Pulse Rate 72 Respiratory 14 16 Rate Blood Pressure 163/95 (mmHg) O2 Sat by Pulse 94 Oximetry Oxygen Devices in Use Now: None Appearance: NAD Eyes: No Scleral Icterus, PERRLA Ears/Nose/Mouth/Throat: NL Teeth, Lips, Gums, Clear Oropharnyx Neck: NL Appearance and Movements; NL JVP, Trachea Midline Respiratory: Symmetrical Chest Expansion and Respiratory Effort, - - rales b/l from bases up 1/3 to apex Cardiovascular: RRR Abdominal: - - soft(er), non distened, TTP throughout Lymphatic: No Cervical Adenopathy Extremities: No Edema, No Clubbing, Cyanosis Skin: No Rash or Ulcers Neurological: Alert and Oriented x 3 Result Diagrams: 05/18/19 08:37 05/19/19 11:17 Additional Lab and Data: Lab Results 05/15/19 05/15/19 05/15/19 Range/Units 00:26 00:26 00:26 WBC 17.7 H (3.5-10.8) 10^3/uL RBC 4.93 (4.18-5.48) 10^6 /uL Hgb 16.4 (14.0-18.0) g/dL Hct 49 (42-52) % MCV 100 H (80-94) fL MCH 33 H (27-31) pg MCHC 34 (31-36) g/dL RDW 15 (10-15) % Plt Count 224 (150-450) 10^3/uL MPV 9.6 (7.4-10.4) fL Neut % (Auto) 84.8 % Lymph % (Auto) 7.4 % [place] % (Auto) 7.6 % Eos % (Auto) 0.0 % Baso % (Auto) 0.2 % Absolute Neuts (auto) 15.0 H (1.5-7.7) 10^3/ul Absolute Lymphs (auto) 1.3 (1.0-4.8) 10^3/ul Absolute Monos (auto) 1.3 H (0-0.8) 10^3/ul Absolute Eos (auto) 0.0 (0-0.6) 10^3/ul Absolute Basos (auto) 0.0 (0-0.2) 10^3/ul Absolute Nucleated RBC 0.0 10^3/ul Nucleated RBC % 0.0 INR (Anticoag Therapy) 0.96 (0.82-1.09) Sodium 128 L (135-145) mmol/L Potassium 4.8 (3.5-5.0) mmol/L Chloride 92 L (101-111) mmol/L Carbon Dioxide 17 L (22-32) mmol/L Anion Gap 19 H (2-11) mmol/L BUN 14 (6-24) mg/dL Creatinine 1.16 (0.67-1.17) mg/dL Est GFR ( Amer) 83.1 (>60) Est GFR (Non-Af Amer) 68.7 (>60) BUN/Creatinine Ratio 12.1 (8-20) Glucose 451 H (70-100) mg/dL Lactic Acid (0.5-2.0) mmol/L Calcium 10.0 (8.6-10.3) mg/dL Total Bilirubin 1.40 H (0.2-1.0) mg/dL AST 41 H (13-39) U/L ALT 83 H (7-52) U/L Alkaline Phosphatase 148 H (34-104) U/L C-Reactive Protein 77.87 H (<8.01) mg/L Total Protein 8.2 (6.4-8.9) g/dL Albumin 4.6 (3.2-5.2) g/dL Globulin 3.6 (2-4) g/dL Albumin/Globulin Ratio 1.3 (1-3) Amylase 166 H (29-103) U/L Lipase 859 H (11.0-82.0) U/L 05/15/19 Range/Units 00:26 WBC (3.5-10.8) 10^3/uL RBC (4.18-5.48) 10^6 /uL Hgb (14.0-18.0) g/dL Hct (42-52) % MCV (80-94) fL MCH (27-31) pg MCHC (31-36) g/dL RDW (10-15) % Plt Count (150-450) 10^3/uL MPV (7.4-10.4) fL Neut % (Auto) % Lymph % (Auto) % [place] % (Auto) % Eos % (Auto) % Baso % (Auto) % Absolute Neuts (auto) (1.5-7.7) 10^3/ul Absolute Lymphs (auto) (1.0-4.8) 10^3/ul Absolute Monos (auto) (0-0.8) 10^3/ul Absolute Eos (auto) (0-0.6) 10^3/ul Absolute Basos (auto) (0-0.2) 10^3/ul Absolute Nucleated RBC 10^3/ul Nucleated RBC % INR (Anticoag Therapy) (0.82-1.09) Sodium (135-145) mmol/L Potassium (3.5-5.0) mmol/L Chloride (101-111) mmol/L Carbon Dioxide (22-32) mmol/L Anion Gap (2-11) mmol/L BUN (6-24) mg/dL Creatinine (0.67-1.17) mg/dL Est GFR ( Amer) (>60) Est GFR (Non-Af Amer) (>60) BUN/Creatinine Ratio (8-20) Glucose (70-100) mg/dL Lactic Acid 0.8 (0.5-2.0) mmol/L Calcium (8.6-10.3) mg/dL Total Bilirubin (0.2-1.0) mg/dL AST (13-39) U/L ALT (7-52) U/L Alkaline Phosphatase (34-104) U/L C-Reactive Protein (<8.01) mg/L Total Protein (6.4-8.9) g/dL Albumin (3.2-5.2) g/dL Globulin (2-4) g/dL Albumin/Globulin Ratio (1-3) Amylase (29-103) U/L Lipase (11.0-82.0) U/L Assess/Plan/Problems-Billing Assessment: 44 yo M with h/o alcoholism c/b ETOH pancreatitis and partial pancreatectomy , DM2 p/w abdominal pain found with pancreatitis - Patient Problems (1) Acute pancreatitis Comment: - 2/2 ongoing alcohol use - continued pain but improving -trial clear liquids. - dcerease LR to 150 cc/hr - morphine to 2mg IV q3hr (2) Alcohol withdrawal Comment: - continue WAM but has not required ativan -stopped scheduled librium 05/16 (3) Diabetes mellitus type 2 in obese Comment: -hba1c 9.1 -cont lispro SS and FS, - started Lantus 10 U 05/14, increased to 13 U 05/18 -metformin when taking PO again (4) HTN (hypertension) SNOMED Code(s): 36284971 Comment: - controlled now - continue home med amlodipine, lopressor (5) DVT prophylaxis Comment: HSQ Status and Disposition: inpatient
[2019-05-19] MEDS ORDERED: Insulin GLARGINE(*) 1 UNITS UNIT SUBCUT SCH (15:00)
[2019-05-19] MEDS ORDERED: Potassium Chlor TAB* 20 MEQ TAB.ER PO ONE (15:52)
[2019-05-19] MEDS: Nicotine Patch Removal NOTE FOLLOW UP SCH (22:11)
[2019-05-20] MEDS: Morphine INJ* 2 MG/ML 1 ML SYRINGE (TWO MG - NEW SYRINGE VERSION) IV PRN (05:48)
[2019-05-20] MEDS: Heparin VIAL(*) 5000 UNITS/ML VIAL (FIVE THOUSAND) SUBCUT SCH (05:49)
[2019-05-20 06:12] LABS: ABS Basophils 0.1 10^3/ul (0-0.2); ABS Eosinophils 0.5 10^3/ul (0-0.6); ABS Lymphocytes 1.9 10^3/ul (1.0-4.8); ABS Monocytes 0.7 10^3/ul (0-0.8); ABS Neutrophils 3.5 10^3/ul (1.5-7.7); Eosinophil % 7.2 %; Hematocrit 40 % (42-52); Hemoglobin 13.8 g/dL (14.0-18.0); Lymphocyte % 29.2 %; Mean Corpuscular HGB Conc 35 g/dL (31-36); Mean Corpuscular Hemoglobin 34 pg (27-31); Mean Corpuscular Volume 98 fL (80-94); Mean Platelet Volume 8.9 fL (7.4-10.4); Platelet Count 323 10^3/uL (150-450); Red Blood Count 4.07 10^6 /uL (4.18-5.48); Red Cell Distribution Width 15 % (10-15); White Blood Count 6.6 10^3/uL (3.5-10.8)
[2019-05-20 06:30] LABS: BUN/Creatinine Ratio 4.1 (8-20); Calcium 9.1 mg/dL (8.6-10.3); EGFR African American 141.9 (>60); EGFR Non-African American 117.3 (>60); Potassium 3.5 mmol/L (3.5-5.0)
[2019-05-20] MEDS: Lactated Ringers 1000 ML Bag* 1,000 ML IV SCH (07:02)
[2019-05-20] MEDS: Insulin LISPRO* 1 UNITS UNIT SUBCUT SCH (07:02)
[2019-05-20 07:06] VITALS: BP 145/56
[2019-05-20] MEDS: Thiamine TAB* 100 MG TAB PO SCH (08:24)
[2019-05-20] MEDS: Gabapentin CAP(*) 300 MG PO SCH (08:24)
[2019-05-20] MEDS: Multivitamins/Minerals TAB PO SCH (08:25)
[2019-05-20] MEDS: Metoprolol Succinate XL TAB* 100 MG PO SCH (08:26)
[2019-05-20] MEDS: Nicotine PATCH 21 MG/24 HR* PATCH TRANSDERM SCH (08:27)
[2019-05-20] MEDS: Folic Acid TAB* 1 MG PO SCH (08:28)
[2019-05-20] MEDS: amLODIPine TAB* 5 MG PO SCH (08:28)
[2019-05-20] MEDS: Pantoprazole TAB * 40 MG TAB PO SCH (08:29)
[2019-05-20] MEDS: Docusate CAP* 100 MG PO SCH (08:33)
[2019-05-20] MEDS: Magnesium Hydroxide LIQ* 30 ML UDC PO SCH (08:33)
--- NOTE | 2019-05-20 22:36 | DS ---
CC: Dr. Haro * DISCHARGE SUMMARY Discharge against medical advice. DATE OF ADMISSION: 05/15/19 DATE OF LEAVING AGAINST MEDICAL ADVICE: 05/20/19 PRIMARY CARE PROVIDER: Dr. Haro. DISPOSITION AT DISCHARGE: Home. CONDITION ON DISCHARGE: Guarded. PRIMARY DIAGNOSES: 1. Pancreatitis secondary to continued alcohol abuse. 2. Alcohol abuse. 3. Type 2 diabetes. SECONDARY DIAGNOSES: Include: 1. Alcohol use disorder. 2. Hypertension. 3. Gastroesophageal reflux disease. 4. Bipolar disorder. 5. Diabetes. MEDICATIONS ON DISCHARGE: 1. Zofran ODT 4 mg every 6 hours as needed. 2. Metoprolol succinate 200 mg daily. 3. Ibuprofen 200 mg every 6 hours as needed for pain. 4. Nexium 40 mg daily. 5. Amlodipine 5 mg daily. 6. Gabapentin 300 mg twice daily. PERTINENT LABORATORY DATA: Hemoglobin A1c is 9.1, lipase on presentation peaked at 1194. Kidney function is preserved on discharge. BUN of 3 and creatinine of 0.73. PERTINENT IMAGING: CT abdomen and pelvis, impression: Recurrent pancreatitis, persistent enlarged pancreatic head with presence of some inflammatory changes. Some of the inflammatory changes encompass the second portion of the duodenum. This does not appear to cause a gastric outlet obstruction. Inflammatory changes are predominantly in the anterior aspect of the right pararenal space, involving the edge of the liver. Fluid is seen abutting the lateral aspect of the right live lobe. Fluid courses into the right pericolic gutter and into the pelvis. No walled-off fluid collection is seen. No pseudoaneurysm is noted. No abdominal abscesses is noted. HISTORY OF PRESENT ILLNESS AND HOSPITAL COURSE: This is a 44-year-old man with past medical history of recurrent pancreatitis in the setting of alcohol abuse disorder, presented to the hospital with abdominal pain, nausea, vomiting in the setting of continued drinking. He was made n.p.o. and admitted to the hospital, started on aggressive IV fluids. He was given morphine for abdominal pain with good improvement. He had been titrated 24 hours prior to discharge from 4 mg to 2 mg every 3 hours and overnight has only used medication once within 7 hours. His diet had been advanced to clear liquids, which he was tolerating well; however, demands to leave urgently from the hospital in the morning that he left. I counseled the patient regarding the risks associated with leaving hospital including worsening of his pancreatitis with resultant cardiovascular collapse, loss of consciousness, renal failure, OR, stroke, severe morbidity and/or . He was in appropriate mindset to make this decision. He understood the risks and was able to verbalize them back. He was not unduly under the influence of anything altering his decision making capacity. He indicates that he is going to lose his job if he does not leave today because he has been in the hospital monthly and therefore elected to leave the hospital against medical advice. He does state he spoke with his daughter and seemed engaging resources in the community to assist him in achieving sobriety. He is declining any of our resources or assistance at this time. I did advise him to maintain a clear liquid diet, do not advance until all of his abdominal pain is resolved. During the course of his hospital stay, his abdomen did become much softer; however, was still notably tender on the day of discharge, although much improved day prior, significantly improved since my first evaluation of his abdomen. Because of his continued need for IV fluids in the setting of pancreatitis, continued abdominal pain, and inability to advance significant diet before seen he has tolerated, I did caution that against leaving against medical advice, but however as indicated above he chose to leave. Of note during the course of his hospital stay, he was put on Lantus to control his blood sugar. His hemoglobin A1c was noted to be elevated as indicated above at 9.1%. However at the time of his discharge, he was demanding to leave quite quickly and we were unable to deliver insulin training for this patient prior to his departure, and he is currently on no medications for further control of his diabetes. I did advise the patient that he should return to hospital if worsening abdominal pain, continued nausea, vomiting, fevers, chills, night sweats, chest pain, loss of consciousness, near loss of consciousness, decreased urine output or any other conditions indicating worsening of his pancreatitis. He acknowledged understanding. FOLLOWUP: Please; 1. Please ensure adequate control of his diabetes, which he currently has not received any medications for. 2. Continue to marriage counselor alcohol cessation as I am sure you are. 3. No other specific labs or vitals that need followup on discharge. TIME SPENT: Greater than 50 minutes were spent on discharge of this patient, greater than half was spent [id number] with the patient. [id number]/[facility] #: [id number] [place]
== END 2019-05-20 10:30 | disposition left against medical advice (07) | DRG 282 ==
LOC: ED 21:53 → MED 05-15 05:26
PROVIDERS: ADMIT Family Medicine; ATTEND Internal Medicine
DX: K85.20 Alcohol induced acute pancreatitis without necrosis or infection (principal); F10.239 Alcohol dependence with withdrawal, unspecified; I10 Essential (primary) hypertension; K21.9 Gastro-esophageal reflux disease without esophagitis; E11.9 Type 2 diabetes mellitus without complications; F31.9 Bipolar disorder, unspecified; Z87.19 Personal history of other diseases of the digestive system; E66.9 Obesity, unspecified; E78.1 Pure hyperglyceridemia; Z79.899 Other long term (current) drug therapy; Z88.4 Allergy status to anesthetic agent; Z88.8 Allergy status to other drugs, medicaments and biological substances; Z81.1 Family history of alcohol abuse and dependence; F17.290 Nicotine dependence, other tobacco product, uncomplicated
CPT/HCPCS: 36415; 74177; 80048; 80053; 80076; 80320; 81003; 82150; 83036; 83605; 83690; 84132; 84478; 85025; 85610; 85730; 86140; 99284; A9270-GY; G0480; J1170; J1644; J1885; J2270; J2405; J3411; Q9967

== ENCOUNTER 2019-09-20 18:36 | Inpatient (IN) ==
[2019-09-20] MEDS ORDERED: HYDROmorphone 1 MG/1 ML SYRINGE IV ONE ×2 (19:36→20:23)
[2019-09-20] MEDS ORDERED: NS 0.9% 1000 ml BAG 1,000 ML IV ONE (19:36)
[2019-09-20] MEDS ORDERED: Ondansetron 4 mg VIAL 2 MG/ML 2 ml VIAL IV ONE ×2 (19:36→20:47)
[2019-09-20 19:51] LABS: ABS Lymphocytes 1.2 10^3/ul (1.0-4.8); ABS Monocytes 0.6 10^3/ul (0-0.8); ABS Neutrophils 9.3 10^3/ul (1.5-7.7); Eosinophil % 0.2 %; Hematocrit 41 % (42-52); Hemoglobin 14.2 g/dL (14.0-18.0); Lymphocyte % 11.1 %; Mean Corpuscular HGB Conc 34 g/dL (31-36); Mean Corpuscular Hemoglobin 34 pg (27-31); Mean Corpuscular Volume 99 fL (80-94); Mean Platelet Volume 9.6 fL (7.4-10.4); Nucleated Red Blood Cells % 0.1; Platelet Count 209 10^3/uL (150-450); Red Blood Count 4.19 10^6 /uL (4.18-5.48); Red Cell Distribution Width 16 % (10-15); White Blood Count 11.2 10^3/uL (3.5-10.8)
[2019-09-20 19:57] LABS: Albumin 4.7 g/dL (3.2-5.2); Albumin/Globulin Ratio 1.2 (1-3); BUN/Creatinine Ratio 12.5 (8-20); C Reactive Protein 12.09 mg/L (<8.01); Calcium 9.4 mg/dL (8.6-10.3); EGFR African American 127.7 (>60); EGFR Non-African American 105.5 (>60); Globulin 3.8 g/dL (2-4); Potassium 3.1 mmol/L (3.5-5.0); Total Bilirubin 1.9 mg/dL (0.2-1.0); Total Protein 8.5 g/dL (6.4-8.9)
[2019-09-20] MEDS ORDERED: HYDROmorphone 1 MG/1 ML SYRINGE IV SLOW PU ONE (21:47)
[2019-09-20] MEDS ORDERED: Thiamine IV 100 MG, Folic Acid 1 MG, Multiple Vitamin IV ADULT 10 ML in NS 0.9% 1000 ml... IVPB ONE (22:00)
[2019-09-20] MEDS ORDERED: NS 0.9% 1000 ml BAG 1,000 ML IV SCH (22:00)
[2019-09-20 22:09] LABS: Magnesium 1.9 mg/dL (1.9-2.7)
[2019-09-20 22:16] LABS: INR 0.92 (0.82-1.09)
[2019-09-20] MEDS: hydrALAZINE 20 mg/ml 1 ML Vial IV IV SLOW PU PRN (22:29)
[2019-09-21] MEDS ORDERED: Lorazepam PYXIS KEY ONE (00:29)
[2019-09-21] MEDS: LORazepam 2 mg VIAL 1 ml IV PUSH SCH ×6 (00:44→22:21)
[2019-09-21] MEDS: Pantoprazole VIAL 40 MG VIAL IV SCH ×2 (01:27→21:23)
[2019-09-21] MEDS: Heparin 5000 UNITS/ML 1 mL VIAL SUBCUT SCH ×2 (01:28→05:22)
[2019-09-21] MEDS: Ondansetron 4 mg VIAL 2 MG/ML 2 ml VIAL IV PRN ×3 (01:28→14:01)
[2019-09-21] MEDS: HYDROmorphone 1 MG/1 ML SYRINGE IV SLOW PU PRN ×7 (01:28→23:40)
[2019-09-21] MEDS ORDERED: hydrALAZINE 20 mg/ml 1 ML Vial IV IV SLOW PU ONE (01:42)
[2019-09-21] MEDS: Sucralfate 1 gm SUSP 1 GM/10 ML UDC PO SCH ×5 (01:45→20:46)
[2019-09-21 02:07] LABS: BUN/Creatinine Ratio 13.3 (8-20); Calcium 8.9 mg/dL (8.6-10.3); EGFR African American 137.5 (>60); EGFR Non-African American 113.7 (>60); Potassium 3.5 mmol/L (3.5-5.0)
[2019-09-21] MEDS: KCL 20 MEQ/100 ML IVPREMIX 20 MEQ/100 ML BAG IV SCH ×3 (02:11→07:54)
[2019-09-21 05:59] LABS: INR 0.94 (0.82-1.09)
[2019-09-21 06:06] LABS: Albumin 4.6 g/dL (3.2-5.2); Albumin/Globulin Ratio 1.4 (1-3); BUN/Creatinine Ratio 12.7 (8-20); EGFR African American 146.5 (>60); EGFR Non-African American 121.1 (>60); Globulin 3.4 g/dL (2-4); Total Bilirubin 3.5 mg/dL (0.2-1.0)
[2019-09-21 06:16] LABS: ABS Basophils 0.1 10^3/ul (0-0.2); ABS Lymphocytes 1.3 10^3/ul (1.0-4.8); ABS Monocytes 1.1 10^3/ul (0-0.8); ABS Neutrophils 13.4 10^3/ul (1.5-7.7); Eosinophil % 0.1 %; Hematocrit 41 % (42-52); Hemoglobin 14.3 g/dL (14.0-18.0); Lymphocyte % 8.3 %; Mean Corpuscular HGB Conc 35 g/dL (31-36); Mean Corpuscular Hemoglobin 34 pg (27-31); Mean Corpuscular Volume 97 fL (80-94); Nucleated Red Blood Cells % 0.1; Red Blood Count 4.27 10^6 /uL (4.18-5.48); Red Cell Distribution Width 16 % (10-15); White Blood Count 15.9 10^3/uL (3.5-10.8)
[2019-09-21] MEDS: Nicotine PATCH 21 MG/24 HR PATCH TRANSDERM SCH (07:54)
[2019-09-21] MEDS: Multivitamins/Minerals TAB PO SCH (07:55)
[2019-09-21] MEDS: Metoprolol Succinate XL 200 mg TAB PO SCH (07:55)
[2019-09-21] MEDS ORDERED: Dextrose 50% Syringe 50 ml 25 GM/50 ML SYRINGE IV PUSH PRN (08:38)
[2019-09-21] MEDS ORDERED: NS 0.9% 1000 ml BAG 1,000 ML IV SCH (08:41)
[2019-09-21 08:57] LABS: Platelet Count Platelets clumped. 10^3/uL (150-450)
[2019-09-21] MEDS: hydrALAZINE 20 mg/ml 1 ML Vial IV IV SLOW PU PRN (09:20)
[2019-09-21] MEDS: Lactated Ringers 1000 ml BAG 1,000 ML IV SCH ×4 (11:14→23:36)
[2019-09-21] MEDS ORDERED: Lorazepam PYXIS KEY PRN (15:20)
[2019-09-21] MEDS ORDERED: Metoclopramide 5 MG/ML VIAL (10 mg) IV SLOW PU ONE (16:00)
[2019-09-21 19:16] LABS: Hepatitis B Surface Ab Immune (Immune); Hepatitis C Antibody Negative (Negative)
[2019-09-21] MEDS: Enoxaparin 40 MG/0.4 ML SYR SUBCUT SCH (20:01)
[2019-09-21] MEDS ORDERED: LORazepam 2 mg VIAL 1 ml IM ONE (21:14)
[2019-09-21 22:00] LABS: Hepatitis B Surface Antigen Nonreactive (Nonreactive)
[2019-09-21 22:40] LABS: HIV 4th Generation Nonreactive (Nonreactive)
[2019-09-22] MEDS: LORazepam 2 mg VIAL 1 ml IV PUSH SCH ×8 (00:31→22:38)
[2019-09-22] MEDS ORDERED: LORazepam 2 mg VIAL 1 ml IV PUSH ONE ×3 (01:53→22:51)
[2019-09-22] MEDS ORDERED: Lorazepam PYXIS KEY PRN ×4 (01:53→18:16)
[2019-09-22] MEDS ORDERED: Ziprasidone IM 20 mg VIAL 1 ml VIAL IM ONE (02:18)
[2019-09-22] MEDS: Lactated Ringers 1000 ml BAG 1,000 ML IV SCH ×2 (07:44→19:36)
[2019-09-22 08:02] LABS: Hematocrit 39 % (42-52); Hemoglobin 13.5 g/dL (14.0-18.0); Mean Corpuscular HGB Conc 35 g/dL (31-36); Mean Corpuscular Hemoglobin 34 pg (27-31); Mean Corpuscular Volume 97 fL (80-94); Mean Platelet Volume 10.1 fL (7.4-10.4); Platelet Count 161 10^3/uL (150-450); Red Blood Count 3.96 10^6 /uL (4.18-5.48); Red Cell Distribution Width 16 % (10-15); White Blood Count 12.2 10^3/uL (3.5-10.8)
[2019-09-22] MEDS: Nicotine PATCH 21 MG/24 HR PATCH TRANSDERM SCH (08:16)
[2019-09-22] MEDS: Sucralfate 1 gm SUSP 1 GM/10 ML UDC PO SCH ×3 (08:16→18:02)
[2019-09-22 08:18] LABS: Albumin 4.1 g/dL (3.2-5.2); Albumin/Globulin Ratio 1.2 (1-3); BUN/Creatinine Ratio 15.9 (8-20); Calcium 9.3 mg/dL (8.6-10.3); EGFR African American 151.4 (>60); EGFR Non-African American 125.1 (>60); Globulin 3.5 g/dL (2-4); Indirect Bilirubin 2.3 mg/dL (0.3-1.0); Potassium 3.5 mmol/L (3.5-5.0); Total Bilirubin 6.9 mg/dL (0.2-1.0); Total Protein 7.6 g/dL (6.4-8.9)
[2019-09-22] MEDS: Multivitamins/Minerals TAB PO SCH (08:19)
[2019-09-22] MEDS: Metoprolol Succinate XL 200 mg TAB PO SCH (08:22)
[2019-09-22] MEDS ORDERED: Ziprasidone IM 20 mg VIAL 1 ml VIAL IM PRN ×2 (09:06→09:47)
[2019-09-22] MEDS: Nicotine GUM 2MG FRUIT FLAVOR PO PRN ×2 (10:11→12:42)
[2019-09-22] MEDS: LORazepam 2 mg VIAL 1 ml ONE ×2 (15:25→16:00)
[2019-09-22] MEDS ORDERED: Lorazepam PYXIS KEY ONE (15:41)
[2019-09-22] MEDS: Dexmedetomidine 1,000 MCG in NS 0.9% 250 ml 240 ML IV SCH (16:00)
[2019-09-22 16:36] LABS: HDL Cholesterol 18.5 mg/dL
[2019-09-22] MEDS ORDERED: PHENobarbital IV 260 MG in NS 0.9% 100 ml BAG 100 ML IVPB ONE (17:00)
[2019-09-22] MEDS ORDERED: diPHENhydraMINE IV 50 MG/ML 1 ml VIAL (BENADRYL) ONE (17:24)
[2019-09-22] MEDS ORDERED: diPHENhydraMINE IV 50 MG/ML 1 ml VIAL (BENADRYL) IV ONE ×2 (17:25→18:13)
[2019-09-22] MEDS ORDERED: Thiamine 100 MG/ML 2 ml VIAL (200 mg) IV ONE (18:41)
[2019-09-22] MEDS ORDERED: Lactated Ringers 1000 ml BAG 1,000 ML IV SCH (19:00)
[2019-09-22] MEDS ORDERED: LORazepam 2 mg VIAL 1 ml IV PUSH SCH (19:00)
[2019-09-22] MEDS ORDERED: Thiamine IV 100 MG in NS 0.9% 50 ML Q24H IV ONE (19:00)
[2019-09-22] MEDS: Enoxaparin 40 MG/0.4 ML SYR SUBCUT SCH (20:37)
[2019-09-22] MEDS: Pantoprazole VIAL 40 MG VIAL IV SCH (20:37)
[2019-09-22] MEDS: Insulin GLARGINE 100 un/ml 10 ml VIAL SUBCUT SCH (20:46)
[2019-09-22] MEDS: LORazepam 2 mg VIAL 1 ml IV PUSH PRN (21:17)
[2019-09-22 22:36] LABS: ABS Eosinophils 0.2 10^3/ul (0-0.6); ABS Lymphocytes 1.5 10^3/ul (1.0-4.8); ABS Monocytes 0.6 10^3/ul (0-0.8); ABS Neutrophils 5.4 10^3/ul (1.5-7.7); Eosinophil % 2.1 %; Hematocrit 32 % (42-52); Hemoglobin 11.1 g/dL (14.0-18.0); Lymphocyte % 19.7 %; Mean Corpuscular HGB Conc 34 g/dL (31-36); Mean Corpuscular Hemoglobin 34 pg (27-31); Mean Corpuscular Volume 98 fL (80-94); Mean Platelet Volume 10.3 fL (7.4-10.4); Nucleated Red Blood Cells % 0.1; Platelet Count 124 10^3/uL (150-450); Red Blood Count 3.29 10^6 /uL (4.18-5.48); Red Cell Distribution Width 16 % (10-15); White Blood Count 7.7 10^3/uL (3.5-10.8)
[2019-09-22 22:46] LABS: BUN/Creatinine Ratio 17.2 (8-20); Calcium 8.5 mg/dL (8.6-10.3); EGFR Non-African American 152.9 (>60); Magnesium 1.9 mg/dL (1.9-2.7); Phosphorus 1.9 mg/dL (2.5-5.0); Potassium 3.4 mmol/L (3.5-5.0)
[2019-09-22 22:47] LABS: Ammonia 81 mcmol/L (16-53)
[2019-09-22 22:53] LABS: BNP 45 pg/mL (<=100)
[2019-09-22 23:26] LABS: Total Bilirubin 3.1 mg/dL (0.2-1.0)
[2019-09-22 23:55] LABS: Urine Bacteria Absent (Absent); Urine Red Blood Cell Trace(0-2/hpf) (Absent); Urine White Blood Cell Trace(0-5/hpf) (Absent)
[2019-09-23] LABS: Urine Appearance Clear; Urine Bilirubin Negative (Negative); Urine Blood 1+ (Negative); Urine Color Amber; Urine Glucose 3+(>=500 mg/dL) (Negative); Urine Ketones 1+ (Negative); Urine Nitrite Negative (Negative); Urine Protein 1+(30 mg/dL) (Negative); Urine Specific Gravity 1.026 (1.010-1.030); Urine Urobilinogen Negative (Negative)
[2019-09-23] MEDS: LORazepam 2 mg VIAL 1 ml IV PUSH SCH ×2 (03:16→06:26)
[2019-09-23] MEDS: Dexmedetomidine 1,000 MCG in NS 0.9% 250 ml 240 ML IV SCH ×2 (03:30→11:45)
[2019-09-23] MEDS: Lactated Ringers 1000 ml BAG 1,000 ML IV SCH ×3 (05:28→16:32)
[2019-09-23 06:44] LABS: Hematocrit 34 % (42-52); Hemoglobin 11.8 g/dL (14.0-18.0); Mean Corpuscular HGB Conc 35 g/dL (31-36); Mean Corpuscular Hemoglobin 34 pg (27-31); Mean Corpuscular Volume 98 fL (80-94); Platelet Count 131 10^3/uL (150-450); Red Cell Distribution Width 15 % (10-15)
[2019-09-23 06:55] LABS: INR 0.98 (0.82-1.09)
[2019-09-23 06:59] LABS: BUN/Creatinine Ratio 18.5 (8-20); Calcium 8.7 mg/dL (8.6-10.3); EGFR African American 200.9 (>60); EGFR Non-African American 166.1 (>60); Magnesium 1.8 mg/dL (1.9-2.7); Potassium 3.4 mmol/L (3.5-5.0)
[2019-09-23] MEDS: Nicotine PATCH 21 MG/24 HR PATCH TRANSDERM SCH (08:28)
[2019-09-23] MEDS: LORazepam 2 mg VIAL 1 ml IV PUSH PRN ×6 (08:36→21:30)
[2019-09-23] MEDS: Multivitamins/Minerals TAB PO SCH (09:18)
[2019-09-23] MEDS ORDERED: LORazepam VIAL (for drip) 100 MG in D5W 100 ml BAG 50 ML IV SCH (11:00)
[2019-09-23] MEDS: Insulin GLARGINE 100 un/ml 10 ml VIAL SUBCUT SCH (20:28)
[2019-09-23] MEDS: Enoxaparin 40 MG/0.4 ML SYR SUBCUT SCH (20:34)
[2019-09-23] MEDS ORDERED: PHENobarbital IV 130 MG in NS 0.9% 100 ml BAG 100 ML IVPB ONE (20:45)
[2019-09-23] MEDS: Pantoprazole VIAL 40 MG VIAL IV SCH (21:31)
[2019-09-23] MEDS ORDERED: Diazepam INJ CARPUJECT 5 MG/ML IV ONE (21:53)
[2019-09-23] MEDS ORDERED: PHENobarbital IV 65 MG/ML 1 ml VIAL IVPB ONE (21:54)
[2019-09-24] MEDS ORDERED: Succinylcholine 200 mg VIAL 20 mg/ml 10 ml VIAL (200 mg) ONE ×2 (00:06→10:13)
[2019-09-24] MEDS ORDERED: Rocuronium 50 mg VIAL 10 mg/ml 5 ml VIAL (50 mg) ONE (00:06)
[2019-09-24] MEDS ORDERED: Propofol 10 mg/ml 100 ML BTL 0 ML ONE (00:10)
[2019-09-24] MEDS ORDERED: cloNIDine 0.2 MG PATCH 0.2 MG/24 HR 7 DAY PATCH TRANSDERM SCH (01:00)
[2019-09-24] MEDS ORDERED: LORazepam 2 mg VIAL 1 ml IV PUSH PRN (01:41)
[2019-09-24] MEDS ORDERED: LORazepam VIAL (for drip) 100 MG in D5W 100 ml BAG 50 ML IV SCH ×2 (01:42→09:01)
[2019-09-24] MEDS ORDERED: fentaNYL 100 mcg/2 ml 50 MCG/ML VIAL ONE ×2 (01:48→10:18)
[2019-09-24] MEDS: fentaNYL 100 mcg/2 ml 50 MCG/ML VIAL IV SLOW PU PRN ×5 (01:53→09:45)
[2019-09-24] MEDS: Lactated Ringers 1000 ml BAG 1,000 ML IV SCH ×4 (02:44→23:43)
[2019-09-24] MEDS ORDERED: cloNIDine 0.1 MG PATCH 0.1 MG/24 HR 7 DAY PATCH TRANSDERM SCH (04:00)
[2019-09-24] MEDS: Dexmedetomidine 1,000 MCG in NS 0.9% 250 ml 240 ML IV SCH ×3 (04:13→20:01)
[2019-09-24 07:07] LABS: Hematocrit 32 % (42-52); Hemoglobin 11.2 g/dL (14.0-18.0); Mean Corpuscular HGB Conc 35 g/dL (31-36); Mean Corpuscular Hemoglobin 34 pg (27-31); Mean Corpuscular Volume 97 fL (80-94); Mean Platelet Volume 10.1 fL (7.4-10.4); Platelet Count 153 10^3/uL (150-450); Red Cell Distribution Width 15 % (10-15); White Blood Count 9.6 10^3/uL (3.5-10.8)
[2019-09-24 07:23] LABS: Albumin 3.3 g/dL (3.2-5.2); Albumin/Globulin Ratio 1.1 (1-3); BUN/Creatinine Ratio 10.9 (8-20); Calcium 8.4 mg/dL (8.6-10.3); EGFR African American 196.7 (>60); EGFR Non-African American 162.6 (>60); Globulin 3.1 g/dL (2-4); Potassium 3.1 mmol/L (3.5-5.0); Total Bilirubin 1.7 mg/dL (0.2-1.0); Total Protein 6.4 g/dL (6.4-8.9)
[2019-09-24] MEDS ORDERED: fentaNYL 100 mcg/2 ml 50 MCG/ML VIAL IV ONE (08:10)
[2019-09-24] MEDS: Multivitamins/Minerals TAB PO SCH (09:14)
[2019-09-24] MEDS ORDERED: FENTANYL PCA PCA SCH (10:00)
[2019-09-24] MEDS ORDERED: fentaNYL INFUSION 50 MCG/ML 2,500 MCG/50 ML BAG IV SCH (10:00)
[2019-09-24] MEDS ORDERED: fentaNYL 250 mcg/5 ml 50 MCG/ML 5 ml VIAL (250 MCG) ONE (10:20)
[2019-09-24] MEDS ORDERED: Etomidate 40 mg/20 ml (2 MG/ML) 20 ml VIAL (40 mg) ONE ×2 (10:20→11:15)
[2019-09-24] MEDS ORDERED: fentaNYL 100 mcg/2 ml 50 MCG/ML VIAL IV SLOW PU ONE (10:47)
[2019-09-24] MEDS: LORazepam 2 mg VIAL 1 ml IV PUSH PRN (11:04)
[2019-09-24] MEDS ORDERED: CISATRACURIUM 2 MG/ML IV ONE (11:15)
[2019-09-24] MEDS ORDERED: Cisatracurium 2 MG/ML MDV 5 ML IV ONE (11:15)
[2019-09-24] MEDS: fentaNYL INFUSION 50 MCG/ML 2,500 MCG/50 ML BAG IV SCH (11:30)
[2019-09-24] MEDS ORDERED: Etomidate 20 mg/10 ml 2 MG/ML 10 ml VIAL IV ONE (11:32)
[2019-09-24] MEDS ORDERED: Piperacillin/Tazobac ADVAN 3.375 GM in NS 0.9% 100 ml BAG 100 ML IVPB ONE (12:46)
[2019-09-24] MEDS ORDERED: Zosyn per Pharmacy NOTE FOLLOW UP SCH (13:00)
[2019-09-24] MEDS ORDERED: Famotidine IV 10 MG/ML 2 ml VIAL (20 mg) IV SLOW PU ONE (16:34)
[2019-09-24] MEDS: Midazolam 50 MG VIAL IV DRIP 50 ML IV SCH (17:44)
[2019-09-24] MEDS: ZOSYN 3.375 GM Q8H per EXTENDED INFUSION IV SCH (17:48)
[2019-09-24] MEDS: Chlorhexidine MOUTHWASH 0.12% 15 ML UDC TOPICAL SCH ×3 (17:48→23:42)
[2019-09-24] MEDS: Enoxaparin 40 MG/0.4 ML SYR SUBCUT SCH (20:25)
[2019-09-24] MEDS: Insulin GLARGINE 100 un/ml 10 ml VIAL SUBCUT SCH (21:19)
[2019-09-25] MEDS: Midazolam 50 MG VIAL IV DRIP 50 ML IV SCH ×3 (01:12→20:45)
[2019-09-25] MEDS: ZOSYN 3.375 GM Q8H per EXTENDED INFUSION IV SCH ×3 (01:44→17:48)
[2019-09-25] MEDS: Dexmedetomidine 1,000 MCG in NS 0.9% 250 ml 240 ML IV SCH ×3 (03:54→20:24)
[2019-09-25] MEDS: Chlorhexidine MOUTHWASH 0.12% 15 ML UDC TOPICAL SCH ×6 (04:09→20:13)
[2019-09-25 04:41] LABS: Hematocrit 29 % (42-52); Hemoglobin 10.3 g/dL (14.0-18.0); Mean Corpuscular HGB Conc 35 g/dL (31-36); Mean Corpuscular Hemoglobin 34 pg (27-31); Mean Corpuscular Volume 97 fL (80-94); Mean Platelet Volume 9.7 fL (7.4-10.4); Platelet Count 160 10^3/uL (150-450); Red Blood Count 3.02 10^6 /uL (4.18-5.48); Red Cell Distribution Width 15 % (10-15); White Blood Count 9.8 10^3/uL (3.5-10.8)
[2019-09-25 04:58] LABS: Albumin 2.7 g/dL (3.2-5.2); Calcium 7.5 mg/dL (8.6-10.3); Potassium 2.9 mmol/L (3.5-5.0); Total Bilirubin 1.5 mg/dL (0.2-1.0)
[2019-09-25 05:04] LABS: Albumin/Globulin Ratio 1.2 (1-3); BUN/Creatinine Ratio 10.8 (8-20); EGFR African American 162.2 (>60); EGFR Non-African American 134.1 (>60); Globulin 2.3 g/dL (2-4)
[2019-09-25] MEDS ORDERED: Magnesium Sulfate 2 gm BAG 2 GM/50 ML BAG IVPB ONE (07:46)
[2019-09-25] MEDS: KCL 20 MEQ/100 ML IVPREMIX 20 MEQ/100 ML BAG IV SCH ×3 (09:40→15:20)
[2019-09-25] MEDS: Famotidine IV 10 MG/ML 2 ml VIAL (20 mg) IV SLOW PU SCH ×2 (09:42→20:50)
[2019-09-25] MEDS: Multivitamins ADULT w/MIN LIQ 15 ML UDC PO SCH (09:42)
[2019-09-25] MEDS: fentaNYL INFUSION 50 MCG/ML 2,500 MCG/50 ML BAG IV SCH (09:45)
[2019-09-25] MEDS: fentaNYL 100 mcg/2 ml 50 MCG/ML VIAL IV SLOW PU PRN ×5 (10:05→20:13)
[2019-09-25 10:17] LABS: Magnesium 1.6 mg/dL (1.9-2.7)
[2019-09-25] MEDS: Enoxaparin 40 MG/0.4 ML SYR SUBCUT SCH (20:50)
[2019-09-25] MEDS: Insulin GLARGINE 100 un/ml 10 ml VIAL SUBCUT SCH (20:50)
[2019-09-26] MEDS: Chlorhexidine MOUTHWASH 0.12% 15 ML UDC TOPICAL SCH ×6 (00:08→20:01)
[2019-09-26] MEDS: fentaNYL 100 mcg/2 ml 50 MCG/ML VIAL IV SLOW PU PRN ×4 (00:09→20:30)
[2019-09-26] MEDS: fentaNYL INFUSION 50 MCG/ML 2,500 MCG/50 ML BAG IV SCH ×2 (01:37→22:54)
[2019-09-26] MEDS: ZOSYN 3.375 GM Q8H per EXTENDED INFUSION IV SCH ×3 (02:22→17:38)
[2019-09-26] MEDS: Midazolam 50 MG VIAL IV DRIP 50 ML IV SCH (03:05)
[2019-09-26] MEDS ORDERED: Ondansetron 4 mg VIAL 2 MG/ML 2 ml VIAL IV PRN (03:40)
[2019-09-26] MEDS: Dexmedetomidine 1,000 MCG in NS 0.9% 250 ml 240 ML IV SCH ×3 (04:29→19:37)
[2019-09-26 05:12] LABS: Hematocrit 30 % (42-52); Hemoglobin 10.3 g/dL (14.0-18.0); Mean Corpuscular HGB Conc 35 g/dL (31-36); Mean Corpuscular Hemoglobin 34 pg (27-31); Mean Corpuscular Volume 97 fL (80-94); Mean Platelet Volume 10.1 fL (7.4-10.4); Platelet Count 204 10^3/uL (150-450); Red Blood Count 3.07 10^6 /uL (4.18-5.48); Red Cell Distribution Width 16 % (10-15); White Blood Count 9.2 10^3/uL (3.5-10.8)
[2019-09-26 05:17] LABS: Albumin 2.8 g/dL (3.2-5.2); Calcium 7.7 mg/dL (8.6-10.3); Total Bilirubin 1.6 mg/dL (0.2-1.0)
[2019-09-26 05:23] LABS: Albumin/Globulin Ratio 0.8 (1-3); BUN/Creatinine Ratio 9.7 (8-20); EGFR African American 171.3 (>60); EGFR Non-African American 141.6 (>60); Globulin 3.4 g/dL (2-4); Total Protein 6.2 g/dL (6.4-8.9)
[2019-09-26 05:40] LABS: Magnesium 1.7 mg/dL (1.9-2.7)
[2019-09-26] MEDS: KCL 20 MEQ/100 ML IVPREMIX 20 MEQ/100 ML BAG IV SCH ×5 (05:54→15:52)
[2019-09-26] MEDS ORDERED: Dextrose 50% Syringe 50 ml 25 GM/50 ML SYRINGE IV PUSH PRN (08:04)
[2019-09-26] MEDS: Multivitamins ADULT w/MIN LIQ 15 ML UDC PO SCH (08:20)
[2019-09-26] MEDS: Famotidine IV 10 MG/ML 2 ml VIAL (20 mg) IV SLOW PU SCH ×2 (08:20→20:01)
[2019-09-26] MEDS ORDERED: Magnesium Sulf 4 GM/100 ML IV 4,000 MG/100 ML BAG IVPB ONE (08:58)
[2019-09-26] MEDS: Acetylcysteine INH SOL (RT) 200 MG/ML 4 ML VIAL INH SCH ×2 (10:43→17:29)
[2019-09-26] MEDS ORDERED: Furosemide 20 mg/2 ml IV VIAL IV SLOW PU ONE (16:51)
[2019-09-26] MEDS: Enoxaparin 40 MG/0.4 ML SYR SUBCUT SCH (20:01)
[2019-09-26] MEDS: Insulin GLARGINE 100 un/ml 10 ml VIAL SUBCUT SCH (20:25)
[2019-09-26] MEDS ORDERED: fentaNYL 100 mcg/2 ml 50 MCG/ML VIAL ONE (20:55)
[2019-09-26] MEDS ORDERED: fentaNYL 100 mcg/2 ml 50 MCG/ML VIAL IV SLOW PU ONE (21:30)
[2019-09-27] MEDS: Chlorhexidine MOUTHWASH 0.12% 15 ML UDC TOPICAL SCH ×6 (00:10→22:09)
[2019-09-27] MEDS: Acetylcysteine INH SOL (RT) 200 MG/ML 4 ML VIAL INH SCH ×3 (00:41→18:32)
[2019-09-27] MEDS: ZOSYN 3.375 GM Q8H per EXTENDED INFUSION IV SCH ×2 (02:17→10:30)
[2019-09-27] MEDS: Dexmedetomidine 1,000 MCG in NS 0.9% 250 ml 240 ML IV SCH ×3 (03:43→20:26)
[2019-09-27 04:26] LABS: Hematocrit 28 % (42-52); Hemoglobin 9.6 g/dL (14.0-18.0); Mean Corpuscular HGB Conc 34 g/dL (31-36); Mean Corpuscular Hemoglobin 33 pg (27-31); Mean Corpuscular Volume 97 fL (80-94); Mean Platelet Volume 9.7 fL (7.4-10.4); Platelet Count 233 10^3/uL (150-450); Red Blood Count 2.92 10^6 /uL (4.18-5.48); Red Cell Distribution Width 16 % (10-15); White Blood Count 12.5 10^3/uL (3.5-10.8)
[2019-09-27 04:47] LABS: Albumin 2.6 g/dL (3.2-5.2); Albumin/Globulin Ratio 0.7 (1-3); BUN/Creatinine Ratio 14.7 (8-20); Calcium 7.8 mg/dL (8.6-10.3); EGFR Non-African American 127.3 (>60); Globulin 3.7 g/dL (2-4); Potassium 3.2 mmol/L (3.5-5.0); Total Bilirubin 1.3 mg/dL (0.2-1.0); Total Protein 6.3 g/dL (6.4-8.9)
[2019-09-27] MEDS: Multivitamins ADULT w/MIN LIQ 15 ML UDC PO SCH (09:13)
[2019-09-27] MEDS: Famotidine IV 10 MG/ML 2 ml VIAL (20 mg) IV SLOW PU SCH ×2 (09:14→22:09)
[2019-09-27] MEDS: fentaNYL 100 mcg/2 ml 50 MCG/ML VIAL IV SLOW PU PRN ×5 (09:16→21:24)
[2019-09-27] MEDS: LORazepam 2 mg VIAL 1 ml IV PUSH PRN ×3 (10:27→22:32)
[2019-09-27] MEDS ORDERED: Haloperidol 5 mg/ml SDV IV/IM 5 MG/ML AMP IV SLOW PU PRN (12:10)
[2019-09-27] MEDS: Thiamine 100 MG/ML 2 ml VIAL 500 MG in NS 0.9% 250 ml 250 ML IV SCH ×2 (13:13→22:09)
[2019-09-27] MEDS: Oxacillin 2 GM in NS 0.9% 100 ml BAG 100 ML IVPB SCH ×2 (13:20→18:00)
[2019-09-27] MEDS: fentaNYL INFUSION 50 MCG/ML 2,500 MCG/50 ML BAG IV SCH ×2 (13:53→21:18)
[2019-09-27] MEDS ORDERED: Haloperidol 5 mg/ml SDV IV/IM 5 MG/ML AMP ONE (16:16)
[2019-09-27] MEDS ORDERED: Ibuprofen ADULT LIQ 600 MG/30 ML UDC PO PRN (19:32)
[2019-09-27] MEDS: Enoxaparin 40 MG/0.4 ML SYR SUBCUT SCH (22:09)
[2019-09-27] MEDS: Insulin GLARGINE 100 un/ml 10 ml VIAL SUBCUT SCH (22:09)
[2019-09-28] MEDS: Oxacillin 2 GM in NS 0.9% 100 ml BAG 100 ML IVPB SCH ×5 (00:50→23:31)
[2019-09-28] MEDS: Acetylcysteine INH SOL (RT) 200 MG/ML 4 ML VIAL INH SCH (00:57)
[2019-09-28] MEDS: Chlorhexidine MOUTHWASH 0.12% 15 ML UDC TOPICAL SCH ×7 (00:59→23:30)
[2019-09-28 03:51] LABS: Hematocrit 27 % (42-52); Mean Corpuscular HGB Conc 34 g/dL (31-36); Mean Corpuscular Hemoglobin 33 pg (27-31); Mean Corpuscular Volume 97 fL (80-94); Mean Platelet Volume 9.5 fL (7.4-10.4); Platelet Count 299 10^3/uL (150-450); Red Blood Count 2.75 10^6 /uL (4.18-5.48); Red Cell Distribution Width 16 % (10-15); White Blood Count 14.8 10^3/uL (3.5-10.8)
[2019-09-28] MEDS: Thiamine 100 MG/ML 2 ml VIAL 500 MG in NS 0.9% 250 ml 250 ML IV SCH ×3 (03:59→20:48)
[2019-09-28 04:06] LABS: Albumin 2.7 g/dL (3.2-5.2); Albumin/Globulin Ratio 0.8 (1-3); BUN/Creatinine Ratio 21.2 (8-20); Calcium 8.2 mg/dL (8.6-10.3); EGFR African American 159.4 (>60); EGFR Non-African American 131.7 (>60); Globulin 3.5 g/dL (2-4); Potassium 3.4 mmol/L (3.5-5.0); Total Protein 6.2 g/dL (6.4-8.9)
[2019-09-28] MEDS: Famotidine IV 10 MG/ML 2 ml VIAL (20 mg) IV SLOW PU SCH ×2 (09:00→20:49)
[2019-09-28] MEDS: Multivitamins ADULT w/MIN LIQ 15 ML UDC PO SCH (09:02)
[2019-09-28] MEDS ORDERED: Magnesium Sulfate IV 3 GM in NS 0.9% 100 ml BAG 100 ML IVPB ONE (12:00)
[2019-09-28] MEDS: fentaNYL INFUSION 50 MCG/ML 2,500 MCG/50 ML BAG IV SCH (12:22)
[2019-09-28] MEDS: fentaNYL 100 mcg/2 ml 50 MCG/ML VIAL IV SLOW PU PRN (12:38)
[2019-09-28] MEDS: KCL 20 MEQ/100 ML IVPREMIX 20 MEQ/100 ML BAG IV SCH ×2 (12:39→14:43)
[2019-09-28] MEDS: Dexmedetomidine 1,000 MCG in NS 0.9% 250 ml 240 ML IV SCH ×2 (12:45→20:49)
[2019-09-28] MEDS ORDERED: chlorproMAZINE 25 MG/ML 2 ML (50 MG) IV ONE (13:45)
[2019-09-28] MEDS: chlorproMAZINE 25 MG/ML 2 ML (50 MG) IV PRN ×2 (18:01→22:13)
[2019-09-28] MEDS ORDERED: Lorazepam PYXIS KEY ONE (19:15)
[2019-09-28] MEDS: LORazepam 2 mg VIAL 1 ml IV PUSH PRN (19:19)
[2019-09-28] MEDS: Enoxaparin 40 MG/0.4 ML SYR SUBCUT SCH (20:48)
[2019-09-28] MEDS: Insulin GLARGINE 100 un/ml 10 ml VIAL SUBCUT SCH (20:48)
[2019-09-29] MEDS: Chlorhexidine MOUTHWASH 0.12% 15 ML UDC TOPICAL SCH ×5 (03:36→20:47)
[2019-09-29] MEDS: Dexmedetomidine 1,000 MCG in NS 0.9% 250 ml 240 ML IV SCH ×4 (04:40→22:44)
[2019-09-29] MEDS: chlorproMAZINE 25 MG/ML 2 ML (50 MG) IV PRN ×2 (04:47→10:25)
[2019-09-29] MEDS: Oxacillin 2 GM in NS 0.9% 100 ml BAG 100 ML IVPB SCH ×3 (05:54→18:08)
[2019-09-29] MEDS: Thiamine 100 MG/ML 2 ml VIAL 500 MG in NS 0.9% 250 ml 250 ML IV SCH ×2 (05:54→14:01)
[2019-09-29 05:59] LABS: Hematocrit 26 % (42-52); Hemoglobin 8.7 g/dL (14.0-18.0); Mean Corpuscular HGB Conc 34 g/dL (31-36); Mean Corpuscular Hemoglobin 33 pg (27-31); Mean Corpuscular Volume 99 fL (80-94); Mean Platelet Volume 9.3 fL (7.4-10.4); Platelet Count 390 10^3/uL (150-450); Red Blood Count 2.62 10^6 /uL (4.18-5.48); Red Cell Distribution Width 17 % (10-15); White Blood Count 16.3 10^3/uL (3.5-10.8)
[2019-09-29] MEDS: fentaNYL 100 mcg/2 ml 50 MCG/ML VIAL IV SLOW PU PRN ×6 (06:03→21:35)
[2019-09-29 06:23] LABS: ALT 41 U/L (7-52); AST 35 U/L (13-39); Albumin 2.6 g/dL (3.2-5.2); Albumin/Globulin Ratio 0.7 (1-3); Alkaline Phosphatase 208 U/L (34-104); Anion Gap 12 mmol/L (2-11); BUN/Creatinine Ratio 18.2 (8-20); Blood Urea Nitrogen 10 mg/dL (6-24); CO2 Carbon Dioxide 24 mmol/L (22-32); Calcium 8.7 mg/dL (8.6-10.3); Chloride 103 mmol/L (101-111); EGFR African American 196.7 (>60); EGFR Non-African American 162.6 (>60); Globulin 3.8 g/dL (2-4); Glucose 287 mg/dL (70-100); Lipase 12 U/L (11.0-82.0); Potassium 3.5 mmol/L (3.5-5.0); Sodium 139 mmol/L (135-145); Total Protein 6.4 g/dL (6.4-8.9); Triglycerides 263 mg/dL
[2019-09-29] MEDS: Multivitamins ADULT w/MIN LIQ 15 ML UDC PO SCH (08:08)
[2019-09-29] MEDS: Famotidine IV 10 MG/ML 2 ml VIAL (20 mg) IV SLOW PU SCH ×2 (08:08→20:48)
[2019-09-29] MEDS ORDERED: Iohexol 300 (CONTRAST) 10 ML SDV IV ONE (08:50)
[2019-09-29] MEDS ORDERED: fentaNYL 100 mcg/2 ml 50 MCG/ML VIAL IV ONE (11:30)
[2019-09-29 13:28] LABS: TSH Ultra Thyroid Stim Horm 1.35 mcIU/mL (0.34-5.60)
[2019-09-29 13:39] LABS: Vitamin B12 > 1450 pg/mL (180-914)
[2019-09-29] MEDS ORDERED: Iodixanol (CONTRAST) 320 MG/ML 100 ML SDV IV ONE (13:54)
[2019-09-29 14:34] LABS: Creatine Kinase 653 U/L (10-223)
[2019-09-29] MEDS ORDERED: Metoprolol Tartrate 5 mg VIAL 5 ml VIAL (1 mg/ml) ONE (16:10)
[2019-09-29] MEDS ORDERED: fentaNYL 100 mcg/2 ml 50 MCG/ML VIAL ONE (16:35)
[2019-09-29] MEDS: Enoxaparin 40 MG/0.4 ML SYR SUBCUT SCH (20:47)
[2019-09-29] MEDS: Insulin GLARGINE 100 un/ml 10 ml VIAL SUBCUT SCH (20:48)
[2019-09-29] MEDS ORDERED: Ziprasidone IM 20 mg VIAL 1 ml VIAL IM ONE (22:21)
[2019-09-29] MEDS ORDERED: Ziprasidone IM 20 mg VIAL 1 ml VIAL ONE (22:25)
[2019-09-30] MEDS: Chlorhexidine MOUTHWASH 0.12% 15 ML UDC TOPICAL SCH ×6 (00:15→20:30)
[2019-09-30] MEDS: Oxacillin 2 GM in NS 0.9% 100 ml BAG 100 ML IVPB SCH ×4 (00:16→18:17)
[2019-09-30 04:11] LABS: Hematocrit 24 % (42-52); Mean Corpuscular HGB Conc 34 g/dL (31-36); Mean Corpuscular Hemoglobin 33 pg (27-31); Mean Corpuscular Volume 98 fL (80-94); Mean Platelet Volume 8.9 fL (7.4-10.4); Platelet Count 499 10^3/uL (150-450); Red Blood Count 2.42 10^6 /uL (4.18-5.48); Red Cell Distribution Width 17 % (10-15); White Blood Count 10.7 10^3/uL (3.5-10.8)
[2019-09-30 04:28] LABS: Albumin 2.5 g/dL (3.2-5.2); Albumin/Globulin Ratio 0.7 (1-3); BUN/Creatinine Ratio 18.8 (8-20); Calcium 8.4 mg/dL (8.6-10.3); EGFR African American 165.2 (>60); EGFR Non-African American 136.5 (>60); Globulin 3.8 g/dL (2-4); Potassium 3.4 mmol/L (3.5-5.0); Total Bilirubin 0.6 mg/dL (0.2-1.0); Total Protein 6.3 g/dL (6.4-8.9)
[2019-09-30] MEDS: fentaNYL 100 mcg/2 ml 50 MCG/ML VIAL IV SLOW PU PRN ×7 (05:09→23:45)
[2019-09-30] MEDS ORDERED: Ziprasidone IM 20 mg VIAL 1 ml VIAL IM ONE ×2 (05:35→23:41)
[2019-09-30] MEDS: fentaNYL INFUSION 50 MCG/ML 2,500 MCG/50 ML BAG IV SCH ×2 (06:47→19:58)
[2019-09-30] MEDS: Dexmedetomidine 1,000 MCG in NS 0.9% 250 ml 240 ML IV SCH ×2 (07:51→16:16)
[2019-09-30] MEDS: Famotidine IV 10 MG/ML 2 ml VIAL (20 mg) IV SLOW PU SCH ×2 (08:13→21:36)
[2019-09-30] MEDS: Multivitamins ADULT w/MIN LIQ 15 ML UDC PO SCH (08:14)
[2019-09-30 08:18] LABS: Magnesium 1.9 mg/dL (1.9-2.7)
[2019-09-30] MEDS: Thiamine 100 MG/ML 2 ml VIAL 250 MG in NS 0.9% 100 ml BAG 100 ML IV SCH (09:14)
[2019-09-30] MEDS ORDERED: Potassium Chloride LIQUID 20 MEQ/15 ML LIQUID PO ONE (10:50)
[2019-09-30] MEDS ORDERED: Magnesium Sulfate 2 gm BAG 2 GM/50 ML BAG IVPB ONE (10:50)
[2019-09-30] MEDS: Polyethylene Glycol 3350 17 GM PACKET PO SCH ×2 (11:24→21:37)
[2019-09-30] MEDS ORDERED: fentaNYL 100 mcg/2 ml 50 MCG/ML VIAL ONE ×3 (11:48→18:50)
[2019-09-30] MEDS ORDERED: fentaNYL 100 mcg/2 ml 50 MCG/ML VIAL IV SLOW PU ONE (18:32)
[2019-09-30] MEDS: Enoxaparin 40 MG/0.4 ML SYR SUBCUT SCH (21:36)
[2019-09-30] MEDS: Insulin GLARGINE 100 un/ml 10 ml VIAL SUBCUT SCH (21:37)
[2019-09-30] MEDS ORDERED: Ziprasidone IM 20 mg VIAL 1 ml VIAL ONE (23:42)
[2019-10-01] MEDS: Chlorhexidine MOUTHWASH 0.12% 15 ML UDC TOPICAL SCH ×6 (00:17→20:07)
[2019-10-01] MEDS: Dexmedetomidine 1,000 MCG in NS 0.9% 250 ml 240 ML IV SCH ×3 (00:23→17:37)
[2019-10-01] MEDS: Oxacillin 2 GM in NS 0.9% 100 ml BAG 100 ML IVPB SCH ×4 (00:31→18:01)
[2019-10-01 05:33] LABS: ABS Eosinophils 0.4 10^3/ul (0-0.6); ABS Lymphocytes 1.6 10^3/ul (1.0-4.8); ABS Monocytes 0.6 10^3/ul (0-0.8); ABS Neutrophils 6.9 10^3/ul (1.5-7.7); Eosinophil % 3.9 %; Hematocrit 24 % (42-52); Hemoglobin 7.9 g/dL (14.0-18.0); Lymphocyte % 16.9 %; Mean Corpuscular HGB Conc 33 g/dL (31-36); Mean Corpuscular Hemoglobin 33 pg (27-31); Mean Corpuscular Volume 99 fL (80-94); Mean Platelet Volume 8.6 fL (7.4-10.4); Nucleated Red Blood Cells % 0.1; Platelet Count 639 10^3/uL (150-450); Red Blood Count 2.43 10^6 /uL (4.18-5.48); Red Cell Distribution Width 17 % (10-15); White Blood Count 9.5 10^3/uL (3.5-10.8)
[2019-10-01 05:43] LABS: BUN/Creatinine Ratio 14.9 (8-20); Calcium 8.1 mg/dL (8.6-10.3); EGFR African American 235.8 (>60); EGFR Non-African American 194.9 (>60); Potassium 3.3 mmol/L (3.5-5.0)
[2019-10-01] MEDS: fentaNYL 100 mcg/2 ml 50 MCG/ML VIAL IV SLOW PU PRN ×8 (06:47→22:47)
[2019-10-01] MEDS ORDERED: Ketamine HCL 50 mg/ml 10 ml VIAL (500 MG) IV STA (07:10)
[2019-10-01] MEDS ORDERED: Potassium Chloride LIQUID 20 MEQ/15 ML LIQUID PO ONE (07:54)
[2019-10-01] MEDS ORDERED: PHENobarbital IV 65 MG/ML 1 ml VIAL IVPB SCH (08:00)
[2019-10-01] MEDS: PHENobarbital IV 260 MG in NS 0.9% 50 ML 50 ML IVPB SCH ×2 (08:35→17:25)
[2019-10-01] MEDS ORDERED: NS 0.9% IV SCH (09:00)
[2019-10-01] MEDS ORDERED: KETAMINE HCL IV SCH (09:00)
[2019-10-01] MEDS: fentaNYL INFUSION 50 MCG/ML 2,500 MCG/50 ML BAG IV SCH (09:01)
[2019-10-01] MEDS: Famotidine IV 10 MG/ML 2 ml VIAL (20 mg) IV SLOW PU SCH ×2 (09:20→21:27)
[2019-10-01] MEDS: Multivitamins ADULT w/MIN LIQ 15 ML UDC PO SCH (09:21)
[2019-10-01] MEDS: Thiamine 100 MG/ML 2 ml VIAL 250 MG in NS 0.9% 100 ml BAG 100 ML IV SCH (09:52)
[2019-10-01] MEDS: Polyethylene Glycol 3350 17 GM PACKET PO SCH ×2 (10:48→21:27)
[2019-10-01] MEDS ORDERED: Furosemide 40 mg/4 ml IV VIAL IV ONE (13:43)
[2019-10-01] MEDS: Midazolam 50 MG VIAL IV DRIP 50 ML IV SCH (16:12)
[2019-10-01] MEDS: Insulin GLARGINE 100 un/ml 10 ml VIAL SUBCUT SCH (21:27)
[2019-10-01] MEDS: Enoxaparin 40 MG/0.4 ML SYR SUBCUT SCH (21:27)
[2019-10-02] MEDS: fentaNYL 100 mcg/2 ml 50 MCG/ML VIAL IV SLOW PU PRN ×5 (00:04→19:25)
[2019-10-02] MEDS: Chlorhexidine MOUTHWASH 0.12% 15 ML UDC TOPICAL SCH ×6 (00:05→19:27)
[2019-10-02] MEDS: Oxacillin 2 GM in NS 0.9% 100 ml BAG 100 ML IVPB SCH ×4 (00:15→18:07)
[2019-10-02] MEDS: Midazolam 50 MG VIAL IV DRIP 50 ML IV SCH ×4 (01:13→19:25)
[2019-10-02] MEDS: PHENobarbital IV 260 MG in NS 0.9% 50 ML 50 ML IVPB SCH ×3 (01:13→16:55)
[2019-10-02 05:26] LABS: Hematocrit 25 % (42-52); Hemoglobin 8.5 g/dL (14.0-18.0); Mean Corpuscular HGB Conc 34 g/dL (31-36); Mean Corpuscular Hemoglobin 33 pg (27-31); Mean Corpuscular Volume 97 fL (80-94); Mean Platelet Volume 8.4 fL (7.4-10.4); Platelet Count 751 10^3/uL (150-450); Red Blood Count 2.61 10^6 /uL (4.18-5.48); Red Cell Distribution Width 17 % (10-15); White Blood Count 9.1 10^3/uL (3.5-10.8)
[2019-10-02 05:37] LABS: BUN/Creatinine Ratio 7.4 (8-20); Calcium 8.4 mg/dL (8.6-10.3); EGFR African American 200.9 (>60); EGFR Non-African American 166.1 (>60); Potassium 3.2 mmol/L (3.5-5.0)
[2019-10-02 06:35] LABS: ABS Basophils 0.1 10^3/ul (0-0.2); ABS Eosinophils 0.4 10^3/ul (0-0.6); ABS Lymphocytes 1.7 10^3/ul (1.0-4.8); ABS Monocytes 0.5 10^3/ul (0-0.8); ABS Neutrophils 6.3 10^3/ul (1.5-7.7); Eosinophil % 4.8 %; Lymphocyte % 18.9 %
[2019-10-02] MEDS: Thiamine 100 MG/ML 2 ml VIAL 250 MG in NS 0.9% 100 ml BAG 100 ML IV SCH (08:10)
[2019-10-02] MEDS: fentaNYL INFUSION 50 MCG/ML 2,500 MCG/50 ML BAG IV SCH (08:21)
[2019-10-02] MEDS: Famotidine IV 10 MG/ML 2 ml VIAL (20 mg) IV SLOW PU SCH ×2 (09:30→21:31)
[2019-10-02] MEDS: Polyethylene Glycol 3350 17 GM PACKET PO SCH ×2 (09:31→21:32)
[2019-10-02] MEDS: Multivitamins ADULT w/MIN LIQ 15 ML UDC PO SCH (09:31)
[2019-10-02] MEDS ORDERED: Potassium Chloride LIQUID 20 MEQ/15 ML LIQUID PO STA (10:49)
[2019-10-02] MEDS ORDERED: Furosemide 40 mg/4 ml IV VIAL IV ONE (10:56)
[2019-10-02] MEDS: Dexmedetomidine 1,000 MCG in NS 0.9% 250 ml 240 ML IV SCH (16:19)
[2019-10-02] MEDS: Enoxaparin 40 MG/0.4 ML SYR SUBCUT SCH (21:31)
[2019-10-02] MEDS: Insulin GLARGINE 100 un/ml 10 ml VIAL SUBCUT SCH (21:31)
[2019-10-03] MEDS: Oxacillin 2 GM in NS 0.9% 100 ml BAG 100 ML IVPB SCH ×2 (00:15→05:11)
[2019-10-03] MEDS: Chlorhexidine MOUTHWASH 0.12% 15 ML UDC TOPICAL SCH ×7 (00:16→23:52)
[2019-10-03] MEDS: Dexmedetomidine 1,000 MCG in NS 0.9% 250 ml 240 ML IV SCH ×3 (00:28→15:59)
[2019-10-03] MEDS: PHENobarbital IV 260 MG in NS 0.9% 50 ML 50 ML IVPB SCH ×2 (01:07→08:50)
[2019-10-03] MEDS: Midazolam 50 MG VIAL IV DRIP 50 ML IV SCH ×2 (01:09→09:54)
[2019-10-03 05:08] LABS: Hematocrit 24 % (42-52); Hemoglobin 8.3 g/dL (14.0-18.0); Mean Corpuscular HGB Conc 34 g/dL (31-36); Mean Corpuscular Hemoglobin 33 pg (27-31); Mean Corpuscular Volume 97 fL (80-94); Mean Platelet Volume 8.4 fL (7.4-10.4); Platelet Count 769 10^3/uL (150-450); Red Blood Count 2.51 10^6 /uL (4.18-5.48); Red Cell Distribution Width 16 % (10-15); White Blood Count 6.5 10^3/uL (3.5-10.8)
[2019-10-03 05:27] LABS: Albumin 2.5 g/dL (3.2-5.2); Albumin/Globulin Ratio 0.6 (1-3); Calcium 8.4 mg/dL (8.6-10.3); EGFR African American 219.6 (>60); EGFR Non-African American 181.5 (>60); Globulin 3.9 g/dL (2-4); Indirect Bilirubin 0.3 mg/dL (0.3-1.0); Magnesium 1.9 mg/dL (1.9-2.7); Potassium 3.4 mmol/L (3.5-5.0); Total Bilirubin 0.4 mg/dL (0.2-1.0); Total Protein 6.4 g/dL (6.4-8.9)
[2019-10-03 07:20] LABS: ABS Eosinophils 0.3 10^3/ul (0-0.6); ABS Lymphocytes 1.5 10^3/ul (1.0-4.8); ABS Monocytes 0.4 10^3/ul (0-0.8); ABS Neutrophils 4.2 10^3/ul (1.5-7.7); Eosinophil % 5.3 %; Lymphocyte % 22.4 %; Nucleated Red Blood Cells % 0.1
[2019-10-03] MEDS: Famotidine IV 10 MG/ML 2 ml VIAL (20 mg) IV SLOW PU SCH ×2 (08:49→21:20)
[2019-10-03] MEDS: Multivitamins ADULT w/MIN LIQ 15 ML UDC PO SCH (08:50)
[2019-10-03] MEDS: Polyethylene Glycol 3350 17 GM PACKET PO SCH (08:50)
[2019-10-03] MEDS ORDERED: Piperacillin/Tazobac ADVAN 3.375 GM in NS 0.9% 100 ml BAG 100 ML IVPB ONE (11:11)
[2019-10-03] MEDS ORDERED: Vancomycin per Pharmacy 1 EA NOTE FOLLOW UP PRN (11:27)
[2019-10-03] MEDS: Potassium Chlor 20 meq TAB.ER PO SCH ×2 (11:36→14:38)
[2019-10-03] MEDS ORDERED: Linezolid 600 MG IVPREMIX(*) 600 MG/300 ML BAG IVPB SCH (12:00)
[2019-10-03] MEDS ORDERED: Zosyn per Pharmacy NOTE FOLLOW UP SCH (12:00)
[2019-10-03] MEDS ORDERED: Vancomycin 1500 MG IV - x ONCE IVPB ONE (12:00)
[2019-10-03] MEDS: Azithromycin 500 mg/250 ml NS 500 MG/250 ML BAG IVPB SCH (12:31)
[2019-10-03] MEDS ORDERED: PHENobarbital IV 260 MG in NS 0.9% 50 ML 50 ML IVPB SCH (17:00)
[2019-10-03] MEDS: PHENobarbital IV 130 MG in NS 0.9% 50 ML 50 ML IVPB SCH (17:21)
[2019-10-03] MEDS: ZOSYN 3.375 GM Q8H per EXTENDED INFUSION IV SCH (17:21)
[2019-10-03] MEDS: fentaNYL 100 mcg/2 ml 50 MCG/ML VIAL IV SLOW PU PRN ×2 (17:48→19:50)
[2019-10-03] MEDS: Enoxaparin 40 MG/0.4 ML SYR SUBCUT SCH (21:20)
[2019-10-03] MEDS: Insulin GLARGINE 100 un/ml 10 ml VIAL SUBCUT SCH (21:20)
[2019-10-03] MEDS: Vancomycin 1,250 MG in NS 0.9% 250 ml 250 ML IV SCH (22:36)
[2019-10-04] MEDS: Dexmedetomidine 1,000 MCG in NS 0.9% 250 ml 240 ML IV SCH ×3 (00:14→17:59)
[2019-10-04] MEDS: Midazolam 50 MG VIAL IV DRIP 50 ML IV SCH ×2 (00:44→08:43)
[2019-10-04] MEDS: PHENobarbital IV 130 MG in NS 0.9% 50 ML 50 ML IVPB SCH ×3 (00:46→20:52)
[2019-10-04] MEDS: ZOSYN 3.375 GM Q8H per EXTENDED INFUSION IV SCH ×4 (01:17→23:54)
[2019-10-04] MEDS: Chlorhexidine MOUTHWASH 0.12% 15 ML UDC TOPICAL SCH ×6 (04:02→23:54)
[2019-10-04 04:24] LABS: Hematocrit 26 % (42-52); Hemoglobin 8.7 g/dL (14.0-18.0); Mean Corpuscular HGB Conc 33 g/dL (31-36); Mean Corpuscular Hemoglobin 32 pg (27-31); Mean Corpuscular Volume 97 fL (80-94); Mean Platelet Volume 8.4 fL (7.4-10.4); Platelet Count 854 10^3/uL (150-450); Red Blood Count 2.69 10^6 /uL (4.18-5.48); Red Cell Distribution Width 17 % (10-15); White Blood Count 7.3 10^3/uL (3.5-10.8)
[2019-10-04 04:40] LABS: BUN/Creatinine Ratio 8.8 (8-20); Calcium 8.1 mg/dL (8.6-10.3); EGFR Non-African American 127.3 (>60); Potassium 3.7 mmol/L (3.5-5.0)
[2019-10-04 05:46] LABS: ABS Basophils 0.1 10^3/ul (0-0.2); ABS Eosinophils 0.3 10^3/ul (0-0.6); ABS Lymphocytes 0.9 10^3/ul (1.0-4.8); ABS Monocytes 0.5 10^3/ul (0-0.8); ABS Neutrophils 5.5 10^3/ul (1.5-7.7); Eosinophil % 4.4 %
[2019-10-04 07:44] LABS: Urine Appearance Clear; Urine Bilirubin Negative (Negative); Urine Blood 1+ (Negative); Urine Color Yellow; Urine Glucose Negative (Negative); Urine Ketones Negative (Negative); Urine Nitrite Negative (Negative); Urine Protein Negative (Negative); Urine Specific Gravity 1.005 (1.010-1.030); Urine Urobilinogen Negative (Negative)
[2019-10-04 07:56] LABS: Urine Bacteria Absent (Absent); Urine Red Blood Cell 2+(6-10/hpf) (Absent); Urine White Blood Cell 1+(6-10/hpf) (Absent)
[2019-10-04] MEDS: Famotidine IV 10 MG/ML 2 ml VIAL (20 mg) IV SLOW PU SCH ×2 (08:11→20:19)
[2019-10-04] MEDS: Multivitamins ADULT w/MIN LIQ 15 ML UDC PO SCH (08:11)
[2019-10-04] MEDS: fentaNYL 100 mcg/2 ml 50 MCG/ML VIAL IV SLOW PU PRN (10:17)
[2019-10-04] MEDS: Vancomycin 1,250 MG in NS 0.9% 250 ml 250 ML IV SCH ×2 (11:05→23:45)
[2019-10-04] MEDS ORDERED: Insulin GLARGINE 100 un/ml 10 ml VIAL SUBCUT ONE (11:17)
[2019-10-04] MEDS: Azithromycin 500 mg/250 ml NS 500 MG/250 ML BAG IVPB SCH (12:47)
[2019-10-04] MEDS: Enoxaparin 40 MG/0.4 ML SYR SUBCUT SCH (20:19)
[2019-10-04] MEDS ORDERED: Insulin GLARGINE 100 un/ml 10 ml VIAL SUBCUT SCH (21:00)
[2019-10-04] MEDS: fentaNYL INFUSION 50 MCG/ML 2,500 MCG/50 ML BAG IV SCH (22:30)
[2019-10-05] MEDS: Dexmedetomidine 1,000 MCG in NS 0.9% 250 ml 240 ML IV SCH ×3 (02:23→19:36)
[2019-10-05] MEDS: Chlorhexidine MOUTHWASH 0.12% 15 ML UDC TOPICAL SCH ×6 (05:18→23:08)
[2019-10-05 05:50] LABS: Hematocrit 25 % (42-52); Hemoglobin 8.5 g/dL (14.0-18.0); Mean Corpuscular HGB Conc 34 g/dL (31-36); Mean Corpuscular Hemoglobin 33 pg (27-31); Mean Corpuscular Volume 98 fL (80-94); Mean Platelet Volume 8.3 fL (7.4-10.4); Platelet Count 713 10^3/uL (150-450); Red Blood Count 2.56 10^6 /uL (4.18-5.48); Red Cell Distribution Width 17 % (10-15); White Blood Count 5.8 10^3/uL (3.5-10.8)
[2019-10-05 06:29] LABS: BUN/Creatinine Ratio 11.5 (8-20); Calcium 8.7 mg/dL (8.6-10.3); EGFR African American 174.6 (>60); EGFR Non-African American 144.3 (>60); Potassium 3.9 mmol/L (3.5-5.0)
[2019-10-05 06:39] LABS: Magnesium 2.1 mg/dL (1.9-2.7)
[2019-10-05 07:54] LABS: ABS Basophils 0.1 10^3/ul (0-0.2); ABS Eosinophils 0.3 10^3/ul (0-0.6); ABS Monocytes 0.5 10^3/ul (0-0.8); ABS Neutrophils 3.9 10^3/ul (1.5-7.7); Eosinophil % 5.1 %; Lymphocyte % 17.9 %; Nucleated Red Blood Cells % 0.1
[2019-10-05] MEDS: ZOSYN 3.375 GM Q8H per EXTENDED INFUSION IV SCH ×3 (08:23→23:08)
[2019-10-05] MEDS: Famotidine IV 10 MG/ML 2 ml VIAL (20 mg) IV SLOW PU SCH ×2 (08:26→20:21)
[2019-10-05] MEDS: Multivitamins ADULT w/MIN LIQ 15 ML UDC PO SCH (08:28)
[2019-10-05] MEDS: PHENobarbital IV 130 MG in NS 0.9% 50 ML 50 ML IVPB SCH (08:55)
[2019-10-05] MEDS ORDERED: Furosemide 40 mg/4 ml IV VIAL IV ONE (09:30)
[2019-10-05] MEDS ORDERED: Vancomycin Trough Check NOTE FOLLOW UP ONE (10:30)
[2019-10-05] MEDS: Vancomycin 1,250 MG in NS 0.9% 250 ml 250 ML IV SCH ×2 (12:29→19:36)
[2019-10-05] MEDS: Azithromycin 500 mg/250 ml NS 500 MG/250 ML BAG IVPB SCH (12:32)
[2019-10-05] MEDS: fentaNYL 100 mcg/2 ml 50 MCG/ML VIAL IV SLOW PU PRN ×2 (19:44→23:08)
[2019-10-05] MEDS: Enoxaparin 40 MG/0.4 ML SYR SUBCUT SCH (20:20)
[2019-10-05] MEDS: Insulin GLARGINE 100 un/ml 10 ml VIAL SUBCUT SCH (20:21)
[2019-10-06] MEDS: Chlorhexidine MOUTHWASH 0.12% 15 ML UDC TOPICAL SCH ×5 (03:28→19:31)
[2019-10-06] MEDS: fentaNYL 100 mcg/2 ml 50 MCG/ML VIAL IV SLOW PU PRN ×4 (03:28→22:33)
[2019-10-06] MEDS: Vancomycin 1,250 MG in NS 0.9% 250 ml 250 ML IV SCH ×3 (03:28→19:31)
[2019-10-06 03:58] LABS: Hematocrit 27 % (42-52); Hemoglobin 9.2 g/dL (14.0-18.0); Mean Corpuscular HGB Conc 34 g/dL (31-36); Mean Corpuscular Hemoglobin 33 pg (27-31); Mean Corpuscular Volume 96 fL (80-94); Mean Platelet Volume 8.3 fL (7.4-10.4); Platelet Count 729 10^3/uL (150-450); Red Blood Count 2.79 10^6 /uL (4.18-5.48); Red Cell Distribution Width 16 % (10-15); White Blood Count 6.8 10^3/uL (3.5-10.8)
[2019-10-06 04:16] LABS: Albumin 2.7 g/dL (3.2-5.2); Albumin/Globulin Ratio 0.6 (1-3); BUN/Creatinine Ratio 10.8 (8-20); Calcium 8.4 mg/dL (8.6-10.3); EGFR African American 139.7 (>60); EGFR Non-African American 115.4 (>60); Globulin 4.2 g/dL (2-4); Magnesium 2.1 mg/dL (1.9-2.7); Phosphorus 4.9 mg/dL (2.5-5.0); Potassium 3.4 mmol/L (3.5-5.0); Total Bilirubin 0.4 mg/dL (0.2-1.0); Total Protein 6.9 g/dL (6.4-8.9)
[2019-10-06] MEDS: Dexmedetomidine 1,000 MCG in NS 0.9% 250 ml 240 ML IV SCH ×3 (04:23→23:47)
[2019-10-06 05:17] LABS: ABS Basophils 0.1 10^3/ul (0-0.2); ABS Eosinophils 0.4 10^3/ul (0-0.6); ABS Lymphocytes 1.6 10^3/ul (1.0-4.8); ABS Monocytes 0.7 10^3/ul (0-0.8); Lymphocyte % 24.3 %
[2019-10-06] MEDS: ZOSYN 3.375 GM Q8H per EXTENDED INFUSION IV SCH ×2 (08:24→16:06)
[2019-10-06] MEDS: Famotidine IV 10 MG/ML 2 ml VIAL (20 mg) IV SLOW PU SCH ×2 (08:24→20:21)
[2019-10-06] MEDS: Multivitamins ADULT w/MIN LIQ 15 ML UDC PO SCH (08:24)
[2019-10-06] MEDS ORDERED: KCL 10 MEQ/100 ML IVPREMIX 100 ml BAG IVPB ONE (10:17)
[2019-10-06] MEDS ORDERED: Potassium Chlor 20 meq TAB.ER PO ONE (10:17)
[2019-10-06] MEDS ORDERED: KCL 20 MEQ/100 ML IVPREMIX 20 MEQ/100 ML BAG IV ONE (11:00)
[2019-10-06] MEDS ORDERED: Potassium Chloride LIQUID 20 MEQ/15 ML LIQUID PEG TUBE ONE (11:30)
[2019-10-06] MEDS: Azithromycin 500 mg/250 ml NS 500 MG/250 ML BAG IVPB SCH (12:26)
[2019-10-06] MEDS: Insulin GLARGINE 100 un/ml 10 ml VIAL SUBCUT SCH (20:21)
[2019-10-06] MEDS: Enoxaparin 40 MG/0.4 ML SYR SUBCUT SCH (20:21)
[2019-10-07] MEDS: ZOSYN 3.375 GM Q8H per EXTENDED INFUSION IV SCH ×3 (01:05→16:37)
[2019-10-07] MEDS: Chlorhexidine MOUTHWASH 0.12% 15 ML UDC TOPICAL SCH ×5 (01:05→16:28)
[2019-10-07] MEDS: fentaNYL 100 mcg/2 ml 50 MCG/ML VIAL IV SLOW PU PRN ×2 (03:28→10:11)
[2019-10-07] MEDS: Vancomycin 1,250 MG in NS 0.9% 250 ml 250 ML IV SCH ×2 (05:45→13:48)
[2019-10-07] MEDS: Famotidine IV 10 MG/ML 2 ml VIAL (20 mg) IV SLOW PU SCH ×2 (08:09→21:13)
[2019-10-07 09:46] LABS: ABS Basophils 0.1 10^3/ul (0-0.2); ABS Eosinophils 0.3 10^3/ul (0-0.6); ABS Lymphocytes 1.3 10^3/ul (1.0-4.8); ABS Monocytes 0.8 10^3/ul (0-0.8); ABS Neutrophils 6.2 10^3/ul (1.5-7.7); Eosinophil % 3.2 %; Hematocrit 30 % (42-52); Lymphocyte % 15.4 %; Mean Corpuscular HGB Conc 34 g/dL (31-36); Mean Corpuscular Hemoglobin 32 pg (27-31); Mean Corpuscular Volume 96 fL (80-94); Mean Platelet Volume 8.1 fL (7.4-10.4); Platelet Count 776 10^3/uL (150-450); Red Blood Count 3.09 10^6 /uL (4.18-5.48); Red Cell Distribution Width 16 % (10-15); White Blood Count 8.7 10^3/uL (3.5-10.8)
[2019-10-07 10:05] LABS: Albumin 3.1 g/dL (3.2-5.2); Albumin/Globulin Ratio 0.7 (1-3); BUN/Creatinine Ratio 8.7 (8-20); Calcium 9.1 mg/dL (8.6-10.3); EGFR African American 151.4 (>60); EGFR Non-African American 125.1 (>60); Globulin 4.6 g/dL (2-4); Magnesium 2.1 mg/dL (1.9-2.7); Phosphorus 4.1 mg/dL (2.5-5.0); Potassium 3.7 mmol/L (3.5-5.0); Total Bilirubin 0.4 mg/dL (0.2-1.0); Total Protein 7.7 g/dL (6.4-8.9)
[2019-10-07] MEDS: Multivitamins ADULT w/MIN LIQ 15 ML UDC PO SCH (10:45)
[2019-10-07] MEDS ORDERED: Vancomycin Trough Check NOTE FOLLOW UP ONE (11:30)
[2019-10-07] MEDS ORDERED: Vancomycin 1,000 MG in NS 0.9% 250 ml 250 ML IV SCH (13:27)
[2019-10-07] MEDS: Azithromycin 500 mg/250 ml NS 500 MG/250 ML BAG IVPB SCH (13:50)
[2019-10-07] MEDS: Vancomycin 1,000 MG in NS 0.9% 250 ml 250 ML IV SCH ×2 (13:52→22:28)
[2019-10-07] MEDS: Dexmedetomidine 1,000 MCG in NS 0.9% 250 ml 240 ML IV SCH (13:52)
[2019-10-07] MEDS ORDERED: Lidocaine 1% MPF 2 ML VIAL INJ ONE (17:12)
[2019-10-07] MEDS ORDERED: Buffered Lidocaine 1% SYRIN 1 ml INTRADERM ONE ×2 (17:13→17:16)
[2019-10-07] MEDS ORDERED: Lorazepam PYXIS KEY PRN (17:21)
[2019-10-07] MEDS: Enoxaparin 40 MG/0.4 ML SYR SUBCUT SCH (21:17)
[2019-10-07] MEDS: LORazepam 2 mg VIAL 1 ml IV PUSH PRN (21:29)
[2019-10-07] MEDS ORDERED: Insulin GLARGINE 100 un/ml 10 ml VIAL SUBCUT ONE (22:25)
[2019-10-07] MEDS: Insulin GLARGINE 100 un/ml 10 ml VIAL SUBCUT SCH (22:28)
[2019-10-08] MEDS: ZOSYN 3.375 GM Q8H per EXTENDED INFUSION IV SCH ×3 (00:48→17:32)
[2019-10-08 05:14] LABS: ABS Basophils 0.1 10^3/ul (0-0.2); ABS Eosinophils 0.2 10^3/ul (0-0.6); ABS Lymphocytes 1.7 10^3/ul (1.0-4.8); ABS Monocytes 0.9 10^3/ul (0-0.8); ABS Neutrophils 4.7 10^3/ul (1.5-7.7); Eosinophil % 3.2 %; Hematocrit 28 % (42-52); Hemoglobin 9.5 g/dL (14.0-18.0); Lymphocyte % 22.1 %; Mean Corpuscular HGB Conc 35 g/dL (31-36); Mean Corpuscular Hemoglobin 33 pg (27-31); Mean Corpuscular Volume 95 fL (80-94); Mean Platelet Volume 7.7 fL (7.4-10.4); Platelet Count 695 10^3/uL (150-450); Red Blood Count 2.88 10^6 /uL (4.18-5.48); Red Cell Distribution Width 16 % (10-15); White Blood Count 7.6 10^3/uL (3.5-10.8)
[2019-10-08 05:30] LABS: Albumin/Globulin Ratio 0.7 (1-3); BUN/Creatinine Ratio 8.6 (8-20); Calcium 8.4 mg/dL (8.6-10.3); EGFR African American 125.8 (>60); Globulin 4.4 g/dL (2-4); Phosphorus 3.7 mg/dL (2.5-5.0); Potassium 3.6 mmol/L (3.5-5.0); Total Bilirubin 0.4 mg/dL (0.2-1.0); Total Protein 7.4 g/dL (6.4-8.9)
[2019-10-08] MEDS: Vancomycin 1,000 MG in NS 0.9% 250 ml 250 ML IV SCH ×3 (06:05→22:52)
[2019-10-08] MEDS: Dexmedetomidine 1,000 MCG in NS 0.9% 250 ml 240 ML IV SCH ×2 (06:52→21:55)
[2019-10-08] MEDS: Famotidine IV 10 MG/ML 2 ml VIAL (20 mg) IV SLOW PU SCH ×2 (07:34→21:50)
[2019-10-08] MEDS: Multivitamins ADULT w/MIN LIQ 15 ML UDC PO SCH ×2 (07:35→10:01)
[2019-10-08] MEDS ORDERED: Metoprolol Tartrate 5 mg VIAL 5 ml VIAL (1 mg/ml) ONE (08:03)
[2019-10-08] MEDS ORDERED: Metoprolol Tartrate 5 mg VIAL 5 ml VIAL (1 mg/ml) IV PRN (08:03)
[2019-10-08] MEDS ORDERED: Lorazepam PYXIS KEY ONE ×4 (11:24→14:52)
[2019-10-08] MEDS ORDERED: LORazepam 2 mg VIAL 1 ml ONE ×4 (11:25→14:52)
[2019-10-08] MEDS: Azithromycin 500 mg/250 ml NS 500 MG/250 ML BAG IVPB SCH (11:47)
[2019-10-08] MEDS: LORazepam 2 mg VIAL 1 ml IV PUSH PRN (13:37)
[2019-10-08] MEDS ORDERED: LORazepam 2 mg VIAL 1 ml IV PUSH ONE (14:30)
[2019-10-08] MEDS ORDERED: Haloperidol 5 mg/ml SDV IV/IM 5 MG/ML AMP ONE (14:52)
[2019-10-08] MEDS: Insulin GLARGINE 100 un/ml 10 ml VIAL SUBCUT SCH (21:48)
[2019-10-08] MEDS: Enoxaparin 40 MG/0.4 ML SYR SUBCUT SCH (21:49)
[2019-10-09] MEDS: ZOSYN 3.375 GM Q8H per EXTENDED INFUSION IV SCH ×3 (00:29→16:19)
[2019-10-09 05:31] LABS: ABS Basophils 0.1 10^3/ul (0-0.2); ABS Eosinophils 0.4 10^3/ul (0-0.6); ABS Lymphocytes 1.4 10^3/ul (1.0-4.8); ABS Monocytes 0.9 10^3/ul (0-0.8); ABS Neutrophils 7.2 10^3/ul (1.5-7.7); Eosinophil % 4.1 %; Hematocrit 30 % (42-52); Lymphocyte % 14.3 %; Mean Corpuscular HGB Conc 34 g/dL (31-36); Mean Corpuscular Hemoglobin 32 pg (27-31); Mean Corpuscular Volume 96 fL (80-94); Mean Platelet Volume 8.2 fL (7.4-10.4); Platelet Count 698 10^3/uL (150-450); Red Blood Count 3.08 10^6 /uL (4.18-5.48); Red Cell Distribution Width 16 % (10-15); White Blood Count 10.1 10^3/uL (3.5-10.8)
[2019-10-09 05:42] LABS: Albumin 3.1 g/dL (3.2-5.2); Albumin/Globulin Ratio 0.7 (1-3); BUN/Creatinine Ratio 10.8 (8-20); Calcium 8.5 mg/dL (8.6-10.3); EGFR African American 122.4 (>60); EGFR Non-African American 101.1 (>60); Globulin 4.3 g/dL (2-4); Phosphorus 4.2 mg/dL (2.5-5.0); Potassium 3.7 mmol/L (3.5-5.0); Total Bilirubin 0.4 mg/dL (0.2-1.0); Total Protein 7.4 g/dL (6.4-8.9)
[2019-10-09] MEDS: Vancomycin 1,000 MG in NS 0.9% 250 ml 250 ML IV SCH ×2 (06:08→13:55)
[2019-10-09] MEDS: Dexmedetomidine 1,000 MCG in NS 0.9% 250 ml 240 ML IV SCH ×2 (07:30→18:01)
[2019-10-09] MEDS: Famotidine IV 10 MG/ML 2 ml VIAL (20 mg) IV SLOW PU SCH (08:07)
[2019-10-09] MEDS: Multivitamins ADULT w/MIN LIQ 15 ML UDC PO SCH (08:08)
[2019-10-09] MEDS ORDERED: Vancomycin Trough Check NOTE FOLLOW UP ONE (13:30)
[2019-10-09] MEDS: LORazepam 2 mg VIAL 1 ml IV PUSH PRN ×2 (15:15→20:34)
[2019-10-09] MEDS: Enoxaparin 40 MG/0.4 ML SYR SUBCUT SCH (20:38)
[2019-10-09] MEDS: Insulin GLARGINE 100 un/ml 10 ml VIAL SUBCUT SCH (21:14)
[2019-10-10] MEDS: Vancomycin 1,000 MG in NS 0.9% 250 ml 250 ML IV SCH (00:08)
[2019-10-10 05:08] LABS: Albumin 3.1 g/dL (3.2-5.2); Calcium 8.8 mg/dL (8.6-10.3); Potassium 3.5 mmol/L (3.5-5.0); Total Bilirubin 0.4 mg/dL (0.2-1.0)
[2019-10-10 05:14] LABS: Albumin/Globulin Ratio 0.8 (1-3); BUN/Creatinine Ratio 8.3 (8-20); EGFR African American 79.2 (>60); EGFR Non-African American 65.4 (>60); Globulin 3.9 g/dL (2-4); Phosphorus 4.5 mg/dL (2.5-5.0)
[2019-10-10 06:25] LABS: ABS Basophils 0.1 10^3/ul (0-0.2); ABS Eosinophils 0.4 10^3/ul (0-0.6); ABS Monocytes 0.9 10^3/ul (0-0.8); ABS Neutrophils 4.9 10^3/ul (1.5-7.7); Eosinophil % 5.2 %; Hematocrit 32 % (42-52); Hemoglobin 10.9 g/dL (14.0-18.0); Lymphocyte % 23.8 %; Mean Corpuscular HGB Conc 34 g/dL (31-36); Mean Corpuscular Hemoglobin 33 pg (27-31); Mean Corpuscular Volume 96 fL (80-94); Mean Platelet Volume 8.6 fL (7.4-10.4); Nucleated Red Blood Cells % 0.2; Platelet Count 626 10^3/uL (150-450); Red Blood Count 3.36 10^6 /uL (4.18-5.48); Red Cell Distribution Width 16 % (10-15); White Blood Count 8.3 10^3/uL (3.5-10.8)
[2019-10-10] MEDS: Multivitamins/Minerals TAB PO SCH (09:17)
[2019-10-10] MEDS ORDERED: NS 0.9% 500 ml BAG 500 ML IV ONE (11:35)
[2019-10-10] MEDS ORDERED: cloNIDine 0.1 MG PATCH 0.1 MG/24 HR 7 DAY PATCH TRANSDERM SCH (12:00)
[2019-10-10] MEDS: Insulin GLARGINE 100 un/ml 10 ml VIAL SUBCUT SCH (22:32)
[2019-10-10] MEDS: Enoxaparin 40 MG/0.4 ML SYR SUBCUT SCH (22:33)
[2019-10-11] MEDS: Multivitamins/Minerals TAB PO SCH (08:34)
[2019-10-11] MEDS: Nicotine PATCH 7 MG/24 HR PATCH TRANSDERM SCH (16:33)
[2019-10-11] MEDS: Insulin GLARGINE 100 un/ml 10 ml VIAL SUBCUT SCH (21:27)
[2019-10-11] MEDS: Enoxaparin 40 MG/0.4 ML SYR SUBCUT SCH (21:29)
[2019-10-12] MEDS ORDERED: Nicotine GUM 2MG FRUIT FLAVOR PO PRN (03:01)
[2019-10-12 06:57] LABS: ABS Basophils 0.1 10^3/ul (0-0.2); ABS Eosinophils 0.4 10^3/ul (0-0.6); ABS Lymphocytes 2.3 10^3/ul (1.0-4.8); ABS Monocytes 0.8 10^3/ul (0-0.8); ABS Neutrophils 5.1 10^3/ul (1.5-7.7); Eosinophil % 4.7 %; Hematocrit 31 % (42-52); Hemoglobin 10.5 g/dL (14.0-18.0); Lymphocyte % 26.8 %; Mean Corpuscular HGB Conc 34 g/dL (31-36); Mean Corpuscular Hemoglobin 32 pg (27-31); Mean Corpuscular Volume 93 fL (80-94); Mean Platelet Volume 8.4 fL (7.4-10.4); Platelet Count 579 10^3/uL (150-450); Red Blood Count 3.29 10^6 /uL (4.18-5.48); Red Cell Distribution Width 15 % (10-15); White Blood Count 8.7 10^3/uL (3.5-10.8)
[2019-10-12 07:10] LABS: Albumin 3.6 g/dL (3.2-5.2); Albumin/Globulin Ratio 0.8 (1-3); BUN/Creatinine Ratio 8.8 (8-20); Calcium 9.8 mg/dL (8.6-10.3); EGFR Non-African American 90.9 (>60); Globulin 4.3 g/dL (2-4); Potassium 3.3 mmol/L (3.5-5.0); Total Bilirubin 0.4 mg/dL (0.2-1.0); Total Protein 7.9 g/dL (6.4-8.9)
[2019-10-12] MEDS: Nicotine PATCH 7 MG/24 HR PATCH TRANSDERM SCH (08:20)
[2019-10-12] MEDS: Multivitamins/Minerals TAB PO SCH (08:21)
[2019-10-12 08:24] VITALS: BP 168/105
[2019-10-12] MEDS ORDERED: Potassium Chlor 20 meq TAB.ER PO ONE (08:55)
== END 2019-10-12 11:45 | disposition home or self-care (01) | DRG 282 ==
LOC: ED 18:36 → MED 21:43 → ICU 09-22 16:51 → MED 10-10 16:06
PROVIDERS: ADMIT Internal Medicine; ATTEND Hospitalist

== ENCOUNTER 2020-05-21 21:59 | Inpatient (IN) ==
[2020-05-21 23:06] LABS: ABS Basophils 0.1 10^3/ul (0-0.2); ABS Lymphocytes 4.1 10^3/ul (1.0-4.8); ABS Monocytes 0.3 10^3/ul (0-0.8); ABS Neutrophils 3.5 10^3/ul (1.5-7.7); Eosinophil % 0.5 %; Hematocrit 43 % (42-52); Lymphocyte % 51.1 %; Mean Corpuscular HGB Conc 35 g/dL (31-36); Mean Corpuscular Hemoglobin 29 pg (27-31); Mean Corpuscular Volume 83 fL (80-94); Mean Platelet Volume 9.4 fL (7.4-10.4); Nucleated Red Blood Cells % 0.1; Platelet Count 286 10^3/uL (150-450); Red Blood Count 5.22 10^6 /uL (4.18-5.48); Red Cell Distribution Width 14 % (10-15)
[2020-05-21 23:23] LABS: Urine Appearance Clear; Urine Bilirubin Negative (Negative); Urine Blood Negative (Negative); Urine Color Straw; Urine Glucose 3+(>=500 mg/dL) (Negative); Urine Ketones 1+ (Negative); Urine Nitrite Negative (Negative); Urine Protein Negative (Negative); Urine Specific Gravity 1.032 (1.010-1.030); Urine Urobilinogen Negative (Negative)
[2020-05-21 23:23] LABS: ALT 17 U/L (7-52); AST 21 U/L (13-39); Acetaminophen < 15 mcg/mL; Albumin 4.8 g/dL (3.2-5.2); Albumin/Globulin Ratio 1.3 (1-3); Alcohol, S 235 mg/dL (<10); Alkaline Phosphatase 191 U/L (34-104); BUN/Creatinine Ratio 15.1 (8-20); Blood Urea Nitrogen 13 mg/dL (6-24); Calcium 9.1 mg/dL (8.6-10.3); Chloride 93 mmol/L (101-111); EGFR African American 116.9 (>60); EGFR Non-African American 96.6 (>60); Globulin 3.6 g/dL (2-4); Glucose 473 mg/dL (70-100); Potassium 3.3 mmol/L (3.5-5.0); Salicylate < 2.50 mg/dL (<30); Sodium 129 mmol/L (135-145); Total Protein 8.4 g/dL (6.4-8.9)
[2020-05-21] MEDS ORDERED: Thiamine 100 MG/ML 2 ml VIAL (200 mg) IM ONE (23:30)
[2020-05-21] MEDS ORDERED: Pantoprazole VIAL 40 MG VIAL IV ONE (23:30)
[2020-05-21] MEDS ORDERED: NS 0.9% 1000 ml BAG 1,000 ML IV ONE (23:30)
[2020-05-21 23:32] LABS: Urine Benzodiazepine Screen None Detected (None Detect); Urine Cannabinoids Screen Presumptive Positive (None Detect); Urine Opiates Screen None Detected (None Detect)
[2020-05-21 23:38] LABS: TSH Ultra Thyroid Stim Horm 2.03 mcIU/mL (0.34-5.60)
[2020-05-21 23:41] LABS: Anion Gap 22 mmol/L (2-11); CO2 Carbon Dioxide 14 mmol/L (22-32)
[2020-05-22] MEDS ORDERED: NS 0.9% 1000 ml BAG 1,000 ML IV ONE (00:41)
[2020-05-22] MEDS ORDERED: Dextrose 50% Syringe 50 ml 25 GM/50 ML SYRINGE IV PUSH PRN (03:36)
[2020-05-22] MEDS ORDERED: Magnesium Sulfate 2 gm BAG 2 GM/50 ML BAG IVPB ONE (03:49)
[2020-05-22] MEDS ORDERED: Insulin GLARGINE 100 un/ml 10 ml VIAL SUBCUT SCH ×3 (04:00→21:00)
[2020-05-22] MEDS ORDERED: Insulin GLARGINE 100 un/ml 10 ml VIAL SUBCUT ONE (04:31)
[2020-05-22] MEDS ORDERED: Buprenorp/Nalox 8-2 MG FILM SL FILM ONE ×2 (05:00→09:00)
[2020-05-22] MEDS: Nicotine PATCH 21 MG/24 HR PATCH TRANSDERM SCH (05:04)
[2020-05-22 05:11] LABS: BUN/Creatinine Ratio 14.3 (8-20); Calcium 8.5 mg/dL (8.6-10.3); EGFR African American 148.2 (>60); EGFR Non-African American 122.5 (>60)
[2020-05-22 05:23] LABS: Potassium 3.2 mmol/L (3.5-5.0)
[2020-05-22] MEDS ORDERED: Potassium Chlor 10 meq TAB PO ONE (06:56)
[2020-05-22] MEDS: Multivitamins/Minerals TAB PO SCH ×2 (08:57→12:25)
[2020-05-22] MEDS ORDERED: Buprenorp/Nalox 4-1 MG FILM SL FILM SCH (09:00)
[2020-05-22] MEDS ORDERED: Buprenorp/Nalox 4-1 MG FILM SL FILM ONE (09:00)
[2020-05-22 09:07] LABS: BUN/Creatinine Ratio 14.1 (8-20); Calcium 8.4 mg/dL (8.6-10.3); EGFR African American 130.8 (>60); EGFR Non-African American 108.1 (>60); Magnesium 2.4 mg/dL (1.9-2.7); Potassium 3.4 mmol/L (3.5-5.0)
[2020-05-22] MEDS ORDERED: Albuterol HFA INHALER 8 gm MDI INH PRN (09:26)
[2020-05-22] MEDS ORDERED: Lorazepam PYXIS KEY PRN (09:28)
[2020-05-22] MEDS: Pancrelipase 5,000 units CAP PO SCH ×3 (09:49→17:51)
[2020-05-22] MEDS ORDERED: LORazepam 2 mg VIAL 1 ml IV PUSH SCH (10:00)
[2020-05-22] MEDS: LORazepam 2 mg VIAL 1 ml IV PUSH SCH ×6 (12:25→22:09)
[2020-05-22] MEDS: NS 0.9% w/ 20 Meq KCL 1000 ml 1,000 ML IV SCH ×2 (13:43→23:02)
[2020-05-23] MEDS: LORazepam 2 mg VIAL 1 ml IV PUSH SCH ×6 (02:15→20:40)
[2020-05-23] MEDS ORDERED: Benzocaine/Menthol LOZ PO PRN (06:07)
[2020-05-23] MEDS: NS 0.9% w/ 20 Meq KCL 1000 ml 1,000 ML IV SCH ×2 (06:30→18:30)
[2020-05-23 07:08] LABS: ABS Eosinophils 0.2 10^3/ul (0-0.6); ABS Lymphocytes 2.8 10^3/ul (1.0-4.8); ABS Monocytes 0.4 10^3/ul (0-0.8); ABS Neutrophils 2.8 10^3/ul (1.5-7.7); Eosinophil % 2.8 %; Hematocrit 35 % (42-52); Hemoglobin 11.8 g/dL (14.0-18.0); Lymphocyte % 44.4 %; Mean Corpuscular HGB Conc 34 g/dL (31-36); Mean Corpuscular Hemoglobin 28 pg (27-31); Mean Corpuscular Volume 84 fL (80-94); Mean Platelet Volume 8.8 fL (7.4-10.4); Nucleated Red Blood Cells % 0.1; Platelet Count 152 10^3/uL (150-450); Red Blood Count 4.17 10^6 /uL (4.18-5.48); Red Cell Distribution Width 14 % (10-15); White Blood Count 6.3 10^3/uL (3.5-10.8)
[2020-05-23 07:23] LABS: Albumin 3.7 g/dL (3.2-5.2); Albumin/Globulin Ratio 1.5 (1-3); BUN/Creatinine Ratio 11.4 (8-20); Calcium 8.7 mg/dL (8.6-10.3); EGFR African American 128.9 (>60); EGFR Non-African American 106.6 (>60); Globulin 2.5 g/dL (2-4); Magnesium 1.7 mg/dL (1.9-2.7); Phosphorus 3.3 mg/dL (2.5-5.0); Potassium 3.8 mmol/L (3.5-5.0); Total Bilirubin 0.4 mg/dL (0.2-1.0); Total Protein 6.2 g/dL (6.4-8.9)
[2020-05-23] MEDS ORDERED: Magnesium Sulfate IV 3 GM in NS 0.9% 100 ml BAG 100 ML IVPB ONE (07:52)
[2020-05-23] MEDS: Multivitamins/Minerals TAB PO SCH (08:45)
[2020-05-23] MEDS: Buprenorp/Nalox 8-2 MG FILM SL FILM SCH (08:46)
[2020-05-23] MEDS: Nicotine PATCH 21 MG/24 HR PATCH TRANSDERM SCH ×2 (08:46→22:28)
[2020-05-23] MEDS: Buprenorp/Nalox 4-1 MG FILM SL FILM SCH (08:46)
[2020-05-23] MEDS: Pancrelipase 5,000 units CAP PO SCH ×3 (08:46→17:54)
[2020-05-23] MEDS ORDERED: Insulin GLARGINE 100 un/ml 10 ml VIAL SUBCUT SCH (21:00)
[2020-05-24] MEDS: LORazepam 2 mg VIAL 1 ml IV PUSH SCH ×2 (02:26→06:17)
[2020-05-24] MEDS: NS 0.9% w/ 20 Meq KCL 1000 ml 1,000 ML IV SCH (02:57)
[2020-05-24] MEDS ORDERED: Lorazepam PYXIS KEY PRN (03:17)
[2020-05-24] MEDS ORDERED: LORazepam 2 mg VIAL 1 ml IV PUSH ONE (03:17)
[2020-05-24 06:33] LABS: ABS Eosinophils 0.3 10^3/ul (0-0.6); ABS Lymphocytes 2.5 10^3/ul (1.0-4.8); ABS Monocytes 0.4 10^3/ul (0-0.8); ABS Neutrophils 2.7 10^3/ul (1.5-7.7); Eosinophil % 4.5 %; Hematocrit 37 % (42-52); Hemoglobin 12.5 g/dL (14.0-18.0); Lymphocyte % 42.1 %; Mean Corpuscular HGB Conc 34 g/dL (31-36); Mean Corpuscular Hemoglobin 28 pg (27-31); Mean Corpuscular Volume 84 fL (80-94); Platelet Count 162 10^3/uL (150-450); Red Blood Count 4.41 10^6 /uL (4.18-5.48); Red Cell Distribution Width 14 % (10-15)
[2020-05-24 06:49] LABS: BUN/Creatinine Ratio 8.2 (8-20); Calcium 9.1 mg/dL (8.6-10.3); EGFR African American 141.2 (>60); EGFR Non-African American 116.7 (>60); Potassium 3.9 mmol/L (3.5-5.0)
[2020-05-24] MEDS: Multivitamins/Minerals TAB PO SCH (08:49)
[2020-05-24] MEDS: Pancrelipase 5,000 units CAP PO SCH ×3 (08:49→18:12)
[2020-05-24] MEDS: Buprenorp/Nalox 8-2 MG FILM SL FILM SCH (08:53)
[2020-05-24] MEDS: Nicotine PATCH 21 MG/24 HR PATCH TRANSDERM SCH (08:54)
[2020-05-24] MEDS: Buprenorp/Nalox 4-1 MG FILM SL FILM SCH (08:54)
[2020-05-24] MEDS ORDERED: Insulin GLARGINE 100 un/ml 10 ml VIAL SUBCUT ONE (10:47)
[2020-05-24] MEDS: Insulin GLARGINE 100 un/ml 10 ml VIAL SUBCUT SCH (21:50)
[2020-05-25 07:37] LABS: ABS Basophils 0.1 10^3/ul (0-0.2); ABS Eosinophils 0.3 10^3/ul (0-0.6); ABS Lymphocytes 2.8 10^3/ul (1.0-4.8); ABS Monocytes 0.5 10^3/ul (0-0.8); ABS Neutrophils 2.3 10^3/ul (1.5-7.7); Eosinophil % 4.5 %; Hematocrit 40 % (42-52); Hemoglobin 13.3 g/dL (14.0-18.0); Lymphocyte % 47.4 %; Mean Corpuscular HGB Conc 33 g/dL (31-36); Mean Corpuscular Hemoglobin 28 pg (27-31); Mean Corpuscular Volume 85 fL (80-94); Mean Platelet Volume 9.3 fL (7.4-10.4); Platelet Count 184 10^3/uL (150-450); Red Blood Count 4.68 10^6 /uL (4.18-5.48); Red Cell Distribution Width 14 % (10-15); White Blood Count 5.9 10^3/uL (3.5-10.8)
[2020-05-25 07:45] LABS: BUN/Creatinine Ratio 15.5 (8-20); Calcium 9.3 mg/dL (8.6-10.3); EGFR African American 145.8 (>60); EGFR Non-African American 120.5 (>60); Magnesium 1.8 mg/dL (1.9-2.7); Potassium 3.7 mmol/L (3.5-5.0)
[2020-05-25] MEDS: Buprenorp/Nalox 8-2 MG FILM SL FILM SCH (08:45)
[2020-05-25] MEDS: Buprenorp/Nalox 4-1 MG FILM SL FILM SCH (08:45)
[2020-05-25] MEDS: Nicotine PATCH 21 MG/24 HR PATCH TRANSDERM SCH (08:45)
[2020-05-25] MEDS: Pancrelipase 5,000 units CAP PO SCH ×3 (08:46→17:36)
[2020-05-25] MEDS: Multivitamins/Minerals TAB PO SCH (08:46)
[2020-05-25] MEDS: Insulin GLARGINE 100 un/ml 10 ml VIAL SUBCUT SCH (21:37)
[2020-05-26 05:17] LABS: Hematocrit 40 % (42-52); Hemoglobin 13.3 g/dL (14.0-18.0); Mean Corpuscular HGB Conc 33 g/dL (31-36); Mean Corpuscular Hemoglobin 29 pg (27-31); Mean Corpuscular Volume 86 fL (80-94); Mean Platelet Volume 9.2 fL (7.4-10.4); Platelet Count 190 10^3/uL (150-450); Red Blood Count 4.66 10^6 /uL (4.18-5.48); Red Cell Distribution Width 14 % (10-15); White Blood Count 5.9 10^3/uL (3.5-10.8)
[2020-05-26 06:51] LABS: Calcium 9.2 mg/dL (8.6-10.3); Magnesium 1.9 mg/dL (1.9-2.7); Potassium 4.4 mmol/L (3.5-5.0)
[2020-05-26 06:56] LABS: BUN/Creatinine Ratio 16.2 (8-20); EGFR Non-African American 114.9 (>60)
[2020-05-26 07:33] VITALS: BP 106/85
[2020-05-26] MEDS: Nicotine PATCH 21 MG/24 HR PATCH TRANSDERM SCH (08:23)
[2020-05-26] MEDS: Buprenorp/Nalox 4-1 MG FILM SL FILM SCH (08:23)
[2020-05-26] MEDS: Pancrelipase 5,000 units CAP PO SCH (08:23)
[2020-05-26] MEDS: Buprenorp/Nalox 8-2 MG FILM SL FILM SCH (08:23)
[2020-05-26] MEDS: Multivitamins/Minerals TAB PO SCH (08:24)
[2020-05-26] MEDS ORDERED: Multivitamins/Minerals TAB PO SCH (10:00)
[2020-05-26] MEDS ORDERED: CMCS:Acamprosate DR 333 mg TAB (NF) PO SCH (14:00)
[2020-05-27 09:10] LABS: ActiTest Interpretation no activity; Alanine Aminotransferase (ALT) 18 U/L (7-55); Alpha-2-Macroglobulin, S 176 mg/dL (100 - 280); Bilirubin, Total, S 0.3 mg/dL (<=1.2); BioPredictive Serial Number 3317191; FibroTest Interpretation no fibrosis; Gamma Glutamyltransferase GGT 41 U/L (8 - 61)
== END 2020-05-26 11:28 | DRG 773 ==
LOC: ED 21:59 → MED 05-22 04:26
PROVIDERS: ADMIT Internal Medicine; ATTEND Internal Medicine

== ENCOUNTER 2020-05-26 09:27 | Inpatient (IN) ==
[2020-05-26] MEDS ORDERED: Dextrose 50% Syringe 50 ml 25 GM/50 ML SYRINGE IV PUSH PRN (11:35)
[2020-05-26] MEDS ORDERED: Al Hydrox/Mg Hydrox/Simet LIQ 30 ML UDC PO PRN (11:46)
[2020-05-26] MEDS: Pancrelipase 5,000 units CAP PO SCH ×2 (12:55→17:34)
[2020-05-26] MEDS: CMCS:Acamprosate DR 333 mg TAB (NF) PO SCH ×2 (15:53→20:12)
[2020-05-26] MEDS: Nicotine PATCH 21 MG/24 HR PATCH TRANSDERM SCH (17:06)
[2020-05-26] MEDS: Nicotine GUM 4MG FRUIT FLAVOR PO PRN ×2 (18:07→20:15)
[2020-05-26] MEDS: Insulin GLARGINE 100 un/ml 10 ml VIAL SUBCUT SCH (21:02)
[2020-05-27] MEDS: Vitamin THERAPEUTIC TAB PO SCH (08:01)
[2020-05-27] MEDS: CMCS:Acamprosate DR 333 mg TAB (NF) PO SCH ×3 (08:02→20:33)
[2020-05-27] MEDS: Metoprolol Succinate XL 200 mg TAB PO SCH (08:03)
[2020-05-27] MEDS: Pancrelipase 5,000 units CAP PO SCH ×3 (08:03→17:14)
[2020-05-27] MEDS: Buprenorp/Nalox 4-1 MG FILM SL FILM SCH (08:04)
[2020-05-27] MEDS: Buprenorp/Nalox 8-2 MG FILM SL FILM SCH (08:05)
[2020-05-27] MEDS ORDERED: Buprenorp/Nalox 4-1 MG FILM SL FILM SCH (09:00)
[2020-05-27] MEDS ORDERED: Buprenorp/Nalox 4-1 MG FILM SL FILM ONE (09:00)
[2020-05-27] MEDS: Nicotine PATCH 21 MG/24 HR PATCH TRANSDERM SCH (09:34)
[2020-05-27] MEDS: Nicotine GUM 4MG FRUIT FLAVOR PO PRN ×3 (09:35→21:05)
[2020-05-27 21:47] LABS: Glucose Confirmatory 412 mg/dL (70-100)
[2020-05-27] MEDS: Insulin GLARGINE 100 un/ml 10 ml VIAL SUBCUT SCH (22:15)
[2020-05-28] MEDS: Nicotine PATCH 21 MG/24 HR PATCH TRANSDERM SCH (08:11)
[2020-05-28] MEDS: Pancrelipase 5,000 units CAP PO SCH ×3 (08:12→16:57)
[2020-05-28] MEDS: CMCS:Acamprosate DR 333 mg TAB (NF) PO SCH ×3 (08:13→20:04)
[2020-05-28] MEDS: Vitamin THERAPEUTIC TAB PO SCH (08:14)
[2020-05-28] MEDS: Metoprolol Succinate XL 200 mg TAB PO SCH (08:15)
[2020-05-28] MEDS: Buprenorp/Nalox 4-1 MG FILM SL FILM SCH (08:15)
[2020-05-28] MEDS: Buprenorp/Nalox 8-2 MG FILM SL FILM SCH (08:15)
[2020-05-28] MEDS: Nicotine GUM 4MG FRUIT FLAVOR PO PRN ×3 (11:06→20:19)
[2020-05-28] MEDS ORDERED: Ondansetron ODT 4 mg TAB 4 MG TAB PO PRN (11:08)
[2020-05-28] MEDS: Albuterol HFA INHALER 8 gm MDI INH PRN (16:56)
[2020-05-28] MEDS: Insulin GLARGINE 100 un/ml 10 ml VIAL SUBCUT SCH (20:38)
[2020-05-29] MEDS: Vitamin THERAPEUTIC TAB PO SCH (07:49)
[2020-05-29] MEDS: Buprenorp/Nalox 4-1 MG FILM SL FILM SCH (07:50)
[2020-05-29] MEDS: Nicotine PATCH 21 MG/24 HR PATCH TRANSDERM SCH (07:50)
[2020-05-29] MEDS: Buprenorp/Nalox 8-2 MG FILM SL FILM SCH (07:50)
[2020-05-29] MEDS: Pancrelipase 5,000 units CAP PO SCH ×3 (07:51→17:38)
[2020-05-29] MEDS: Albuterol HFA INHALER 8 gm MDI INH PRN ×3 (07:51→23:32)
[2020-05-29] MEDS: Metoprolol Succinate XL 200 mg TAB PO SCH (07:51)
[2020-05-29] MEDS: CMCS:Acamprosate DR 333 mg TAB (NF) PO SCH ×3 (07:52→19:42)
[2020-05-29] MEDS: Nicotine GUM 4MG FRUIT FLAVOR PO PRN ×6 (08:33→23:32)
[2020-05-29] MEDS: Insulin GLARGINE 100 un/ml 10 ml VIAL SUBCUT SCH (20:12)
[2020-05-30] MEDS: Vitamin THERAPEUTIC TAB PO SCH (07:55)
[2020-05-30] MEDS: Metoprolol Succinate XL 200 mg TAB PO SCH (07:56)
[2020-05-30] MEDS: CMCS:Acamprosate DR 333 mg TAB (NF) PO SCH ×3 (07:56→20:13)
[2020-05-30] MEDS: Pancrelipase 5,000 units CAP PO SCH ×3 (07:57→17:01)
[2020-05-30] MEDS: Nicotine PATCH 21 MG/24 HR PATCH TRANSDERM SCH (07:58)
[2020-05-30] MEDS: Buprenorp/Nalox 8-2 MG FILM SL FILM SCH (07:58)
[2020-05-30] MEDS: Buprenorp/Nalox 4-1 MG FILM SL FILM SCH (07:58)
[2020-05-30] MEDS: Nicotine GUM 4MG FRUIT FLAVOR PO PRN ×3 (08:58→15:54)
[2020-05-30 09:04] LABS: HDL Cholesterol 35.3 mg/dL
[2020-05-30] MEDS: Insulin GLARGINE 100 un/ml 10 ml VIAL SUBCUT SCH (20:08)
[2020-05-31] MEDS: Nicotine GUM 4MG FRUIT FLAVOR PO PRN ×5 (04:06→21:49)
[2020-05-31] MEDS: Pancrelipase 5,000 units CAP PO SCH ×3 (07:54→16:45)
[2020-05-31] MEDS: Vitamin THERAPEUTIC TAB PO SCH (07:55)
[2020-05-31] MEDS: CMCS:Acamprosate DR 333 mg TAB (NF) PO SCH ×3 (07:55→20:18)
[2020-05-31] MEDS: Metoprolol Succinate XL 200 mg TAB PO SCH (07:55)
[2020-05-31] MEDS: Nicotine PATCH 21 MG/24 HR PATCH TRANSDERM SCH (07:56)
[2020-05-31] MEDS: Buprenorp/Nalox 8-2 MG FILM SL FILM SCH (07:56)
[2020-05-31] MEDS: Buprenorp/Nalox 4-1 MG FILM SL FILM SCH (07:56)
[2020-05-31] MEDS: Insulin GLARGINE 100 un/ml 10 ml VIAL SUBCUT SCH (19:58)
[2020-05-31 20:07] VITALS: BP 133/79
[2020-06-01] MEDS: Nicotine GUM 4MG FRUIT FLAVOR PO PRN (04:45)
[2020-06-01] MEDS: Albuterol HFA INHALER 8 gm MDI INH PRN (06:30)
[2020-06-01] MEDS: Nicotine PATCH 21 MG/24 HR PATCH TRANSDERM SCH (07:47)
[2020-06-01] MEDS: CMCS:Acamprosate DR 333 mg TAB (NF) PO SCH (07:47)
[2020-06-01] MEDS: Metoprolol Succinate XL 200 mg TAB PO SCH (07:48)
[2020-06-01] MEDS: Vitamin THERAPEUTIC TAB PO SCH (07:50)
[2020-06-01] MEDS: Pancrelipase 5,000 units CAP PO SCH (07:51)
[2020-06-01] MEDS: Buprenorp/Nalox 4-1 MG FILM SL FILM SCH (07:51)
[2020-06-01] MEDS: Buprenorp/Nalox 8-2 MG FILM SL FILM SCH (07:52)
== END 2020-06-01 13:28 | disposition home or self-care (01) | DRG 753 ==
LOC: BSU 11:31
PROVIDERS: ADMIT Psychiatry & Neurology Psychiatry; ATTEND Psychiatry & Neurology Psychiatry

== ENCOUNTER 2020-07-02 13:09 | Observation (INO) ==
[2020-07-02] MEDS ORDERED: Thiamine 100 MG/ML 2 ml VIAL (200 mg) IM ONE (13:48)
[2020-07-02 14:19] LABS: ABS Basophils 0.1 10^3/ul (0-0.2); ABS Eosinophils 0.1 10^3/ul (0-0.6); ABS Lymphocytes 3.5 10^3/ul (1.0-4.8); ABS Monocytes 0.4 10^3/ul (0-0.8); ABS Neutrophils 6.8 10^3/ul (1.5-7.7); Eosinophil % 0.8 %; Hematocrit 46 % (42-52); Hemoglobin 15.5 g/dL (14.0-18.0); Lymphocyte % 31.8 %; Mean Corpuscular HGB Conc 34 g/dL (31-36); Mean Corpuscular Hemoglobin 29 pg (27-31); Mean Corpuscular Volume 84 fL (80-94); Mean Platelet Volume 9.2 fL (7.4-10.4); Nucleated Red Blood Cells % 0.1; Platelet Count 264 10^3/uL (150-450); Red Blood Count 5.45 10^6 /uL (4.18-5.48); Red Cell Distribution Width 14 % (10-15); White Blood Count 10.9 10^3/uL (3.5-10.8)
[2020-07-02 14:29] LABS: ALT 16 U/L (7-52); Albumin 4.7 g/dL (3.2-5.2); Albumin/Globulin Ratio 1.3 (1-3); Alkaline Phosphatase 168 U/L (34-104); Blood Urea Nitrogen 15 mg/dL (6-24); CO2 Carbon Dioxide 15 mmol/L (22-32); Calcium 9.4 mg/dL (8.6-10.3); Chloride 92 mmol/L (101-111); EGFR African American 106.8 (>60); EGFR Non-African American 88.3 (>60); Globulin 3.5 g/dL (2-4); Sodium 127 mmol/L (135-145); Total Protein 8.2 g/dL (6.4-8.9)
[2020-07-02 14:33] LABS: Glucose 521 mg/dL (70-100)
[2020-07-02] MEDS ORDERED: NS 0.9% 1000 ml BAG 1,000 ML IV ONE (14:38)
[2020-07-02] MEDS ORDERED: Ondansetron 4 mg VIAL 2 MG/ML 2 ml VIAL IV ONE ×2 (14:46→15:46)
[2020-07-02] MEDS ORDERED: Nicotine PATCH 14 MG/24 HR PATCH TRANSDERM ONE (14:46)
[2020-07-02 14:55] LABS: Urine Appearance Clear; Urine Bilirubin Negative (Negative); Urine Blood Negative (Negative); Urine Color Straw; Urine Glucose 3+(>=500 mg/dL) (Negative); Urine Ketones 1+ (Negative); Urine Nitrite Negative (Negative); Urine Protein Negative (Negative); Urine Specific Gravity 1.022 (1.002-1.030); Urine Urobilinogen Negative (Negative)
[2020-07-02 15:10] LABS: TSH Ultra Thyroid Stim Horm 2.22 mcIU/mL (0.34-5.60)
[2020-07-02 15:16] LABS: Acetaminophen < 15 mcg/mL; Alcohol, S 241 mg/dL (<10); Salicylate < 2.50 mg/dL (<30)
[2020-07-02 15:23] LABS: Urine Benzodiazepine Screen None Detected (None Detect); Urine Cannabinoids Screen Presumptive Positive (None Detect); Urine Opiates Screen None Detected (None Detect)
[2020-07-02 17:45] LABS: Anion Gap 20 mmol/L (2-11)
[2020-07-02 17:54] LABS: AST 12 U/L (13-39)
[2020-07-02 20:47] LABS: Albumin 4.2 g/dL (3.2-5.2); Albumin/Globulin Ratio 1.4 (1-3); Calcium 8.6 mg/dL (8.6-10.3); EGFR African American 106.8 (>60); EGFR Non-African American 88.3 (>60); Globulin 3.1 g/dL (2-4); Total Bilirubin 0.3 mg/dL (0.2-1.0); Total Protein 7.3 g/dL (6.4-8.9)
[2020-07-02 20:49] LABS: Potassium 4.3 mmol/L (3.5-5.0)
[2020-07-02] MEDS ORDERED: Lorazepam PYXIS KEY PRN (21:32)
[2020-07-02] MEDS ORDERED: LORazepam 2 mg VIAL 1 ml IV ONE (21:32)
[2020-07-02] MEDS ORDERED: Albuterol HFA INHALER 8 gm MDI INH PRN (22:47)
[2020-07-02] MEDS ORDERED: Dextrose 50% Syringe 50 ml 25 GM/50 ML SYRINGE IV PUSH PRN (22:47)
[2020-07-02] MEDS ORDERED: Enoxaparin 40 MG/0.4 ML SYR SUBCUT SCH (23:00)
[2020-07-03] MEDS: NS 0.9% 1000 ml BAG 1,000 ML IV SCH ×2 (03:32→13:39)
[2020-07-03] MEDS: Pancrelipase 5,000 units CAP PO SCH ×3 (08:14→15:34)
[2020-07-03] MEDS: Multivitamins/Minerals TAB PO SCH (08:14)
[2020-07-03] MEDS: Buprenorp/Nalox 8-2 MG FILM SL FILM SCH (08:15)
[2020-07-03] MEDS: Metoprolol Succinate XL 200 mg TAB PO SCH ×2 (08:16→10:07)
[2020-07-03] MEDS: CMC:Acamprosate DR 333 mg TAB (NF) PO SCH ×3 (08:16→19:44)
[2020-07-03] MEDS: Enoxaparin 40 MG/0.4 ML SYR SUBCUT SCH (08:18)
[2020-07-03] MEDS ORDERED: Multivitamins/Minerals TAB PO SCH ×2 (09:00)
[2020-07-03 09:37] LABS: Albumin 4.3 g/dL (3.2-5.2); Albumin/Globulin Ratio 1.4 (1-3); Calcium 9.1 mg/dL (8.6-10.3); EGFR Non-African American 114.9 (>60); Globulin 3.1 g/dL (2-4); Potassium 3.8 mmol/L (3.5-5.0); Total Bilirubin 0.4 mg/dL (0.2-1.0); Total Protein 7.4 g/dL (6.4-8.9)
[2020-07-03] MEDS: Nicotine PATCH 21 MG/24 HR PATCH TRANSDERM SCH (10:09)
[2020-07-03] MEDS: Insulin GLARGINE 100 un/ml 10 ml VIAL SUBCUT SCH (20:19)
[2020-07-04 05:20] LABS: Albumin 3.7 g/dL (3.2-5.2); Albumin/Globulin Ratio 1.4 (1-3); Calcium 8.4 mg/dL (8.6-10.3); EGFR African American 150.7 (>60); EGFR Non-African American 124.6 (>60); Globulin 2.6 g/dL (2-4); Potassium 3.7 mmol/L (3.5-5.0); Total Bilirubin 0.3 mg/dL (0.2-1.0); Total Protein 6.3 g/dL (6.4-8.9)
[2020-07-04] MEDS: Pancrelipase 5,000 units CAP PO SCH ×3 (08:00→16:43)
[2020-07-04] MEDS: Nicotine PATCH 21 MG/24 HR PATCH TRANSDERM SCH (08:12)
[2020-07-04] MEDS: Multivitamins/Minerals TAB PO SCH (08:14)
[2020-07-04] MEDS: Enoxaparin 40 MG/0.4 ML SYR SUBCUT SCH (08:16)
[2020-07-04] MEDS: Buprenorp/Nalox 8-2 MG FILM SL FILM SCH (08:17)
[2020-07-04] MEDS: CMC:Acamprosate DR 333 mg TAB (NF) PO SCH ×3 (08:23→21:04)
[2020-07-04] MEDS: Metoprolol Succinate XL 200 mg TAB PO SCH (08:59)
[2020-07-04] MEDS: Insulin GLARGINE 100 un/ml 10 ml VIAL SUBCUT SCH (21:06)
[2020-07-05] MEDS: CMC:Acamprosate DR 333 mg TAB (NF) PO SCH (08:41)
[2020-07-05] MEDS: Pancrelipase 5,000 units CAP PO SCH ×2 (08:41→11:13)
[2020-07-05] MEDS: Metoprolol Succinate XL 200 mg TAB PO SCH (08:41)
[2020-07-05] MEDS: Nicotine PATCH 21 MG/24 HR PATCH TRANSDERM SCH (08:41)
[2020-07-05] MEDS: Multivitamins/Minerals TAB PO SCH (08:42)
[2020-07-05] MEDS: Buprenorp/Nalox 8-2 MG FILM SL FILM SCH (08:51)
[2020-07-05] MEDS: Enoxaparin 40 MG/0.4 ML SYR SUBCUT SCH (08:52)
[2020-07-05 12:49] VITALS: BP 138/86
== END 2020-07-05 11:16 ==
LOC: MEDTELE 13:09 → ED 13:09
PROVIDERS: ADMIT Internal Medicine; ATTEND Internal Medicine

== ENCOUNTER 2020-07-05 11:26 | Inpatient (IN) ==
[2020-07-05] MEDS ORDERED: Al Hydrox/Mg Hydrox/Simet LIQ 30 ML UDC PO PRN (11:45)
[2020-07-05] MEDS ORDERED: Albuterol HFA INHALER 8 gm MDI INH PRN (12:18)
[2020-07-05] MEDS: ACAMPROSATE 333 MG PO SCH ×2 (13:05→20:35)
[2020-07-05] MEDS: Pancrelipase 5,000 units CAP PO SCH (16:17)
[2020-07-05 17:09] LABS: Glucose Confirmatory 419 mg/dL (70-100)
[2020-07-05] MEDS ORDERED: Dextrose 50% Syringe 50 ml 25 GM/50 ML SYRINGE IV PUSH PRN (17:24)
[2020-07-05] MEDS: Insulin GLARGINE 100 un/ml 10 ml VIAL SUBCUT SCH (20:31)
[2020-07-05] MEDS ORDERED: Insulin GLARGINE 100 un/ml 10 ml VIAL SUBCUT SCH (21:00)
[2020-07-06] MEDS: Pancrelipase 5,000 units CAP PO SCH ×3 (07:32→16:51)
[2020-07-06] MEDS: Metoprolol Succinate XL 200 mg TAB PO SCH (07:34)
[2020-07-06] MEDS: ACAMPROSATE 333 MG PO SCH ×3 (07:34→20:10)
[2020-07-06] MEDS: Nicotine PATCH 21 MG/24 HR PATCH TRANSDERM SCH (07:38)
[2020-07-06] MEDS: Buprenorp/Nalox 8-2 MG FILM SL FILM SCH (07:41)
[2020-07-06] MEDS: Multivitamins/Minerals TAB PO SCH (07:42)
[2020-07-06 09:51] LABS: HDL Cholesterol 38.9 mg/dL
[2020-07-06] MEDS: Insulin GLARGINE 100 un/ml 10 ml VIAL SUBCUT SCH (20:08)
[2020-07-07] MEDS: ACAMPROSATE 333 MG PO SCH ×3 (07:50→20:10)
[2020-07-07] MEDS: Metoprolol Succinate XL 200 mg TAB PO SCH (07:50)
[2020-07-07] MEDS: Pancrelipase 5,000 units CAP PO SCH ×3 (07:51→17:02)
[2020-07-07] MEDS: Multivitamins/Minerals TAB PO SCH (07:51)
[2020-07-07] MEDS: Buprenorp/Nalox 8-2 MG FILM SL FILM SCH (07:52)
[2020-07-07] MEDS: Nicotine PATCH 21 MG/24 HR PATCH TRANSDERM SCH (07:53)
[2020-07-07] MEDS: Insulin GLARGINE 100 un/ml 10 ml VIAL SUBCUT SCH (20:35)
[2020-07-07] MEDS: Nicotine Lozenge mini 2 MG LOZNG.MINI MT PRN (21:14)
[2020-07-07] MEDS: Nicotine GUM 4MG FRUIT FLAVOR PO PRN (21:14)
[2020-07-08] MEDS: Nicotine GUM 4MG FRUIT FLAVOR PO PRN ×2 (06:04→14:12)
[2020-07-08] MEDS: Nicotine Lozenge mini 2 MG LOZNG.MINI MT PRN ×2 (06:04→14:12)
[2020-07-08] MEDS: Nicotine PATCH 21 MG/24 HR PATCH TRANSDERM SCH (07:44)
[2020-07-08] MEDS: Pancrelipase 5,000 units CAP PO SCH ×3 (07:45→17:12)
[2020-07-08] MEDS: ACAMPROSATE 333 MG PO SCH ×3 (07:45→20:00)
[2020-07-08] MEDS: Metoprolol Succinate XL 200 mg TAB PO SCH (07:45)
[2020-07-08] MEDS: Multivitamins/Minerals TAB PO SCH (07:46)
[2020-07-08] MEDS: Buprenorp/Nalox 4-1 MG FILM SL FILM SCH (07:48)
[2020-07-08] MEDS: Buprenorp/Nalox 8-2 MG FILM SL FILM SCH (07:48)
[2020-07-08] MEDS ORDERED: Insulin GLARGINE 100 un/ml 10 ml VIAL SUBCUT ONE (11:29)
[2020-07-08] MEDS ORDERED: Dextrose 50% Syringe 50 ml 25 GM/50 ML SYRINGE IV PUSH PRN (11:29)
[2020-07-08] MEDS: Insulin GLARGINE 100 un/ml 10 ml VIAL SUBCUT SCH (20:23)
[2020-07-09] MEDS: Nicotine PATCH 21 MG/24 HR PATCH TRANSDERM SCH (07:34)
[2020-07-09] MEDS: Metoprolol Succinate XL 200 mg TAB PO SCH (07:34)
[2020-07-09] MEDS: ACAMPROSATE 333 MG PO SCH ×3 (07:34→20:01)
[2020-07-09] MEDS: Buprenorp/Nalox 4-1 MG FILM SL FILM SCH (07:34)
[2020-07-09] MEDS: Buprenorp/Nalox 8-2 MG FILM SL FILM SCH (07:34)
[2020-07-09] MEDS: Pancrelipase 5,000 units CAP PO SCH ×3 (07:34→17:41)
[2020-07-09] MEDS: Multivitamins/Minerals TAB PO SCH (07:40)
[2020-07-09 08:57] LABS: Glucose Confirmatory 499 mg/dL (70-100)
[2020-07-09] MEDS: Nicotine GUM 4MG FRUIT FLAVOR PO PRN ×4 (09:26→20:00)
[2020-07-09] MEDS: Nicotine Lozenge mini 2 MG LOZNG.MINI MT PRN ×2 (10:58→15:46)
[2020-07-09] MEDS: Insulin GLARGINE 100 un/ml 10 ml VIAL SUBCUT SCH (20:11)
[2020-07-10] MEDS: Nicotine PATCH 21 MG/24 HR PATCH TRANSDERM SCH (07:24)
[2020-07-10] MEDS: Metoprolol Succinate XL 200 mg TAB PO SCH (07:27)
[2020-07-10] MEDS: ACAMPROSATE 333 MG PO SCH (07:27)
[2020-07-10] MEDS: Buprenorp/Nalox 4-1 MG FILM SL FILM SCH (07:28)
[2020-07-10] MEDS: Buprenorp/Nalox 8-2 MG FILM SL FILM SCH (07:28)
[2020-07-10] MEDS: Pancrelipase 5,000 units CAP PO SCH ×2 (07:46→11:46)
[2020-07-10 07:48] VITALS: BP 127/89
[2020-07-10] MEDS: Multivitamins/Minerals TAB PO SCH (09:13)
[2020-07-10] MEDS: Nicotine Lozenge mini 2 MG LOZNG.MINI MT PRN (10:58)
[2020-07-10] MEDS: Nicotine GUM 4MG FRUIT FLAVOR PO PRN (12:23)
[2020-07-11] MEDS ORDERED: COVID-19 VACCINE, MRNA(MODERNA)/PF 100 MCG/0.5 ML IM ONE (14:00)
== END 2020-07-10 12:30 | disposition home or self-care (01) | DRG 753 ==
LOC: BSU 11:30
PROVIDERS: ADMIT Psychiatry & Neurology Psychiatry; ATTEND Psychiatry & Neurology Psychiatry

== ENCOUNTER 2021-08-11 22:51 | Inpatient (IN) ==
[2021-08-11] MEDS ORDERED: LORazepam 2 mg VIAL 1 ml ONE (23:07)
[2021-08-11] MEDS ORDERED: Succinylcholine 200 mg VIAL 20 mg/ml 10 ml VIAL (200 mg) ONE (23:10)
[2021-08-11] MEDS ORDERED: Haloperidol 5 mg/ml SDV IV/IM 5 MG/ML AMP ONE (23:10)
[2021-08-11 23:26] LABS: ABS Eosinophils 0.1 10^3/ul (0-0.6); ABS Lymphocytes 2.6 10^3/ul (1.0-4.8); ABS Monocytes 0.3 10^3/ul (0-0.8); ABS Neutrophils 5.2 10^3/ul (1.5-7.7); Eosinophil % 1.3 %; Hematocrit 41 % (42-52); Hemoglobin 13.8 g/dL (14.0-18.0); Lymphocyte % 31.3 %; Mean Corpuscular HGB Conc 34 g/dL (31-36); Mean Corpuscular Hemoglobin 29 pg (27-31); Mean Corpuscular Volume 84 fL (80-94); Mean Platelet Volume 8.8 fL (7.4-10.4); Platelet Count 323 10^3/uL (150-450); Red Blood Count 4.83 10^6 /uL (4.18-5.48); Red Cell Distribution Width 13 % (10-15); White Blood Count 8.2 10^3/uL (3.5-10.8)
[2021-08-11] MEDS ORDERED: Haloperidol 5 mg/ml SDV IV/IM 5 MG/ML AMP IV SLOW PU ONE (23:30)
[2021-08-11] MEDS ORDERED: Lorazepam PYXIS KEY PRN (23:30)
[2021-08-11] MEDS ORDERED: Dextrose 50% VIAL 50 ml IV PRN (23:30)
[2021-08-11] MEDS ORDERED: LORazepam 2 mg VIAL 1 ml IV PUSH ONE (23:30)
[2021-08-11 23:49] LABS: High Sens Troponin Baseline 4 pg/mL (<20)
[2021-08-11 23:59] LABS: ALT 27 U/L (7-52); AST 23 U/L (13-39); Acetaminophen < 15 mcg/mL; Albumin 4.4 g/dL (3.2-5.2); Albumin/Globulin Ratio 1.2 (1-3); Alcohol, S < 13 mg/dL (<13); Alkaline Phosphatase 127 U/L (35-149); Anion Gap 7 mmol/L (2-11); Blood Urea Nitrogen 15 mg/dL (6-24); CO2 Carbon Dioxide 32 mmol/L (22-32); Calcium 10.8 mg/dL (8.6-10.3); Chloride 95 mmol/L (101-111); Creatine Kinase 433 U/L (10-223); Globulin 3.6 g/dL (2-4); Glucose 321 mg/dL (70-100); Potassium 3.4 mmol/L (3.5-5.0); Salicylate < 2.50 mg/dL (<30); Sodium 134 mmol/L (135-145); eGFR CKD-EPI 105.9 (>60)
[2021-08-12 00:13] LABS: TSH Ultra Thyroid Stim Horm 1.83 mcIU/mL (0.34-5.60)
[2021-08-12] MEDS ORDERED: Lactated Ringers 1000 ml BAG 1,000 ML IV ONE (00:16)
[2021-08-12] MEDS ORDERED: Dextrose 50% Syringe 50 ml 25 GM/50 ML SYRINGE IV PUSH ONE (00:44)
[2021-08-12] MEDS ORDERED: Dextrose 50% Syringe 50 ml 25 GM/50 ML SYRINGE ONE (00:45)
[2021-08-12] MEDS ORDERED: D10W 1000 ml BAG 1,000 ML IV SCH (01:00)
[2021-08-12] MEDS ORDERED: Al Hydrox/Mg Hydrox/Simet LIQ 30 ML UDC PO PRN (10:23)
[2021-08-12] MEDS ORDERED: Albuterol HFA INHALER 8 gm MDI INH PRN (10:25)
[2021-08-12] MEDS ORDERED: Ondansetron ODT 4 mg TAB 4 MG TAB PO PRN (10:38)
[2021-08-12] MEDS ORDERED: Dextrose 50% Syringe 50 ml 25 GM/50 ML SYRINGE IV PUSH PRN ×2 (11:07→14:34)
[2021-08-12] MEDS ORDERED: Metoprolol Succinate XL 200 mg TAB PO SCH (12:30)
[2021-08-12] MEDS: Multivitamins/Minerals TAB PO SCH (12:58)
[2021-08-12] MEDS: Buprenorp/Nalox 8-2 MG FILM SL FILM SCH (12:58)
[2021-08-12] MEDS: Pancrelipase 5,000 units CAP PO SCH ×2 (12:58→17:17)
[2021-08-12] MEDS ORDERED: Gabapentin 600 mg TAB (NF) PO SCH (14:00)
[2021-08-12] MEDS ORDERED: Insulin GLARGINE 100 un/ml 10 ml VIAL SUBCUT SCH (21:00)
[2021-08-13] MEDS: Pancrelipase 5,000 units CAP PO SCH ×3 (08:19→16:56)
[2021-08-13] MEDS: Multivitamins/Minerals TAB PO SCH (08:19)
[2021-08-13] MEDS: Buprenorp/Nalox 8-2 MG FILM SL FILM SCH (08:20)
[2021-08-13 09:36] LABS: HDL Cholesterol 62.9 mg/dL
[2021-08-13] MEDS: Insulin GLARGINE 100 un/ml 10 ml VIAL SUBCUT SCH (14:29)
[2021-08-13] MEDS ORDERED: Insulin GLARGINE 100 un/ml 10 ml VIAL SUBCUT SCH (21:00)
[2021-08-14] MEDS: Buprenorp/Nalox 8-2 MG FILM SL FILM SCH (08:23)
[2021-08-14] MEDS: Buprenorp/Nalox 4-1 MG FILM SL FILM SCH (08:23)
[2021-08-14] MEDS: Pancrelipase 5,000 units CAP PO SCH ×3 (08:24→17:42)
[2021-08-14] MEDS: Multivitamins/Minerals TAB PO SCH (08:24)
[2021-08-14] MEDS: Insulin GLARGINE 100 un/ml 10 ml VIAL SUBCUT SCH (08:28)
[2021-08-15] MEDS: Multivitamins/Minerals TAB PO SCH (07:54)
[2021-08-15] MEDS: Pancrelipase 5,000 units CAP PO SCH ×3 (07:56→17:56)
[2021-08-15] MEDS: Buprenorp/Nalox 4-1 MG FILM SL FILM SCH (07:56)
[2021-08-15] MEDS: Buprenorp/Nalox 8-2 MG FILM SL FILM SCH (07:56)
[2021-08-15] MEDS: Insulin GLARGINE 100 un/ml 10 ml VIAL SUBCUT SCH (08:39)
[2021-08-16] MEDS: Multivitamins/Minerals TAB PO SCH (08:29)
[2021-08-16] MEDS: Pancrelipase 5,000 units CAP PO SCH ×3 (08:29→17:17)
[2021-08-16] MEDS: Buprenorp/Nalox 4-1 MG FILM SL FILM SCH (08:31)
[2021-08-16] MEDS: Buprenorp/Nalox 8-2 MG FILM SL FILM SCH (08:31)
[2021-08-16] MEDS: Insulin GLARGINE 100 un/ml 10 ml VIAL SUBCUT SCH (08:36)
[2021-08-16 09:40] VITALS: BP 128/82
[2021-08-16] MEDS: Nicotine GUM 4MG FRUIT FLAVOR PO PRN (20:05)
[2021-08-17] MEDS: Nicotine GUM 4MG FRUIT FLAVOR PO PRN (06:48)
[2021-08-17] MEDS: Pancrelipase 5,000 units CAP PO SCH (08:10)
[2021-08-17] MEDS: Buprenorp/Nalox 4-1 MG FILM SL FILM SCH (08:15)
[2021-08-17] MEDS: Insulin GLARGINE 100 un/ml 10 ml VIAL SUBCUT SCH (08:18)
[2021-08-17] MEDS: Buprenorp/Nalox 8-2 MG FILM SL FILM SCH (08:18)
[2021-08-17] MEDS: Multivitamins/Minerals TAB PO SCH (08:19)
== END 2021-08-17 13:45 | disposition home or self-care (01) | DRG 773 ==
LOC: ED 22:51 → EDHOLD 08-12 10:46 → BSU 08-12 11:54
PROVIDERS: ADMIT Psychiatry & Neurology Psychiatry; ATTEND Student in an Organized Health Care Education/Training Program

== ENCOUNTER 2022-04-24 11:05 | Inpatient (IN) ==
[2022-04-24] MEDS ORDERED: Midazolam 2 mg/2 ml VIAL 1 mg/ml 2 ml VIAL (2 mg) IM ONE (11:26)
[2022-04-24] MEDS ORDERED: Lactated Ringers 1000 ml BAG 1,000 ML IV ONE ×2 (11:27→12:25)
[2022-04-24 12:00] LABS: ABS Basophils 0.1 10^3/ul (0-0.2); ABS Eosinophils 0.1 10^3/ul (0-0.6); ABS Monocytes 0.7 10^3/ul (0-0.8); ABS Neutrophils 8.7 10^3/ul (1.5-7.7); Eosinophil % 0.7 %; Hematocrit 44 % (42-52); Hemoglobin 14.3 g/dL (14.0-18.0); Lymphocyte % 23.6 %; Mean Corpuscular HGB Conc 32 g/dL (31-36); Mean Corpuscular Hemoglobin 27 pg (27-31); Mean Corpuscular Volume 83 fL (80-94); Mean Platelet Volume 8.7 fL (7.4-10.4); Platelet Count 314 10^3/uL (150-450); Red Blood Count 5.36 10^6 /uL (4.18-5.48); Red Cell Distribution Width 14 % (10-15); White Blood Count 12.6 10^3/uL (3.5-10.8)
[2022-04-24 12:02] LABS: Venous Bicarbonate HCO3 23.7 mmol/L (24-28)
[2022-04-24] MEDS ORDERED: Iodixanol (CONTRAST) 320 MG/ML 100 ML SDV IV ONE (12:25)
[2022-04-24] MEDS ORDERED: Rocuronium 50 mg VIAL 10 mg/ml 5 ml VIAL (50 mg) ONE (12:37)
[2022-04-24] MEDS ORDERED: Succinylcholine 200 mg VIAL 20 mg/ml 10 ml VIAL (200 mg) ONE (12:37)
[2022-04-24 12:42] LABS: ALT 14 U/L (7-52); AST 22 U/L (13-39); Albumin 4.9 g/dL (3.2-5.2); Albumin/Globulin Ratio 1.3 (1-3); Alcohol, S < 13 mg/dL (<13); Alkaline Phosphatase 128 U/L (35-149); Anion Gap 17 mmol/L (2-11); Blood Urea Nitrogen 17 mg/dL (6-24); CO2 Carbon Dioxide 20 mmol/L (22-32); Calcium 9.9 mg/dL (8.6-10.3); Chloride 105 mmol/L (101-111); Creatine Kinase 582 U/L (10-223); Creatinine, Serum 1.07 mg/dL (0.67-1.17); Globulin 3.7 g/dL (2-4); Glucose 213 mg/dL (70-100); Lipase < 10 U/L (11.0-82.0); Sodium 142 mmol/L (135-145); Total Protein 8.6 g/dL (6.4-8.9); eGFR CKD-EPI 86.7 (>60)
[2022-04-24 13:12] LABS: Urine Appearance Clear; Urine Bilirubin Negative (Negative); Urine Blood Negative (Negative); Urine Color Straw; Urine Glucose 3+(>=500 mg/dL) (Negative); Urine Ketones Negative (Negative); Urine Nitrite Negative (Negative); Urine Protein Negative (Negative); Urine Specific Gravity 1.029 (1.002-1.030); Urine Urobilinogen Negative (Negative)
[2022-04-24] MEDS ORDERED: Piperacillin/Tazobac ADVAN 3.375 GM in NS 0.9% 100 ml BAG 100 ML IV ONE (13:17)
[2022-04-24 13:45] LABS: High Sensitivity Troponin 1 Hr 4 pg/mL (<20)
[2022-04-24 13:51] LABS: Urine Cannabinoids Screen Presumptive Positive (None Detect)
[2022-04-24 13:56] LABS: Urine Benzodiazepine Screen Presumptive Positive (None Detect); Urine Opiates Screen None Detected (None Detect)
[2022-04-24] MEDS ORDERED: Vancomycin 1,000 MG in NS 0.9% 250 ml 250 ML IVPB SCH (14:00)
[2022-04-24] MEDS ORDERED: Lactated Ringers 1000 ml BAG 1,000 ML IV SCH (15:00)
[2022-04-24] MEDS ORDERED: Vancomycin per Pharmacy 1 EA NOTE FOLLOW UP SCH (15:00)
[2022-04-24] MEDS: Enoxaparin 40 MG/0.4 ML SYR SUBCUT SCH (15:29)
[2022-04-24] MEDS: Pantoprazole VIAL 40 MG VIAL IV SCH (15:31)
[2022-04-24] MEDS: D5LR 1000 ml BAG 1,000 ML IV SCH (17:07)
[2022-04-24] MEDS ORDERED: Midazolam 2 mg/2 ml VIAL 1 mg/ml 2 ml VIAL (2 mg) IV SLOW PU ONE (18:51)
[2022-04-24 18:52] LABS: TSH Ultra Thyroid Stim Horm 2.28 mcIU/mL (0.34-5.60)
[2022-04-24] MEDS ORDERED: Midazolam 2 mg/2 ml VIAL 1 mg/ml 2 ml VIAL (2 mg) ONE ×2 (18:55→22:03)
[2022-04-24] MEDS ORDERED: Folic Acid IV 1 MG in NS 0.9% 50 ML 50 ML IV ONE (19:58)
[2022-04-24] MEDS ORDERED: Thiamine 100 MG/ML 2 ml VIAL 500 MG in NS 0.9% 250 ml 250 ML IV ONE (19:58)
[2022-04-24] MEDS: Thiamine 100 MG/ML 2 ml VIAL 500 MG in NS 0.9% 250 ml 250 ML IV SCH (20:47)
[2022-04-24] MEDS ORDERED: Midazolam 5 mg/5 ml VIAL 1 mg/ml 5 ml VIAL (5 mg) IV SLOW PU PRN (21:57)
[2022-04-24] MEDS ORDERED: Haloperidol 5 mg/ml SDV IV/IM 5 MG/ML AMP IV SLOW PU ONE (22:12)
[2022-04-24] MEDS ORDERED: Haloperidol 5 mg/ml SDV IV/IM 5 MG/ML AMP ONE (22:14)
[2022-04-24] MEDS ORDERED: Dexmedetomidine 1,000 MCG in NS 0.9% 250 ml 240 ML IV SCH (23:00)
[2022-04-24] MEDS: Vancomycin 750 MG in NS 0.9% 250 ML IVPB SCH (23:50)
[2022-04-25] MEDS: D5LR 1000 ml BAG 1,000 ML IV SCH (00:42)
[2022-04-25 04:17] LABS: ABS Basophils 0.1 10^3/ul (0-0.2); ABS Eosinophils 0.2 10^3/ul (0-0.6); ABS Lymphocytes 1.8 10^3/ul (1.0-4.8); ABS Monocytes 0.6 10^3/ul (0-0.8); ABS Neutrophils 10.9 10^3/ul (1.5-7.7); Eosinophil % 1.2 %; Hematocrit 33 % (42-52); Hemoglobin 10.6 g/dL (14.0-18.0); Lymphocyte % 13.2 %; Mean Corpuscular HGB Conc 32 g/dL (31-36); Mean Corpuscular Hemoglobin 26 pg (27-31); Mean Corpuscular Volume 83 fL (80-94); Mean Platelet Volume 8.4 fL (7.4-10.4); Platelet Count 193 10^3/uL (150-450); Red Blood Count 4.03 10^6 /uL (4.18-5.48); Red Cell Distribution Width 14 % (10-15); White Blood Count 13.5 10^3/uL (3.5-10.8)
[2022-04-25] MEDS: Vancomycin 750 MG in NS 0.9% 250 ML IVPB SCH ×2 (05:00→15:28)
[2022-04-25 05:06] LABS: Calcium 8.4 mg/dL (8.6-10.3); Creatinine, Serum 0.66 mg/dL (0.67-1.17); Magnesium 1.6 mg/dL (1.9-2.7); Potassium 3.9 mmol/L (3.5-5.0); eGFR CKD-EPI 117.1 (>60)
[2022-04-25] MEDS ORDERED: Magnesium Sulf 4 GM/100 ML IV 4,000 MG/100 ML BAG IVPB ONE (05:35)
[2022-04-25] MEDS: Thiamine 100 MG/ML 2 ml VIAL 500 MG in NS 0.9% 250 ml 250 ML IV SCH (09:44)
[2022-04-25] MEDS: Pantoprazole VIAL 40 MG VIAL IV SCH (09:46)
[2022-04-25] MEDS ORDERED: Dextrose 50% Syringe 50 ml 25 GM/50 ML SYRINGE IV PUSH PRN (10:34)
[2022-04-25] MEDS: Insulin GLARGINE 100 un/ml 10 ml VIAL SUBCUT SCH (12:01)
[2022-04-25] MEDS: Nicotine PATCH 14 MG/24 HR PATCH TRANSDERM SCH (12:05)
[2022-04-25] MEDS: Lactated Ringers 1000 ml BAG 1,000 ML IV SCH ×2 (12:36→22:19)
[2022-04-25] MEDS ORDERED: Vancomycin Trough Check NOTE FOLLOW UP ONE (13:30)
[2022-04-25] MEDS: Enoxaparin 40 MG/0.4 ML SYR SUBCUT SCH (15:28)
[2022-04-25] MEDS: Midazolam 5 mg/5 ml VIAL 1 mg/ml 5 ml VIAL (5 mg) IV SLOW PU PRN ×2 (19:29→19:41)
[2022-04-25] MEDS ORDERED: Haloperidol 5 mg/ml SDV IV/IM 5 MG/ML AMP IV SLOW PU PRN (19:34)
[2022-04-25] MEDS ORDERED: Midazolam 5 mg/5 ml VIAL 1 mg/ml 5 ml VIAL (5 mg) IV SLOW PU ONE (19:34)
[2022-04-25] MEDS ORDERED: Haloperidol 5 mg/ml SDV IV/IM 5 MG/ML AMP ONE (19:35)
[2022-04-25] MEDS ORDERED: Dexmedetomidine 1,000 MCG in NS 0.9% 250 ml 240 ML IV SCH (20:00)
[2022-04-25] MEDS ORDERED: Vancomycin 1000 MG in NS 0.9% 250 ML IVPB SCH (22:00)
[2022-04-26 06:18] LABS: ABS Eosinophils 0.3 10^3/ul (0-0.6); ABS Lymphocytes 2.8 10^3/ul (1.0-4.8); ABS Monocytes 0.4 10^3/ul (0-0.8); ABS Neutrophils 2.6 10^3/ul (1.5-7.7); Eosinophil % 5.3 %; Hematocrit 37 % (42-52); Hemoglobin 11.4 g/dL (14.0-18.0); Lymphocyte % 44.9 %; Mean Corpuscular HGB Conc 31 g/dL (31-36); Mean Corpuscular Hemoglobin 27 pg (27-31); Mean Corpuscular Volume 87 fL (80-94); Mean Platelet Volume 9.2 fL (7.4-10.4); Nucleated Red Blood Cells % 0.1; Platelet Count 154 10^3/uL (150-450); Red Blood Count 4.24 10^6 /uL (4.18-5.48); Red Cell Distribution Width 15 % (10-15); White Blood Count 6.1 10^3/uL (3.5-10.8)
[2022-04-26] MEDS: Insulin GLARGINE 100 un/ml 10 ml VIAL SUBCUT SCH (10:04)
[2022-04-26] MEDS: Nicotine PATCH 14 MG/24 HR PATCH TRANSDERM SCH (10:05)
[2022-04-26] MEDS: Buprenorp/Nalox 8-2 MG FILM SL SCH (10:05)
[2022-04-26] MEDS: Pantoprazole VIAL 40 MG VIAL IV SCH (10:06)
[2022-04-26] MEDS: Buprenorp/Nalox 12-3 MG FILM SL SCH (10:06)
[2022-04-26] MEDS: Thiamine 100 MG/ML 2 ml VIAL 500 MG in NS 0.9% 250 ml 250 ML IV SCH (10:28)
[2022-04-26] MEDS ORDERED: Al Hydrox/Mg Hydrox/Simet LIQ 30 ML UDC PO PRN (11:53)
[2022-04-26 13:09] LABS: Calcium 9.1 mg/dL (8.6-10.3); Creatinine, Serum 0.72 mg/dL (0.67-1.17); Magnesium 1.7 mg/dL (1.9-2.7); Potassium 3.7 mmol/L (3.5-5.0); eGFR CKD-EPI 114.1 (>60)
[2022-04-26] MEDS: Enoxaparin 40 MG/0.4 ML SYR SUBCUT SCH (17:15)
[2022-04-27] MEDS ORDERED: Vancomycin Trough Check NOTE FOLLOW UP ONE (05:30)
[2022-04-27] MEDS: Buprenorp/Nalox 8-2 MG FILM SL SCH (07:29)
[2022-04-27] MEDS ORDERED: Nicotine PATCH 21 MG/24 HR PATCH ONE (07:30)
[2022-04-27] MEDS: Nicotine GUM 2MG FRUIT FLAVOR PO PRN ×4 (07:48→22:55)
[2022-04-27] MEDS: Insulin GLARGINE 100 un/ml 10 ml VIAL SUBCUT SCH (07:49)
[2022-04-27] MEDS: Buprenorp/Nalox 12-3 MG FILM SL SCH (09:13)
[2022-04-27] MEDS: Nicotine PATCH 21 MG/24 HR PATCH TRANSDERM SCH (09:13)
[2022-04-27] MEDS: Vitamin THERAPEUTIC TAB PO SCH (09:14)
[2022-04-27] MEDS: Thiamine 100 MG/ML 2 ml VIAL 500 MG in NS 0.9% 250 ml 250 ML IV SCH (15:43)
[2022-04-27] MEDS: Pantoprazole VIAL 40 MG VIAL IV SCH (15:43)
[2022-04-28] MEDS: Nicotine GUM 2MG FRUIT FLAVOR PO PRN ×4 (07:14→16:39)
[2022-04-28] MEDS: Insulin GLARGINE 100 un/ml 10 ml VIAL SUBCUT SCH (08:18)
[2022-04-28] MEDS: Nicotine PATCH 21 MG/24 HR PATCH TRANSDERM SCH (08:19)
[2022-04-28] MEDS: Vitamin THERAPEUTIC TAB PO SCH (08:20)
[2022-04-28] MEDS: Buprenorp/Nalox 12-3 MG FILM SL SCH (08:21)
[2022-04-28] MEDS: Buprenorp/Nalox 8-2 MG FILM SL SCH (08:22)
[2022-04-29] MEDS: Buprenorp/Nalox 8-2 MG FILM SL SCH (07:52)
[2022-04-29] MEDS: Buprenorp/Nalox 12-3 MG FILM SL SCH (07:52)
[2022-04-29] MEDS: Vitamin THERAPEUTIC TAB PO SCH (07:55)
[2022-04-29] MEDS: Nicotine PATCH 21 MG/24 HR PATCH TRANSDERM SCH (07:57)
[2022-04-29] MEDS: Nicotine GUM 2MG FRUIT FLAVOR PO PRN ×3 (08:24→20:36)
[2022-04-29] MEDS: Insulin GLARGINE 100 un/ml 10 ml VIAL SUBCUT SCH (08:25)
[2022-04-30] MEDS: Nicotine GUM 2MG FRUIT FLAVOR PO PRN ×4 (02:00→22:47)
[2022-04-30] MEDS: Vitamin THERAPEUTIC TAB PO SCH (07:42)
[2022-04-30] MEDS: Buprenorp/Nalox 12-3 MG FILM SL SCH (07:43)
[2022-04-30] MEDS: Buprenorp/Nalox 8-2 MG FILM SL SCH (07:43)
[2022-04-30] MEDS: Nicotine PATCH 21 MG/24 HR PATCH TRANSDERM SCH (07:44)
[2022-04-30] MEDS: Insulin GLARGINE 100 un/ml 10 ml VIAL SUBCUT SCH (08:14)
[2022-04-30] MEDS ORDERED: Insulin GLARGINE 100 un/ml 10 ml VIAL SUBCUT ONE (08:55)
[2022-04-30] MEDS ORDERED: Influenza vaccine *QUAD* *2022-23* 0.5 ML SYRINGE IM ONE (09:00)
[2022-04-30] MEDS ORDERED: Insulin GLARGINE 100 un/ml 10 ml VIAL SUBCUT SCH (09:00)
[2022-05-01] MEDS: Nicotine GUM 2MG FRUIT FLAVOR PO PRN ×4 (07:24→17:37)
[2022-05-01] MEDS: Nicotine PATCH 21 MG/24 HR PATCH TRANSDERM SCH (07:51)
[2022-05-01] MEDS: Vitamin THERAPEUTIC TAB PO SCH (07:52)
[2022-05-01] MEDS: Buprenorp/Nalox 8-2 MG FILM SL SCH (07:53)
[2022-05-01] MEDS: Buprenorp/Nalox 12-3 MG FILM SL SCH (07:53)
[2022-05-01] MEDS: Insulin GLARGINE 100 un/ml 10 ml VIAL SUBCUT SCH (07:55)
[2022-05-01] MEDS: Lidocaine PATCH 5% PATCH TRANSDERM PRN (19:55)
[2022-05-02] MEDS: Vitamin THERAPEUTIC TAB PO SCH (07:53)
[2022-05-02] MEDS: Nicotine PATCH 21 MG/24 HR PATCH TRANSDERM SCH (07:53)
[2022-05-02] MEDS: Insulin GLARGINE 100 un/ml 10 ml VIAL SUBCUT SCH (07:57)
[2022-05-02] MEDS: Buprenorp/Nalox 12-3 MG FILM SL SCH (07:57)
[2022-05-02 08:18] VITALS: BP 128/77
[2022-05-02] MEDS: Nicotine GUM 2MG FRUIT FLAVOR PO PRN ×2 (10:27→12:35)
[2022-05-02] MEDS: Buprenorp/Nalox 8-2 MG FILM SL SCH (10:31)
[2022-05-02] MEDS: Lidocaine PATCH 5% PATCH TRANSDERM PRN (13:16)
== END 2022-05-02 14:00 | disposition home or self-care (01) | DRG 351 ==
LOC: ED 11:05 → EDHOLD 13:47 → ICU 17:07 → BSU 04-26 12:00
PROVIDERS: ADMIT Internal Medicine; ATTEND Internal Medicine

== ENCOUNTER 2022-05-06 02:18 | Inpatient (IN) ==
[2022-05-06] MEDS ORDERED: Haloperidol 5 mg/ml SDV IV/IM 5 MG/ML AMP ONE (02:25)
[2022-05-06] MEDS ORDERED: LORazepam 2 mg VIAL 1 ml ONE (02:26)
[2022-05-06] MEDS ORDERED: LORazepam 2 mg VIAL 1 ml IM ONE (02:41)
[2022-05-06] MEDS ORDERED: Lorazepam PYXIS KEY PRN ×2 (02:41→15:09)
[2022-05-06] MEDS ORDERED: Haloperidol 5 mg/ml SDV IV/IM 5 MG/ML AMP IM ONE (02:41)
[2022-05-06] MEDS ORDERED: NS 0.9% 1000 ml BAG 1,000 ML IV ONE ×2 (02:42→03:36)
[2022-05-06 02:57] LABS: ABS Basophils 0.1 10^3/ul (0-0.2); ABS Lymphocytes 1.5 10^3/ul (1.0-4.8); ABS Monocytes 0.4 10^3/ul (0-0.8); ABS Neutrophils 6.5 10^3/ul (1.5-7.7); Hematocrit 41 % (42-52); Lymphocyte % 17.6 %; Mean Corpuscular HGB Conc 32 g/dL (31-36); Mean Corpuscular Hemoglobin 27 pg (27-31); Mean Corpuscular Volume 85 fL (80-94); Mean Platelet Volume 9.2 fL (7.4-10.4); Platelet Count 291 10^3/uL (150-450); Red Blood Count 4.76 10^6 /uL (4.18-5.48); Red Cell Distribution Width 15 % (10-15); White Blood Count 8.5 10^3/uL (3.5-10.8)
[2022-05-06 03:24] LABS: Urine Benzodiazepine Screen None Detected (None Detect); Urine Cannabinoids Screen Presumptive Positive (None Detect); Urine Opiates Screen None Detected (None Detect)
[2022-05-06 03:30] LABS: Urine Appearance Clear; Urine Bilirubin Negative (Negative); Urine Blood Negative (Negative); Urine Color Straw; Urine Glucose 3+(>=500 mg/dL) (Negative); Urine Ketones 1+ (Negative); Urine Nitrite Negative (Negative); Urine Protein Negative (Negative); Urine Specific Gravity 1.027 (1.002-1.030); Urine Urobilinogen Negative (Negative)
[2022-05-06 03:40] LABS: Albumin 4.8 g/dL (3.2-5.2); Calcium 10.3 mg/dL (8.6-10.3); Creatinine, Serum 1.04 mg/dL (0.67-1.17); Globulin 3.3 g/dL (2-4); Potassium 4.3 mmol/L (3.5-5.0); Total Protein 8.1 g/dL (6.4-8.9); eGFR CKD-EPI 89.7 (>60)
[2022-05-06 03:41] LABS: Albumin/Globulin Ratio 1.5 (1-3); Total Bilirubin 0.5 mg/dL (0.2-1.0)
[2022-05-06 03:55] LABS: PCO2 Arterial 44 mmHg (35-45); PO2 Arterial 125 mmHg (80-100)
[2022-05-06] MEDS ORDERED: Insulin Infusion 100unit/100mL 100 UNIT/100 ML BAG IV ONE (04:03)
[2022-05-06] MEDS ORDERED: Dextrose 50% Syringe 50 ml 25 GM/50 ML SYRINGE IV PUSH PRN ×3 (04:03→08:53)
[2022-05-06] MEDS ORDERED: NS 0.9% w/ 20 Meq KCL 1000 ml 1,000 ML IV SCH (05:00)
[2022-05-06] MEDS ORDERED: Insulin Infusion 100unit/100mL 100 UNIT/100 ML BAG IV SCH (06:00)
[2022-05-06] MEDS ORDERED: Dexmedetomidine 1,000 MCG in NS 0.9% 250 ml 240 ML IV SCH ×2 (06:00→07:41)
[2022-05-06] MEDS ORDERED: Potassium Chloride IV 20 MEQ in Lactated Ringers 1000 ml BAG 1,000 ML IVPB SCH (06:30)
[2022-05-06] MEDS ORDERED: Ondansetron 4 mg VIAL 2 MG/ML 2 ml VIAL IV PRN (07:31)
[2022-05-06 08:19] LABS: Anion Gap 6 mmol/L (2-11); Blood Urea Nitrogen 18 mg/dL (6-24); CO2 Carbon Dioxide 31 mmol/L (22-32); Chloride 101 mmol/L (101-111); Creatinine, Serum 0.75 mg/dL (0.67-1.17); Glucose 223 mg/dL (70-100); Potassium 3.7 mmol/L (3.5-5.0); Sodium 138 mmol/L (135-145); eGFR CKD-EPI 112.7 (>60)
[2022-05-06] MEDS ORDERED: D5LR 20 MEQ KCL 1000 ml BAG 1,000 ML IV SCH ×2 (09:00)
[2022-05-06] MEDS: Pantoprazole VIAL 40 MG VIAL IV SCH (09:17)
[2022-05-06] MEDS: Enoxaparin 40 MG/0.4 ML SYR SUBCUT SCH (09:17)
[2022-05-06 09:52] LABS: Alcohol, S < 13 mg/dL (<13)
[2022-05-06 12:57] LABS: CO2 Carbon Dioxide 29 mmol/L (22-32); Calcium 8.9 mg/dL (8.6-10.3); Chloride 101 mmol/L (101-111); Sodium 134 mmol/L (135-145)
[2022-05-06 13:03] LABS: Blood Urea Nitrogen 17 mg/dL (6-24); Creatinine, Serum 0.62 mg/dL (0.67-1.17); Glucose 253 mg/dL (70-100); eGFR CKD-EPI 119.4 (>60)
[2022-05-06 13:06] LABS: Anion Gap 4 mmol/L (2-11)
[2022-05-06] MEDS: Potassium Chloride IV 20 MEQ in Lactated Ringers 1000 ml BAG 1,000 ML IVPB SCH ×2 (14:34→21:22)
[2022-05-06] MEDS ORDERED: LORazepam 2 mg VIAL 1 ml IV PUSH PRN ×2 (15:09→15:30)
[2022-05-06 16:09] LABS: CO2 Carbon Dioxide 27 mmol/L (22-32); Calcium 9.3 mg/dL (8.6-10.3); Chloride 104 mmol/L (101-111); Magnesium 2.1 mg/dL (1.9-2.7); Sodium 136 mmol/L (135-145)
[2022-05-06 16:14] LABS: Blood Urea Nitrogen 17 mg/dL (6-24); Creatinine, Serum 0.72 mg/dL (0.67-1.17); Glucose 276 mg/dL (70-100); eGFR CKD-EPI 114.1 (>60)
[2022-05-06 16:18] LABS: Anion Gap 5 mmol/L (2-11)
[2022-05-06] MEDS ORDERED: Nicotine GUM 2MG FRUIT FLAVOR PO PRN (17:37)
[2022-05-06] MEDS: Nicotine PATCH 21 MG/24 HR PATCH TRANSDERM SCH (17:45)
[2022-05-06] MEDS ORDERED: Insulin GLARGINE 100 un/ml 10 ml VIAL SUBCUT SCH (21:00)
[2022-05-07] MEDS: Potassium Chloride IV 20 MEQ in Lactated Ringers 1000 ml BAG 1,000 ML IVPB SCH (05:20)
[2022-05-07 05:36] LABS: Hematocrit 38 % (42-52); Hemoglobin 12.4 g/dL (14.0-18.0); Mean Corpuscular HGB Conc 32 g/dL (31-36); Mean Corpuscular Hemoglobin 27 pg (27-31); Mean Corpuscular Volume 83 fL (80-94); Mean Platelet Volume 8.5 fL (7.4-10.4); Platelet Count 237 10^3/uL (150-450); Red Blood Count 4.62 10^6 /uL (4.18-5.48); Red Cell Distribution Width 15 % (10-15); White Blood Count 11.9 10^3/uL (3.5-10.8)
[2022-05-07 06:13] LABS: Blood Urea Nitrogen 11 mg/dL (6-24); CO2 Carbon Dioxide 29 mmol/L (22-32); Calcium 8.8 mg/dL (8.6-10.3); Chloride 105 mmol/L (101-111); Creatinine, Serum 0.58 mg/dL (0.67-1.17); Glucose 179 mg/dL (70-100); Sodium 134 mmol/L (135-145); eGFR CKD-EPI 121.8 (>60)
[2022-05-07 07:15] LABS: ABS Basophils 0.1 10^3/ul (0-0.2); ABS Eosinophils 0.4 10^3/ul (0-0.6); ABS Lymphocytes 5.2 10^3/ul (1.0-4.8); ABS Monocytes 0.4 10^3/ul (0-0.8); Lymphocyte % 42.9 %; Nucleated Red Blood Cells % 0.2
[2022-05-07 08:09] VITALS: BP 128/71
[2022-05-07] MEDS: Pantoprazole VIAL 40 MG VIAL IV SCH (08:23)
[2022-05-07] MEDS: Enoxaparin 40 MG/0.4 ML SYR SUBCUT SCH (08:24)
[2022-05-07] MEDS: Nicotine PATCH 21 MG/24 HR PATCH TRANSDERM SCH (08:25)
[2022-05-07] MEDS ORDERED: Insulin GLARGINE 100 un/ml 10 ml VIAL SUBCUT SCH (09:00)
== END 2022-05-07 11:53 | disposition home or self-care (01) | DRG 420 ==
LOC: ED 02:18 → EDHOLD 04:23 → ICU 05:41
PROVIDERS: ADMIT Internal Medicine Critical Care Medicine; ATTEND Internal Medicine Critical Care Medicine

== ENCOUNTER 2022-08-31 14:49 | Inpatient (IN) ==
[2022-08-31 15:50] LABS: ABS Basophils 0.1 10^3/uL (0.0-0.1); ABS Eosinophils 0.4 10^3/uL (0.0-0.5); ABS Monocytes 0.5 10^3/uL (0.0-1.1); ABS Neutrophils 2.3 10^3/uL (1.5-7.6); Eosinophil % 6.5 %; Hematocrit 34.6 % (38-53); Hemoglobin 11.6 g/dL (13.2-16.3); Lymphocyte % 47.1 %; Mean Corpuscular Hemoglobin 27.3 pg (27-33); Mean Corpuscular Hgb Conc 33.5 g/dL (31-36); Mean Corpuscular Volume 81.4 fL (80-97); Mean Platelet Volume 8.7 fL (7.5-11.2); Platelet Count 291 10^3/uL (150-450); Red Blood Count 4.25 10^6/uL (4.06-5.63); Red Cell Distribution Width 14.4 % (12-17); White Blood Count 6.3 10^3/uL (3.6-10.2)
[2022-08-31 16:15] LABS: Urine Appearance Clear; Urine Bilirubin Negative (Negative); Urine Blood Negative (Negative); Urine Color Yellow; Urine Glucose 1+(50 mg/dL) (Negative); Urine Ketones Negative (Negative); Urine Nitrite Negative (Negative); Urine Protein Negative (Negative); Urine Specific Gravity 1.013 (1.002-1.030); Urine Urobilinogen Negative (Negative)
[2022-08-31 16:29] LABS: TSH Ultra Thyroid Stim Horm 2.42 mcIU/mL (0.34-5.60)
[2022-08-31 16:30] LABS: ALT 14 U/L (7-52); AST 18 U/L (13-39); Albumin 3.7 g/dL (3.2-5.2); Albumin/Globulin Ratio 1.1 (1-3); Alkaline Phosphatase 77 U/L (35-149); Anion Gap 9 mmol/L (2-16); Blood Urea Nitrogen 12 mg/dL (6-24); CO2 Carbon Dioxide 26 mmol/L (22-32); Calcium 9.2 mg/dL (8.6-10.3); Chloride 101 mmol/L (101-111); Creatinine, Serum 0.76 mg/dL (0.67-1.17); Globulin 3.3 g/dL (2-4); Glucose 214 mg/dL (70-100); Sodium 136 mmol/L (135-145); eGFR CKD-EPI 112.3 (>60)
[2022-08-31 16:35] LABS: Urine Benzodiazepine Screen Presumptive Positive (None Detect); Urine Cannabinoids Screen Presumptive Positive (None Detect); Urine Opiates Screen None Detected (None Detect)
[2022-08-31 16:50] LABS: Acetaminophen < 15 mcg/mL; Alcohol, S < 13 mg/dL (<13); Salicylate < 2.50 mg/dL (<30)
[2022-08-31] MEDS ORDERED: OLANZapine 10 mg TAB*ODT PO ONE (17:18)
[2022-08-31] MEDS: Insulin GLARGINE 100 un/ml 10 ml VIAL SUBCUT SCH (22:51)
[2022-08-31] MEDS ORDERED: Dextrose 50% Syringe 50 ml 25 GM/50 ML SYRINGE IV PUSH PRN ×3 (23:30→23:32)
[2022-09-01] MEDS: Vitamin THERAPEUTIC TAB PO SCH (07:54)
[2022-09-01 08:07] LABS: HDL Cholesterol 54.8 mg/dL
[2022-09-01] MEDS: Insulin GLARGINE 100 un/ml 10 ml VIAL SUBCUT SCH ×2 (08:58→22:08)
[2022-09-01] MEDS: Nicotine PATCH 21 MG/24 HR PATCH TRANSDERM SCH (11:12)
[2022-09-02] MEDS: Nicotine PATCH 21 MG/24 HR PATCH TRANSDERM SCH (07:47)
[2022-09-02] MEDS: Vitamin THERAPEUTIC TAB PO SCH (07:49)
[2022-09-02] MEDS: Insulin GLARGINE 100 un/ml 10 ml VIAL SUBCUT SCH ×2 (07:51→19:48)
[2022-09-02] MEDS: Nicotine GUM 2MG FRUIT FLAVOR PO PRN (15:53)
[2022-09-03] MEDS: Al Hydrox/Mg Hydrox/Simet LIQ 30 ML UDC PO PRN ×2 (03:59→07:45)
[2022-09-03] MEDS: Insulin GLARGINE 100 un/ml 10 ml VIAL SUBCUT SCH ×2 (07:43→22:07)
[2022-09-03] MEDS: Nicotine PATCH 21 MG/24 HR PATCH TRANSDERM SCH (07:44)
[2022-09-03] MEDS: Vitamin THERAPEUTIC TAB PO SCH (08:48)
[2022-09-03] MEDS: Nicotine GUM 2MG FRUIT FLAVOR PO PRN (12:39)
[2022-09-04] MEDS: Nicotine PATCH 21 MG/24 HR PATCH TRANSDERM SCH (07:44)
[2022-09-04] MEDS: Vitamin THERAPEUTIC TAB PO SCH (07:44)
[2022-09-04] MEDS: Insulin GLARGINE 100 un/ml 10 ml VIAL SUBCUT SCH ×2 (07:48→20:40)
[2022-09-04] MEDS: Nicotine GUM 2MG FRUIT FLAVOR PO PRN (13:33)
[2022-09-04] MEDS: Al Hydrox/Mg Hydrox/Simet LIQ 30 ML UDC PO PRN (16:27)
[2022-09-05] MEDS: Insulin GLARGINE 100 un/ml 10 ml VIAL SUBCUT SCH ×2 (08:21→19:59)
[2022-09-05] MEDS: Vitamin THERAPEUTIC TAB PO SCH (08:21)
[2022-09-05] MEDS: Nicotine PATCH 21 MG/24 HR PATCH TRANSDERM SCH (08:26)
[2022-09-05] MEDS ORDERED: Dextrose 50% Syringe 50 ml 25 GM/50 ML SYRINGE IV PUSH PRN (18:24)
[2022-09-06] MEDS: Nicotine GUM 2MG FRUIT FLAVOR PO PRN ×2 (03:08→12:49)
[2022-09-06] MEDS: Vitamin THERAPEUTIC TAB PO SCH (07:36)
[2022-09-06] MEDS: Nicotine PATCH 21 MG/24 HR PATCH TRANSDERM SCH (07:36)
[2022-09-06] MEDS: Insulin GLARGINE 100 un/ml 10 ml VIAL SUBCUT SCH ×2 (08:52→20:46)
[2022-09-07] MEDS: Vitamin THERAPEUTIC TAB PO SCH (07:54)
[2022-09-07] MEDS: Insulin GLARGINE 100 un/ml 10 ml VIAL SUBCUT SCH ×2 (07:56→20:02)
[2022-09-07] MEDS: Nicotine PATCH 21 MG/24 HR PATCH TRANSDERM SCH (09:35)
[2022-09-08] MEDS: Vitamin THERAPEUTIC TAB PO SCH (10:57)
[2022-09-08] MEDS: Insulin GLARGINE 100 un/ml 10 ml VIAL SUBCUT SCH ×2 (10:58→20:51)
[2022-09-08] MEDS: Nicotine PATCH 21 MG/24 HR PATCH TRANSDERM SCH (11:08)
[2022-09-08] MEDS: Nicotine GUM 2MG FRUIT FLAVOR PO PRN (17:40)
[2022-09-09] MEDS: Insulin GLARGINE 100 un/ml 10 ml VIAL SUBCUT SCH ×2 (07:45→20:05)
[2022-09-09] MEDS: Nicotine PATCH 21 MG/24 HR PATCH TRANSDERM SCH (07:46)
[2022-09-09] MEDS: Vitamin THERAPEUTIC TAB PO SCH (07:47)
[2022-09-09] MEDS: Buprenorp/Nalox 8-2 MG SL TAB PO SCH (16:17)
[2022-09-10] MEDS: Nicotine PATCH 21 MG/24 HR PATCH TRANSDERM SCH (07:37)
[2022-09-10] MEDS: Insulin GLARGINE 100 un/ml 10 ml VIAL SUBCUT SCH ×2 (07:37→19:41)
[2022-09-10] MEDS: Vitamin THERAPEUTIC TAB PO SCH (07:39)
[2022-09-10] MEDS: Buprenorp/Nalox 8-2 MG SL TAB PO SCH ×2 (07:39→19:41)
[2022-09-10] MEDS ORDERED: Buprenorp/Nalox 8-2 MG SL TAB PO SCH (09:00)
[2022-09-11] MEDS: Nicotine PATCH 21 MG/24 HR PATCH TRANSDERM SCH (07:50)
[2022-09-11] MEDS: Insulin GLARGINE 100 un/ml 10 ml VIAL SUBCUT SCH (07:50)
[2022-09-11] MEDS: Vitamin THERAPEUTIC TAB PO SCH (07:51)
[2022-09-11] MEDS: Buprenorp/Nalox 8-2 MG SL TAB PO SCH (08:22)
[2022-09-11 09:13] VITALS: BP 149/93
== END 2022-09-11 11:30 | DRG 773 ==
LOC: ED 14:49 → EDHOLD 18:10 → BSU 20:43
PROVIDERS: ADMIT Psychiatry & Neurology Psychiatry; ATTEND Psychiatry & Neurology Psychiatry

== ENCOUNTER 2022-11-04 09:18 | Inpatient (IN) ==
[2022-11-04] MEDS ORDERED: Lactated Ringers 1000 ml BAG 1,000 ML IV ONE ×2 (10:18→11:41)
[2022-11-04] MEDS ORDERED: Ondansetron 4 mg VIAL 2 MG/ML 2 ml VIAL IV ONE (10:18)
[2022-11-04] MEDS ORDERED: Prochlorperazine 5 mg/ml 2 ml VIAL (10 mg) IV ONE (10:19)
[2022-11-04 11:01] LABS: ABS Basophils 0.1 10^3/uL (0.0-0.1); ABS Lymphocytes 1.8 10^3/uL (1.0-4.8); ABS Monocytes 0.6 10^3/uL (0.0-1.1); ABS Neutrophils 17.8 10^3/uL (1.5-7.6); ABS Nucleated RBC 0.01 10^3/ul; Eosinophil % 0.1 %; Hematocrit 45.1 % (38-53); Hemoglobin 14.6 g/dL (13.2-16.3); Lymphocyte % 8.8 %; Mean Corpuscular Hemoglobin 27.4 pg (27-33); Mean Corpuscular Hgb Conc 32.3 g/dL (31-36); Mean Corpuscular Volume 84.6 fL (80-97); Mean Platelet Volume 10.8 fL (7.5-11.2); Platelet Count 284 10^3/uL (150-450); Red Blood Count 5.34 10^6/uL (4.06-5.63); Red Cell Distribution Width 14.2 % (12-17); White Blood Count 20.3 10^3/uL (3.6-10.2)
[2022-11-04 11:19] LABS: Albumin 4.9 g/dL (3.2-5.2); Albumin/Globulin Ratio 1.2 (1-3); C Reactive Protein 25.62 mg/L (<8.01); Calcium 9.3 mg/dL (8.6-10.3); Creatinine, Serum 1.71 mg/dL (0.67-1.17); Globulin 4.1 g/dL (2-4); Potassium 4.2 mmol/L (3.5-5.0); Total Bilirubin 0.4 mg/dL (0.2-1.0); eGFR CKD-EPI 49.4 (>60)
[2022-11-04] MEDS ORDERED: Dextrose 50% Syringe 50 ml 25 GM/50 ML SYRINGE IV PUSH PRN (11:34)
[2022-11-04] MEDS: Insulin Infusion 100unit/100mL 100 UNIT/100 ML BAG IV ONE ×2 (12:03→20:08)
[2022-11-04] MEDS ORDERED: Ondansetron 4 mg VIAL 2 MG/ML 2 ml VIAL IV PRN (12:23)
[2022-11-04 12:46] LABS: Urine Appearance Clear; Urine Bilirubin Negative (Negative); Urine Blood 1+ (Negative); Urine Color Straw; Urine Glucose 3+(>=500 mg/dL) (Negative); Urine Ketones 2+ (Negative); Urine Nitrite Negative (Negative); Urine Protein 1+(30 mg/dL) (Negative); Urine Specific Gravity 1.022 (1.002-1.030); Urine Urobilinogen Negative (Negative)
[2022-11-04 12:58] LABS: Urine Bacteria Absent (Absent); Urine Red Blood Cell Trace(0-2/hpf) (Absent); Urine White Blood Cell Absent (Absent)
[2022-11-04 13:08] LABS: TSH Ultra Thyroid Stim Horm 0.91 mcIU/mL (0.34-5.60)
[2022-11-04 13:24] LABS: Alcohol, S < 13 mg/dL (<13)
[2022-11-04 13:35] LABS: Osmolality Serum 342 mOsm/kg (275-295)
[2022-11-04 13:40] LABS: Urine Benzodiazepine Screen None Detected (None Detect); Urine Buprenorphine Screen Presumptive Positive (None Detect); Urine Cannabinoids Screen Presumptive Positive (None Detect); Urine Fentanyl Screen None Detected (None Detect); Urine Hydrocodone Screen None Detected (None Detect); Urine Opiates Screen None Detected (None Detect)
[2022-11-04 13:47] LABS: Blood Urea Nitrogen 27 mg/dL (6-24); Calcium 8.9 mg/dL (8.6-10.3); Chloride 93 mmol/L (101-111); Creatinine, Serum 1.48 mg/dL (0.67-1.17); Magnesium 1.8 mg/dL (1.9-2.7); Phosphorus 4.7 mg/dL (2.5-5.0); Sodium 130 mmol/L (135-145); eGFR CKD-EPI 58.7 (>60)
[2022-11-04 13:52] LABS: High Sens Troponin Baseline 5 pg/mL (<20)
[2022-11-04 13:53] LABS: CO2 Carbon Dioxide < 7 mmol/L (22-32)
[2022-11-04 14:54] LABS: High Sensitivity Troponin 1 Hr 5 pg/mL (<20)
[2022-11-04] MEDS ORDERED: Lactated Ringers 1000 ml BAG 1,000 ML IV SCH (15:00)
[2022-11-04 15:13] LABS: Glucose 613 mg/dL (70-100)
[2022-11-04 16:16] LABS: Glucose Confirmatory 491 mg/dL (70-100)
[2022-11-04 16:31] LABS: Calcium 9.1 mg/dL (8.6-10.3); Creatinine, Serum 1.23 mg/dL (0.67-1.17); Potassium 3.5 mmol/L (3.5-5.0); eGFR CKD-EPI 73.3 (>60)
[2022-11-04] MEDS: D5LR 20 MEQ KCL 1000 ml BAG 1,000 ML IV SCH (18:30)
[2022-11-04 20:33] LABS: Calcium 9.1 mg/dL (8.6-10.3); Creatinine, Serum 1.02 mg/dL (0.67-1.17); Magnesium 1.7 mg/dL (1.9-2.7); Phosphorus 2.1 mg/dL (2.5-5.0); Potassium 3.7 mmol/L (3.5-5.0); eGFR CKD-EPI 91.8 (>60)
[2022-11-04] MEDS: Insulin GLARGINE 100 un/ml 10 ml VIAL SUBCUT SCH (21:22)
[2022-11-04] MEDS: Enoxaparin 40 MG/0.4 ML SYR SUBCUT SCH (21:22)
[2022-11-05] MEDS: D5LR 20 MEQ KCL 1000 ml BAG 1,000 ML IV SCH (00:05)
[2022-11-05 00:26] LABS: Calcium 9.1 mg/dL (8.6-10.3); Creatinine, Serum 0.89 mg/dL (0.67-1.17); Potassium 3.3 mmol/L (3.5-5.0)
[2022-11-05 00:40] LABS: Magnesium 1.8 mg/dL (1.9-2.7); Phosphorus 1.8 mg/dL (2.5-5.0)
[2022-11-05] MEDS ORDERED: Dextrose 50% Syringe 50 ml 25 GM/50 ML SYRINGE IV PUSH PRN (00:44)
[2022-11-05 04:52] LABS: Calcium 8.7 mg/dL (8.6-10.3); Creatinine, Serum 0.98 mg/dL (0.67-1.17); eGFR CKD-EPI 96.3 (>60)
[2022-11-05 05:47] LABS: ABS Basophils 0.1 10^3/uL (0.0-0.1); ABS Eosinophils 0.1 10^3/uL (0.0-0.5); ABS Lymphocytes 2.6 10^3/uL (1.0-4.8); ABS Monocytes 1.5 10^3/uL (0.0-1.1); ABS Neutrophils 12.1 10^3/uL (1.5-7.6); ABS Nucleated RBC 0.01 10^3/ul; Eosinophil % 0.9 %; Hematocrit 35.5 % (38-53); Hemoglobin 12.2 g/dL (13.2-16.3); Lymphocyte % 16.1 %; Mean Corpuscular Hemoglobin 27.1 pg (27-33); Mean Corpuscular Hgb Conc 34.2 g/dL (31-36); Mean Corpuscular Volume 79.3 fL (80-97); Mean Platelet Volume 10.5 fL (7.5-11.2); Platelet Count 213 10^3/uL (150-450); Red Blood Count 4.48 10^6/uL (4.06-5.63); White Blood Count 16.4 10^3/uL (3.6-10.2)
[2022-11-05] MEDS ORDERED: Nicotine GUM 4MG FRUIT FLAVOR PO PRN (07:35)
[2022-11-05] MEDS ORDERED: cefTRIAXone 1 gm/50 mL D5W 1 GM/50 ML BAG IV SCH (07:45)
[2022-11-05] MEDS ORDERED: DOXYcycline 100 MG in NS 0.9% 250 ml 250 ML IVPB SCH (08:00)
[2022-11-05] MEDS ORDERED: Magnesium Sulfate 2 gm BAG 2 GM/50 ML BAG IVPB ONE (08:40)
[2022-11-05] MEDS ORDERED: Potassium Phosphate IV 15 MMOL in NS 0.9% 250 ml 250 ML IVPB ONE (08:41)
[2022-11-05] MEDS ORDERED: Clindamycin 600 MG/NS BAG(*) 600 MG/50 ML BAG IV SCH (09:00)
[2022-11-05] MEDS ORDERED: Insulin GLARGINE 100 un/ml 10 ml VIAL SUBCUT SCH (09:00)
[2022-11-05] MEDS: Nicotine PATCH 21 MG/24 HR PATCH TRANSDERM SCH (09:12)
[2022-11-05] MEDS: Insulin GLARGINE 100 un/ml 10 ml VIAL SUBCUT SCH (09:40)
[2022-11-05 14:23] LABS: ABS Basophils 0.1 10^3/uL (0.0-0.1); ABS Eosinophils 0.2 10^3/uL (0.0-0.5); ABS Lymphocytes 3.2 10^3/uL (1.0-4.8); ABS Monocytes 1.2 10^3/uL (0.0-1.1); ABS Neutrophils 8.6 10^3/uL (1.5-7.6); ABS Nucleated RBC 0.01 10^3/ul; Eosinophil % 1.2 %; Hematocrit 33.3 % (38-53); Hemoglobin 11.3 g/dL (13.2-16.3); Mean Corpuscular Hemoglobin 27.1 pg (27-33); Mean Corpuscular Hgb Conc 33.9 g/dL (31-36); Mean Corpuscular Volume 79.8 fL (80-97); Mean Platelet Volume 9.4 fL (7.5-11.2); Platelet Count 203 10^3/uL (150-450); Red Blood Count 4.17 10^6/uL (4.06-5.63); White Blood Count 13.2 10^3/uL (3.6-10.2)
[2022-11-05 14:36] LABS: Calcium 8.9 mg/dL (8.6-10.3); Creatinine, Serum 0.78 mg/dL (0.67-1.17); Magnesium 2.1 mg/dL (1.9-2.7); Phosphorus 2.1 mg/dL (2.5-5.0); Potassium 3.3 mmol/L (3.5-5.0); eGFR CKD-EPI 111.4 (>60)
[2022-11-05] MEDS ORDERED: Potassium Chlor 20 meq TAB.ER PO ONE (18:11)
[2022-11-05] MEDS: Enoxaparin 40 MG/0.4 ML SYR SUBCUT SCH (20:32)
[2022-11-06 05:06] LABS: ABS Basophils 0.1 10^3/uL (0.0-0.1); ABS Eosinophils 0.3 10^3/uL (0.0-0.5); ABS Lymphocytes 2.2 10^3/uL (1.0-4.8); ABS Monocytes 0.7 10^3/uL (0.0-1.1); ABS Neutrophils 5.4 10^3/uL (1.5-7.6); Eosinophil % 3.1 %; Hematocrit 30.6 % (38-53); Hemoglobin 10.7 g/dL (13.2-16.3); Lymphocyte % 25.3 %; Mean Corpuscular Hemoglobin 28.1 pg (27-33); Mean Corpuscular Hgb Conc 34.9 g/dL (31-36); Mean Corpuscular Volume 80.6 fL (80-97); Mean Platelet Volume 9.3 fL (7.5-11.2); Platelet Count 168 10^3/uL (150-450); Red Blood Count 3.79 10^6/uL (4.06-5.63); Red Cell Distribution Width 14.2 % (12-17); White Blood Count 8.6 10^3/uL (3.6-10.2)
[2022-11-06 05:27] LABS: Calcium 8.4 mg/dL (8.6-10.3); Creatinine, Serum 0.79 mg/dL (0.67-1.17); Magnesium 1.8 mg/dL (1.9-2.7); Phosphorus 2.7 mg/dL (2.5-5.0); Potassium 3.4 mmol/L (3.5-5.0)
[2022-11-06] MEDS ORDERED: Magnesium Sulfate 2 gm BAG 2 GM/50 ML BAG IVPB ONE (08:10)
[2022-11-06] MEDS ORDERED: Potassium Chlor 20 meq TAB.ER PO ONE (08:16)
[2022-11-06] MEDS: Nicotine PATCH 21 MG/24 HR PATCH TRANSDERM SCH (08:53)
[2022-11-06] MEDS: Insulin GLARGINE 100 un/ml 10 ml VIAL SUBCUT SCH (08:53)
[2022-11-06 12:21] VITALS: BP 97/65
[2022-11-06 22:16] LABS: Anaplasma phagocytophilum Negative (Negative); B. miyamotoi PCR, B Negative (Negative); Babesia divergens/MO-1 Negative (Negative); Babesia ducani Negative (Negative); Ehrlichia chaffeensis Negative (Negative); Ehrlichia ewingii/canis Negative (Negative); Ehrlichia muris eauclairensis Negative (Negative)
== END 2022-11-06 13:15 | disposition home or self-care (01) | DRG 420 ==
LOC: ED 09:18 → EDHOLD 12:01 → ICU 13:02
PROVIDERS: ADMIT Student in an Organized Health Care Education/Training Program; ATTEND Student in an Organized Health Care Education/Training Program

== ENCOUNTER 2023-09-02 11:41 | Observation (INO) ==
[2023-09-02] MEDS: Ondansetron 4 mg VIAL 2 MG/ML 2 ml VIAL IV ONE ×3 (12:58→18:34)
[2023-09-02] MEDS: Lactated Ringers 1000 ml BAG 1,000 ML IV ONE ×3 (13:00→16:43)
[2023-09-02 13:28] LABS: Venous Bicarbonate HCO3 28.2 mmol/L (24-28)
[2023-09-02 13:34] LABS: ABS Basophils 0.1 10^3/uL (0.0-0.1); ABS Lymphocytes 1.3 10^3/uL (1.0-4.8); ABS Monocytes 0.3 10^3/uL (0.0-1.1); ABS Neutrophils 13.5 10^3/uL (1.5-7.6); Hematocrit 42.5 % (38-53); Lymphocyte % 8.4 %; Mean Corpuscular Hemoglobin 27.2 pg (27-33); Mean Corpuscular Volume 82.4 fL (80-97); Mean Platelet Volume 10.2 fL (7.5-11.2); Platelet Count 295 10^3/uL (150-450); Red Blood Count 5.16 10^6/uL (4.06-5.63); Red Cell Distribution Width 14.4 % (12-17); White Blood Count 15.3 10^3/uL (3.6-10.2)
[2023-09-02 14:30] LABS: Urine Benzodiazepine Screen None Detected (None Detect); Urine Cannabinoids Screen Presumptive Positive (None Detect); Urine Opiates Screen Presumptive Positive (None Detect)
[2023-09-02 14:52] LABS: Urine Appearance Clear; Urine Bilirubin Negative (Negative); Urine Blood Negative (Negative); Urine Color Colorless; Urine Glucose 4+ (>=1000 mg/dL) (Negative); Urine Ketones 4+ (Negative); Urine Nitrite Negative (Negative); Urine Protein Negative (Negative); Urine Specific Gravity 1.029 (1.002-1.030); Urine Urobilinogen Negative (Negative)
[2023-09-02 14:57] LABS: ALT 16 U/L (7-52); AST 11 U/L (13-39); Albumin 5.3 g/dL (3.2-5.2); Albumin/Globulin Ratio 1.5 (1-3); Alcohol, S < 13 mg/dL (<13); Alkaline Phosphatase 163 U/L (35-149); Anion Gap 21 mmol/L (2-16); Blood Urea Nitrogen 18 mg/dL (6-24); C Reactive Protein 13.75 mg/L (<8.01); CO2 Carbon Dioxide 28 mmol/L (22-32); Calcium 10.9 mg/dL (8.6-10.3); Chloride 87 mmol/L (101-111); Globulin 3.5 g/dL (2-4); Glucose 602 mg/dL (70-100); Lipase 12 U/L (11.0-82.0); Magnesium 2.1 mg/dL (1.9-2.7); Potassium 4.1 mmol/L (3.5-5.0); Sodium 136 mmol/L (135-145); Total Bilirubin 0.5 mg/dL (0.2-1.0); Total Protein 8.8 g/dL (6.4-8.9); eGFR CKD-EPI 93.4 (>60)
[2023-09-02 16:30] LABS: Glucose Confirmatory 422 mg/dL (70-100)
[2023-09-02] MEDS ORDERED: Dextrose 50% Syringe 50 ml 25 GM/50 ML SYRINGE IV PUSH PRN (16:35)
[2023-09-02 17:44] LABS: Osmolality Serum 326 mOsm/kg (275-295)
[2023-09-02] MEDS: Enoxaparin 40 MG/0.4 ML SYR SUBCUT SCH (18:34)
[2023-09-02 18:53] LABS: Glucose Confirmatory 468 mg/dL (70-100)
[2023-09-02] MEDS: Lactated Ringers 1000 ml BAG 1,000 ML IV SCH (19:29)
[2023-09-02] MEDS: Ondansetron 4 mg VIAL 2 MG/ML 2 ml VIAL IV PRN (22:26)
[2023-09-02] MEDS: Calcium Carb (TUMS) 500 mg CHEW TAB PO PRN (22:26)
[2023-09-03 07:27] LABS: ABS Eosinophils 0.1 10^3/uL (0.0-0.5); ABS Lymphocytes 2.7 10^3/uL (1.0-4.8); Eosinophil % 0.4 %; Hematocrit 36.6 % (38-53); Hemoglobin 11.9 g/dL (13.2-16.3); Lymphocyte % 17.1 %; Mean Corpuscular Hemoglobin 26.6 pg (27-33); Mean Corpuscular Hgb Conc 32.6 g/dL (31-36); Mean Corpuscular Volume 81.6 fL (80-97); Mean Platelet Volume 9.2 fL (7.5-11.2); Platelet Count 241 10^3/uL (150-450); Red Blood Count 4.49 10^6/uL (4.06-5.63); Red Cell Distribution Width 14.7 % (12-17); White Blood Count 15.8 10^3/uL (3.6-10.2)
[2023-09-03 07:42] LABS: Calcium 9.2 mg/dL (8.6-10.3); Creatinine, Serum 0.72 mg/dL (0.67-1.17); Potassium 3.5 mmol/L (3.5-5.0); eGFR CKD-EPI 113.4 (>60)
[2023-09-03 10:11] VITALS: BP 147/96
[2023-09-03] MEDS: Multivitamins/Minerals TAB PO SCH (10:30)
== END 2023-09-03 12:30 | disposition home or self-care (01) ==
LOC: EDHOLD 11:41 → ED 11:41 → MED 09-03 00:21
PROVIDERS: ADMIT Student in an Organized Health Care Education/Training Program; ATTEND Student in an Organized Health Care Education/Training Program

== ENCOUNTER 2023-11-06 16:22 | Inpatient (IN) ==
[2023-11-06] MEDS: Droperidol 5 MG/2 ML 2 ML VIAL IV ONE (16:56)
[2023-11-06] MEDS: Pantoprazole VIAL 40 MG VIAL IV ONE (16:57)
[2023-11-06] MEDS: Lactated Ringers 1000 ml BAG 1,000 ML IV ONE (16:58)
[2023-11-06 17:01] LABS: Venous Bicarbonate HCO3 13.8 mmol/L (24-28)
[2023-11-06 17:05] LABS: ABS Basophils 0.1 10^3/uL (0.0-0.1); ABS Lymphocytes 2.4 10^3/uL (1.0-4.8); ABS Monocytes 0.7 10^3/uL (0.0-1.1); ABS Neutrophils 12.2 10^3/uL (1.5-7.6); Eosinophil % 0.2 %; Hematocrit 45.9 % (38-53); Hemoglobin 15.1 g/dL (13.2-16.3); Lymphocyte % 15.4 %; Mean Corpuscular Hgb Conc 32.9 g/dL (31-36); Mean Corpuscular Volume 81.9 fL (80-97); Mean Platelet Volume 9.6 fL (7.5-11.2); Platelet Count 293 10^3/uL (150-450); Red Cell Distribution Width 15.1 % (12-17); White Blood Count 15.5 10^3/uL (3.6-10.2)
[2023-11-06 17:11] LABS: INR 0.88 (0.85-1.14)
[2023-11-06 17:45] LABS: ALT 17 U/L (7-52); AST 16 U/L (13-39); Albumin 5.8 g/dL (3.2-5.2); Albumin/Globulin Ratio 1.4 (1-3); Alcohol, S < 13 mg/dL (<13); Alkaline Phosphatase 177 U/L (35-149); Anion Gap 32 mmol/L (2-16); Blood Urea Nitrogen 18 mg/dL (6-24); C Reactive Protein 3.86 mg/L (<8.01); CO2 Carbon Dioxide 9 mmol/L (22-32); Calcium 10.6 mg/dL (8.6-10.3); Chloride 92 mmol/L (101-111); Creatinine, Serum 1.28 mg/dL (0.67-1.17); Globulin 4.1 g/dL (2-4); Glucose 339 mg/dL (70-100); Lipase 47 U/L (11.0-82.0); Phosphorus 4.5 mg/dL (2.5-5.0); Potassium 3.8 mmol/L (3.5-5.0); Sodium 133 mmol/L (135-145); Total Bilirubin 0.5 mg/dL (0.2-1.0); Total Protein 9.9 g/dL (6.4-8.9); eGFR CKD-EPI 69.5 (>60)
[2023-11-06] MEDS: Iodixanol (CONTRAST) 320 MG/ML 100 ML SDV IV ONE (18:22)
[2023-11-06] MEDS: NORMOSOL-R pH 7.4 1000 mL BAG 1,000 ML IV ONE (18:32)
[2023-11-06] MEDS: KCL 20 MEQ/100 ML IVPREMIX 20 MEQ/100 ML BAG IV ONE (18:54)
[2023-11-06 18:57] LABS: High Sensitivity Troponin 1 Hr < 3 pg/mL (<20)
[2023-11-06] MEDS: NORMOSOL-R pH 7.4 1000 mL BAG 1,000 ML IV SCH ×2 (19:44→22:21)
[2023-11-06 20:25] LABS: Urine Appearance Clear; Urine Bacteria Absent /HPF (Absent); Urine Bilirubin Negative (Negative); Urine Blood Negative (Negative); Urine Color Light-Yellow; Urine Glucose 4+ (>=1000 mg/dL) (Negative); Urine Ketones 4+ (Negative); Urine Nitrite Negative (Negative); Urine Protein 1+ (>=30 mg/dL) (Negative); Urine Red Blood Cell Trace(0-2/hpf) /HPF (0-Trace); Urine Sperm Present /HPF (Absent); Urine Urobilinogen Negative (Negative); Urine White Blood Cell Trace(0-5/hpf) /HPF (0-Trace); Urine pH 5.5 (5.0-8.0)
[2023-11-06] MEDS: Dextrose 50% Syringe 50 ml 25 GM/50 ML SYRINGE IV PUSH PRN (20:47)
[2023-11-06 20:49] LABS: Urine Benzodiazepine Screen None Detected (None Detect); Urine Cannabinoids Screen Presumptive Positive (None Detect); Urine Opiates Screen None Detected (None Detect)
[2023-11-06] MEDS ORDERED: Ondansetron 4 mg VIAL 2 MG/ML 2 ml VIAL IV PRN (21:06)
[2023-11-06] MEDS: Pantoprazole VIAL 40 MG VIAL IV SCH (21:25)
[2023-11-06] MEDS: KCL 10 MEQ/50 ML IVPREMIX 10 MEQ/50 ML BAG IV SCH (21:30)
[2023-11-06] MEDS: D5LR 20 MEQ KCL 1000 ml BAG 1,000 ML IV SCH (21:30)
[2023-11-06] MEDS: Insulin Infusion 100unit/100mL 100 UNIT/100 ML BAG IV SCH ×2 (21:31→22:15)
[2023-11-06 21:45] LABS: Calcium 8.8 mg/dL (8.6-10.3); Creatinine, Serum 1.05 mg/dL (0.67-1.17); Potassium 4.2 mmol/L (3.5-5.0); eGFR CKD-EPI 88.1 (>60)
[2023-11-06 22:02] LABS: Osmolality Serum 305 mOsm/kg (275-295)
[2023-11-07 04:00] LABS: ABS Lymphocytes 3.4 10^3/uL (1.0-4.8); ABS Monocytes 0.7 10^3/uL (0.0-1.1); ABS Neutrophils 6.2 10^3/uL (1.5-7.6); Eosinophil % 0.5 %; Hematocrit 32.6 % (38-53); Hemoglobin 11.1 g/dL (13.2-16.3); Lymphocyte % 32.9 %; Mean Corpuscular Hemoglobin 27.2 pg (27-33); Mean Corpuscular Hgb Conc 33.9 g/dL (31-36); Mean Platelet Volume 9.2 fL (7.5-11.2); Platelet Count 186 10^3/uL (150-450); Red Blood Count 4.08 10^6/uL (4.06-5.63); Red Cell Distribution Width 15.2 % (12-17); White Blood Count 10.3 10^3/uL (3.6-10.2)
[2023-11-07 04:16] LABS: Calcium 8.1 mg/dL (8.6-10.3); Creatinine, Serum 0.83 mg/dL (0.67-1.17); Creatinine, Serum 0.87 mg/dL (0.67-1.17); Magnesium 1.9 mg/dL (1.9-2.7); Potassium 3.7 mmol/L (3.5-5.0); eGFR CKD-EPI 107.1 (>60); eGFR CKD-EPI 108.6 (>60)
[2023-11-07] MEDS: Insulin Infusion 100unit/100mL 100 UNIT/100 ML BAG IV SCH (05:37)
[2023-11-07] MEDS ORDERED: Dextrose 50% Syringe 50 ml 25 GM/50 ML SYRINGE IV PUSH PRN (06:26)
[2023-11-07] MEDS: Insulin GLARGINE 100 un/ml 10 ml VIAL SUBCUT SCH (07:33)
[2023-11-07] MEDS: Magnesium Sulfate IV 1GM/100ML 1 GM/100 ML BAG IV ONE (08:41)
[2023-11-07] MEDS: Insulin GLARGINE 100 un/ml 10 ml VIAL SUBCUT ONE (10:52)
[2023-11-07 11:10] LABS: Calcium 8.1 mg/dL (8.6-10.3); Creatinine, Serum 0.75 mg/dL (0.67-1.17); Potassium 4.2 mmol/L (3.5-5.0)
[2023-11-07] MEDS: Polyethylene Glycol 3350 17 GM PACKET PO PRN (15:27)
[2023-11-07] MEDS: Senna TAB 8.6 mg TAB PO SCH (21:56)
[2023-11-08 08:50] VITALS: BP 152/105
[2023-11-08] MEDS: Insulin GLARGINE 100 un/ml 10 ml VIAL SUBCUT SCH (08:53)
[2023-11-08] MEDS: NF: Pancrelipase 36,000 units (NF) PO SCH (08:56)
== END 2023-11-08 12:35 | disposition home or self-care (01) | DRG 420 ==
LOC: ED 16:22 → EDHOLD 18:42 → SUATTDRO 18:42 → ICU 11-07 00:19 → MEDTELE 11-08 01:10
PROVIDERS: ADMIT Student in an Organized Health Care Education/Training Program; ATTEND Student in an Organized Health Care Education/Training Program

== ENCOUNTER 2023-12-31 08:26 | Inpatient (IN) ==
[2023-12-31] MEDS: Lactated Ringers 1000 ml BAG 1,000 ML IV ONE ×2 (09:19→10:44)
[2023-12-31] MEDS: Ondansetron 4 mg VIAL 2 MG/ML 2 ml VIAL IV ONE ×2 (09:19→10:03)
[2023-12-31 09:29] LABS: ABS Basophils 0.1 10^3/uL (0.0-0.1); ABS Lymphocytes 1.2 10^3/uL (1.0-4.8); ABS Monocytes 0.3 10^3/uL (0.0-1.1); ABS Neutrophils 9.8 10^3/uL (1.5-7.6); ABS Nucleated RBC 0.01 10^3/ul; Hematocrit 41.1 % (38-53); Lymphocyte % 10.9 %; Mean Corpuscular Hemoglobin 27.7 pg (27-33); Mean Corpuscular Hgb Conc 31.7 g/dL (31-36); Mean Corpuscular Volume 87.3 fL (80-97); Mean Platelet Volume 9.7 fL (7.5-11.2); Nucleated Red Blood Cells % 0.1 %/100WBC (0.0-0.8); Platelet Count 293 10^3/uL (150-450); Red Blood Count 4.71 10^6/uL (4.06-5.63); White Blood Count 11.4 10^3/uL (3.6-10.2)
[2023-12-31 09:38] LABS: INR 0.86 (0.85-1.14)
[2023-12-31 09:56] LABS: High Sens Troponin Baseline 4 pg/mL (<20)
[2023-12-31 10:16] LABS: ALT 14 U/L (7-52); AST 13 U/L (13-39); Albumin/Globulin Ratio 1.4 (1-3); Alkaline Phosphatase 126 U/L (35-149); Blood Urea Nitrogen 25 mg/dL (6-24); C Reactive Protein 2.06 mg/L (<8.01); CO2 Carbon Dioxide < 7 mmol/L (22-32); Calcium 9.7 mg/dL (8.6-10.3); Chloride 84 mmol/L (101-111); Creatinine, Serum 1.55 mg/dL (0.67-1.17); Globulin 3.7 g/dL (2-4); Glucose 620 mg/dL (70-100); Lipase 29 U/L (11.0-82.0); Magnesium 2.2 mg/dL (1.9-2.7); Potassium 5.1 mmol/L (3.5-5.0); Sodium 127 mmol/L (135-145); Total Bilirubin 0.4 mg/dL (0.2-1.0); Total Protein 8.7 g/dL (6.4-8.9); eGFR CKD-EPI 55.2 (>60)
[2023-12-31] MEDS: Iodixanol 320 (CONTRAST) 100 ML SDV IV ONE (10:34)
[2023-12-31] MEDS: KCL 10 MEQ/50 ML IVPREMIX 10 MEQ/50 ML BAG IV ONE (10:44)
[2023-12-31 10:50] LABS: High Sensitivity Troponin 1 Hr 5 pg/mL (<20)
[2023-12-31] MEDS: Metoclopramide 5 MG/ML VIAL (10 mg) IV SLOW PU ONE (11:06)
[2023-12-31] MEDS: HYDROmorphone 1 MG/1 ML SYRINGE IV SLOW PU ONE (11:09)
[2023-12-31 11:18] LABS: Urine Appearance Clear; Urine Bilirubin Negative (Negative); Urine Blood Negative (Negative); Urine Color Colorless; Urine Glucose 4+ (>=1000 mg/dL) (Negative); Urine Ketones 4+ (Negative); Urine Nitrite Negative (Negative); Urine Protein Trace (Negative); Urine Urobilinogen Negative (Negative)
[2023-12-31] MEDS: Insulin Infusion 100unit/100mL 100 UNIT/100 ML BAG IV SCH ×6 (11:28→22:11)
[2023-12-31 13:30] LABS: Blood Urea Nitrogen 28 mg/dL (6-24); CO2 Carbon Dioxide < 7 mmol/L (22-32); Chloride 88 mmol/L (101-111); Creatinine, Serum 1.48 mg/dL (0.67-1.17); Glucose 525 mg/dL (70-100); Potassium 4.4 mmol/L (3.5-5.0); Sodium 130 mmol/L (135-145); eGFR CKD-EPI 58.4 (>60)
[2023-12-31] MEDS: NORMOSOL-R pH 7.4 1000 mL BAG 1,000 ML IV SCH (14:18)
[2023-12-31 14:38] LABS: Glucose Confirmatory 416 mg/dL (70-100)
[2023-12-31] MEDS: HYDROmorphone 1 MG/1 ML SYRINGE IV SLOW PU PRN ×3 (15:25→21:59)
[2023-12-31] MEDS: KCL 20 MEQ/100 ML IVPREMIX 20 MEQ/100 ML BAG IV ONE (16:19)
[2023-12-31] MEDS: HYDROmorphone 1 MG/1 ML SYRINGE ONE (17:18)
[2023-12-31 17:20] LABS: Calcium 9.3 mg/dL (8.6-10.3); Creatinine, Serum 1.37 mg/dL (0.67-1.17)
[2023-12-31] MEDS: D5LR 1000 ml BAG 1,000 ML IV SCH (17:25)
[2023-12-31] MEDS: Enoxaparin 40 MG/0.4 ML SYR SUBCUT SCH (17:28)
[2023-12-31] MEDS: Erythromycin Lactobionate IV 250 MG in NS 0.9% 100 ml BAG 100 ML IVPB SCH (18:25)
[2023-12-31] MEDS: Metoclopramide 5 MG/ML VIAL (10 mg) IV SLOW PU PRN (20:15)
[2023-12-31] MEDS: fentaNYL 100 mcg/2 ml 50 MCG/ML VIAL IV SLOW PU PRN (20:31)
[2023-12-31] MEDS: fentaNYL 100 mcg/2 ml 50 MCG/ML VIAL IV SLOW PU ONE (20:52)
[2023-12-31] MEDS: fentaNYL 100 mcg/2 ml 50 MCG/ML VIAL ONE ×3 (20:53→21:37)
[2023-12-31 21:13] LABS: ABS Lymphocytes 2.4 10^3/uL (1.0-4.8); ABS Monocytes 1.5 10^3/uL (0.0-1.1); ABS Neutrophils 15.4 10^3/uL (1.5-7.6); ABS Nucleated RBC 0.01 10^3/ul; Hematocrit 35.1 % (38-53); Hemoglobin 11.4 g/dL (13.2-16.3); Lymphocyte % 12.6 %; Mean Corpuscular Hemoglobin 26.6 pg (27-33); Mean Corpuscular Hgb Conc 32.5 g/dL (31-36); Mean Platelet Volume 9.3 fL (7.5-11.2); Platelet Count 310 10^3/uL (150-450); Red Blood Count 4.27 10^6/uL (4.06-5.63); Red Cell Distribution Width 15.3 % (12-17); White Blood Count 19.4 10^3/uL (3.6-10.2)
[2023-12-31] MEDS ORDERED: Midazolam 10 mg/10 ml VIAL 1 mg/ml 10 ml VIAL (10 mg) ONE (21:14)
[2023-12-31] MEDS ORDERED: fentaNYL 250 mcg/5 ml 50 MCG/ML 5 ml VIAL (250 MCG) ONE (21:14)
[2023-12-31] MEDS ORDERED: Rocuronium 50 mg VIAL 10 mg/ml 5 ml VIAL (50 mg) ONE (21:14)
[2023-12-31 21:15] LABS: Calcium 9.2 mg/dL (8.6-10.3); Creatinine, Serum 1.14 mg/dL (0.67-1.17); Potassium 4.1 mmol/L (3.5-5.0); eGFR CKD-EPI 79.8 (>60)
[2023-12-31] MEDS: Propofol 10 mg/ml 100 ML BTL 1,000 MG/100 ML BTL IV SCH ×2 (21:20→22:12)
[2023-12-31] MEDS: fentaNYL INFUSION 50 mcg/mL VL 2,500 MCG/50 ML VIAL IV SCH ×2 (21:32→22:06)
[2023-12-31] MEDS: Succinylcholine 200 mg VIAL 20 mg/ml 10 ml VIAL (200 mg) ONE (21:34)
[2023-12-31] MEDS: Rocuronium 50 mg VIAL 10 mg/ml 5 ml VIAL (50 mg) ONE ×2 (21:35)
[2023-12-31] MEDS: Propofol 10 mg/ml 100 ML BTL 1,000 MG/100 ML BTL ONE (21:37)
[2023-12-31] MEDS: Midazolam PREMIXBAG 1 MG/ML NS 100 ML IV SCH (21:46)
[2023-12-31] MEDS: Midazolam 5 mg/5 ml VIAL 1 mg/ml 5 ml VIAL (5 mg) IV SLOW PU ONE (21:47)
[2023-12-31] MEDS: diazePAM INJ CARPUJECT 5 MG/ML SYRINGE IV PRN (21:57)
[2023-12-31] MEDS: Midazolam 5 mg/5 ml VIAL 1 mg/ml 5 ml VIAL (5 mg) ONE (22:09)
[2023-12-31] MEDS: Midazolam PREMIXBAG 1 MG/ML NS 100 ML IV ONE (22:09)
[2023-12-31] MEDS: Pantoprazole VIAL 40 MG VIAL IV SCH (22:17)
[2023-12-31] MEDS: Chlorhexidine MOUTHWASH 0.12% 15 ML UDC TOPICAL SCH (22:17)
[2023-12-31 22:35] LABS: Resp Rate 20
[2023-12-31 22:36] LABS: PCO2 Arterial 34 mmHg (35-45); PO2 Arterial 284 mmHg (80-100)
[2024-01-01 01:30] LABS: Phosphorus 1.9 mg/dL (2.5-5.0)
[2024-01-01] MEDS: fentaNYL 100 mcg/2 ml 50 MCG/ML VIAL IV SLOW PU PRN (01:38)
[2024-01-01] MEDS: Insulin Infusion 100unit/100mL 100 UNIT/100 ML BAG IV SCH (01:43)
[2024-01-01] MEDS: Dextrose 50% Syringe 50 ml 25 GM/50 ML SYRINGE IV PUSH PRN (02:02)
[2024-01-01 04:06] LABS: Calcium 8.9 mg/dL (8.6-10.3); Creatinine, Serum 0.9 mg/dL (0.67-1.17); Potassium 3.3 mmol/L (3.5-5.0)
[2024-01-01 04:44] LABS: ABS Basophils 0.1 10^3/uL (0.0-0.1); ABS Lymphocytes 2.2 10^3/uL (1.0-4.8); ABS Monocytes 1.1 10^3/uL (0.0-1.1); ABS Nucleated RBC 0.01 10^3/ul; Hematocrit 29.6 % (38-53); Lymphocyte % 15.2 %; Mean Corpuscular Hemoglobin 27.7 pg (27-33); Mean Corpuscular Hgb Conc 33.8 g/dL (31-36); Mean Corpuscular Volume 82.1 fL (80-97); Mean Platelet Volume 8.7 fL (7.5-11.2); Nucleated Red Blood Cells % 0.1 %/100WBC (0.0-0.8); Platelet Count 198 10^3/uL (150-450); Red Cell Distribution Width 15.9 % (12-17); White Blood Count 14.3 10^3/uL (3.6-10.2)
[2024-01-01] MEDS: Potassium Chloride LIQUID 20 MEQ/15 ML LIQUID PO ONE (04:59)
[2024-01-01 05:06] LABS: Magnesium 1.9 mg/dL (1.9-2.7); Phosphorus 1.6 mg/dL (2.5-5.0)
[2024-01-01] MEDS: NS 0.9% IV ONE (05:31)
[2024-01-01] MEDS: SODIUM PHOSPHATE IV ONE (05:31)
[2024-01-01 05:53] LABS: Resp Rate 20
[2024-01-01 05:56] LABS: PCO2 Arterial 37 mmHg (35-45); PO2 Arterial 181 mmHg (80-100)
[2024-01-01 06:29] LABS: Albumin 3.8 g/dL (3.2-5.2); Albumin/Globulin Ratio 1.7 (1-3); Calcium 8.4 mg/dL (8.6-10.3); Creatinine, Serum 0.81 mg/dL (0.67-1.17); Globulin 2.3 g/dL (2-4); Potassium 2.9 mmol/L (3.5-5.0); Total Bilirubin 0.3 mg/dL (0.2-1.0); Total Protein 6.1 g/dL (6.4-8.9); eGFR CKD-EPI 109.4 (>60)
[2024-01-01] MEDS: Lactated Ringers 1000 ml BAG 1,000 ML IV ONE (06:58)
[2024-01-01] MEDS: Insulin GLARGINE 100 un/ml 10 ml VIAL SUBCUT SCH (07:13)
[2024-01-01] MEDS: D5LR 1000 ml BAG 1,000 ML IV SCH (07:13)
[2024-01-01] MEDS: Potassium Chloride LIQUID 20 MEQ/15 ML LIQUID PO SCH (07:45)
[2024-01-01] MEDS: Pancrelipase 36,000 units (NF) PO SCH (08:15)
[2024-01-01] MEDS: KCL 20 MEQ/100 ML IVPREMIX 20 MEQ/100 ML BAG IV SCH (08:26)
[2024-01-01] MEDS ORDERED: Pantoprazole VIAL 40 MG VIAL IV SCH (09:00)
[2024-01-01] MEDS: Sulfur Hexaflouride MICROSPHR 25 MG VIAL IV PRN (09:05)
[2024-01-01 09:21] LABS: Calcium 8.1 mg/dL (8.6-10.3); Creatinine, Serum 0.68 mg/dL (0.67-1.17); Potassium 3.5 mmol/L (3.5-5.0); eGFR CKD-EPI 115.4 (>60)
[2024-01-01 14:11] LABS: High Sensitivity Troponin 1 Hr 4 pg/mL (<20)
[2024-01-01 16:26] LABS: Calcium 8.6 mg/dL (8.6-10.3); Creatinine, Serum 0.68 mg/dL (0.67-1.17); Potassium 3.5 mmol/L (3.5-5.0); eGFR CKD-EPI 115.4 (>60)
[2024-01-01] MEDS: diazePAM INJ CARPUJECT 5 MG/ML SYRINGE IV PRN (17:25)
[2024-01-01] MEDS: PTO:Pancrelipase 36,000 units (NF) PO SCH (18:03)
[2024-01-01] MEDS: HYDROmorphone 1 MG/1 ML SYRINGE IV SLOW PU PRN (18:31)
[2024-01-01] MEDS: HYDROmorphone 1 MG/1 ML SYRINGE ONE (18:35)
[2024-01-02 05:15] LABS: ABS Basophils 0.1 10^3/uL (0.0-0.1); ABS Eosinophils 0.1 10^3/uL (0.0-0.5); ABS Lymphocytes 2.5 10^3/uL (1.0-4.8); ABS Monocytes 0.5 10^3/uL (0.0-1.1); ABS Neutrophils 3.2 10^3/uL (1.5-7.6); Hematocrit 27.9 % (38-53); Hemoglobin 9.4 g/dL (13.2-16.3); Lymphocyte % 39.6 %; Mean Corpuscular Hgb Conc 33.6 g/dL (31-36); Mean Corpuscular Volume 83.3 fL (80-97); Mean Platelet Volume 9.1 fL (7.5-11.2); Platelet Count 160 10^3/uL (150-450); Red Blood Count 3.35 10^6/uL (4.06-5.63); Red Cell Distribution Width 16.1 % (12-17); White Blood Count 6.3 10^3/uL (3.6-10.2)
[2024-01-02 05:48] LABS: Calcium 8.5 mg/dL (8.6-10.3); Creatinine, Serum 0.61 mg/dL (0.67-1.17); Magnesium 1.9 mg/dL (1.9-2.7); Phosphorus 2.9 mg/dL (2.5-5.0); Potassium 3.3 mmol/L (3.5-5.0); eGFR CKD-EPI 119.2 (>60)
[2024-01-02] MEDS: KCL 20 MEQ/100 ML IVPREMIX 20 MEQ/100 ML BAG IV SCH (06:12)
[2024-01-02] MEDS: [UNRECOGNIZED DRUG - OTHER] SUBCUT SCH (11:08)
[2024-01-02] MEDS: Docusate LIQ 100 MG/10 ML UDC PO SCH (11:57)
[2024-01-02] MEDS ORDERED: PHENobarbital IV 65 MG/ML 1 ml VIAL IV PRN (21:09)
[2024-01-03] MEDS: Gadoteridol (CONTRAST) 279.3 MG/ML 10 ML IV ONE (00:04)
[2024-01-03 04:06] LABS: ABS Eosinophils 0.2 10^3/uL (0.0-0.5); ABS Lymphocytes 2.6 10^3/uL (1.0-4.8); ABS Monocytes 0.7 10^3/uL (0.0-1.1); ABS Neutrophils 4.9 10^3/uL (1.5-7.6); ABS Nucleated RBC 0.01 10^3/ul; Hematocrit 31.9 % (38-53); Hemoglobin 10.8 g/dL (13.2-16.3); Lymphocyte % 30.9 %; Mean Corpuscular Hemoglobin 28.6 pg (27-33); Mean Platelet Volume 9.2 fL (7.5-11.2); Nucleated Red Blood Cells % 0.1 %/100WBC (0.0-0.8); Platelet Count 171 10^3/uL (150-450); Red Cell Distribution Width 16.2 % (12-17); White Blood Count 8.4 10^3/uL (3.6-10.2)
[2024-01-03 07:28] LABS: Magnesium 1.8 mg/dL (1.9-2.7); Phosphorus 4.2 mg/dL (2.5-5.0)
[2024-01-03] MEDS: Senna TAB 8.6 mg TAB PO SCH (08:29)
[2024-01-03 09:13] LABS: Albumin 3.3 g/dL (3.2-5.2); Albumin/Globulin Ratio 1.4 (1-3); Calcium 8.4 mg/dL (8.6-10.3); Creatinine, Serum 0.52 mg/dL (0.67-1.17); Globulin 2.3 g/dL (2-4); Potassium 3.4 mmol/L (3.5-5.0); Total Bilirubin 0.3 mg/dL (0.2-1.0); Total Protein 5.6 g/dL (6.4-8.9); eGFR CKD-EPI 125.1 (>60)
[2024-01-03] MEDS: NORMOSOL-R pH 7.4 1000 mL BAG 1,000 ML IV SCH (10:23)
[2024-01-03] MEDS: Potassium Chloride LIQUID 20 MEQ/15 ML LIQUID NG TUBE ONE (10:45)
[2024-01-03] MEDS: KCL 20 MEQ/100 ML IVPREMIX 20 MEQ/100 ML BAG IV ONE (10:45)
[2024-01-03] MEDS: Magnesium Sulfate 2 gm BAG 2 GM/50 ML BAG IVPB ONE (10:53)
[2024-01-03] MEDS: HYDROmorphone 0.5 MG/0.5 ML SYRINGE IV PRN (15:33)
[2024-01-03] MEDS: Ondansetron 4 mg VIAL 2 MG/ML 2 ml VIAL IV PRN (22:13)
[2024-01-03] MEDS: HYDROmorphone 1 MG/1 ML SYRINGE IV SLOW PU PRN (22:13)
[2024-01-03] MEDS: Ondansetron 4 mg VIAL 2 MG/ML 2 ml VIAL ONE (22:14)
[2024-01-04] MEDS: fentaNYL 100 mcg/2 ml 50 MCG/ML VIAL ONE (04:34)
[2024-01-04] MEDS: HYDROmorphone 0.5 MG/0.5 ML SYRINGE IV PRN (04:36)
[2024-01-04] MEDS: fentaNYL 100 mcg/2 ml 50 MCG/ML VIAL IV SLOW PU PRN ×3 (04:36→16:03)
[2024-01-04] MEDS: HYDROmorphone 0.5 MG/0.5 ML SYRINGE ONE (04:39)
[2024-01-04] MEDS: Haloperidol 5 mg/ml SDV IV/IM 5 MG/ML AMP IV SLOW PU ONE (04:55)
[2024-01-04] MEDS: Polyethylene Glycol 3350 17 GM PACKET PO SCH (10:59)
[2024-01-04] MEDS: Pantoprazole VIAL 40 MG VIAL IV SCH (10:59)
[2024-01-04 15:49] LABS: ABS Basophils 0.1 10^3/uL (0.0-0.1); ABS Eosinophils 0.1 10^3/uL (0.0-0.5); ABS Monocytes 0.6 10^3/uL (0.0-1.1); ABS Neutrophils 8.1 10^3/uL (1.5-7.6); Eosinophil % 1.4 %; Hematocrit 32.5 % (38-53); Lymphocyte % 18.1 %; Mean Corpuscular Hemoglobin 28.2 pg (27-33); Mean Corpuscular Hgb Conc 33.7 g/dL (31-36); Mean Corpuscular Volume 83.9 fL (80-97); Mean Platelet Volume 9.8 fL (7.5-11.2); Platelet Count 211 10^3/uL (150-450); Red Blood Count 3.88 10^6/uL (4.06-5.63); Red Cell Distribution Width 15.8 % (12-17)
[2024-01-04 16:34] LABS: Albumin 4.1 g/dL (3.2-5.2); Albumin/Globulin Ratio 1.5 (1-3); Calcium 9.1 mg/dL (8.6-10.3); Creatinine, Serum 0.69 mg/dL (0.67-1.17); Globulin 2.7 g/dL (2-4); Magnesium 1.9 mg/dL (1.9-2.7); Potassium 4.2 mmol/L (3.5-5.0); Total Bilirubin 0.5 mg/dL (0.2-1.0); Total Protein 6.8 g/dL (6.4-8.9); eGFR CKD-EPI 114.9 (>60)
[2024-01-05 03:44] LABS: ABS Basophils 0.1 10^3/uL (0.0-0.1); ABS Eosinophils 0.2 10^3/uL (0.0-0.5); ABS Lymphocytes 2.1 10^3/uL (1.0-4.8); ABS Monocytes 0.9 10^3/uL (0.0-1.1); ABS Neutrophils 7.7 10^3/uL (1.5-7.6); ABS Nucleated RBC 0.01 10^3/ul; Eosinophil % 1.5 %; Hemoglobin 10.6 g/dL (13.2-16.3); Lymphocyte % 19.3 %; Mean Corpuscular Hemoglobin 28.1 pg (27-33); Mean Corpuscular Hgb Conc 33.2 g/dL (31-36); Mean Corpuscular Volume 84.8 fL (80-97); Mean Platelet Volume 9.8 fL (7.5-11.2); Nucleated Red Blood Cells % 0.1 %/100WBC (0.0-0.8); Platelet Count 232 10^3/uL (150-450); Red Blood Count 3.77 10^6/uL (4.06-5.63); White Blood Count 10.9 10^3/uL (3.6-10.2)
[2024-01-05 04:11] LABS: Albumin/Globulin Ratio 1.4 (1-3); Calcium 8.7 mg/dL (8.6-10.3); Creatinine, Serum 0.93 mg/dL (0.67-1.17); Globulin 2.9 g/dL (2-4); Magnesium 1.8 mg/dL (1.9-2.7); Potassium 4.4 mmol/L (3.5-5.0); Total Bilirubin 0.3 mg/dL (0.2-1.0); Total Protein 6.9 g/dL (6.4-8.9); eGFR CKD-EPI 101.9 (>60)
[2024-01-05] MEDS: Magnesium Sulfate 2 gm BAG 2 GM/50 ML BAG IVPB ONE (04:33)
[2024-01-05] MEDS: Lactated Ringers 1000 ml BAG 1,000 ML IV ONE (04:34)
[2024-01-05] MEDS: Magnesium Sulfate 2 gm BAG 2 GM/50 ML BAG ONE (05:00)
[2024-01-05] MEDS: cloNIDine 0.3 MG PATCH 0.3 MG/24 HR 7 DAY PATCH TRANSDERM SCH (15:49)
[2024-01-06 07:57] LABS: Albumin/Globulin Ratio 1.4 (1-3); Creatinine, Serum 0.59 mg/dL (0.67-1.17); Globulin 2.8 g/dL (2-4); Magnesium 1.8 mg/dL (1.9-2.7); Potassium 4.5 mmol/L (3.5-5.0); Total Bilirubin 0.4 mg/dL (0.2-1.0); Total Protein 6.8 g/dL (6.4-8.9); eGFR CKD-EPI 120.4 (>60)
[2024-01-06 07:58] LABS: ABS Basophils 0.1 10^3/uL (0.0-0.1); ABS Eosinophils 0.4 10^3/uL (0.0-0.5); ABS Monocytes 0.8 10^3/uL (0.0-1.1); ABS Neutrophils 6.6 10^3/uL (1.5-7.6); Eosinophil % 4.1 %; Hematocrit 31.8 % (38-53); Hemoglobin 10.5 g/dL (13.2-16.3); Mean Corpuscular Hemoglobin 28.1 pg (27-33); Mean Corpuscular Hgb Conc 32.9 g/dL (31-36); Mean Corpuscular Volume 85.4 fL (80-97); Mean Platelet Volume 9.8 fL (7.5-11.2); Platelet Count 237 10^3/uL (150-450); Red Blood Count 3.73 10^6/uL (4.06-5.63); Red Cell Distribution Width 15.9 % (12-17); White Blood Count 9.9 10^3/uL (3.6-10.2)
[2024-01-06] MEDS: Insulin GLARGINE 100 un/ml 10 ml VIAL SUBCUT SCH (09:25)
[2024-01-06] MEDS: Lactated Ringers 1000 ml BAG 1,000 ML IV SCH (12:17)
[2024-01-06] MEDS: PAIN RELIEVING RUB (MENTHOL/SALICYLATE) 1 APPLIC TUBE TOPICAL PRN (13:02)
[2024-01-06 14:11] LABS: Ferritin 63.7 ng/mL (24-336)
[2024-01-06 14:14] LABS: Folate 9.32 ng/mL (5.90-24.80)
[2024-01-07] MEDS: Benzocaine/Menthol LOZ PO PRN (05:26)
[2024-01-07 05:31] VITALS: BP 127/99
[2024-01-07] MEDS: Influenza Vaccine *TRI* 2024-25* 0.5 ML SYRINGE IM ONE (10:07)
[2024-01-07] MEDS: Insulin GLARGINE 100 un/ml 10 ml VIAL SUBCUT ONE (10:10)
== END 2024-01-07 11:10 | disposition home or self-care (01) | DRG 420 ==
LOC: ED 08:26 → EDHOLD 12:33 → SUATTDRO 12:33 → ICU 13:03 → MED 01-05 09:47
PROVIDERS: ADMIT Internal Medicine Critical Care Medicine; ATTEND Internal Medicine